=== PATIENT | female | born 1950 | race Caucasian/White ===

== ENCOUNTER 2019-05-12 00:25 | Day surgery (SDC) | payer MEDICARE, SELFPAY ==
[2019-05-08 09:41] VITALS: BMI 31.8
[2019-05-12 13:08] VITALS: BP 132/83; PULSE 82; RESP 20; TEMP 37.2; O2SAT 94; BMI 32.4
[2019-05-12] MEDS: LACTATED RINGERS 1,000 ML 150 ML IV CONT (13:33)
--- NOTE | 2019-05-12 13:33 | WPDANESEPPF ---
Anes - Initial Pre Proc Eval Procedure: Operation Date: 05/12/19 13:30 Proposed Procedures p Esophagogastroduodenoscopy & Screening Colonoscopy - Edouard Chávez MD Date/Time: 05/12/19 13:33 Surgeon: Edouard Chávez MD Pre Op Diagnosis: GERD, nausea, vomiting, Colon CA screenin Patient Data Age: 69 Gender: F Height: 5 ft 4 in Weight: 85.8 kg Last Vital Signs Temp 37.2 C 05/12/19 13:08 Pulse 82 05/12/19 13:08 Resp 20 05/12/19 13:08 BP 132/83 05/12/19 13:08 Pulse Ox 94 05/12/19 13:08 Allergies Allergy/AdvReac Type Severity Reaction Status Date / Time oxycodone Allergy Severe ITCH Verified 05/12/19 13:07 strawberry Allergy Severe THROAT Verified 05/12/19 13:07 SWELLING Home Medications Medication Instructions Recorded Confirmed Type escitalopram oxalate 10 mg tablet 10 mg PO DAILY #90 tablet 02/18/19 05/08/19 Rx acetaminophen 650 mg 650 mg PO PRN PRN 04/13/19 05/08/19 History tablet,extended release aspirin 81 mg tablet,delayed 81 mg PO DAILY 04/13/19 05/08/19 History release atorvastatin 80 mg tablet 80 mg PO DAILY 04/13/19 05/08/19 History docusate sodium 250 mg capsule 250 mg PO DAILY 04/13/19 05/08/19 History esomeprazole magnesium 40 mg 40 mg PO DAILY #30 cap 04/13/19 05/08/19 Rx capsule,delayed release losartan 100 mg tablet 100 mg PO DAILY 04/13/19 05/12/19 History peg 3350-electrolytes 236 240 ml PO Q10M #4000 ml 04/13/19 Rx gram-22.74 gram-6.74 gram-5.86 gram solution sucralfate 1 gram tablet 1 g PO PRN PRN 04/13/19 05/08/19 History tramadol 50 mg tablet 50 mg PO Q6H PRN 04/13/19 05/08/19 History Patient hx anesthesia problems: none Family hx anesthesia problems: none PMFSH Past Medical History Medical History Adenomatous colon polyp Colon, diverticulosis Nausea and vomiting in adult Surgical History Surgical History History of appendectomy Family History Family History Father Family history of malignant neoplasm Family history of diabetes mellitus in first degree relative Diabetes mellitus, Onset Age: 72 Family history of cardiovascular disease, Onset Age: 72 Family history of malignant neoplasm of esophagus, Onset Age: 72 Mother Cerebrovascular accident, Onset Age: 72 Depression, Onset Age: 72 Hypertension, Onset Age: 72 Grandparent Diabetes mellitus, Onset Age: 65 Cerebrovascular accident, Onset Age: 92 Family history unknown, Onset Age: 65 Sibling Family history of alcoholism, Onset Age: 35 Social History Social History Smoking status: Never smoker Second hand tobacco smoke exposure: No Alcohol intake: never Anes - Eval Final PreProcedure Day of Procedure 05/12/19 13:33 Patient weight: obese Heart: regular rate and rhythm Lungs: clear to auscultation Airway: Mallampati scale class II Neurological: alert and oriented Last oral intake: >/= 8 hours ASA classification: III Emergent: no Anesthetic plan: proceed Anesthesia type and monitoring: general GIVS and standard monitoring Informed Consent: The patient's anesthetic plan and its attendant risks and benefits were discussed with the patient/family/POA. Questions were solicited and answers provided to the satisfaction of the patient/family/POA.
--- NOTE | 2019-05-12 14:31 | WPDHPUPDATE1 ---
History and Physical Update Update Date/Time: 05/12/19 14:31 History and Physical has been reviewed, including an updated exam of the patient. There are NO changes in the patient's condition. Risks, benefits, and alternatives have been discussed and questions answered. Patient agrees to proceed with procedure.
[2019-05-12 15:03] VITALS: BP 75/53; PULSE 82; RESP 15; O2SAT 98
[2019-05-12 15:13] VITALS: BP 97/54; PULSE 73; RESP 23; O2SAT 97
[2019-05-12 15:23] VITALS: BP 128/67; PULSE 75; RESP 23; O2SAT 97
== END 2019-05-12 15:32 | disposition home or self-care (01) ==
PROVIDERS: PCP Family Medicine; Visit Provider Internal Medicine Gastroenterology
PROC: 0DJ08ZZ Inspection of Upper Intestinal Tract, Via Natural or Artificial Opening Endoscopic (ICD-10-PCS; CPT 43235; principal; 2019-05-12 13:30)
DX: Z12.11 Encounter for screening for malignant neoplasm of colon (principal); D12.2 Benign neoplasm of ascending colon; D12.5 Benign neoplasm of sigmoid colon; D12.8 Benign neoplasm of rectum; K63.5 Polyp of colon; K57.30 Diverticulosis of large intestine without perforation or abscess without bleeding; K21.9 Gastro-esophageal reflux disease without esophagitis; K31.7 Polyp of stomach and duodenum; K44.9 Diaphragmatic hernia without obstruction or gangrene; K29.50 Unspecified chronic gastritis without bleeding; E66.9 Obesity, unspecified; Z68.32 Body mass index [BMI] 32.0-32.9, adult
CPT/HCPCS: 45385; 45381; 43239; 88305; J2704; J7120

== ENCOUNTER 2019-12-09 10:41 | Outpatient (CLI) | payer MEDICARE, SELFPAY ==
--- NOTE | ~2019-12-09 | XR_ITS ---
EXAMINATION: XR shoulder RT min 2V DATE: 12/09/2019 11:12 INDICATION: Right shoulder pain. TECHNIQUE: 4 views of right shoulder were obtained. COMPARISON: None. FINDINGS: Bone alignment is normal. No fracture. There is mild osteoarthritis of glenohumeral joint a nd severe osteoarthritis of acromioclavicular joint. Right first rib is short. IMPRESSION: 1. Polyarticular osteoarthritis. Reviewed, dictated and finalized at location A.
== END 2019-12-09 10:42 | disposition home or self-care (01) ==
PROVIDERS: PCP Internal Medicine; Visit Provider Clinical Nurse Specialist
DX: M19.011 Primary osteoarthritis, right shoulder (principal)
CPT/HCPCS: 73030

== ENCOUNTER → 2020-01-18 17:59 | Outpatient (CLI) | payer MEDICARE, SELFPAY ==
--- NOTE | ~2020-01-18 | MM_ITS ---
EXAMINATION: MM screening reji BI w opal HISTORY: Screening TECHNIQUE: Craniocaudal and mediolateral oblique 3-D tomosynthesis images were obtained and synthetic 2-D images were generated. CAD analysis was submitted and interpreted. COMPARISON: Comparison to multiple prior studies sequentially, with oldest reviewed study dated 05/2017. BREAST PARENCHYMAL COMPOSITION: There are scattered areas of fibroglandular density. FINDINGS: There is no evidence of suspicious mass, calcification, or architectural distortion to sugg est malignancy in either breast. There has been no suspicious interval change. IMPRESSION: 1. No mammographic evidence of malignancy. 2. Recommend routine screening mammography in one year. BI-RADS Category 1: Negative Reviewed, dictated and finalized at location A. 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
== END ==
PROVIDERS: PCP Internal Medicine; Visit Provider Internal Medicine
DX: Z12.31 Encounter for screening mammogram for malignant neoplasm of breast (principal)
CPT/HCPCS: 77063; 77067

== ENCOUNTER 2020-07-20 13:52 | Outpatient (CLI) | payer MEDICARE, SELFPAY ==
--- NOTE | ~2020-07-20 | US_ITS ---
EXAMINATION: US arterial ankle brachial ind DATE: 07/20/2020 14:16 INDICATION: Peripheral vascular disease. TECHNIQUE: Segmental pressures and plethysmographic and Doppler waveforms of the brachial and lower e xtremity arteries were obtained. COMPARISON: None. FINDINGS: Right and left brachial artery pressures of 113 mm Hg and 126 mm Hg, respectively, are concordant (no rmal difference <= 30 mmHg). The right ankle-brachial index (TREVOR) is 1.25 (normal >= 0.9-1.0). The right great toe-brachial index (TBI) is 0.90 (normal >= 0.65). Arterial Doppler waveforms are biphasic with brisk systolic upstrokes at both the right posterior tibial and dorsalis pedis arteries. The left TREVOR is 1.18. The left TBI is 0.63. Arterial Doppler waveforms are biphasic at the left poste rior tibial artery and triphasic at the left dorsalis pedis artery, both with brisk systolic upstroke s. IMPRESSION: 1. Minimal arterial occlusive disease to the left lower limb with minimally decreased left TBI but no rmal TREVOR. 2. No significant arterial occlusive disease to the right lower limb with normal right TREVOR and TBI. Reviewed, dictated and finalized at location A. IMPRESSION: 1. Minimal arterial occlusive disease to the left lower limb with minimally dec reased left TBI but normal TREVOR. 2. No significant arterial occlusive disease to the right lower limb with bre l right TREVOR and TBI.
== END 2020-07-20 13:53 | disposition home or self-care (01) ==
PROVIDERS: PCP Internal Medicine; Visit Provider Clinical Nurse Specialist
DX: I73.9 Peripheral vascular disease, unspecified (principal)
CPT/HCPCS: 93922

== ENCOUNTER 2021-03-21 07:55 | Outpatient (CLI) | payer MEDICARE, SELFPAY ==
--- NOTE | ~2021-03-21 | DEXA_ITS ---
Bone Density Report Name: ANNAMARIA CH Age: 71 Sex: Female Ethnicity: White Date of : 1950 Indication: postmenopausal; hysterectomy; Referring Provider: Roxi Jeter Study: Bone densitometry was performed. Exam Date: March 21, 2021 Accession number: [id number] Bone Density: Region BMD T-score Z-score Classification AP Spine (L1, L3, L4) 1.158 1.0 3.1 Normal Femoral Neck (Left) 0.844 0.0 1.7 Normal Total Hip (Left) 1.037 0.8 2.3 Normal Total Hip Bilateral Avg 1.051 0.9 2.4 Normal Femoral Neck (Right) 0.838 -0.1 1.7 Normal Total Hip (Right) 1.064 1.0 2.5 Normal World Health Organization criteria for BMD impression classify patients as: Normal (T-score at or above -1.0), Osteopenia (T-score between -1.0 and -2.5), or Osteoporosis (T-score at or below -2.5). 10-year Fracture Risk: FRAX not reported because: All T-scores for Spine Total, Hip Total, Femoral Neck at or above -1.0 Previous Exams: Region Exam Age BMD T-score BMD Change BMD Change Date g/cm2 vs Baseline vs Previous AP Spine(L1, L3, L4) 03/21/2021 71 1.158 1.0 0.042(3.8%)* 0.042(3.8%)* 12/18/2018 68 1.116 0.6 Total Hip(Left) 03/21/2021 71 1.037 0.8 -0.066(-6.0%)* -0.066(-6.0%)* 12/18/2018 68 1.104 1.3 Total Hip(Right) 03/21/2021 71 1.064 1.0 -0.052(-4.7%)* -0.052(-4.7%)* 12/18/2018 68 1.116 1.4 *Denotes significance at 95% confidence level, LSC for AP Spine = 0.022 g/cm2, LSC for Total Hip = 0.027 g/cm2 Clinical Information Provided by Patient: Has used the following medications: Vitamin D Has the following medical conditions: Hysterectomy Patient maximum height was 64 Menopause Age: 37 No regular weight bearing exercise Does not regularly consume dairy products Drinks caffeinated beverages Onset of menses at age 14 Number of children 2 Impression: The patient has normal bone mass. The BMD for the Total Hip(Left) decreased, changing by -6.0% since the last DXA exam. The BMD for the Total Hip(Right) decreased, changing by -4.7% since the last DXA exam. Discussion: BONE DENSITY IS ABOVE THE MINIMUM DESIRABLE LEVEL AT ALL SKELETAL SITES TESTED. This patient?s bone mineral density is above the minimum desirable level (T-score -1.0 or better) at all sites measured. The patient should follow a healthful lifestyle (good nutrition with adequate calcium and vitamin D, and appropriate weight-bearing exercise). Follow-Up: Consider repeating this study
--- NOTE | ~2021-03-21 | MM_ITS ---
EXAMINATION: MM screening [facility] BI w opal HISTORY: Screening mammogram TECHNIQUE: Craniocaudal and mediolateral oblique 3-D tomosynthesis images were obtained and synthetic 2-D images were generated. CAD analysis was submitted and interpreted. COMPARISON: 01/18/2020, 12/18/2018, 09/17/2017 BREAST PARENCHYMAL COMPOSITION: The breasts are heterogeneously dense, which may obscure small masses . FINDINGS: There is no evidence of suspicious mass, calcification, or architectural distortion to sugg est malignancy in either breast. There has been no suspicious interval change. IMPRESSION: 1. No mammographic evidence of malignancy. 2. Recommend routine screening mammography in one year. BI-RADS Category 1: Negative Reviewed, dictated and finalized at location A. 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
== END 2021-03-21 07:56 | disposition home or self-care (01) ==
LOC: ANHIMG 08:00
PROVIDERS: PCP Internal Medicine; Visit Provider Clinical Nurse Specialist
DX: Z12.31 Encounter for screening mammogram for malignant neoplasm of breast (principal); Z13.820 Encounter for screening for osteoporosis; Z78.0 Asymptomatic menopausal state
CPT/HCPCS: 77063; 77067; 77080

== ENCOUNTER → 2021-06-15 14:25 | Outpatient (CLI) | payer MEDICARE, SELFPAY ==
--- NOTE | ~2021-06-15 | XR_ITS ---
EXAMINATION: XR hip RT min 2V DATE: 06/15/2021 14:48 INDICATION: Right hip pain. TECHNIQUE: 2 views of right hip were obtained. COMPARISON: None. FINDINGS: Bone alignment is normal. No fracture. There is mild right hip osteoarthritis. IMPRESSION: 1. Mild right hip osteoarthritis. Reviewed, dictated and finalized at location A.
--- NOTE | ~2021-06-15 | XR_ITS ---
XR lumbar spine 2-3V DATE: 06/15/2021 14:48 INDICATION: Back pain TECHNIQUE: AP, lateral, coned lateral lumbosacral views COMPARISON: None FINDINGS: There is diffuse osteopenia. Mild levoscoliosis of the lumbar spine. Prominent anterior bridging osteophyte at T10-11. There are 6 functional lumbar vertebrae, apparently due to lumbarized S1.. There is moderate to moderately severe degenerative disc disease throughout the lumbar and lumbosacra l spine. There is associated mild retrolisthesis at L3-4 and L4-5. There is degenerative change of the lower lumbar apophyseal joints with associated grade 1 anterolist hesis at L5 6 Sacroiliac joints appear normal. Surgical clips, right upper quadrant, likely due to cholecystectomy. IMPRESSION: Mild levoscoliosis Osteopenia Moderate to moderately severe degenerative disc disease, associated mild retrolisthesis at L3-4 and L 4-5 Degenerative changes apophyseal joints with associated grade 1 anterolisthesis at L5 L6 Reviewed, dictated and finalized at location A. IMPRESSION: Mild levoscoliosis Osteopenia Moderate to moderately severe degenerative disc disease, associated mild retrol isthesis at L3-4 and L4-5 Degenerative changes apophyseal joints with associated grade 1 anterolisthesis at L5 L6
== END ==
PROVIDERS: PCP Internal Medicine; Visit Provider Clinical Nurse Specialist
DX: M47.816 Spondylosis without myelopathy or radiculopathy, lumbar region (principal); M16.11 Unilateral primary osteoarthritis, right hip
CPT/HCPCS: 72100; 73502

== ENCOUNTER 2022-02-21 15:11 | Outpatient (CLI) | payer MEDICARE, SELFPAY ==
[2022-02-21 15:26] LABS: Basophils Absolute Auto 0.1 K/mm3 (0.0-0.1); Basophils Percent Auto 0.5 % (0.2-1.2); Eosinophils Absolute Auto 0.2 K/mm3 (0-0.3); Eosinophils Percent Auto 1.6 % (0-4.4); Hematocrit 39.8 % (37.0-47.0); Hemoglobin 13.3 g/dL (12.0-15.0); Immature Granulocyte Absolute 0.04 K/mm3 (0.00-0.031); Immature Granulocyte Percent A 0.4 % (0-0.5); Lymphocytes Percent Auto 20.3 % (18.3-44.2); Mean Corpuscular HGB Conc 33.4 g/dl (32-36); Mean Corpuscular Hemoglobin 29.9 pg (26-34); Mean Corpuscular Volume 89.4 fl (80-100); Mean Platelet Volume 9.4 fl (7.4-10.4); Monocytes Absolute Auto 0.5 K/mm3 (0.1-0.6); Monocytes Percent Auto 5.4 % (2.6-8.5); Neutrophils Absolute Auto 7.1 K/mm3 (1.3-6.7); Neutrophils Percent Auto 71.8 % (45.5-73.1); Platelet Count Result 226 k/mm3 (150-375); Red Blood Count 4.45 M/mm3 (4.2-5.4); Red Cell Distribution Width 14.1 % (11.5-14.5); White Blood Count 9.8 K/mm3 (4.5-10.0)
[2022-02-21 15:57] LABS: Iron 72 ug/dL (37-170)
[2022-02-21 15:59] LABS: Alanine Aminotransferase 48 U/L (6-35); Albumin Level 4.5 g/dL (3.5-5.1); Alkaline Phosphatase 90 U/L (38-126); Anion Gap 8 mmol/L (8-16); Aspartate Amino Transferase 65 U/L (14-36); Bilirubin,Total 0.8 mg/dL (0.2-1.3); Blood Urea Nitrogen 10 mg/dL (7-17); Calcium 9.1 mg/dL (8.4-10.2); Carbon Dioxide 30 mmol/L (22-30); Chloride 96 mmol/L (98-107); Estimated Glomerular Filt Rate > 60; Glucose 92 mg/dL (65-110); Sodium 134 mmol/L (137-145)
[2022-02-21 16:10] LABS: Percent Iron Saturation 18 % (20-50)
== END 2022-02-21 15:12 | disposition home or self-care (01) ==
LOC: ANHLAB 15:12
PROVIDERS: PCP Internal Medicine; Visit Provider Internal Medicine Hematology & Oncology
DX: D64.9 Anemia, unspecified (principal)
CPT/HCPCS: 36415; 80053; 82607; 82728; 83540; 83550; 85025

== ENCOUNTER 2022-05-10 01:12 | Day surgery (SDC) | payer MEDICARE, SELFPAY ==
[2022-04-26 13:23] VITALS: BMI 27.6
--- NOTE | 2022-05-09 14:11 | PM.HPGS ---
History of Present Illness History of Present Illness Consent: Risks, benefits, and alternatives have been discussed and questions answered. Patient agrees to proceed with procedure. Chief complaint: HX OF COLON POLYPS, DYSPHAGIA Narrative: Peng Le is a 72 year old female Who had been having increasing dysphagia.? A couple times a week she would need to stop eating because food, particularly chicken would seem to get caught just below her throat.? She would wait for a while for it to pass.? She was not able to regurgitate it back up.? She saw her primary care provider and was switched from Protonix to esomeprazole, which did seem to help. Her father had esophageal cancer. She has history of colon polyps Review of Systems Review of Systems: All systems reviewed & are unremarkable except as noted in HPI and below PMFSH Past Medical History Medical History Actinic keratosis Adenomatous colon polyp Anxiety Arthritis Cholecystectomy planned 2004 Colon, diverticulosis Cyst of finger 09/19/2016 Essential (primary) hypertension Gastroesophageal reflux disease Hyperlipidemia SEE (nonalcoholic steatohepatitis) 10 years ago, secondary to medications at the time, resolved Nausea and vomiting in adult Rib pain on right side Removed 1988 Skin cancer Surgical History Surgical History H/O foot surgery X 4 Right foot [id number] Left: 01/2014; bunionectomy/osteotomy 2nd toe Bunionectomy and Hardware removed: 05/23/2015 Left foot tumor removed/nerve relocation: 12/05/2018 H/O removal of cyst Right side 1981 H/O vaginal hysterectomy 1987 History of appendectomy 02/2003 History of cataract surgery Right: 02/01/2001 Laser Capsulotomy. Left: 01/13/2015 History of liver biopsy 07/14/2007 History of nasal surgery Biopsy right side of nose- Squamous cell carcinoma. Cyst right side of nose Family History Family History Father Family history of malignant neoplasm Family history of diabetes mellitus in first degree relative Diabetes mellitus, Onset Age: 72 Family history of cardiovascular disease, Onset Age: 72 Family history of malignant neoplasm of esophagus, Onset Age: 72 Pacemaker CHF (congestive heart failure) COPD (chronic obstructive pulmonary disease) Hyperlipidemia Hypertriglyceridemia Barretts esophagus Mother Cerebrovascular accident, Onset Age: 72 Depression, Onset Age: 72 Hypertension, Onset Age: 72 Pacemaker Cardiac valve prolapse Grandparent Diabetes mellitus, Onset Age: 65 Cerebrovascular accident, Onset Age: 92 Family history unknown, Onset Age: 65 Sibling Family history of alcoholism, Onset Age: 35 Motor vehicle accident Social History Social History Smoking status: Never smoker Second hand tobacco smoke exposure: No Alcohol intake: never Substance use: never Living arrangements: alone Meds Home Medications and Allergies Home Medications Medication Instructions Recorded Confirmed Type acetaminophen 650 mg 650 mg PO PRN PRN Pain 04/13/19 05/10/22 History tablet,extended release (Tylenol 8 Hour) aspirin 81 mg tablet,delayed 81 mg PO DAILY 04/13/19 05/10/22 History release (Adult Aspirin Regimen) docusate sodium 250 mg capsule 250 mg PO DAILY 04/13/19 05/10/22 History cholecalciferol (vitamin D3) 50 2,000 unit PO DAILY 10/05/20 05/10/22 History mcg (2,000 unit) capsule atorvastatin 80 mg tablet See Rx Instructions .Route 12/13/21 05/10/22 Rx .COMPLEX #90 tabs escitalopram oxalate 10 mg tablet See Rx Instructions .Route 12/13/21 05/10/22 Rx .COMPLEX #90 tabs esomeprazole magnesium 40 mg 40 mg PO DAILY #90 caps 12/13/21 05/10/22 Rx capsule,delayed release (Nexium)
[2022-05-10 08:22] VITALS: BP 115/74; PULSE 83; RESP 18; TEMP 36.4; O2SAT 100; BMI 27.3
--- NOTE | 2022-05-10 08:32 | WPDANESEPPF ---
Anes - Initial Pre Proc Eval Procedure: Operation Date: 05/10/22 09:45 Proposed Procedures p Esophagogastroduodenoscopy & Screening Colonoscopy - Jax Metz MD Date/Time: 05/10/22 08:32 Surgeon: Jax Metz MD Pre Op Diagnosis: HX OF COLON POLYPS, DYSPHAGIA Patient Data Age: 72 Gender: F Height: 1.63 m Weight: 72.4 kg Last Vital Signs Temp 36.4 C 05/10/22 08:22 Pulse 83 05/10/22 08:22 Resp 18 05/10/22 08:22 BP 115/74 05/10/22 08:22 Pulse Ox 100 05/10/22 08:22 O2 Del Method Room Air 05/10/22 08:22 Allergies Allergy/AdvReac Type Severity Reaction Status Date / Time oxycodone Allergy Severe ITCH Verified 05/10/22 08:20 strawberry Allergy Severe THROAT Verified 05/10/22 08:20 SWELLING acetaminophen [From Percocet] Allergy Itching Verified 05/10/22 08:20 Home Medications Medication Instructions Recorded Confirmed Type acetaminophen 650 mg 650 mg PO PRN PRN Pain 04/13/19 05/10/22 History tablet,extended release (Tylenol 8 Hour) aspirin 81 mg tablet,delayed 81 mg PO DAILY 04/13/19 05/10/22 History release (Adult Aspirin Regimen) docusate sodium 250 mg capsule 250 mg PO DAILY 04/13/19 05/10/22 History cholecalciferol (vitamin D3) 50 2,000 unit PO DAILY 10/05/20 05/10/22 History mcg (2,000 unit) capsule atorvastatin 80 mg tablet See Rx Instructions .Route 12/13/21 05/10/22 Rx .COMPLEX #90 tabs escitalopram oxalate 10 mg tablet See Rx Instructions .Route 12/13/21 05/10/22 Rx .COMPLEX #90 tabs esomeprazole magnesium 40 mg 40 mg PO DAILY #90 caps 12/13/21 05/10/22 Rx capsule,delayed release (Nexium) hydrocodone 7.5 mg-acetaminophen 1 tablet PO Q8H PRN pain #30 tabs 12/13/21 05/10/22 Rx 325 mg tablet losartan 50 mg tablet 50 mg PO DAILY #90 tabs 12/13/21 05/10/22 Rx sucralfate 1 gram tablet 1 g PO PRN PRN Acid Reflux #90 tabs 12/13/21 05/10/22 Rx Patient hx anesthesia problems: none Family hx anesthesia problems: none Results Review: All pre-operative results and documents have been reviewed as part of the pre-operative evaluation. [facility] Past Medical History Medical History (Updated 05/10/22 @ 08:36 by Sloan Corrales, ) Actinic keratosis Adenomatous colon polyp Anxiety Arthritis Cholecystectomy planned 2004 Colon, diverticulosis Cyst of finger 09/19/2016 Essential (primary) hypertension Gastroesophageal reflux disease Hyperlipidemia SEE (nonalcoholic steatohepatitis) 10 years ago, secondary to medications at the time, resolved Nausea and vomiting in adult Rib pain on right side Removed 1988 Skin cancer Surgical History Surgical History H/O foot surgery X 4 Right foot [id number] Left: 01/2014; bunionectomy/osteotomy 2nd toe Bunionectomy and Hardware removed: 05/23/2015 Left foot tumor removed/nerve relocation: 12/05/2018 H/O removal of cyst Right side 1981 H/O vaginal hysterectomy 1987 History of appendectomy 02/2003 History of cataract surgery Right: 02/01/2001 Laser Capsulotomy. Left: 01/13/2015 History of liver biopsy 07/14/2007 History of nasal surgery Biopsy right side of nose- Squamous cell carcinoma. Cyst right side of nose Family History Family History Father Family history of malignant neoplasm Family history of diabetes mellitus in first degree relative Diabetes mellitus, Onset Age: 72 Family history of cardiovascular disease, Onset Age: 72 Family history of malignant neoplasm of esophagus, Onset Age: 72 Pacemaker CHF (congestive heart failure) COPD (chronic obstructive pulmonary disease) Hyperlipidemia Hypertriglyceridemia Barretts esophagus Mother Cerebrovascular accident, Onset Age: 72 Depression, Onset Age: 72 Hypertension, Onset Age: 72 Pacemaker Cardiac valve prolapse Grandparent Diabetes mellitus, Onset Age
[2022-05-10] MEDS: LACTATED RINGERS 1,000 ML 150 ML IV CONT (08:33)
--- NOTE | 2022-05-10 09:26 | SUR.OPER ---
Addendum entered by Bibi Hernandez RN 05/10/22 09:33: Colon start 935 Original Note: EGD start 920 end 929, Colon start
[2022-05-10 09:49] VITALS: BP 74/45; PULSE 68; RESP 26; O2SAT 97
[2022-05-10 09:59] VITALS: BP 77/47; PULSE 73; RESP 21; O2SAT 96
[2022-05-10 10:09] VITALS: BP 92/61; PULSE 67; RESP 14; O2SAT 98
== END 2022-05-10 10:19 | disposition home or self-care (01) ==
PROVIDERS: PCP Internal Medicine; Visit Provider Internal Medicine Gastroenterology
PROC: 0DJ08ZZ Inspection of Upper Intestinal Tract, Via Natural or Artificial Opening Endoscopic (ICD-10-PCS; CPT 43235; principal; 2022-05-10 09:45)
DX: Z12.11 Encounter for screening for malignant neoplasm of colon (principal); K57.30 Diverticulosis of large intestine without perforation or abscess without bleeding; Z86.010 Personal history of colon polyps; K22.2 Esophageal obstruction; K44.9 Diaphragmatic hernia without obstruction or gangrene; K31.7 Polyp of stomach and duodenum; I10 Essential (primary) hypertension; E78.5 Hyperlipidemia, unspecified; F41.9 Anxiety disorder, unspecified; Z79.82 Long term (current) use of aspirin
CPT/HCPCS: 43249; G0105; C1726; J2704; J7120

== ENCOUNTER 2022-05-14 14:39 | Outpatient (CLI) | payer MEDICARE, SELFPAY ==
--- NOTE | ~2022-05-14 | MM_ITS ---
EXAMINATION: MM screening reji BI w opal HISTORY: Screening mammogram TECHNIQUE: Craniocaudal and mediolateral oblique 3-D tomosynthesis images were obtained and synthetic 2-D images were generated. CAD analysis was submitted and interpreted. COMPARISON: 03/2021, 01/18/2020, 01/04/2019 bilateral screening mammogram examinations BREAST PARENCHYMAL COMPOSITION: The breasts are heterogeneously dense, which may obscure small masses . FINDINGS: There is no evidence of suspicious mass, calcification, or architectural distortion to sugg est malignancy in either breast. There has been no suspicious interval change. IMPRESSION: 1. No mammographic evidence of malignancy. 2. Recommend routine screening mammography in one year. BI-RADS Category 1: Negative Reviewed, dictated and finalized at location A. 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
== END 2022-05-14 14:40 | disposition home or self-care (01) ==
LOC: ANHIMG 14:42
PROVIDERS: PCP Internal Medicine; Visit Provider Clinical Nurse Specialist
DX: Z12.31 Encounter for screening mammogram for malignant neoplasm of breast (principal)
CPT/HCPCS: 77063; 77067

== ENCOUNTER 2023-01-10 01:31 | Day surgery (SDC) | payer MEDICARE, SELFPAY ==
[2023-01-02 10:53] VITALS: BMI 27.8
[2023-01-10 12:03] VITALS: BP 140/80; PULSE 80; RESP 18; TEMP 36.5; O2SAT 97; BMI 28.1
[2023-01-10] MEDS: LACTATED RINGERS 1,000 ML 150 ML IV CONT (12:06)
--- NOTE | 2023-01-10 12:26 | PM.HPGS ---
History of Present Illness History of Present Illness Consent: Risks, benefits, and alternatives have been discussed and questions answered. Patient agrees to proceed with procedure. Chief complaint: dysphagia Narrative: Peng Le is a 72 year old female Who is here today because of difficulty with swallowing.? She has a history of having esophageal stricture.? She has had dysphagia for few years.? I had performed an EGD on her about 6 months ago and she did have a stricture which was dilated with a balloon up to 20 mm.? This seemed to help her for short time but now she is back to where she was where least once or twice a week she will have food get caught up in the upper esophagus when she is eating. [facility] Past Medical History Medical History Abnormal ankle brachial index (TREVOR) Actinic keratosis Adenomatous colon polyp Anxiety Arthritis Cholecystectomy planned 2004 Colon, diverticulosis Cyst of finger 09/19/2016 Essential (primary) hypertension Gastroesophageal reflux disease Hyperlipidemia SEE (nonalcoholic steatohepatitis) 10 years ago, secondary to medications at the time, resolved Nausea and vomiting in adult Rib pain on right side Removed 1988 Screening for breast cancer Screening for osteoporosis Skin cancer Surgical History Surgical History H/O foot surgery X 4 Right foot [id number] Left: 01/2014; bunionectomy/osteotomy 2nd toe Bunionectomy and Hardware removed: 05/23/2015 Left foot tumor removed/nerve relocation: 12/05/2018 H/O removal of cyst Right side 1981 H/O vaginal hysterectomy 1987 History of appendectomy 02/2003 History of cataract surgery Right: 02/01/2001 Laser Capsulotomy. Left: 01/13/2015 History of liver biopsy 07/14/2007 History of nasal surgery Biopsy right side of nose- Squamous cell carcinoma. Cyst right side of nose Family History Family History Father Family history of malignant neoplasm Family history of diabetes mellitus in first degree relative Diabetes mellitus, Onset Age: 72 Family history of cardiovascular disease, Onset Age: 72 Family history of malignant neoplasm of esophagus, Onset Age: 72 Pacemaker CHF (congestive heart failure) COPD (chronic obstructive pulmonary disease) Hyperlipidemia Hypertriglyceridemia Barretts esophagus Mother Cerebrovascular accident, Onset Age: 72 Depression, Onset Age: 72 Hypertension, Onset Age: 72 Pacemaker Cardiac valve prolapse Grandparent Diabetes mellitus, Onset Age: 65 Cerebrovascular accident, Onset Age: 92 Family history unknown, Onset Age: 65 Sibling Family history of alcoholism, Onset Age: 35 Motor vehicle accident Social History Social History Smoking status: Never smoker Second hand tobacco smoke exposure: No Alcohol intake: never Substance use: never Substance use type: does not use Lack of Transportation: No Lack of Food: Never True Current Housing: I Have Housing Concerned About Future Housing: No Difficulty Paying Gas/Electric Bills: No Difficulty Paying for Meds: No Currently Unemployed: No Education: High School Diploma/GED Difficulty w/ Childcare or Family Care: No Living arrangements: with family Spiritual care concerns: No Meds Home Medications and Allergies Home Medications Medication Instructions Recorded Confirmed Type acetaminophen 650 mg 650 mg PO PRN PRN Pain 04/13/19 01/10/23 History tablet,extended release (Tylenol 8 Hour) aspirin 81 mg tablet,delayed 81 mg PO DAILY 04/13/19 01/10/23 History release (Adult Aspirin Regimen) docusate sodium 250 mg capsule 250 mg PO DAILY 04/13/19 01/10/23 History cholecalciferol (vitamin D3) 50 2,000 unit PO DAILY
--- NOTE | 2023-01-10 12:52 | WPDANESEPPF ---
Anes - Initial Pre Proc Eval Procedure: Operation Date: 01/10/23 13:30 Proposed Procedures p Esophagogastroduodenoscopy - Jax Metz MD Date/Time: 01/10/23 12:52 Surgeon: Jax Metz MD Pre Op Diagnosis: dysphagia Patient Data Age: 72 Gender: F Height: 1.63 m Weight: 74.5 kg Last Vital Signs Temp 97.7 F 01/10/23 12:03 Pulse 80 01/10/23 12:03 Resp 18 01/10/23 12:03 BP 140/80 01/10/23 12:03 Pulse Ox 97 01/10/23 12:03 O2 Del Method Room Air 01/10/23 12:03 Allergies Allergy/AdvReac Type Severity Reaction Status Date / Time oxycodone Allergy Severe ITCH Verified 01/10/23 12:02 strawberry Allergy Severe THROAT Verified 01/10/23 12:02 SWELLING acetaminophen [From Percocet] Allergy Itching Verified 01/10/23 12:02 Home Medications Medication Instructions Recorded Confirmed Type acetaminophen 650 mg 650 mg PO PRN PRN Pain 04/13/19 01/10/23 History tablet,extended release (Tylenol 8 Hour) aspirin 81 mg tablet,delayed 81 mg PO DAILY 04/13/19 01/10/23 History release (Adult Aspirin Regimen) docusate sodium 250 mg capsule 250 mg PO DAILY 04/13/19 01/10/23 History cholecalciferol (vitamin D3) 50 2,000 unit PO DAILY 10/05/20 01/10/23 History mcg (2,000 unit) capsule atorvastatin 80 mg tablet See Rx Instructions .Route 12/18/22 01/10/23 Rx .COMPLEX #90 tabs escitalopram oxalate 10 mg tablet See Rx Instructions .Route 12/18/22 01/10/23 Rx .COMPLEX #90 tabs esomeprazole magnesium 40 mg 40 mg PO DAILY #90 caps 12/18/22 01/10/23 Rx capsule,delayed release (Nexium) hydrocodone 7.5 mg-acetaminophen 1 tablet PO Q8H PRN pain #30 tabs 12/18/22 01/10/23 Rx 325 mg tablet losartan 50 mg tablet 50 mg PO DAILY #90 tabs 12/18/22 01/10/23 Rx sucralfate 1 gram tablet 1 g PO BID Acid Reflux #180 tabs 12/25/22 01/10/23 Rx Patient hx anesthesia problems: none Family hx anesthesia problems: none Results Review: All pre-operative results and documents have been reviewed as part of the pre-operative evaluation. [facility] Past Medical History Medical History Abnormal ankle brachial index (TREVOR) Actinic keratosis Adenomatous colon polyp Anxiety Arthritis Cholecystectomy planned 2004 Colon, diverticulosis Cyst of finger 09/19/2016 Essential (primary) hypertension Gastroesophageal reflux disease Hyperlipidemia SEE (nonalcoholic steatohepatitis) 10 years ago, secondary to medications at the time, resolved Nausea and vomiting in adult Rib pain on right side Removed 1988 Screening for breast cancer Screening for osteoporosis Skin cancer Surgical History Surgical History H/O foot surgery X 4 Right foot [id number] Left: 01/2014; bunionectomy/osteotomy 2nd toe Bunionectomy and Hardware removed: 05/23/2015 Left foot tumor removed/nerve relocation: 12/05/2018 H/O removal of cyst Right side 1981 H/O vaginal hysterectomy 1987 History of appendectomy 02/2003 History of cataract surgery Right: 02/01/2001 Laser Capsulotomy. Left: 01/13/2015 History of liver biopsy 07/14/2007 History of nasal surgery Biopsy right side of nose- Squamous cell carcinoma. Cyst right side of nose Family History Family History Father Family history of malignant neoplasm Family history of diabetes mellitus in first degree relative Diabetes mellitus, Onset Age: 72 Family history of cardiovascular disease, Onset Age: 72 Family history of malignant neoplasm of esophagus, Onset Age: 72 Pacemaker CHF (congestive heart failure) COPD (chronic obstructive pulmonary disease) Hyperlipidemia Hypertriglyceridemia Barretts esophagus Mother Cerebrovascular accident, Onset Age: 72 Depression, Onset Age: 72 Hypertension, Onset Age: 72 Pacemaker Cardiac valve prolapse Grandparent Dec
[2023-01-10] MEDS: BENZOCAINE (*SP) 60 ML SPRAY CAN (HURRICAINE) 1 SPRAY MUCOUS MEM (12:59)
[2023-01-10 13:10] VITALS: BP 84/55; PULSE 77; RESP 28; O2SAT 90
[2023-01-10 13:20] VITALS: BP 101/68; PULSE 69; RESP 11; O2SAT 97
[2023-01-10 13:30] VITALS: BP 114/73; PULSE 67; RESP 16; O2SAT 91
== END 2023-01-10 13:35 | disposition home or self-care (01) ==
PROVIDERS: PCP Internal Medicine; Visit Provider Internal Medicine Gastroenterology
PROC: 0DJ08ZZ Inspection of Upper Intestinal Tract, Via Natural or Artificial Opening Endoscopic (ICD-10-PCS; CPT 43235; principal; 2023-01-10 13:30)
DX: K22.2 Esophageal obstruction (principal); K44.9 Diaphragmatic hernia without obstruction or gangrene; K21.00 Gastro-esophageal reflux disease with esophagitis, without bleeding; I10 Essential (primary) hypertension; F41.9 Anxiety disorder, unspecified; E78.5 Hyperlipidemia, unspecified; K75.81 Nonalcoholic steatohepatitis (NASH)
CPT/HCPCS: 43249; 88305; C1726; J2371; J7120

== ENCOUNTER 2023-02-21 08:36 | Outpatient (CLI) | payer MEDICARE, SELFPAY ==
--- NOTE | ~2023-02-21 | CT_ITS ---
Clinical Indication: Chronic cough CT Scan of the Chest with Contrast: Technique: Contiguous sections were acquired throughout the chest after intravenous administration of 75 cc of Omnipaque 350. Dose reduction technique was used on this scan by utilizing automated exposu re control and iterative reconstruction technique. The dose-length product (DLP) was 243.44 mGy-cm. Findings: There is no evidence of any significant mediastinal, hilar or axillary lymphadenopathy. There is no f illing defect in the pulmonary arterial tree to suggest pulmonary embolus. There is no evidence of ao rtic dissection or aneurysm. There is no evidence of pleural or pericardial effusion. The lungs are clear. No pulmonary nodules or infiltrates are noted. Images through the upper abdomen reveal moderate hiatal hernia. Impression: Moderate hiatal hernia. Clear lungs. Reviewed, dictated and finalized at [facility]. 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 Clear lungs.
[2023-02-21 09:10] LABS: Estimated Glomerular Filt Rate > 60
== END 2023-02-21 08:37 | disposition home or self-care (01) ==
PROVIDERS: PCP Internal Medicine; Visit Provider Clinical Nurse Specialist
DX: R05.3 Chronic cough (principal); K44.9 Diaphragmatic hernia without obstruction or gangrene
CPT/HCPCS: 71260; Q9967

== ENCOUNTER 2023-02-24 10:03 | Emergency (ER) | payer MEDICARE, SELFPAY ==
[2023-02-24 10:08] VITALS: BP 161/82; PULSE 70; RESP 16; TEMP 36.6; O2SAT 98
--- NOTE | 2023-02-24 10:26 | ED.FEMALEGU ---
HPI - Female Genitourinary General Chief complaint: Urogenital-Female Stated complaint: Uti symptoms Time Seen by Provider: 02/24/23 10:21 Source: patient and RN notes reviewed Mode of arrival: ambulatory Limitations: no limitations History of Present Illness HPI Narrative: Patient presents today complaining of 2 day history of malodorous urine, with dysuria that started yesterday and hematuria that started today. Denies abdominal pain, back pain, fever. She has tried no [id number] treatment prior to arrival. Related Data Home Medications Medication Instructions Recorded Confirmed acetaminophen 650 mg 650 mg PO PRN PRN Pain 04/13/19 01/10/23 tablet,extended release (Tylenol 8 Hour) aspirin 81 mg tablet,delayed 81 mg PO DAILY 04/13/19 01/10/23 release (Adult Aspirin Regimen) docusate sodium 250 mg capsule 250 mg PO DAILY 04/13/19 01/10/23 cholecalciferol (vitamin D3) 50 2,000 unit PO DAILY 10/05/20 01/10/23 mcg (2,000 unit) capsule Allergies Allergy/AdvReac Type Severity Reaction Status Date / Time oxycodone Allergy Severe ITCH Verified 01/10/23 12:02 strawberry Allergy Severe THROAT Verified 01/10/23 12:02 SWELLING acetaminophen [From Percocet] Allergy Itching Verified 01/10/23 12:02 Review of Systems Review of Systems: CONSTITUTIONAL: Denies body aches, fever, chills, or sweats. EYES: Denies visual changes, redness, or discharge. ENT: Denies rhinorrhea, congestion, sore throat, or otalgia. CARDIOVASCULAR: Denies chest pain, palpitations, or edema. RESPIRATORY: Denies cough or dyspnea. GASTROINTESTINAL: Denies abdominal pain, nausea, vomiting, or diarrhea. GENITOURINARY: + dysuria, hematuria, malodorous urine. SKIN: Denies rash, itching, or wounds. MUSCULOSKELETAL: Denies back pain, joint pain, or myalgia. NEUROLOGIC: Denies headache, numbness, tingling, or weakness. PSYCH: Denies depression or anxiety. [facility] Past Medical History Medical History Abnormal ankle brachial index (TREVOR) Actinic keratosis Adenomatous colon polyp Anxiety Arthritis Cholecystectomy planned 2004 Colon, diverticulosis Cyst of finger 09/19/2016 Essential (primary) hypertension Gastroesophageal reflux disease Hyperlipidemia SEE (nonalcoholic steatohepatitis) 10 years ago, secondary to medications at the time, resolved Nausea and vomiting in adult Rib pain on right side Removed 1988 Screening for breast cancer Screening for osteoporosis Skin cancer Surgical History Surgical History H/O foot surgery X 4 Right foot [phone] Left: 01/2014; bunionectomy/osteotomy 2nd toe Bunionectomy and Hardware removed: 05/23/2015 Left foot tumor removed/nerve relocation: 12/05/2018 H/O removal of cyst Right side 1981 H/O vaginal hysterectomy 1987 History of appendectomy 02/2003 History of cataract surgery Right: 02/01/2001 Laser Capsulotomy. Left: 01/13/2015 History of liver biopsy 07/14/2007 History of nasal surgery Biopsy right side of nose- Squamous cell carcinoma. Cyst right side of nose Family History Family History Father Family history of malignant neoplasm Family history of diabetes mellitus in first degree relative Diabetes mellitus, Onset Age: 72 Family history of cardiovascular disease, Onset Age: 72 Family history of malignant neoplasm of esophagus, Onset Age: 72 Pacemaker CHF (congestive heart failure) COPD (chronic obstructive pulmonary disease) Hyperlipidemia Hypertriglyceridemia Barretts esophagus Mother Cerebrovascular accident, Onset Age: 72 Depression, Onset Age: 72 Hypertension, Onset Age: 72 Pacemaker Cardiac valve prolapse Grandparent Diabetes mellitus, Onset Age: 65 Cerebrovascular accident, Onset Age: 92 Family history unknown, Ons
== END 2023-02-24 10:31 | disposition home or self-care (01) ==
PROVIDERS: Emergency Provider Nurse Practitioner; PCP Clinical Nurse Specialist
DX: N39.0 Urinary tract infection, site not specified (principal); B96.20 Unspecified Escherichia coli [E. coli] as the cause of diseases classified elsewhere; I10 Essential (primary) hypertension; K21.9 Gastro-esophageal reflux disease without esophagitis; E78.5 Hyperlipidemia, unspecified; M19.90 Unspecified osteoarthritis, unspecified site; Z85.828 Personal history of other malignant neoplasm of skin
CPT/HCPCS: 81003; 87077; 87086; 87186; 99213; G0463

== ENCOUNTER 2023-06-08 11:13 | Emergency (ER) | payer MEDICARE, SELFPAY ==
[2023-06-08 11:35] VITALS: BP 130/91; PULSE 74; RESP 16; TEMP 37.5; O2SAT 98
--- NOTE | 2023-06-08 11:44 | ED.WOUNDLAC ---
HPI - Wound/Laceration General Chief Complaint: Wound/Laceration Stated Complaint: FINGER LACERATION/NEEDS TETANUS SHOT Source: patient, RN notes reviewed and old records reviewed Mode of arrival: ambulatory Limitations: no limitations History of Present Illness HPI narrative: 73-year-old female presents to [facility] with complaints of lacerations to left 3rd and 4th finger that occurred approximately 6:00 p.m. last night. Patient states was sharpening a knife and cut herself. Patient states tetanus is not up-to-date. Patient states laceration on 3rd finger would not stop bleeding. Related Data Home Medications Medication Instructions Recorded Confirmed aspirin 81 mg tablet,delayed 81 mg PO DAILY 04/13/19 06/08/23 release (Adult Aspirin Regimen) cholecalciferol (vitamin D3) 50 2,000 unit PO DAILY 10/05/20 06/08/23 mcg (2,000 unit) capsule Allergies Allergy/AdvReac Type Severity Reaction Status Date / Time oxycodone Allergy Severe ITCH Verified 06/08/23 11:38 strawberry Allergy Severe THROAT Verified 06/08/23 11:38 SWELLING acetaminophen [From Percocet] Allergy Itching Verified 06/08/23 11:38 Review of Systems Constitutional: Constitutional: Reports no additional constitutional complaints, Denies body ache(s), Denies chills, Denies fatigue, Denies fever(s) and Denies headache(s) Eyes: Eyes: Reports no additional eye complaints and Denies blurry vision ENT: Reports system reviewed and no additional complaints, except as documented, Denies vertigo, Denies dizziness, Denies ear discharge, Denies otalgia, Denies facial pain, Denies headache(s), Denies nasal congestion, Denies nasal discharge, Denies sinus pain, Denies sinus pressure and Denies sore throat Cardiovascular: Cardiovascular: Reports no additional cardiovascular complaints, Denies chest pain, Denies chest pain at rest, Denies rapid heart rate and Denies dyspnea Respiratory: Respiratory: Reports no additional respiratory complaints, Denies chest congestion, Denies cough, Denies pain on inspiration, Denies pain with cough and Denies dyspnea Gastrointestinal: Gastrointestinal: Denies abdominal pain, Denies diarrhea, Denies nausea and Denies vomiting Integumentary/Breasts: Skin/Breast: Denies rash and Reports wounds Neurologic: Reports system reviewed and no additional complaints, except as documented, Denies vertigo, Denies dizziness and Denies headache(s) Endocrine: Endocrine: Denies fatigue PMFSH Past Medical History Medical History Abnormal ankle brachial index (TREVOR) Actinic keratosis Adenomatous colon polyp Anxiety Arthritis Cholecystectomy planned 2004 Colon, diverticulosis Cyst of finger 09/19/2016 Essential (primary) hypertension Gastroesophageal reflux disease Hyperlipidemia SEE (nonalcoholic steatohepatitis) 10 years ago, secondary to medications at the time, resolved Nausea and vomiting in adult Rib pain on right side Removed 1988 Screening for breast cancer Screening for osteoporosis Skin cancer Surgical History Surgical History H/O foot surgery X 4 Right foot [id number] Left: 01/2014; bunionectomy/osteotomy 2nd toe Bunionectomy and Hardware removed: 05/23/2015 Left foot tumor removed/nerve relocation: 12/05/2018 H/O removal of cyst Right side 1981 H/O vaginal hysterectomy 1987 History of appendectomy 02/2003 History of cataract surgery Right: 02/01/2001 Laser Capsulotomy. Left: 01/13/2015 History of liver biopsy 07/14/2007 History of nasal surgery Biopsy right side of nose- Squamous cell carcinoma. Cyst right side of nose Family History Family History Father Family history of malignant neoplasm Family history of diabetes mellitus in first degree relative Diabetes mellitus, Onset Age: 72 Family history of card
[2023-06-08] MEDS: TETANUS,DIPHTHERIA,AC PERTUSSIS ADULT (0.5 ML) BOOSTRIX IM (11:55)
== END 2023-06-08 11:58 | disposition home or self-care (01) ==
PROVIDERS: Emergency Provider Registered Nurse; PCP Clinical Nurse Specialist
DX: S61.213A Laceration without foreign body of left middle finger without damage to nail, initial encounter (principal); W26.0XXA Contact with knife, initial encounter; Z23 Encounter for immunization; M19.90 Unspecified osteoarthritis, unspecified site; I10 Essential (primary) hypertension; K21.9 Gastro-esophageal reflux disease without esophagitis; E78.5 Hyperlipidemia, unspecified; Z85.828 Personal history of other malignant neoplasm of skin
CPT/HCPCS: 90471; 90715; 99213; G0463

== ENCOUNTER 2023-06-19 11:34 | Outpatient (CLI) | payer MEDICARE, SELFPAY ==
[2023-06-19 12:13] LABS: Basophils Absolute Auto 0.1 K/mm3 (0.0-0.1); Basophils Percent Auto 0.9 % (0.2-1.2); Eosinophils Absolute Auto 0.2 K/mm3 (0-0.3); Eosinophils Percent Auto 2.9 % (0-4.4); Hematocrit 46.3 % (37.0-47.0); Hemoglobin 14.7 g/dL (12.0-15.0); Immature Granulocyte Absolute 0.02 K/mm3 (0.00-0.031); Immature Granulocyte Percent A 0.3 % (0-0.5); Lymphocytes Absolute Auto 1.81 K/mm3 (0.9-3.2); Lymphocytes Percent Auto 27.7 % (18.3-44.2); Mean Corpuscular HGB Conc 31.7 g/dl (32-36); Mean Corpuscular Hemoglobin 29.2 pg (26-34); Mean Platelet Volume 9.9 fl (7.4-10.4); Monocytes Absolute Auto 0.4 K/mm3 (0.1-0.6); Monocytes Percent Auto 6.4 % (2.6-8.5); Neutrophils Percent Auto 61.8 % (45.5-73.1); Platelet Count Result 303 k/mm3 (150-375); Red Blood Count 5.03 M/mm3 (4.2-5.4); Red Cell Distribution Width 12.5 % (11.5-14.5); White Blood Count 6.5 K/mm3 (4.5-10.0)
[2023-06-19 20:52] LABS: Alanine Aminotransferase 25 U/L (6-35); Albumin Level 4.8 g/dL (3.5-5.1); Alkaline Phosphatase 83 U/L (38-126); Anion Gap 11 mmol/L (4-12); Aspartate Amino Transferase 58 U/L (14-36); Bilirubin,Total 0.8 mg/dL (0.2-1.3); Blood Urea Nitrogen 13 mg/dL (7-17); Calcium 10.4 mg/dL (8.4-10.2); Carbon Dioxide 28 mmol/L (22-30); Chloride 101 mmol/L (98-107); Estimated Glomerular Filt Rate > 60; Glucose 104 mg/dL (65-110); Potassium 4.5 mmol/L (3.4-5.0); Sodium 140 mmol/L (137-145)
[2023-06-19 21:27] LABS: Cholesterol 203 mg/dL (0-200); HDL Direct 42 mg/dL; Triglycerides 159 mg/dL (<150)
[2023-06-19 21:38] LABS: LDL Cholesterol Direct 110 mg/dL
[2023-06-19 21:47] LABS: Iron 93 ug/dL (37-170)
[2023-06-19 21:58] LABS: Percent Iron Saturation 20 % (20-50)
[2023-06-19 22:05] LABS: Vitamin D 25 Hydroxy 84.8 ng/mL
[2023-06-20 01:07] LABS: Hemoglobin A1C 5.1 % (<5.7)
[2023-06-22 05:34] LABS: Thyroid Peroxidase Antibodies <1 IU/mL (<9)
== END 2023-06-19 11:35 | disposition home or self-care (01) ==
LOC: ANHGOSHLAB 11:36
PROVIDERS: PCP Clinical Nurse Specialist; Visit Provider Clinical Nurse Specialist
DX: D64.9 Anemia, unspecified (principal); R74.8 Abnormal levels of other serum enzymes; D50.9 Iron deficiency anemia, unspecified; I10 Essential (primary) hypertension; R73.9 Hyperglycemia, unspecified; E55.9 Vitamin D deficiency, unspecified; K75.81 Nonalcoholic steatohepatitis (NASH)
CPT/HCPCS: 36415; 80053; 80061; 82306; 82607; 82728; 83036; 83540; 83550; 84443; 85025; 86376

== ENCOUNTER 2023-07-02 10:14 | Outpatient (CLI) | payer MEDICARE, SELFPAY ==
--- NOTE | ~2023-07-02 | MM_ITS ---
EXAMINATION: MM screening reji BI w opal HISTORY: Screening TECHNIQUE: Craniocaudal and mediolateral oblique 3-D tomosynthesis images were obtained and synthetic 2-D images were generated. CAD analysis was submitted and interpreted. COMPARISON: Comparison to multiple prior studies sequentially, with oldest reviewed study dated 04/2019. BREAST PARENCHYMAL COMPOSITION: Not dense: There are scattered areas of fibroglandular density. FINDINGS: There is no evidence of suspicious mass, calcification, or architectural distortion to sugg est malignancy in either breast. There has been no suspicious interval change. IMPRESSION: 1. No mammographic evidence of malignancy. 2. Recommend routine screening mammography in one year. BI-RADS Category 1: Negative Reviewed, dictated and finalized at location [facility].
== END 2023-07-02 10:15 | disposition home or self-care (01) ==
PROVIDERS: PCP Clinical Nurse Specialist; Visit Provider Clinical Nurse Specialist
DX: Z12.31 Encounter for screening mammogram for malignant neoplasm of breast (principal)
CPT/HCPCS: 77063; 77067

== ENCOUNTER 2023-08-13 10:22 | Outpatient (CLI) | payer MEDICARE, SELFPAY ==
[2023-08-13 11:21] LABS: Anion Gap 5 mmol/L (4-12); Blood Urea Nitrogen 12 mg/dL (7-17); Calcium 9.7 mg/dL (8.4-10.2); Carbon Dioxide 31 mmol/L (22-30); Chloride 100 mmol/L (98-107); Estimated Glomerular Filt Rate > 60; Glucose 94 mg/dL (65-110); Potassium 5.1 mmol/L (3.4-5.0); Sodium 136 mmol/L (137-145)
[2023-08-13 12:18] LABS: Creatinine Urine 22.5 mg/dL; MALB Creatinine Ratio < 26.7 mg/g (0-30); Microalbumin Urine Random < 6.0 mg/L (0-16.7)
[2023-08-13 20:17] LABS: Iron 200 ug/dL (37-170)
[2023-08-13 20:27] LABS: Percent Iron Saturation 53 % (20-50)
[2023-08-13 21:03] LABS: Hepatitis C Virus Antibody Negative (Negative)
== END 2023-08-13 10:23 | disposition home or self-care (01) ==
LOC: ANHGOSHLAB 10:24
PROVIDERS: PCP Clinical Nurse Specialist; Visit Provider Clinical Nurse Specialist
DX: R74.8 Abnormal levels of other serum enzymes (principal); D50.9 Iron deficiency anemia, unspecified; Z11.59 Encounter for screening for other viral diseases
CPT/HCPCS: 36415; 80048; 82043; 82728; 83540; 83550; 86803

== ENCOUNTER 2023-08-19 10:25 | Outpatient (CLI) | payer MEDICARE, SELFPAY ==
[2023-08-19 13:27] LABS: Anion Gap 6 mmol/L (4-12); Blood Urea Nitrogen 13 mg/dL (7-17); Calcium 9.5 mg/dL (8.4-10.2); Carbon Dioxide 30 mmol/L (22-30); Chloride 104 mmol/L (98-107); Estimated Glomerular Filt Rate > 60; Glucose 80 mg/dL (65-110); Potassium 4.4 mmol/L (3.4-5.0); Sodium 140 mmol/L (137-145)
== END 2023-08-19 10:26 | disposition home or self-care (01) ==
LOC: ANHGOSHLAB 10:28
PROVIDERS: PCP Clinical Nurse Specialist; Visit Provider Clinical Nurse Specialist
DX: E87.5 Hyperkalemia (principal)
CPT/HCPCS: 36415; 80048

== ENCOUNTER 2023-11-12 09:26 | Outpatient (CLI) | payer MEDICARE, SELFPAY ==
[2023-11-12 13:06] LABS: Basophils Percent Auto 0.7 % (0.2-1.2); Eosinophils Absolute Auto 0.2 K/mm3 (0-0.3); Eosinophils Percent Auto 3.1 % (0-4.4); Hematocrit 40.5 % (37.0-47.0); Hemoglobin 13.5 g/dL (12.0-15.0); Immature Granulocyte Absolute 0.01 K/mm3 (0.00-0.031); Immature Granulocyte Percent A 0.2 % (0-0.5); Lymphocytes Absolute Auto 1.52 K/mm3 (0.9-3.2); Lymphocytes Percent Auto 27.9 % (18.3-44.2); Mean Corpuscular HGB Conc 33.3 g/dl (32-36); Mean Corpuscular Hemoglobin 31.5 pg (26-34); Mean Corpuscular Volume 94.4 fl (80-100); Mean Platelet Volume 10.1 fl (7.4-10.4); Monocytes Absolute Auto 0.3 K/mm3 (0.1-0.6); Monocytes Percent Auto 5.7 % (2.6-8.5); Neutrophils Absolute Auto 3.4 K/mm3 (1.3-6.7); Neutrophils Percent Auto 62.4 % (45.5-73.1); Platelet Count Result 281 k/mm3 (150-375); Red Blood Count 4.29 M/mm3 (4.2-5.4); White Blood Count 5.5 K/mm3 (4.5-10.0)
[2023-11-12 13:15] LABS: Anion Gap 9 mmol/L (4-12); Blood Urea Nitrogen 9 mg/dL (7-17); Calcium 9.4 mg/dL (8.4-10.2); Carbon Dioxide 27 mmol/L (22-30); Chloride 102 mmol/L (98-107); Estimated Glomerular Filt Rate > 60; Glucose 95 mg/dL (65-110); Potassium 4.3 mmol/L (3.4-5.0); Sodium 138 mmol/L (137-145)
[2023-11-12 14:23] LABS: Iron 97 ug/dL (37-170)
[2023-11-12 14:32] LABS: Percent Iron Saturation 24 % (20-50)
[2023-11-12 14:55] LABS: Creatinine Urine 114.8 mg/dL
[2023-11-12 15:01] LABS: MALB Creatinine Ratio 10.5 mg/g (0-30); Microalbumin Urine Random 12.1 mg/L (0-16.7)
== END 2023-11-12 09:27 | disposition home or self-care (01) ==
LOC: ANHGOSHLAB 09:29
PROVIDERS: PCP Clinical Nurse Specialist; Visit Provider Clinical Nurse Specialist
DX: D64.9 Anemia, unspecified (principal); I10 Essential (primary) hypertension; R74.8 Abnormal levels of other serum enzymes; E87.5 Hyperkalemia
CPT/HCPCS: 36415; 80048; 82043; 82728; 83540; 83550; 85025

== ENCOUNTER 2023-12-24 09:21 | Outpatient (CLI) | payer MEDICARE, SELFPAY ==
--- NOTE | ~2023-12-24 | XR_ITS ---
XR chest 2V 12/24/2023 09:28 Indication: Cough and wheezing Procedure: 2 view chest Comparison: No prior studies for comparison. Findings: Large hiatal hernia. Heart size normal. No focal air space disease, pulmonary edema, pleura l effusion or suspected pneumothorax. Moderate thoracic spondylosis. There are cholecystectomy clips. Impression: 1: Large hiatal hernia. Reviewed, dictated and finalized at location [facility]. Impression: 1: Large hiatal hernia.
== END 2023-12-24 09:22 | disposition home or self-care (01) ==
PROVIDERS: PCP Internal Medicine; Visit Provider Clinical Nurse Specialist
DX: R05.9 Cough, unspecified (principal); R06.2 Wheezing; K44.9 Diaphragmatic hernia without obstruction or gangrene
CPT/HCPCS: 71046

== ENCOUNTER 2024-05-26 20:09 | Emergency (ER) | payer MEDICARE, SELFPAY ==
--- NOTE | ~2024-05-26 | XR_ITS ---
EXAMINATION: XR chest 2V DATE: 05/26/2024 20:57 INDICATION: Chest pain. TECHNIQUE: Frontal and lateral views of the chest were obtained. COMPARISON: Chest 2 view 12/24/2023, chest CT 02/21/2023 FINDINGS: There is no pneumonia, pleural effusion, or pneumothorax. The heart size is normal. There i s a moderate-sized hiatal hernia. Surgical clips in the right upper quadrant are likely from cholecys tectomy. IMPRESSION: 1. Moderate-sized hiatal hernia. Reviewed, dictated and finalized at location A.
--- NOTE | 2024-05-26 20:11 | ECG_ITS ---
Test Date: 2024-05-26 20:21:24 Measurements Intervals [place] Rate: 66 P: 51 [place]: 167 QRS: 14 QRSD: 82 T: 50 QT: 407 QTc: 428 Interpretive Statements SINUS RHYTHM No previous ECG available for comparison Electronically Signed On 05-27-2024 13:26:04 CDT by Nelson Hendricks M.D.
--- OUTSIDE RECORDS SUMMARY | 2024-05-26 20:11 | XMS_ITS | Referral Summary ---
Author Organization [facility] Address [address] [place] [address] Care Team Providers Care Senior It Business Analyst Name Role Phone Lupis Swan MD Primary Care Provider [phone] Marlon Delcid MD Unavailable Unavailable Judah Suh MD Unavailable + Jax Metz MD Unavailable [phone] Jesi Narayanan Unavailable Jose Alfredo Vasquez DO Unavailable Duane Garcia MD Unavailable Abril Hicks MD Unavailable [phone] Source Comments [facility],non-owned Affiliates and Associated Physician Practices is amultiple site organization consisting of ambulatory clinics and hospital sitesin [place], [place], [place] and [place]. This disclosure is being madepursuant to the Care Everywhere program and may not contain all information available regarding this patient. Last updated 17.[facility] Allergies Active Allergy Reactions Criticality Noted Date Comments Ascorbate Anaphylaxis High 06/15/2015 Other High 01/23/2011 Strawberries throat swells Oxycodone-Acetaminophen 08/18/2015 Medications * Be aware that medications may not be up to date on this document. Alwaysverify current medications with the patient. Medication Sig Dispensed Refills Start Date End Date Status aspirin 81 MG chew tablet Take 81 mg by mouth daily. Active multivitamin daily (THERAGRAN) tablet Take 1 Tab by mouth daily with food. Active docusate sodium (STOOL SOFTENER) 100 MG capsule Take 100 mg by mouth daily. Active vitamin C (ASCORBIC ACID) 1000 MG tablet Take 1,000 mg by mouth 2 times daily Reported on 02/21/2016 Active Glucosamine HCl-Glucosamin SO4 200-300 MGIndications:Primary osteoarthritis involving multiple joints Active HYDROcodone-acetamino phen (NORCO) 5-325 MG tablet Take 1 Tab by mouth every 6 hours as needed for Pain 0 02/21/2016 Active omeprazole (PRILOSEC) 40 MG capsule Take 40 mg by mouth once daily 02/23/2015 Active Lactobacillus (ACIDOPHILUS PO) Active sucralfate (CARAFATE) 1 GM tablet Take 1 Tab by mouth 4 times daily as needed after meals/at bedtime 360 Tab 1 08/28/2016 Active Additional Information Patient not taking.Reported on 10/31/2016 azithromycin (ZITHROMAX) 250 mg tabletIndications:Cou gh 2 tablets day 1, then 1 tablet daily for 4 days 6 Tab 08/28/2016 Active Additional Information Patient not taking.Reported on 01/22/2017 guaiFENesin-codeine (ROBITUSSIN AC) 100-10 MG/5ML syrup Take 5 mL by mouth every 6 hours as needed for Cough 240 mL 09/19/2016 Active Additional Information Patient not taking.Reported on 01/22/2017 amLODIPine (NORVASC) 5 MG tablet Take 1 Tab by mouth once daily 30 Tab 5 09/27/2016 Active Additional Information Patient not taking.Reported on 01/22/2017 raNITIdine (ZANTAC) 150 MG tabletIndications:Gas tro-esophageal reflux disease without esophagitis Take 1 Tab by mouth 3 times daily as needed for Heartburn 60 Tab 2 10/16/2016 Active atorvastatin (LIPITOR) 80 MG tablet Take 1 tablet by mouth once daily 90 tablet 1 01/22/2017 Active escitalopram (LEXAPRO) 10 MG tabletIndications:Anx iety and depression Take 1 tablet by mouth once daily 90 tablet 1 01/22/2017 Active losartan (COZAAR) 100 MG tabletIndications:Hyp ertension Take 1 tablet by mouth once daily Reasons: High Blood Pressure Disorder 90 tablet 1 01/22/2017 Active pantoprazole EC (PROTONIX) 40 MG tabletIndications:Gas tro-esophageal reflux disease without esophagitis 1 tablet once daily 90 tablet 3 01/22/2017 Active polyethylene glycol 3350 (MIRALAX) powderIndications:Con stipation, unspecified constipation type Take 17 g by mouth once daily 238 g 6 01/22/2017 Active Active Problems Problem Noted Date Diagnosed Date Primary osteoarthritis involving multiple joints 09/24/2015 Post-operative state, left f oot hardware removal and revision bunionectomy dos 3--16 06/15/2015 HTN (hypertension) 04/21/2014 HLD (hyperlipidemia) 04/21/2014 SEE (nonalcoholic steatohepatitis) 04/21/2014 Anxiety and depression 04/21/2014 Gastro-esophageal reflux disease without esophag itis 06/22/2012 Overview (08/18/2015): Overview: 05/26/97 EGD ([facility]): gastric metaplasia on biopsy 06/01/99 EGD ([facility]): GERD, no Monte's seen 2010: No Monte's esophagus. Resolved Problems Problem Noted Date Diagnosed Date Resolved Date Rheumatoid arthritis 04/21/2014 016 Overview (08/18/2015): Humira 01/23, 02/22 (Swelling in leg) Orencia 03/26, D/Kodi 02/24 (Need for GERD surgery) Actemra began 12/27 Pre-diabetes 04/21/2014 03/24/2015 Immunizations Name Administration Dates Next Due FLU VACCINE QUAD IIV4 PF ID 01/06/2016 HEP A VACCINE, ADULT 01/30/2008,07/30/2007 INFLUENZA VACCINE 12/29/2012,12/26/2011 INFLUENZA VACCINE, HIGH-DOSE , QUADR. (FLUZONE HIGH-DOSE QUADRIVALENT; 65Y+), 0.7 ML (HD-IIV4) 12/01/2016 PNEUMOCOCCAL PPSV23 10/18/2010 Pneumococcal Pcv13 Conj 08/28/2016 TDAP (7yrs+) 11/02/2010 ZOSTER VACCINE, LIVE 05/22/2011 Social History Tobacco Use Types Packs/Day Years Used Date Smoking Tobacco: Never Smokeless Tobacco: Never Tobacco Cessation:Counseling Given: Yes Alcohol Use Standard Drinks/Week Comments No 0 (1 standard drink = 0.6 oz pure alcohol) very rare, drinks a 1-2 drinks a year Sex and Gender Information Value Date Recorded Sex Assigned at Not on file Gender Identity Not on file Sexual Orientation Not on file Last Filed Vital Signs Vital Sign Reading Time Taken Comments Blood Pressure 118/73 10/31/2016 3:00 PM CDT Pulse 79 10/31/2016 3:00 PM CDT Temperature 36.7 C (98 F) 10/31/2016 1:57 PM CDT Respiratory Rate 18 10/31/2016 3:00 PM CDT Oxygen Saturation 89% 10/31/2016 3:00 PM CDT Inhaled Oxygen Concentration - - Weight 89.5 kg (197 lb 6.4 oz) 01/22/2017 10:32 AM NEEDLE GRINDER Height 162.6 cm (5' 4 ) 01/22/2017 10:32 AM NEEDLE GRINDER Body Mass Index 33.88 01/22/2017 10:32 AM NEEDLE GRINDER Functional Status Functional Status Response Date of Assess ment Is person deaf or have serious hearing difficult y? No 06/02/2015 Is person blind or have serious difficulty seein g? No 06/02/2015 Does person have serious dif ficulty walking/climbing stairs? No 06/02/2015 Does person have difficulty dressing/bathing? No 06/02/2015 Does person have difficulty doing errands alone? No 06/02/2015 Cognitive Status Response Date of Assessm ent Does person have difficulty concentrating/remembering/making decisions? No 06/02/2015 Plan of Treatment Not on file Medical Devices Implanted Type Area Electronic Warfare Officer Device Identifier Shelf Expiration Date Model / Serial / Lot Memory Staple Implanted:Qty: 2 on 02/05/2014 [facility]: Foot MS [id number] / / Cannulaed Screw Implanted:Qty: 1 on 02/05/2014 by [facility]ingo [facility] Left: Foot [id number] / / Implt Lens Akreos 21.5 - [id number] Implanted:Qty: 1 on 01/13/2015 by [facility]id [facility] Left: Eye [employer] 11/15/2016 AO60G 21.5 / [id number] / Explanted Type Area Electronic Warfare Officer Device Identifier Shelf Expiration Date Model / Serial / Lot Memory Staple Explanted:Qty: 1 on 02/05/2014 by Mingo [facility]cher [facility] Left: Foot [id number] / / Procedures Procedure Name Priority Date/Time Associated Diagnosis Comments COMPREHENSIVE METABOLIC PANEL Routine 07/12/2016 9:11 AM CDT Hyperlipidemia, unspecified hyperlipidemia type MAMMO BILAT SCREENING Routine 06/12/2016 11:19 AM CDT Visit for screening mammogram ENDOSCOPY, COLON, SCREENING Routine 06/15/2013 7:43 AM CDT DEXA BONE DENSITY 2 SITES Routine 10/03/2012 10:13 AM CDT Special Screening For Osteoporosis from Last 3 Months or Most Recently Relevant to Health Maintenance Results * (ABNORMAL) COMPREHENSIVE METABOLIC PANEL (07/12/2016 9:11 AM CDT) Glucose 104(H) 65 - 99 mg/dL [facility] INSURANCE BILL BUN 10 8 - 27 mg/dL [facility] INSURANCE BILL Creatinine 0.77 0.57 - 1.00 mg/dL [facility] INSURANCE BILL eGFR by MDRD 81 >59 mL/min/1.7 3 [facility] INSURANCE BILL eGFR by MDRD 94 >59 mL/min/1.7 3 [facility] INSURANCE BILL BUN/Creatinine Ratio 13 12 - 28 [facility] INSURANCE BILL Sodium 144 134 - 144 mmol/L [facility] INSURANCE BILL Potassium 4.9 3.5 - 5.2 mmol/L [facility] INSURANCE BILL Chloride 101 96 - 106 mmol/L [facility] INSURANCE BILL CO2 22 18 - 29 mmol/L [facility] INSURANCE BILL Calcium 10.0 8.7 - 10.3 mg/dL [facility] INSURANCE BILL Protein Total 7.1 6.0 - 8.5 g/dL [facility] INSURANCE BILL Albumin 4.6 3.6 - 4.8 g/dL [facility] INSURANCE BILL Globulin Total 2.5 1.5 - 4.5 g/dL [facility] INSURANCE BILL Albumin/Globulin Ratio 1.8 1.2 - 2.2 [facility] INSURANCE BILL Bilirubin Total 0.7 0.0 - 1.2 mg/dL [facility] INSURANCE BILL Alkaline Phosphatase 94 39 - 117 IU/L [facility] INSURANCE BILL AST 36 0 - 40 IU/L [facility] INSURANCE BILL ALT 25 0 - 32 IU/L [facility] INSURANCE BILL Blood BLOOD SPECIMEN / Unknown 07/12/2016 9:11 AM CDT 07/12/2016 Narrative Resulting Agency Comment [facility] [address] [facility] [id number] Lupis Swan MD LAB - CHEMISTRY CHARISSE GUILLEN [facility] INSURANCE BILL [address] [place] [address] * ZACKERY SCREENING DIGITAL IMAGE BILATERAL [id number] (06/12/2016 11:19 AM CDT) Anatomical Region Laterality Modality Breast Bilateral Mammography 06/12/2016 1:15 PM CDT Impressions 06/12/2016 1:37 PM CDT No mammographic evidence of malignancy in either breast. ASSESSMENT: BIRADS Category 1: Negative mammogram. RECOMMENDATION: Bilateral screening mammogram in one year. Thank you for allowing us to participate in the care of your patient. [facility] utilizes [employer] as a reminder system to notify patients of their next recommended mammogram. Report dictated by Ashley Barnes M.D. (residential substance abuse counselor) I, Gabriela Layton, have personally reviewed the images and I agree with this report. Narrative 06/12/2016 1:37 PM CDT EXAMINATION: Digital screening mammogram on 06/12/2016. Low-dose full-field digital breast tomosynthesis examination was performed with synthetic 2D images and 3D acquisitions. Computer assisted detection was utilized. PRIOR: Multiple prior mammograms, most recently 06/10/2015 and 06/01/2014. BREAST PARENCHYMAL DENSITY: The breasts are heterogeneously dense, which may obscure small masses. RISK ASSESSMENT CALCULATION: Based on the information provided by your patient, her lifetime risk of breast cancer is average (<15%) (calculated at 7.2% by the BRCAPRO model, 2.5% by the Tyrer-Cuzick v6 model, and 4.5% by the Shira model). Please note this information is only as accurate as the data entered by the patient. FINDINGS: No suspicious masses, areas of architectural distortion or microcalcifications are evident on synthetic 2D mammogram or tomosynthesis images. There has been no significant interval change since the prior examination. Abril Hicks MD MAMMO KRISHNA RED * ENDOSCOPY, COLON, SCREENING (06/15/2013 7:43 AM CDT) Report Endoscopy POC _ Patient Name: Peng Le Procedure Date: 06/15/2013 7:43 AM Date of : 1950 Admit Type: Outpatient Age: 63 Gender: Female Attending MD: Jax Metz MD _ Procedure: Colonoscopy Indications: Rectal bleeding Providers: Jax Metz MD (Doctor), Dawna Ferris RN, Ema Ozuna, Adult Parole Officer Referring MD: Rudy Marroquin MD (Referring MD) Medicines: Monitored Anesthesia Care Complications: No immediate complications. _ Procedure: Pre-Anesthesia Assessment: - Prior to the procedure, a History and Physical was performed, and patient medications and allergies were reviewed. The patient is competent. The risks and benefits of the procedure and the sedation options and risks were discussed with the patient. All questions were answered and informed consent was obtained. Patient identification and proposed procedure were verified by the physician, the nurse, the director labor standards and the senior games technician in the pre-procedure area in the endoscopy suite. Mental Status Examination: sedated. Respiratory Examination: clear to auscultation. CV Examination: normal. Prophylactic Antibiotics: The patient does not require prophylactic antibiotics. Prior Anticoagulants: The patient has taken aspirin, last dose was 5 days prior to procedure. ASA Grade Assessment: II - A patient with mild systemic disease. After reviewing the risks and benefits, the patient was deemed in satisfactory condition to undergo the procedure. The anesthesia plan was to use general anesthesia. Immediately prior to administration of medications, the patient was re-assessed for adequacy to receive sedatives. The heart rate, respiratory rate, oxygen saturations, blood pressure, adequacy of pulmonary ventilation, and response to care were monitored throughout the procedure. The physical status of the patient was re-assessed after the procedure. After I obtained informed consent, the scope was passed under direct vision. Throughout the procedure, the patient's blood pressure, pulse, and oxygen saturations were monitored continuously. The Colonoscope was introduced through the anus and advanced to the terminal ileum, with identification of the appendiceal orifice and IC valve. The colonoscopy was performed without difficulty. The patient tolerated the procedure well. The quality of the bowel preparation was good. Impression: - Non-bleeding internal hemorrhoids. - Diverticulosis from sigmoid to transverse colon. - One 6 mm polyp in the proximal ascending colon. Resected and retrieved. - The examination was otherwise normal on direct and retroflexion views. Findings: The perianal and digital rectal examinations were normal. Non-bleeding internal hemorrhoids were found during retroflexion. Multiple small and large-mouthed diverticula were found from sigmoid to transverse colon. A sessile polyp was found in the proximal ascending colon. The polyp was 6 mm in size. The polyp was removed with a cold biopsy forceps. Resection and retrieval were complete. Estimated blood loss: none. The exam was otherwise without abnormality on direct and retroflexion views. _ Recommendation: - Continue present medications. - High fiber diet indefinitely. - Telephone GI office for pathology results in 2 days. - Repeat colonoscopy in 5 years for surveillance based on pathology results. Procedure Code(s): --- Professional --- 48433, Colonoscopy, flexible, proximal to splenic flexure; with biopsy, single or multiple --- Technical --- 61406, Colonoscopy, flexible, proximal to splenic flexure; with biopsy, single or multiple Diagnosis Code(s): --- Professional --- 211.3, Benign neoplasm of colon 455.0, Internal hemorrhoids without mention of complication 569.3, Hemorrhage of rectum and anus 562.10, Diverticulosis of colon (without mention of hemorrhage) --- Technical --- 211.3, Benign neoplasm of colon 455.0, Internal hemorrhoids without mention of complication 569.3, Hemorrhage of rectum and anus 562.10, Diverticulosis of colon (without mention of hemorrhage) CPT copyright 2013 [employer]. All rights reserved. The codes documented in this report are preliminary and upon electric lift truck driver review may be revised to meet current compliance requirements. _ Jax Metz MD 06/15/2013 8:06 AM This report has been signed electronically. Number of Addenda: 0 Note Initiated On: 06/15/2013 7:43 AM [facility] 06/15/2013 7:43 AM CDT Narrative [facility] - 06/15/2013 8:08 AM CDT Procedure Note Jax Metz MD - 06/15/2013 8:08 AM CDT Jax Metz MD GI PROCEDURE ORDERAB LES [facility] * DEXA BONE DENSITY 2 SITES (10/03/2012 10:13 AM CDT) Anatomical Region Laterality Modality Nuclear Medicine 10/03/2012 10:4 3 AM CDT Impressions 10/03/2012 10:44 AM CDT Normal. Narrative 10/03/2012 10:44 AM CDT Technique: Dual energy x-ray absorptiometry. Indication: Postmenopausal female. Comparison: 10/15/2003. Findings: The BMD in the AP spine (L1-L4) is 1.227 which corresponds to a T score of 0.4 which is normal. The BMD in the femoral necks (mean) is 1.050 which corresponds to a T score of 0.1 which is normal. Procedure Note Jakob Olmedo MD - 10/03/2012 Technique: Dual energy x-ray absorptiometry. Indication: Postmenopausal female. Comparison: 10/15/2003. Findings: The BMD in the AP spine (L1-L4) is 1.227 which corresponds to a T score of 0.4 which is normal. The BMD in the femoral necks (mean) is 1.050 which corresponds to a T score of 0.1 which is normal. IMPRESSION Normal. Arnoldo Rankin III, MD DEXA ORDERABLES from Last 3 Months or Most Recently Relevant to Health Maintenance Advance Directives Documents on File Type Date Recorded Patient Command And Control Officer Expl anation Adv Directive/Living Will/POA 09/02/2014 10:09 PM Care Teams Senior It Business Analyst Relationship Specialty Start Date End Date Lupis Swan MD PCP - General Internal Medicine 04/21/14 Marlon Delcid MD Ophthalmology 04/21/14 Judah Suh MD [address] [place] [address] Gastroenterology 04/21/14 Jax Metz MD [address] [place] [address] Gastroenterology 04/21/14 Jesi Narayanan PA [address] [place] [address] 04/21/14 Jose Alfredo Vasquez DO [address] [place] [address] Orthopedic Surgery 05/18/15 Duane Garcia MD [address] [facility] [address] [place] [address] Rheumatology 02/21/16 Abril Hicks MD [address] [facility] [address] [place] [address] Obstetrics and Gynecology 08/28/16
--- OUTSIDE RECORDS SUMMARY | 2024-05-26 20:11 | XMS_ITS | Patient Health Summary ---
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 Name Role Phone Lupis Swan MD Primary Care Provider [phone] Marlon Delcid MD Unavailable Unavailable Judah Suh MD Unavailable + Faviola Quintero MD Unavailable [phone] Jesi Narayanan Unavailable [phone] Jose Alfredo Vasquez DO Unavailable [phone] Duane Garcia MD Unavailable Abril Hicks MD Unavailable [phone] Note from [facility],non-owned Affiliates and Associated Physician Practices is amultiple site organization consisting of ambulatory clinics and hospital sitesin [place], [place], [place] and [place]. This disclosure is being madepursuant to the Care Everywhere program and may not contain all information available regarding this patient. Last updated 17.[facility] Allergies * Ascorbate(Anaphylaxis) -High Criticality * Other(Strawberries throat swells) -High Criticality * Oxycodone-Acetaminophen Medications * Be aware that medications may not be up to date on this document. Alwaysverify current medications with the patient. * aspirin 81 MG chew tablet Take 81 mg by mouth daily. * multivitamin daily (THERAGRAN) tablet Take 1 Tab by mouth daily with food. * docusate sodium (STOOL SOFTENER) 100 MG capsule Take 100 mg by mouth daily. * vitamin C (ASCORBIC ACID) 1000 MG tablet Take 1,000 mg by mouth 2 times daily Reported on 02/21/2016 * Glucosamine HCl-Glucosamin SO4 200-300 MG * HYDROcodone-acetaminophen (NORCO) 5-325 MG tablet(Started 02/21/2016) Take 1 Tab by mouth every 6 hours as needed for Pain * omeprazole (PRILOSEC) 40 MG capsule(Started 02/23/2015) Take 40 mg by mouth once daily * Lactobacillus (ACIDOPHILUS PO) * sucralfate (CARAFATE) 1 GM tablet(Started 08/28/2016) Take 1 Tab by mouth 4 times daily as needed after meals/at bedtime 1 refill remaining * azithromycin (ZITHROMAX) 250 mg tablet(Started 08/28/2016) 2 tablets day 1, then 1 tablet daily for 4 days * guaiFENesin-codeine (ROBITUSSIN AC) 100-10 MG/5ML syrup(Started 09/19/2016) Take 5 mL by mouth every 6 hours as needed for Cough * amLODIPine (NORVASC) 5 MG tablet(Started 09/27/2016) Take 1 Tab by mouth once daily 5 refills remaining * raNITIdine (ZANTAC) 150 MG tablet(Started 10/16/2016) Take 1 Tab by mouth 3 times daily as needed for Heartburn 2 refills remaining * atorvastatin (LIPITOR) 80 MG tablet(Started 01/22/2017) Take 1 tablet by mouth once daily 1 refill remaining * escitalopram (LEXAPRO) 10 MG tablet(Started 01/22/2017) Take 1 tablet by mouth once daily 1 refill remaining * losartan (COZAAR) 100 MG tablet(Started 01/22/2017) Take 1 tablet by mouth once daily Reasons: High Blood Pressure Disorder 1 refill remaining * pantoprazole EC (PROTONIX) 40 MG tablet(Started 01/22/2017) 1 tablet once daily 3 refills remaining * polyethylene glycol 3350 (MIRALAX) powder(Started 01/22/2017) Take 17 g by mouth once daily 6 refills remaining Active Problems Problem Noted Date Diagnosed Date Primary osteoarthritis involving multiple joints 09/24/2015 Post-operative state, left f oot hardware removal and revision bunionectomy dos 3-17-16 06/15/2015 HTN (hypertension) 04/21/2014 HLD (hyperlipidemia) 04/21/2014 SEE (nonalcoholic steatohepatitis) 04/21/2014 Anxiety and depression 04/21/2014 Gastro-esophageal reflux disease without esophag itis 06/22/2012 Resolved Problems Problem Noted Date Diagnosed Date Resolved Date Rheumatoid arthritis 04/21/2014 016 Pre-diabetes 04/21/2014 03/24/2015 Immunizations * FLU VACCINE QUAD IIV4 PF ID(Given 01/06/2016) * HEP A VACCINE, ADULT(Given 01/30/2008, 07/30/2007) * INFLUENZA VACCINE(Given 12/29/2012, 12/26/2011) * INFLUENZA VACCINE, HIGH-DOSE, QUADR. (FLUZONE HIGH-DOSE QUADRIVALENT; 65Y+), 0.7 ML (HD-IIV4)(Given 12/01/2016) * PNEUMOCOCCAL PPSV23(Given 10/18/2010) * Pneumococcal Pcv13 Conj(Given 08/28/2016) * TDAP (7yrs+)(Given 11/02/2010) * ZOSTER VACCINE, LIVE(Given 05/22/2011) Social History Tobacco Use Types Packs/Day Years [...] (197 lb 6.4 oz) 01/22/2017 10:32 AM [employer]SP[employer] WORK[employer] Height 162.6 cm (5' 4 ) 01/22/2017 10:32 AM [employer] Body Mass Index 33.88 01/22/2017 10:32 AM [employer] WORKER Medical Devices Implanted Type Area Chief Strategy Officer Device Identifier Shelf Expiration Date Model / Serial / Lot Memory Staple Implanted:Qty: 2 on 02/05/2014 by Mingo Butcher DPM at [facility] Left: Foot MS [id number] / / Cannulaed Screw Implanted:Qty: 1 on 02/05/2014 by Mingo Butcher DPM at [facility] Left: Foot [id number] / / Implt Lens Akreos 21.5 - [id number] Implanted:Qty: 1 on 01/13/2015 by Marlon Delcid MD at [facility] Left: Eye [employer] 11/15/2016 AO60G 21.5 / [id number] / Explanted Type Area Chief Strategy Officer Device Identifier Shelf Expiration Date Model / Serial / Lot Memory Staple Explanted:Qty: 1 on 02/05/2014 by Mingo Butcher DPM at [facility] Left: Foot [id number] / / Procedures * PATHOLOGY TISSUE EXAM (STL)(Performed 10/31/2016) Performed for Gastroesophageal reflux disease, esophagitis presence not specified * HELICOBACTER PYLORI UREASE (STL)(Performed 10/31/2016) Performed for Gastroesophageal reflux disease, esophagitis presence not specified * ESOPHAGOGASTRODUODENOSCOPY (EGD) WITH POLYPECTOMY(Performed 10/31/2016) Performed for Gastroesophageal reflux disease, esophagitis presence not specified * ESOPHAGOGASTRODUODENOSCOPY (EGD) BIOPSY(Performed 10/31/2016) Performed for Gastroesophageal reflux disease, esophagitis presence not specified * ESOPHAGOGASTRODUODENOSCOPY (EGD) DIAGNOSTIC(Performed 10/31/2016) Performed for Gastroesophageal reflux disease, esophagitis presence not specified * EGD(Performed 10/31/2016) * XR CHEST 2VW(Performed 09/20/2016) Performed for Cough * XR PELVIS W BILAT HIP 2VW(Performed 07/12/2016) Performed for Primary osteoarthritis involving multiple joints * COMPREHENSIVE METABOLIC PANEL(Performed 07/12/2016) Performed for Hyperlipidemia, unspecified hyperlipidemia type * LIPID PROFILE(Performed 07/12/2016) Performed for Hyperlipidemia, unspecified hyperlipidemia type * URIC ACID BLOOD(Performed 07/12/2016) Performed for Primary osteoarthritis involving multiple joints * ERYTHROCYTE SEDIMENTATION RATE(Performed 07/12/2016) Performed for Primary osteoarthritis involving multiple joints * C-REACTIVE PROTEIN(Performed 07/12/2016) Performed for Primary osteoarthritis involving multiple joints * CK BLOOD(Performed 07/12/2016) Performed for Primary osteoarthritis involving multiple joints * MAMMO BILAT SCREENING(Performed 06/12/2016) Performed for Visit for screening mammogram * AMB REFERRAL TO RHEUMATOLOGY(Performed 08/26/2015) Performed for Primary osteoarthritis involving multiple joints * XR HAND BILAT 3VW OR MORE(Performed 08/11/2015) Performed for Rheumatoid arthritis involving both hands, unspecified rheumatoid factor presence * XR FOOT LEFT 3VW OR MORE(Performed 07/27/2015) Performed for Postop check * LAB RESULTS ORDER(Performed 07/06/2015) * CREATININE BLOOD (EXTERNAL RESULT ENTRY)(Performed 07/05/2015) * TSH (EXTERNAL RESULT ENTRY)(Performed 07/05/2015) * HEMOGLOBIN A1C (EXTERNAL RESULT ENTRY)(Performed 07/05/2015) * LIPID PROFILE (EXTERAL RESULT ENTRY)(Performed 07/05/2015) * MAMMO BILAT SCREENING(Performed 06/10/2015) Performed for Visit for screening mammogram * XR FOOT LEFT 2VW(Performed 06/02/2015) Performed for Foot pain, unspecified laterality * EXCISION BONE/OSTEOPHYTE FOOT(Performed 06/02/2015) Performed for BUMP ON LEFT FOOT FROM BUNIONECTOMY M20.12 * REMOVAL HARDWARE FOOT(Performed 06/02/2015) Performed for BUMP ON LEFT FOOT FROM BUNIONECTOMY M20.12 * XR FOOT LEFT 3VW OR MORE(Performed 05/18/2015) Performed for Bunion, left * XR FOOT LEFT 3VW OR MORE(Performed 04/20/2015) Performed for Left foot pain * HEMOGLOBIN A1C - POINT OF CARE (AMB)(Performed 03/24/2015) Performed for Pre-diabetes * XR HAND LEFT 3VW OR MORE(Performed 03/08/2015) Performed for Fall, initial encounter, Pain of left hand * XR WRIST LEFT 3VW OR MORE(Performed 03/08/2015) Performed for Fall, initial encounter, Left wrist pain * LAB RESULTS ORDER(Performed 02/26/2015) * EXTRACTION CATARACT WITH INSERTION LENS (COMPLEX)(Performed 01/13/2015) Performed for Combined senile cataract, left * LIPID PROFILE(Performed 09/22/2014) Performed for HLD (hyperlipidemia) * COMPREHENSIVE METABOLIC PANEL(Performed 09/22/2014) Performed for Essential hypertension, HLD (hyperlipidemia) * HEMOGLOBIN A1C - POINT OF CARE (AMB)(Performed 09/22/2014) Performed for Pre-diabetes * CARDIAC RHYTHM STRIP ORDER(Performed 09/02/2014) * XR FOOT LEFT 3VW OR MORE(Performed 09/01/2014) Performed for Post-operative state * PATHOLOGY TISSUE EXAM (STL)(Performed 09/01/2014) Performed for Pain in limb [729.5] * ARTHROPLASTY TOE(Performed 09/01/2014) Performed for Pain in limb * XR FOOT LEFT 3VW OR MORE(Performed 08/06/2014) Performed for Toe pain, left * LIPID PROFILE (EXTERAL RESULT ENTRY)(Performed 07/04/2014) * TSH (EXTERNAL RESULT ENTRY)(Performed 07/04/2014) * MAMMO BILAT SCREENING(Performed 06/01/2014) Performed for Other screening mammogram * HEMOGLOBIN A1C - POINT OF CARE (AMB)(Performed 04/21/2014) Performed for Pre-diabetes * XR FOOT LEFT 3VW OR MORE(Performed 03/01/2014) Performed for Status post foot surgery * CARDIAC RHYTHM STRIP ORDER(Performed 02/10/2014) * XR FOOT LEFT 3VW OR MORE(Performed 02/05/2014) Performed for Hallux valgus, left * PATHOLOGY TISSUE EXAM (STL)(Performed 02/05/2014) * ARTHROPLASTY TOE(Performed 02/05/2014) Performed for Hallux valgus (acquired) * BUNIONECTOMY CHER NICOLA(Performed 02/05/2014) Performed for Hallux valgus (acquired) * XR FOOT LEFT 3VW OR MORE(Performed 01/08/2014) Performed for Hallux valgus, left, Hammertoe, left * LDL CHOLESTEROL (EXTERNAL RESULT ENTRY)(Performed 11/20/2013) * LDL CHOLESTEROL (EXTERNAL RESULT ENTRY)(Performed 11/20/2013) * HEMOGLOBIN A1C (EXTERNAL RESULT ENTRY)(Performed 11/20/2013) * LAB RESULTS ORDER(Performed 11/20/2013) * COLONOSCOPY BIOPSY (ANY METHOD)(Performed 06/15/2013) Performed for Esophageal reflux, Blood In Stool * ESOPHAGOGASTRODUODENOSCOPY (EGD) BIOPSY(Performed 06/15/2013) Performed for Esophageal reflux, Blood In Stool * COLONOSCOPY SCREEN(Performed 06/15/2013) Performed for Esophageal reflux, Blood In Stool * ESOPHAGOGASTRODUODENOSCOPY (EGD) DIAGNOSTIC(Performed 06/15/2013) Performed for Esophageal reflux, Blood In Stool * ENDOSCOPY, COLON, SCREENING(Performed 06/15/2013) * EGD(Performed 06/15/2013) * PATHOLOGY TISSUE EXAM (STL)(Performed 06/15/2013) Performed for GERD (gastroesophageal reflux disease) * MAMMO BILAT SCREENING(Performed 05/28/2013) Performed for Other screening mammogram * DERMATOPATHOLOGY(Performed 05/27/2013) * DERMATOPATHOLOGY(Performed 05/05/2013) * PATHOLOGY/GENETICS HISTORICAL-ONBASE(Performed 04/23/2013) * MRI PELVIS WO CONTRAST(Performed 10/17/2012) Performed for Pain in joint, pelvic region and thigh * DEXA BONE DENSITY 2 SITES(Performed 10/03/2012) Performed for Special Screening For Osteoporosis * XR PELVIS 1 OR 2VW(Performed 09/29/2012) Performed for Unspecified Symptom Associated With Female Genital Organs * HEPATIC FUNCTION PANEL(Performed 06/24/2012) * CBC W AUTO DIFFERENTIAL(Performed 06/24/2012) * PT-INR SLH(Performed 06/24/2012) * MAMMO BILAT SCREENING(Performed 05/13/2012) Performed for Other screening mammogram * C-REACTIVE PROTEIN(Performed 12/26/2011) * ERYTHROCYTE SEDIMENTATION RATE(Performed 12/26/2011) * COMPREHENSIVE METABOLIC PANEL(Performed 12/26/2011) * CBC W AUTO DIFFERENTIAL(Performed 12/26/2011) * LIPID PROFILE(Performed 12/26/2011) * XR THORACIC SPINE 2VW(Performed 12/26/2011) Performed for Rheumatoid arthritis (HCC) * NM MYOCARD PERF REST STRESS(Performed 11/27/2011) Performed for Family history of ischemic heart disease * MAMMO BILAT SCREENING(Performed 05/11/2011) Performed for Other screening mammogram * COMPREHENSIVE METABOLIC PANEL(Performed 04/26/2011) * CBC W AUTO DIFFERENTIAL(Performed 04/26/2011) * LIPID PROFILE(Performed 04/26/2011) * HEMOGLOBIN A1C(Performed 04/26/2011) * PAP IG RFLX HPV ASCU(Performed 04/26/2011) * HEPATIC FUNCTION PANEL(Performed 05/17/2010) * LIPID PROFILE(Performed 05/17/2010) * C-REACTIVE PROTEIN SENSITIVE(Performed 04/27/2010) * ERYTHROCYTE SEDIMENTATION RATE(Performed 04/27/2010) * CBC W AUTO DIFFERENTIAL(Performed 04/27/2010) * LIPID PROFILE(Performed 04/27/2010) * COMPREHENSIVE METABOLIC PANEL(Performed 04/27/2010) * HELICOBACTER PYLORI UREASE(Performed 04/13/2010) * GROSS + MICRO EXAM(Performed 04/13/2010) * GROSS + MICRO EXAM(Performed 04/13/2010) * ENDOSCOPY ORDER(Performed 04/13/2010) * MAMMO BILAT SCREENING(Performed 04/05/2010) Performed for Other screening mammogram * CBC W AUTO DIFFERENTIAL(Performed 03/20/2010) * COMPREHENSIVE METABOLIC PANEL(Performed 03/20/2010) * CT ABDOMEN WWO CONTRAST(Performed 02/15/2010) Performed for Abdominal pain, unspecified site, Pain in thoracic spine * COMPREHENSIVE METABOLIC PANEL(Performed 02/07/2010) * C-REACTIVE PROTEIN SENSITIVE(Performed 02/07/2010) * ERYTHROCYTE SEDIMENTATION RATE(Performed 02/07/2010) * VITAMIN D 25-HYDROXY(Performed 02/07/2010) * CBC W AUTO DIFFERENTIAL(Performed 02/07/2010) * LIPID PROFILE(Performed 02/07/2010) * URINALYSIS REFLEX TO MICROSCOPIC NO CULTURE(Performed 02/07/2010) * ERYTHROCYTE SEDIMENTATION RATE(Performed 01/12/2010) * CBC W/O DIFFERENTIAL(Performed 01/12/2010) * PTH INTACT(Performed 01/12/2010) * COMPREHENSIVE METABOLIC PANEL(Performed 01/12/2010) * ERYTHROCYTE SEDIMENTATION RATE(Performed 12/15/2009) * CBC W AUTO DIFFERENTIAL(Performed 12/15/2009) * COMPREHENSIVE METABOLIC PANEL(Performed 12/15/2009) * POTASSIUM BLOOD(Performed 11/16/2009) * MRI THORACIC SPINE WO CONTRAST(Performed 11/09/2009) Performed for Rheumatoid Arthritis (HCC) * C-REACTIVE PROTEIN SENSITIVE(Performed 11/07/2009) * ERYTHROCYTE SEDIMENTATION RATE(Performed 11/07/2009) * CBC W AUTO DIFFERENTIAL(Performed 11/07/2009) * COMPREHENSIVE METABOLIC PANEL(Performed 11/07/2009) * XR PELVIS 1 OR 2VW(Performed 11/07/2009) Performed for Pain in Joint, Pelvic Region and Thigh * HEPATIC FUNCTION PANEL(Performed 10/19/2009) Performed for Hyperlipidemia Nec/Nos * COMPREHENSIVE METABOLIC PANEL(Performed 10/19/2009) Performed for Hyperlipidemia Nec/Nos * ERYTHROCYTE SEDIMENTATION RATE(Performed 10/19/2009) Performed for Hyperlipidemia Nec/Nos * CBC W AUTO DIFFERENTIAL(Performed 10/19/2009) Performed for Hyperlipidemia Nec/Nos * LIPID PROFILE(Performed 10/19/2009) Performed for Hyperlipidemia Nec/Nos * ERYTHROCYTE SEDIMENTATION RATE(Performed 09/20/2009) Performed for Rheumatoid Arthritis (HCC) * CBC W AUTO DIFFERENTIAL(Performed 09/20/2009) Performed for Rheumatoid Arthritis (HCC) * COMPREHENSIVE METABOLIC PANEL(Performed 09/20/2009) Performed for Rheumatoid Arthritis (HCC) * US RETROPERITONEAL LIMITED(Performed 08/11/2009) Performed for Unspecified Backache * C-REACTIVE PROTEIN SENSITIVE(Performed 08/08/2009) Performed for Rheumatoid Arthritis (HCC) * VITAMIN D 25-HYDROXY(Performed 08/08/2009) Performed for Rheumatoid Arthritis (HCC) * ERYTHROCYTE SEDIMENTATION RATE(Performed 08/08/2009) Performed for Rheumatoid Arthritis (HCC) * COMPREHENSIVE METABOLIC PANEL(Performed 08/08/2009) Performed for Rheumatoid Arthritis (HCC) * CBC W AUTO DIFFERENTIAL(Performed 08/08/2009) Performed for Rheumatoid Arthritis (HCC) * LIPID PROFILE(Performed 08/08/2009) Performed for Rheumatoid Arthritis (HCC) * URINALYSIS REFLEX TO MICROSCOPIC NO CULTURE(Performed 08/08/2009) Performed for Rheumatoid Arthritis ([facility]) * COMPREHENSIVE METABOLIC PANEL(Performed 07/26/2009) Performed for Rheumatoid Arthritis (HCC) * ERYTHROCYTE SEDIMENTATION RATE(Performed 07/26/2009) Performed for Rheumatoid Arthritis (HCC) * CBC W AUTO DIFFERENTIAL(Performed 07/26/2009) Performed for Rheumatoid Arthritis (HCC) * ERYTHROCYTE SEDIMENTATION RATE(Performed 06/28/2009) Performed for Unspecified Chest Pain * CBC W AUTO DIFFERENTIAL(Performed 06/28/2009) Performed for Unspecified Chest Pain * COMPREHENSIVE METABOLIC PANEL(Performed 06/28/2009) Performed for Unspecified Chest Pain * XR CHEST 2VW(Performed 06/28/2009) Performed for Unspecified Chest Pain * XR THORACIC SPINE 2VW(Performed 06/14/2009) Performed for Pain in Thoracic Spine * ERYTHROCYTE SEDIMENTATION RATE(Performed 05/31/2009) Performed for Rheumatoid Arthritis (HCC) * CBC W AUTO DIFFERENTIAL(Performed 05/31/2009) Performed for Rheumatoid Arthritis (HCC) * COMPREHENSIVE METABOLIC PANEL(Performed 05/31/2009) Performed for Rheumatoid Arthritis (HCC) * CBC W AUTO DIFFERENTIAL(Performed 05/03/2009) Performed for Rheumatoid Arthritis (HCC) * ERYTHROCYTE SEDIMENTATION RATE(Performed 05/03/2009) Performed for Rheumatoid Arthritis (HCC) * COMPREHENSIVE METABOLIC PANEL(Performed 05/03/2009) Performed for Rheumatoid Arthritis (HCC) * C-REACTIVE PROTEIN SENSITIVE(Performed 04/01/2009) Performed for Hyperlipidemia Nec/Nos * ERYTHROCYTE SEDIMENTATION RATE(Performed 04/01/2009) Performed for Hyperlipidemia Nec/Nos * CBC W AUTO DIFFERENTIAL(Performed 04/01/2009) Performed for Hyperlipidemia Nec/Nos * COMPREHENSIVE METABOLIC PANEL(Performed 04/01/2009) Performed for Hyperlipidemia Nec/Nos * LIPID PROFILE(Performed 04/01/2009) Performed for Hyperlipidemia Nec/Nos * MAMMO BILAT SCREENING(Performed 03/09/2009) Performed for Other Screening Mammogram * ERYTHROCYTE SEDIMENTATION RATE(Performed 03/04/2009) Performed for Rheumatoid Arthritis ([facility]) * CBC W AUTO DIFFERENTIAL(Performed 03/04/2009) Performed for Rheumatoid Arthritis (HCC) * COMPREHENSIVE METABOLIC PANEL(Performed 03/04/2009) Performed for Rheumatoid Arthritis ([facility]) * PAP THINPREP(Performed 03/03/2009) * ERYTHROCYTE SEDIMENTATION RATE(Performed 02/03/2009) Performed for Rheumatoid Arthritis ([facility]) * CBC W AUTO DIFFERENTIAL(Performed 02/03/2009) Performed for Rheumatoid Arthritis ([facility]) * COMPREHENSIVE METABOLIC PANEL(Performed 02/03/2009) Performed for Rheumatoid Arthritis ([facility]) * ERYTHROCYTE SEDIMENTATION RATE(Performed 12/30/2008) Performed for Pure Hypercholesterolem * C-REACTIVE PROTEIN SENSITIVE(Performed 12/30/2008) Performed for Pure Hypercholesterolem * COMPREHENSIVE METABOLIC PANEL(Performed 12/30/2008) Performed for Pure Hypercholesterolem * CBC W AUTO DIFFERENTIAL(Performed 12/30/2008) Performed for Pure Hypercholesterolem * LIPID PROFILE(Performed 12/30/2008) Performed for Pure Hypercholesterolem * COMPREHENSIVE METABOLIC PANEL(Performed 12/07/2008) Performed for Rheumatoid Arthritis ([facility]) * URINALYSIS DIPSTICK(Performed 12/07/2008) Performed for Rheumatoid Arthritis ([facility]) * ERYTHROCYTE SEDIMENTATION RATE(Performed 12/07/2008) Performed for Rheumatoid Arthritis ([facility]) * URINALYSIS NO MICROSCOPIC NO CULTURE(Performed 12/07/2008) Performed for Rheumatoid Arthritis ([facility]) * CBC W AUTO DIFFERENTIAL(Performed 12/07/2008) Performed for Rheumatoid Arthritis ([facility]) * URINALYSIS DIPSTICK(Performed 11/18/2008) Performed for Dysuria * HEMOGLOBIN A1C(Performed 11/08/2008) Performed for Benign Hypertension * LIPID PROFILE(Performed 11/08/2008) Performed for Benign Hypertension * ERYTHROCYTE SEDIMENTATION RATE(Performed 11/08/2008) Performed for Benign Hypertension * COMPREHENSIVE METABOLIC PANEL(Performed 11/08/2008) Performed for Benign Hypertension * CBC W AUTO DIFFERENTIAL(Performed 11/08/2008) Performed for Benign Hypertension * URINALYSIS NO MICROSCOPIC NO CULTURE(Performed 11/08/2008) Performed for Benign Hypertension * ERYTHROCYTE SEDIMENTATION RATE(Performed 10/11/2008) Performed for Rheumatoid Arthritis (HCC) * COMPREHENSIVE METABOLIC PANEL(Performed 10/11/2008) Performed for Rheumatoid Arthritis (HCC) * CBC W AUTO DIFFERENTIAL(Performed 10/11/2008) Performed for Rheumatoid Arthritis (HCC) * COMPREHENSIVE METABOLIC PANEL(Performed 09/13/2008) Performed for Rheumatoid Arthritis (HCC) * CBC W AUTO DIFFERENTIAL(Performed 09/13/2008) Performed for Rheumatoid Arthritis (HCC) * GROSS + MICRO EXAM(Performed 01/10/2005) * GROSS + MICRO EXAM(Performed 10/16/2004) * GROSS + MICRO EXAM(Performed 07/05/2004) * GROSS + MICRO EXAM(Performed 05/07/2003) * GROSS + MICRO EXAM(Performed 02/25/2003) * C-REACTIVE PROTEIN SENSITIVE CSF(Performed 03/18/1998) * CBC W/O DIFFERENTIAL(Performed 03/18/1998) * ERYTHROCYTE SEDIMENTATION RATE(Performed 03/18/1998) * COMPREHENSIVE METABOLIC PANEL(Performed 03/18/1998) Results * GROSS + MICRO EXAM (STL) (10/31/2016 2:32 PM CDT) Only the most recent of4 resultswithin the time period is included. Case Report Surgical Pathology Report Case: [id number] Authorizing Provider: Louis Hernandez MD Collected: 10/31/2016 02:32 PM Ordering Location: [facility] Received: 10/31/2016 04:04 PM Pathologist: Rajani Hood MD Specimens: A) - Polyp Gastric B) - Esophageal Biopsy, mid-esophagus biopsy 11/01/2016 2:15 PM CDT [facility] Final Diagnosis 1. Gastric polyp, biopsy: -- Benign fundic polyp 2. Esophagus, mid, biopsy: -- No pathologic changes /[facility] 11/01/2016 2:15 PM CDT [facility] Gross Description The specimens are received fixed in formalin in two containers for gross and microscopic examination, both labeled with the patient's name Peng Ch. Specimen A, gastric polyp, consists of three soft, pink-downey tissue fragments measuring 0.1, 0.4 and 0.5 cm in greatest dimension. The largest fragment is inked at the surgical margin and bisected. The specimen is submitted entirely as A1. Specimen B, mid esophagus biopsy, consists of one soft, pink-downey to translucent tissue fragment measuring 0.2 cm in greatest dimension. The specimen is submitted in toto as B1. IA/scs 11/01/2016 2:15 PM T [facility] Microscopic Description Section shows a benign fundic polyp with markedly cystically dilated fundic crypts lined by chief and parietal cells. A columnar mucinous-type epithelium is also lining some of the cysts. There is no evidence of dysplasia or malignancy. Section B reveals a strip of squamous mucosa with normal maturation and no evidence of inflammation including eosinophils. The PAS Alcian blue stain was performed to help exclude fungal elements or goblet cell metaplasia and is negative. GM/kay 11/01/2016 2:15 PM T [facility] Disclaimer All histochemical and/or immunohistochemical results are interpreted with controls that demonstrate appropriate staining reactions before reporting results. Note on use of immunocytochemistry reagents: This test was developed and its performance characteristic determined by [facility], Department of Laboratory Medicine. It has not been cleared or approved by the U.S. Food and Drug Administration (FDA). The FDA has determined that such clearance or approval is not necessary. The test is used for clinical purpose. It should not be regarded as investigational or for research. This laboratory is certified to perform high complexity testing. 11/01/2016 2:15 PM CDT [facility] Embedded Images 11/01/2016 2:15 PM T [facility] Pathology/Cytology GASTRIC POLYP / Unknown 10/31/2016 2:32 PM CDT 10/31/2016 4:04 PM CDT Miscellaneous samples (specimen) ESOPHAGEAL BIOPSY SPECIMEN / Unknown 10/31/2016 2:32 PM CDT 10/31/2016 4:04 PM CDT Louis Hernandez MD LAB - PATHOLOGY/CYTO LOGY ORDERABLES Performing Organization Address [facility] de Phone Number [facility] [address] [place] [address] * HELICOBACTER PYLORI UREASE (STL) (10/31/2016 2:30 PM CDT) Helicobacter pylori Urease Initial Negative Negative 11/01/2016 4:15 PM CDT [facility] Helicobacter pylori Urease Final Negative Negative 11/01/2016 4:15 PM CDT [facility] Microbiology GASTRIC ANTRAL BIOPSY SPECIMEN / Unknown Collection / Unknown 10/31/2016 2:30 PM CDT 10/31/2016 3:46 PM CDT Louis Hernandez MD LAB - MICROBIOLOGY O RDERABLES Performing Organization Address [facility] de Phone Number [facility] [address] [place] [address] * EGD (10/31/2016 2:09 PM CDT) Report Endoscopy POC _ Patient Name: Peng Hosto Procedure Date: 10/31/2016 2:09 PM Date of : 1950 Admit Type: Outpatient Age: 66 Gender: Female Attending MD: Louis Hernandez , _ Procedure: Upper GI endoscopy Indications: Heartburn Providers: Louis Hernandez (Doctor), Shannan Pickering Patient Profile: 66F pmh HTN, HLD, OA, anxiety, depression here to evaluate heartburn, cough. improved with BID PPI Referring MD: Lupis Swan (Referring MD) Medicines: Monitored Anesthesia Care Complications: No immediate complications. _ Procedure: After obtaining informed consent, the endoscope was passed under direct vision. Throughout the procedure, the patient's blood pressure, pulse, and oxygen saturations were monitored continuously. The Endoscope was introduced through the mouth, and advanced to the second part of duodenum. The upper GI endoscopy was accomplished without difficulty. The patient tolerated the procedure well. Impression: - 5 cm hiatus hernia. - Normal mucosa was found in the entire esophagus. Biopsied. - Gastritis. Biopsied. - Multiple gastric polyps. Resected and retrieved. - Normal examined duodenum. Findings: A 5 cm hiatus hernia was present. Normal mucosa was found in the entire esophagus. Biopsies were taken with a cold forceps for histology. Localized moderate inflammation characterized by congestion (edema) and erythema was found in the gastric antrum. Biopsies were taken with a cold forceps for Helicobacter pylori testing using CLOtest. Multiple 5 to 10 mm sessile polyps were found on the greater curvature of the stomach. The polyp was removed with a hot snare. Resection and retrieval were complete. The examined duodenum was normal. _ Recommendation: - Await pathology results. - cont PPI BID - helpful - followup with me in the office as scheduled Procedure Code(s): --- Professional --- 01928, Esophagogastroduo denoscopy, flexible, transoral; with removal of tumor(s), polyp(s), or other lesion(s) by snare technique [id number], 59, Esophagogastroduo denoscopy, flexible, transoral; with biopsy, single or multiple --- Technical --- 43652, Esophagogastroduo denoscopy, flexible, transoral; with removal of tumor(s), polyp(s), or other lesion(s) by snare technique [id number], 59, Esophagogastroduo denoscopy, flexible, transoral; with biopsy, single or multiple Diagnosis Code(s): --- Professional --- K44.9, Diaphragmatic hernia without obstruction or gangrene K31.7, Polyp of stomach and duodenum R12, Heartburn --- Technical --- K44.9, Diaphragmatic hernia without obstruction or gangrene K31.7, Polyp of stomach and duodenum R12, Heartburn CPT copyright 2015 [employer]. All rights reserved. The codes documented in this report are preliminary and upon distribution associate review may be revised to meet current compliance requirements. Louis Hernandez, 10/31/2016 2:38:24 PM This report has been signed electronically. Number of Addenda: 0 Note Initiated On: 10/31/2016 2:09 PM [facility] 10/31/2016 2:09 PM CDT Louis Hernandez MD GI PROCEDURE ORDERAB LES [facility] * XR CHEST PA AND LATERAL (09/20/2016 10:34 AM CDT) Only the most recent of2 resultswithin the time period is included. Anatomical Region Laterality Modality Chest Radiographic Claudia ging 09/20/2016 10:4 1 AM CDT Impressions 09/20/2016 10:59 AM CDT Clear lungs. Dictated by Oscar Mckee MD (resident inspector). Dictated by Miguel Ángel Mckee on 09/20/2016 10:43 AM I, Corky Eid, have personally reviewed the images and I agree with this report. Narrative 09/20/2016 10:59 AM CDT EXAMINATION: Chest, 2 views, PA and lateral HISTORY: Cough COMPARISON: Comparison is made with a study from 06/28/2009 FINDINGS: The lungs are clear. There is no evidence of pleural effusion or pneumothorax. The mediastinal and cardiac silhouettes are normal. The right first rib is partially absent. Procedure Note Corky Eid MD - 09/20/2016 EXAMINATION: Chest, 2 views, PA and lateral HISTORY: Cough COMPARISON: Comparison is made with a study from 06/28/2009 FINDINGS: The lungs are clear. There is no evidence of pleural effusion or pneumothorax. The mediastinal and cardiac silhouettes are normal. The right first rib is partially absent. IMPRESSION Clear lungs. Dictated by Oscar Mckee MD (resident inspector). Dictated by Miguel Ángel Mckee on 09/20/2016 10:43 AM I, Corky Eid, have personally reviewed the images and I agree with this report. Lupis Swan MD DIAGNOSTIC IMAGING O RDERABLES * XR PELVIS W BILAT HIP 2VW (07/12/2016 1:18 PM CDT) Anatomical Region Laterality Modality Pelvis, Lower Extremity [facility] 07/12/2016 1:29 PM CDT Impressions 07/12/2016 1:30 PM CDT Unchanged mild bilateral hip joint osteoarthritis. Narrative 07/12/2016 1:30 PM CDT Examination: Pelvis and both hips 4-5 views History: Bilateral hip osteoarthritis Findings: One view of the pelvis and 2 views of each hip are submitted with comparison to 09/29/2012. The alignment is normal. There is no fracture. There is unchanged mild bilateral hip joint osteoarthritis. There is also unchanged osteoarthritis involving the pubic symphysis. Procedure Note Antony Castañeda MD - 07/12/2016 Examination: Pelvis and both hips 4-5 views History: Bilateral hip osteoarthritis Findings: One view of the pelvis and 2 views of each hip are submitted with comparison to 09/29/2012. The alignment is normal. There is no fracture. There is unchanged mild bilateral hip joint osteoarthritis. There is also unchanged osteoarthritis involving the pubic symphysis. IMPRESSION Unchanged mild bilateral hip joint osteoarthritis. Duane Garcia MD DIAGNOSTIC IMAGING O RDERABLES * (ABNORMAL) COMPREHENSIVE METABOLIC PANEL (07/12/2016 9:11 AM CDT) Only the most recent of26 resultswithin the time period is included. Glucose 104(H) 65 - 99 mg/dL [facility] [...] CDT 07/12/2016 Narrative Resulting Agency Comment [facility] [address] [facility] [phone] Lupis Swan MD LAB - CHEMISTRY CHARISSE GUILLEN [facility] Organization Address City/State/ZIP Co de Phone Number [facility] INSURANCE BILL [address] [place] [address] * (ABNORMAL) LIPID PROFILE (07/12/2016 9:11 AM CDT) Only the most recent of12 resultswithin the time period is included. Cholesterol 174 100 - 199 mg/dL [facility] INSURANCE BILL Triglycerides 252(H) 0 - 149 mg/dL [facility] INSURANCE BILL HDL Cholesterol 34(L) >39 mg/dL [facility] INSURANCE BILL VLDL Calculated 50(H) 5 - 40 mg/dL [facility] INSURANCE BILL LDL Calculated 90 0 - 99 mg/dL [facility] INSURANCE BILL Comment NOT NEEDED [facility] INSURANCE BILL Comment:Ancillary determined the test is not needed Blood BLOOD SPECIMEN / Unknown 07/12/2016 9:11 AM CDT 07/12/2016 Narrative Resulting Agency [facility] [address] [facility] [phone] Lupis Swan MD LAB - CHEMISTRY CHARISSE GUILLEN [facility] INSURANCE BILL [address] [place] [address] * URIC ACID BLOOD (07/12/2016 9:05 AM CDT) Uric Acid 5.7 2.5 - 7.1 mg/dL [facility] INSURANCE BILL Comment:Therapeutic target f or gout patients: <6.0 Blood BLOOD SPECIMEN / Unknown 07/12/2016 9:05 AM CDT 07/12/2016 Narrative Resulting Agency [facility] [address] [facility] [phone] Duane Garcia MD LAB - CHEMISTRY CHARISSE GUILLEN [facility] INSURANCE BILL [address] [place] [address] * C-REACTIVE PROTEIN (07/12/2016 9:05 AM CDT) Only the most recent of2 resultswithin the time period is included. C-Reactive Protein 2.0 0.0 - 4.9 mg/L [facility] INSURANCE BILL Blood BLOOD SPECIMEN / Unknown 07/12/2016 9:05 AM CDT 07/12/2016 Narrative Resulting Agency Comment [facility] [address] [facility] [phone] Duane Garcia MD LAB - CHEMISTRY ORDE RABPADMINI Performing Organization Address City/[facility]/ZIP Co de Phone Number [facility] INSURANCE BILL [address] [place] [address] * SED RATE WESTERGREN (07/12/2016 9:05 AM CDT) Only the most recent of22 resultswithin the time period is included. Erythrocyte Sedimentation Rate Westergren 19 0 - 40 mm/hr [facility] INSURANCE BILL Blood BLOOD SPECIMEN / Unknown 07/12/2016 9:05 AM CDT 07/12/2016 Narrative Resulting Agency Comment [facility] [address] [facility] [phone] Duane Garcia MD LAB - HEMATOLOGY ORD ERABLES Performing Organization Address [facility] Co de Phone Number [facility] INSURANCE BILL [address] [place] [address] * CK BLOOD (07/12/2016 9:05 AM CDT) CK 140 24 - 173 U/L [facility] INSURANCE BILL Blood BLOOD SPECIMEN / Unknown 07/12/2016 9:05 AM CDT 07/12/2016 Narrative Resulting Agency Comment [facility] [address] [facility] [phone] Duane Garcia MD LAB - CHEMISTRY ORDKatelyn GUILLEN Performing Organization Address [facility] Co de Phone Number [facility] INSURANCE BILL [address] [place] [address] * ZACKERY SCREENING DIGITAL IMAGE BILATERAL G0202 (06/12/2016 11:19 AM CDT) Only the most recent of8 resultswithin the time period is included. Anatomical Region Laterality Modality Breast Bilateral Mammography 06/12/2016 1:15 PM CDT Impressions 06/12/2016 1:37 PM CDT No mammographic evidence of malignancy in either breast. ASSESSMENT: BIRADS Category 1: Negative mammogram. RECOMMENDATION: Bilateral screening mammogram in one year. Thank you for allowing us to participate in the care of your patient. [facility] utilizes [employer] as a reminder system to notify patients of their next recommended mammogram. Report dictated by Ashley Barnes M.D. (vice president residential solar sales) I, Gabriela Garzayvan, have personally reviewed the images and I [...] the prior examination. Abril Hicks MD MAMMO ORDERA BLES * AMB REFERRAL TO RHEUMATOLOGY (08/26/2015 1:10 PM CDT) Lupis Swan MD OUTPATIENT REFERRALS * XR HANDS BILAT MIN 3 VW (08/11/2015 10:05 AM CDT) Anatomical Region Laterality Modality Upper Extremity, Wrist / Hand Ra diographic Imaging 08/11/2015 10:3 0 AM CDT Impressions 08/11/2015 10:31 AM CDT Osteoarthritic changes Narrative 08/11/2015 10:31 AM CDT Bilateral hands 2 views each Clinical: Pain Findings: Scattered osteoarthritic changes are present greatest at the base of both thumbs. There is no erosive change or periostitis. No fracture is seen. Procedure Note Abril Garvin MD - 08/11/2015 Bilateral hands 2 views each Clinical: Pain Findings: Scattered osteoarthritic changes are present greatest at the base of both thumbs. There is no erosive change or periostitis. No fracture is seen. IMPRESSION Osteoarthritic changes Rajat Weir DO DIAGNOSTIC IMAGING ORDERABLES * XR FOOT 3+ VW LEFT (07/27/2015 10:11 AM CDT) Only the most recent of8 resultswithin the time period is included. Anatomical Region Laterality Modality Ankle / Foot Radiographic Claudia ging Narrative 07/27/2015 11:46 AM CDT Jillian Duque, RT(R) 07/27/2015 11:46 AM See office note for x-ray result. Mikey Gamez PA-C DIAGNOSTIC IMAGING O RDERABLES * LAB RESULTS ORDER (07/06/2015) Only the most recent of3 resultswithin the time period is included. Provider Unknown LAB - THERAPEUTIC DR FLORES MONITORING ORDERABLES * (ABNORMAL) LIPID PROFILE (EXTERAL RESULT ENTRY) (07/05/2015) Only the most recent of2 resultswithin the time period is included. Cholesterol (EXTERNAL RESULT) 189 mg/dL Triglycerides (EXTERNAL RESULT) 184 mg/dL HDL (EXTERNAL RESULT) 46 mg/dL LDL (EXTERNAL RESULT) 106 mg/dL VLDL (EXTERNAL RESULT) 37 mg/dL Chol HDL Ratio (External Result) Blood specimen (specimen) BLOOD SPECIMEN / Unknown 07/05/2015 Historical Provider LAB - CHEMISTRY O RDERABLES * TSH (EXTERNAL RESULT ENTRY) (07/05/2015) Only the most recent of2 resultswithin the time period is included. TSH (EXTERNAL RESULT) 1.550 uIU/mL Blood specimen (specimen) BLOOD SPECIMEN / Unknown 07/05/2015 Historical Provider LAB - CHEMISTRY O RDERABLES * CREATININE BLOOD (EXTERNAL RESULT ENTRY) (07/05/2015) Creatinine (EXTERNAL RESULT) 0.83 mg/dl Blood specimen (specimen) BLOOD SPECIMEN / Unknown 07/05/2015 Historical Provider LAB - CHEMISTRY O RDERABLES * HEMOGLOBIN A1C (EXTERNAL RESULT ENTRY) (07/05/2015) Only the most recent of2 resultswithin the time period is included. Hemoglobin A1c (EXTERNAL RESULT) 5.5 % Blood specimen (specimen) BLOOD SPECIMEN / Unknown 07/05/2015 Historical Provider LAB - CHEMISTRY O RDERABLES * XR FOOT 2 VW LEFT (06/02/2015 8:01 AM CDT) Anatomical Region Laterality Modality Ankle / Foot Radiographic Claudia ging 06/02/2015 10:1 5 AM CDT Narrative 06/02/2015 10:16 AM CDT Left foot 2 views History: Hardware removal Findings: The fluoroscopy time is 2 seconds. 2 metallic juanjose have been moved from the distal aspect of the first metatarsal. Please see the operative report for more details. Procedure Note Gurmeet Casper MD - 06/02/2015 Left foot 2 views History: Hardware removal Findings: The fluoroscopy time is 2 seconds. 2 metallic juanjose have been moved from the distal aspect of the first metatarsal. Please see the operative report for more details. Jose Alfredo Vasquez DO DIAGNOSTIC IMAGING O RDERABLES * HEMOGLOBIN A1C - POINT OF CARE (HgbA1C) (03/24/2015) Only the most recent of3 resultswithin the time period is included. Hemoglobin A1c POCT 5.2 % QC Verified Yes Blood specimen (specimen) BLOOD SPECIMEN / Unknown 03/24/2015 Lupis Swan MD LAB - POINT OF CARE ORDERABLES * XR HAND 3+ VW LEFT (03/08/2015 10:52 AM RIVER TRANSPORTATION WORKER) Anatomical Region Laterality Modality Wrist / Hand Radiographic Claudia ging 03/08/2015 10:5 9 AM RIVER TRANSPORTATION WORKER Impressions 03/08/2015 11:00 AM RIVER TRANSPORTATION WORKER Degenerative changes. Narrative 03/08/2015 11:00 AM RIVER TRANSPORTATION WORKER Left hand 3 views. History: Fall, pain. 3 views of the hand demonstrate degenerative changes at the base of the thumb. There is no fracture lytic or blastic lesion. Procedure Note Seth Jackson MD - 03/08/2015 Left hand 3 views. History: Fall, pain. 3 views of the hand demonstrate degenerative changes at the base of the thumb. There is no fracture lytic or blastic lesion. IMPRESSION Degenerative changes. Lupis Swan MD DIAGNOSTIC IMAGING O RDERABLES * XR WRIST 3+ VW LEFT (03/08/2015 10:52 AM RIVER TRANSPORTATION WORKER) Anatomical Region Laterality Modality Wrist / Hand Radiographic Claudia ging 03/08/2015 10:5 8 AM RIVER TRANSPORTATION WORKER Impressions 03/08/2015 10:59 AM RIVER TRANSPORTATION WORKER Degenerative changes. Narrative 03/08/2015 10:59 AM RIVER TRANSPORTATION WORKER Left wrist 3 views. History: Fall, pain. Views the wrist demonstrate degenerative changes at the base of the thumb. There is no acute fracture or dislocation seen. Procedure Note Seth Jackson MD - 03/08/2015 Left wrist 3 views. History: Fall, pain. Views the wrist demonstrate degenerative changes at the base of the thumb. There is no acute fracture or dislocation seen. IMPRESSION Degenerative changes. Lupis Swan MD DIAGNOSTIC IMAGING O RDERABLES * CARDIAC RHYTHM STRIP ORDER (09/02/2014 10:09 PM CDT) Only the most recent of2 resultswithin the time period is included. Narrative 09/02/2014 10:09 PM CDT Ordered by an unspecified provider. Scanned Document CARDIAC SERVICES ORD ERABLES * (ABNORMAL) LDL CHOLESTEROL (EXTERNAL RESULT ENTRY) (11/20/2013 8:19 AM CDT) Only the most recent of2 resultswithin the time period is included. LDL Calculated (EXTERNAL RESULT) 100 mg/dl OUTSIDE REFERENCE LAB Blood specimen (specimen) BLOOD SPECIMEN / Unknown 11/20/2013 8:19 AM CDT Narrative OUTSIDE REFERENCE LAB - 11/20/2013 8:19 AM CDT The accuracy and reliability of the test results are authenticated by the outside CLIA certified lab, and not by the [facility] Laboratory Preparer. The full result should be confirmed by review of the scanned report from the outside CLIA certified lab that performed the test before clinical decisions are rendered based on these results. Exercise caution when tracking results measured by different laboratories that have not been subject to cross validation studies. Historical Provider LAB - CHEMISTRY O RDERABLES OUTSIDE REFERENCE LAB * ENDOSCOPY, COLON, SCREENING (06/15/2013 7:43 AM CDT) Report Endoscopy POC _ Patient Name: Peng Ch Procedure Date: 06/15/2013 7:43 AM Date of : 1950 Admit Type: Outpatient Age: 63 Gender: Female Attending MD: Faviola Quintero MD _ Procedure: Colonoscopy Indications: Rectal bleeding Providers: Faviola Quintero MD (Doctor), Dawna Ferris RN, Ema Ozuna, Cardiovascular Sonographer Referring MD: Rudy Marroquin MD (Referring MD) [...] verified by the physician, the nurse, the petrologist and the injection molding technician in the pre-procedure area in the [...] pathology results. Procedure Code(s): --- Professional --- 89873, Colonoscopy, flexible, proximal to splenic flexure; with biopsy, single or multiple --- Technical --- 90188, Colonoscopy, flexible, proximal to splenic flexure; with [...] (without mention of hemorrhage) CPT copyright 2013 [employer]. All rights reserved. The codes documented in this report are preliminary and upon distribution associate review may be revised to meet current compliance requirements. _ Faviola Quintero MD 06/15/2013 8:06 AM This report has been signed electronically. Number of Addenda: 0 Note Initiated On: 06/15/2013 7:43 AM [facility] 06/15/2013 7:43 AM CDT Narrative [facility] - 06/15/2013 8:08 AM CDT Procedure Note Faviola Quintero MD - 06/15/2013 8:08 AM CDT Faviola Quintero MD GI PROCEDURE ORDERAB LES [facility] * EGD (06/15/2013 7:26 AM CDT) Report Endoscopy POC _ Patient Name: Peng Ch Procedure Date: 06/15/2013 7:26 AM Date of : 1950 Admit Type: Outpatient Age: 63 Gender: Female Attending MD: Faviola Quintero MD _ Procedure: Upper GI endoscopy Indications: Iron deficiency anemia Providers: Faviola Quintero MD (Doctor), Dawna Ferris RN, Ema Ozuna, Cardiovascular Sonographer Referring MD: Rudy Marroquin MD (Referring MD) [...] verified by the physician, the nurse, the petrologist and the injection molding technician in the pre-procedure area in the endoscopy suite. Mental Status Examination: alert and oriented. Airway Examination: normal oropharyngeal airway and neck mobility. Respiratory Examination: clear to auscultation. CV Examination: [...] patient was re-assessed after the procedure. After obtaining informed consent, the endoscope was passed under direct vision. Throughout the procedure, the patient's blood pressure, pulse, and oxygen saturations were monitored continuously. The Endoscope was introduced through the mouth, and advanced to the third part of duodenum. The upper GI endoscopy was accomplished without difficulty. The patient tolerated the procedure well. Impression: - Esophageal mucosal changes suggestive of short-segment Monte's esophagus. Biopsied. - Multiple gastric polyps. Biopsied. - No gross lesions in duodenum. Biopsied. - The examination was otherwise normal. Findings: There were esophageal mucosal changes suggestive of short-segment Monte's esophagus present at the lower esophageal sphincter. The maximum longitudinal extent of these mucosal changes was 0.5 cm in length. Biopsies were taken with a cold forceps for histology. Estimated blood loss was minimal. Multiple 4 to 8 mm pedunculated and sessile polyps with no stigmata of recent bleeding were found in the entire examined stomach. Biopsies were taken with a cold forceps for histology from prepyloric polypoid nodules. Estimated blood loss: none. No gross lesions were noted in the entire examined duodenum. Biopsies were taken with a cold forceps for evaluation of celiac disease. Estimated blood loss: none. The exam was otherwise without abnormality. _ Recommendation: - Telephone GI office for pathology results in 2 days. - Continue present medications. Procedure Code(s): --- Professional --- 00130, Esophagogastroduod enoscopy, flexible, transoral; with biopsy, single or multiple --- Technical --- 23015, Esophagogastroduod enoscopy, flexible, transoral; with biopsy, single or multiple Diagnosis Code(s): --- Professional --- 530.9, Unspecified disorder of esophagus 211.1, Benign neoplasm of stomach 280.9, Iron deficiency anemia, unspecified --- Technical --- 530.9, Unspecified disorder of esophagus 211.1, Benign neoplasm of stomach 280.9, Iron deficiency anemia, unspecified CPT copyright 2013 [employer]. All rights reserved. The codes documented in this report are preliminary and upon distribution associate review may be revised to meet current compliance requirements. _ Faviola Quintero MD 06/15/2013 7:46 AM This report has been signed electronically. Number of Addenda: 0 Note Initiated On: 06/15/2013 7:26 AM [facility] 06/15/2013 7:26 AM CDT Narrative [facility] - 06/15/2013 7:48 AM CDT Procedure Note Faviola Quintero MD - 06/15/2013 7:48 AM CDT Faviola Quintero MD GI PROCEDURE ORDERAB LES [facility] * PATHOLOGY TISSUE FOR DERMATOLOGY (05/27/2013 3:54 PM CDT) Only the most recent of2 resultswithin the time period is included. 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 GROSS DESCRIPTION: Received is one formalin filled container labeled with the patient's name and designated right ear trough. The specimen consists of a shave biopsy measuring 3x2x1 mm. Jar 0. MICROSCOPIC DESCRIPTION: There is a space that contains loosely aggregated cornified cells surrounded by epithelium that resembles normal epidermis and a perifollicular lymphohistiocytic infiltrate. Melanin is present within melanophages around the superficial vascular plexus. Additional deeper sections were obtained and reviewed. Electronically signed out by Ashley Ya M.D. 05/29/2013 3:19:06PM [facility] Comment: Performed at: Dermatopathology Laboratory [facility] Department of Dermatology [address] [place] [address] [place] [address] Phone number: [phone] FAX: [phone] Skin (tissue) specimen (specimen) 05/27/2013 3:54 PM CDT 05/28/2013 Narrative [facility] - 05/29/2013 3:20 PM CDT Specimen A: Type->Shave Site->R tear trough History->history of scaly lesion x years treated with LN2 x 2 in past, recurrent. Previous biopsy with fragments of epidermis. Impression->SCC vs BCC vs AK vs VV Check Margins:->N/A Prior Biopsy->N/A Historical Provider LAB - PATHOLOGY/C YTOLOGY ORDERABLES Performing Organization Address [facility] Co de Phone Number [facility] [address] [facility]. [address] [place] [address] [phone] * PATHOLOGY/GENETICS HISTORICAL-ONBASE (04/23/2013) 04/23/2013 [facility] - 04/30/2013 9:26 AM RIVER TRANSPORTATION WORKER Historical Provider LAB - CHEMISTRY O RDERABLES Performing Organization Address [facility] Co de Phone Number [facility] [address] * MRI PELVIS NON CONTRAST (10/17/2012 11:29 AM CDT) Anatomical Region Laterality Modality Pelvis Magnetic Resonan ce Angiography 10/17/2012 11:3 5 AM CDT Narrative 10/17/2012 12:14 PM CDT MRI PELVIS HISTORY: Hip pain TECHNIQUE: Routine MR pelvis was obtained on a high-field open magnet. COMPARISON: Comparison is made to pelvic x-rays dated 09/29/2012. FINDINGS: There are degenerative changes of the right hip joint with mild mediastinal joint space narrowing. Left hip joint is grossly normal. There is no significant T2 signal abnormality. There is no fracture or bone destruction. There is no joint effusion. The visualized sacroiliac joints are normal. Soft tissues are normal. DIAGNOSIS: Mild degenerative change, right hip joint, otherwise, negative. Edited by Frieda Guerin on 10/17/2012 11:53 AM Procedure Note Onesimo Akins MD - 10/17/2012 MRI PELVIS HISTORY: Hip pain TECHNIQUE: Routine MR pelvis was obtained on a high-field open magnet. COMPARISON: Comparison is made to pelvic x-rays dated 09/29/2012. FINDINGS: There are degenerative changes of the right hip joint with mild mediastinal joint space narrowing. Left hip joint is grossly normal. There is no significant T2 signal abnormality. There is no fracture or bone destruction. There is no joint effusion. The visualized sacroiliac joints are normal. Soft tissues are normal. DIAGNOSIS: Mild degenerative change, right hip joint, otherwise, negative. Edited by Frieda Guerin on 10/17/2012 11:53 AM Arnoldo Rankin III, MD MR ORDERABLES * DEXA BONE DENSITY 2 SITES (10/03/2012 [...] Normal. Arnoldo Rankin III, MD DEXA ORDERABLES * XR PELVIS 1 OR 2 VIEW ROUTINE (09/29/2012 9:55 AM CDT) Only the most recent of2 resultswithin the time period is included. Anatomical Region Laterality Modality Pelvis Radiographic Claudia ging 09/29/2012 12:1 3 PM CDT Impressions 09/29/2012 12:13 PM CDT Single view of the pelvis compared to November 07, 2009 for an indication of pain demonstrates no acute fractures or dislocations. Narrative 09/29/2012 12:13 PM CDT Procedure Note Jakob Olmedo MD - 09/29/2012 IMPRESSION Single view of the pelvis compared to November 07, 2009 for an indication of pain demonstrates no acute fractures or dislocations. Arnoldo Rankin III, MD DIAGNOSTIC IMAGING O RDERABLES * PT-INR [facility] (06/24/2012 9:48 AM CDT) INR 1.0 [facility] ([facility]) Comment: Reference Range 0.9-1.1 Moderate-intensity Warfarin Therapy 2.0-3.0 Higher-intensity Warfarin Therapy 3.0-4.0 PT 10.5 9.0 - 11.5 sec [facility] ([facility]) Comment: REPORT COMMENT: IS PATIENT ON HEPARIN?->N Test Performed at: [facility] [address] [address] RHONDA FLORES DO [facility] Plasma specimen (specimen) 06/24/2012 9:48 AM CDT 06/24/2012 9:48 AM CDT Narrative [facility] ([facility]) - 06/24/2012 3:00 PM CDT Is patient on Heparin, Argatroban or Dabigatran?->N Judah Suh MD LAB - COAG ULATION ORDERABLES [facility] ([facility]) * (ABNORMAL) CBC W AUTO DIFFERENTIAL (06/24/2012 9:48 AM CDT) Only the most recent of23 resultswithin the time period is included. WBC 6.7 3.8 - 10.8 Thousand/u L [facility] ([facility]) RBC 4.48 3.80 - 5.10 Million/uL [facility] ([facility]) Hemoglobin 12.4 11.7 - 15.5 g/dL [facility] ([facility]) Hematocrit 38.1 35.0 - 45.0 % [facility] ([facility]) MCV 85.0 80.0 - 100.0 fL [facility] ([facility]) MCH 27.7 27.0 - 33.0 pg [facility] ([facility]) MCHC 32.6 32.0 - 36.0 g/dL [facility] ([facility]) RDW 15.1(H) 11.0 - 15.0 % [facility] ([facility]) Platelet 265 140 - 400 Thousand/u L [facility] ([facility]) Neutrophils Absolute 4228 1500 - 7800 cells/uL [facility] ([facility]) Lymphocyte Absolute 1876 850 - 3900 cells/uL [facility] Monocytes Absolute 382 200 - 950 cells/uL [facility]) Eosinophils Absolute 181 15 - 500 cells/uL [facility]) Basophils Absolute 34 0 - 200 cells/uL [facility]) Neutrophils % 63.1 % [facility] Lymphocytes % 28.0 % [facility] Monocytes % 5.7 % [facility] Eosinophils % 2.7 % [facility] Basophils % 0.5 % [facility] ([facility]) Comment: REPORT COMMENT: IS PATIENT ON HEPARIN?->N Test Performed at: [facility] [address] [place] [address] RHONDA FLORES DO,MPH Venous blood specimen (specimen) 06/24/2012 9:48 AM CDT 06/24/2012 9:48 AM CDT Judah Suh MD LAB - BON TOLOGY ORDERABLES Performing Organization Address [facility] de Phone Number [facility] ([facility]) * HEPATIC FUNCTION PANEL (06/24/2012 9:48 AM CDT) Only the most recent of3 resultswithin the time period is included. Protein Total 7.0 6.4 - 8.4 g/dL [facility] ([facility]) Albumin 4.4 3.6 - 5.1 g/dL [facility] ([facility]) Globulin 2.6 2.2 - 4.0 g/dL (calc) [facility] ([facility]) Albumin/Globulin Ratio 1.7 0.9 - 2.3 (calc) [facility] ([facility]) Bilirubin Total 0.4 0.2 - 1.2 mg/dL [facility] ([facility]) Bilirubin Direct 0.1 < OR = 0.2 mg/dL [facility] ([facility]) Bilirubin Indirect 0.3 0.2 - 1.2 mg/dL (calc) [facility] ([facility]) Alkaline Phosphatase 73 33 - 130 U/L [facility] ([facility]) AST 35 10 - 35 U/L [facility] ([facility]) ALT 29 6 - 40 U/L [facility] ([facility]) Comment: REPORT COMMENT: IS PATIENT ON HEPARIN?->N Test Performed at: [facility] [address] [address] [place] [address] RHONDA FLORES DO,MPH Venous blood specimen (specimen) 06/24/2012 9:48 AM CDT 06/24/2012 9:48 AM CDT Judah Suh MD LAB - CHEM ISTRY ORDERABLES Performing Organization Address [facility] de Phone Number [facility] ([facility]) * XR THORACIC SPINE 2 VW (12/26/2011 11:50 AM CDT) Only the most recent of2 resultswithin the time period is included. Anatomical Region Laterality Modality Spine Radiographic Claudia ging 12/26/2011 11:5 9 AM CDT Impressions 12/26/2011 11:59 AM CDT 1. No fracture or ankylosis 2. Chronic osteophytes Thank you for this consult Narrative 12/26/2011 11:59 AM CDT Thoracic spine, three views DATE: 12/26/2011. INDICATION: Rheumatoid arthritis, 714.0. FINDINGS: Since 06/14/2009 there has been no change. Anterior spurs in the lower thoracic spine are chronic. There are no visible posterior spurs and no fracture, subluxation or ankylosis. Lateral claw osteophytes in the mid to lower spine are also chronic. Incidentally noted are cholecystectomy clips. Procedure Note Magda Elise MD - 12/26/2011 Thoracic spine, three views DATE: 12/26/2011. INDICATION: Rheumatoid arthritis, 714.0. FINDINGS: Since 06/14/2009 there has been no change. Anterior spurs in the lower thoracic spine are chronic. There are no visible posterior spurs and no fracture, subluxation or ankylosis. Lateral claw osteophytes in the mid to lower spine are also chronic. Incidentally noted are cholecystectomy clips. IMPRESSION 1. No fracture or ankylosis 2. Chronic osteophytes Thank you for this consult Arnoldo Rankin III, MD DIAGNOSTIC IMAGING O RDERABLES * NUC MYOCARD SPECT MULTI (11/27/2011 9:31 AM CDT) Anatomical Region Laterality Modality Chest Nuclear Medicine 11/27/2011 11:0 9 AM CDT Impressions 11/27/2011 11:09 AM CDT No evidence of pharmacologically induced reversible defect to suggest ischemia. Normal ejection fraction (45%). Narrative 11/27/2011 11:09 AM CDT Myocardial SPECT with perfusion. DATE: 11/27/2011 INDICATION: Evaluation with current medical management. Cardiac risk factors include family history of ischemic heart disease, hyperlipidemia, and hypertension. TECHNIQUE: 10.4 mCi of Tc 99m Myoview (tetrofosmin) was injected intravenously followed by rest SPECT imaging. After 0.4 mg of intravenous Lexisan (regadenoson) induced pharmacologic stress, 30.2 mCi of Tc 99m Myoview (tetrofosmin) was injected intravenously at peak stress followed by gated myocardial SPECT imaging. STRESS/ECG FINDINGS: As reported by cardiology, negative Lexiscan stress test FINDINGS: Gated Lexiscan myocardial perfusion study on cineangiographic display shows a normal size left ventricle compared with the right ventricle. Ejection fraction is 45%. Wall motion and contractility are normal. Stress images displayed in short axis, vertical axis and horizontal long axis show no perfusion defects. No change of perfusion pattern is seen on rest images. There is no evidence of stress-induced ischemia. Procedure Note Reinier Hassan MD - 11/27/2011 Myocardial SPECT with perfusion. DATE: 11/27/2011 INDICATION: Evaluation with current medical management. Cardiac risk factors include family history of ischemic heart disease, hyperlipidemia, and hypertension. TECHNIQUE: 10.4 mCi of Tc 99m Myoview (tetrofosmin) was injected intravenously followed by rest SPECT imaging. After 0.4 mg of intravenous Lexisan (regadenoson) induced pharmacologic stress, 30.2 mCi of Tc 99m Myoview (tetrofosmin) was injected intravenously at peak stress followed by gated myocardial SPECT imaging. STRESS/ECG FINDINGS: As reported by cardiology, negative Lexiscan stress test FINDINGS: Gated Lexiscan myocardial perfusion study on cineangiographic display shows a normal size left ventricle compared with the right ventricle. Ejection fraction is 45%. Wall motion and contractility are normal. Stress images displayed in short axis, vertical axis and horizontal long axis show no perfusion defects. No change of perfusion pattern is seen on rest images. There is no evidence of stress-induced ischemia. IMPRESSION No evidence of pharmacologically induced reversible defect to suggest ischemia. Normal ejection fraction (45%). Rudy Marroquin MD NM ORDERABLES * HEMOGLOBIN A1C (04/26/2011 10:20 AM [employer]) Only the most recent of2 resultswithin the time period is included. Hemoglobin A1c 5.3 3.9 - 6.1 % [facility] Estimated Average Glucose 105.4 mg/dl [facility] BLOOD SPECIMEN WITH EDTA / Unknown 04/26/2011 10:20 AM [employer] WORK[employer] 04/26/2011 11:14 AM [employer] WORK[employer] Heriberto Bartholomew MD LAB - CHEMISTRY CHARISSE GUILLEN [facility] [address] [place] [phone] * PAP IG RFLX HPV ASCU (04/26/2011) 04/26/2011 Abril Hicks MD LAB - PATHOL OGY/CYTOLOGY ORDERABLES Performing Organization Address City/[facility]/ZIP Co de Phone Number [facility] * (ABNORMAL) C-REACTIVE PROTEIN SENSITIVE (04/27/2010 11:32 AM [employer] WORK[employer]) Only the most recent of6 resultswithin the time period is included. C-Reactive Protein High Sensitivity 0.696(H) SEE BELOW mg/dl [facility] Comment: <=0.3 Healthy CARDIO DISEASE PREDICTION <0.1 Low Risk >0.1 and <0.3 Average Risk >0.3 High Risk BLOOD SPECIMEN / Unknown 04/27/2010 11:32 AM [employer] WORK[employer] 04/27/2010 11:52 AM [employer] WORKER Arnoldo Rankin III, MD LAB - CHEMISTRY CHARISSE GUILLEN Performing Organization Address City/[facility]/ZIP Co de Phone Number [facility] [address] [place] [phone] * HELICOBACTER PYLORI UREASE (04/13/2010 7:30 AM RIVER [employer]SP[employer]ATION WORKER) Pathologist [facility] Helicobacter pylori Urease Initial Negative [facility] Helicobacter pylori Urease Final negative [facility] GASTRIC ANTRAL BIOPSY SPECIMEN / Unknown 04/13/2010 7:30 AM R[employer] WORKER 04/13/2010 1:28 PM [employer] WORKER Faviola Quintero MD LAB - MICROBIOLOGY O RDERABLES Performing Organization Address City/[facility]/ZIP Co de Phone Number [facility] [address] [place] [phone] * ENDOSCOPY ORDER (04/13/2010) 04/13/2010 Narrative Procedure Note Faviola Quintero MD - 04/13/2010 6:50 AM RIVER TRANSPORTATION WORKER [facility] - [address] [address] Endoscopy Note PATIENT NAME: PENG CH#: [id number] AGE: 60ACCT#: [id number] DATE OF PROCEDURE: 04/13/2010ROOM#: PREOPERATIVE DIAGNOSIS: Chronic and refractory gastroesophageal reflux disease, rule outBarrett's esophagus. POSTOPERATIVE DIAGNOSES: 1. Incompetent lower esophageal sphincter. 2. Prepyloric gastric nodules biopsy. HISTORY: The patient is a 60-year-old female who has had acid reflux for years.She also has persistent symptoms with regurgitation, particularly atnight. She raised her head over bed, but despite this has regurgitationthat causes choking. She has been chronically on Nexium 40 mg daily. The procedure was discussed with the patient including the possible riskssuch as possibilities of bleeding or perforation, the possible need forsurgery to correct any complications, the possibility of cardiopulmonarycomplications and the fact that a lesion could be missed. PREMEDICATION: Fentanyl mcg and Versed 7 mg were given intravenously in increments priorto and during the procedure. PROCEDURE: The patient was placed in the left lateral decubitus position. Heroropharynx was topically anesthetized with Xylocaine spray. An Olympusgastroscope was inserted with ease into the esophagus. The esophagus hadnormal mucosa. The gastroesophageal junction was at 39 cm. There were noBarrett's changes or erosions, but the lower esophageal sphincter waswidely incompetent. The stomach was entered with ease and distended well.The gastric mucosa was normal throughout except in the prepyloric areawhere there were 4 or 5 nodules each about 6 mm to 7 mm in diameter; twoof these were biopsied, actually partly removed with biopsy forceps. Thepyloric channel, duodenal bulb, second, and third portions of the duodenumwere normal. The scope was then withdrawn. She tolerated the procedurewell. PLAN: The patient will call me to discuss results in 1 or 2 days. cc:Heriberto Bartholomew M.D. NAME: PENG CH DICTATOR:FAVIOLA QUINTERO M.D. DICTATED FOR: [id number] JOB ID: [id number] Endoscopy Note Faviola Quintero MD GI PROCEDURE ORDERAB LES * GROSS + MICRO EXAM (04/13/2010 12:00 AM R[employer] WORKER) Only the most recent of7 resultswithin the time period is included. Result CASE NUMBER [id number] Comment: ORDERING PHYSICIAN FAVIOLA QUINTERO SPECIMEN TYPE Gastric-gastric/atrum nodule Date 04/13/2010 Physician Jc Quintero Gross Description The specimen is received in Formalin labeled with the patient's name, Peng Ch, and gastric antrum nodule. It consists of two 3 mm soft yellow downey tissue fragments, submitted in toto in a single cassette. [facility] Microscopic Exam Sections show fragments of gastric mucosa consistent with mild acute and chronic inflammation with hyperplastic change. Immunostain with H. pylori is negative. MC/vl Diagnosis I. Gastric antrum nodule, biopsy -- Mild chronic active gastritis with hyperplastic change. /vl Tent Worker Pathologist Scott Verduzco MD [facility]. 04/14/2010 1030 <2> CPT code 09594,28131 MISCELLANEOUS SAMPLE S / Unknown 04/13/2010 04/13/2010 1:27 PM [employer] WORKER Historical Provider LAB - PATHOLOGY/C YTOLOGY ORDERABLES * CT ABDOMEN WITH AND WITHOUT IV CONTRAST (02/15/2010 8:01 AM RIVER [employer]SP[employer]ATION WORKER) Anatomical Region Laterality Modality Abdomen Computed Tomogra phy 02/15/2010 8:45 AM RIVER [employer]ATION WORKER Narrative 02/15/2010 12:12 PM [address] [employer] [address] ABDOMEN CLINICAL INFORMATION: Abdominal pain TECHNIQUE: Precontrast images of the abdomen were followed by multiple contiguous axial images of the abdomen with oral and intravenous contrast. Comparison is made to 02/18/2007. Mild fatty enlargement of the liver is present. There is no focal hepatic lesion. The gallbladder is surgically absent. There is no bile duct dilatation. The visualized spleen, pancreas, adrenal glands and left kidney are normal. There is no change in the appearance of a right renal cyst. The visualized ureters are normal. The visualized large and small bowel appear normal. There is no free intraperitoneal air or fluid. The vascular structures enhance normally. No adenopathy is seen. Lung bases appear clear. DIAGNOSIS: No significant interval change noted in the abdomen as described. Procedure Note Onesimo Akins MD - 12/01/2010 CT ABDOMEN CLINICAL INFORMATION: Abdominal pain TECHNIQUE: Precontrast images of the abdomen were followed by multiple contiguous axial images of the abdomen with oral and intravenous contrast. Comparison is made to 02/18/2007. Mild fatty enlargement of the liver is present. There is no focal hepatic lesion. The gallbladder is surgically absent. There is no bile duct dilatation. The visualized spleen, pancreas, adrenal glands and left kidney are normal. There is no change in the appearance of a right renal cyst. The visualized ureters are normal. The visualized large and small bowel appear normal. There is no free intraperitoneal air or fluid. The vascular structures enhance normally. No adenopathy is seen. Lung bases appear clear. DIAGNOSIS: No significant interval change noted in the abdomen as described. Arnoldo Rankin III, MD CT ORDERABLES * URINALYSIS ROUTINE AUTO (02/07/2010 10:04 AM [employer] WORKER) Only the most recent of2 resultswithin the time period is included. Pathologist [facility] Source Random [facility] Color UA Yellow [facility] Character UA Clear [facility] Glucose UA NEGATIVE NEGATIVE mg/dl [facility] Bilirubin UA NEGATIVE NEGATIVE [facility] Ketone UA NEGATIVE NEGATIVE mg/dl [facility] Specific [place] UA 1.010 1.003 - 1.030 [facility] Blood UA NEGATIVE NEGATIVE [facility] pH UA 6.0 5.0 - 9.0 [facility] Protein UA NEGATIVE NEGATIVE-TRA CE mg/dl [facility] Urobilinogen UA 0.2 0.2 - 1.0 Brian Units/dl [facility] Nitrite UA NEGATIVE NEGATIVE [facility] Leukocyte UA NEGATIVE NEGATIVE [facility] URINE SPECIMEN OBTAINED BY CLEAN CATCH PROCEDURE / Unknown 02/07/2010 10:04 AM [employer] WORKER 02/07/2010 11:20 AM R[employer]ATION WORKER Arnoldo Rankin III, MD LAB - URINALYSIS ORD ERABLES [facility] [address] [place] [address] * (ABNORMAL) VITAMIN D 25-HYDROXY (02/07/2010 10:04 AM R[employer] WORKER) Only the most recent of2 resultswithin the time period is included. Vitamin D, 25 Hydroxy 17.69(L) 30 - 100 ng/ml [facility] BLOOD SPECIMEN / Unknown 02/07/2010 10:04 AM [employer] WORKER 02/07/2010 10:57 AM [employer] WORKER Arnoldo Rankin III, MD LAB - CHEMISTRY CHARISSE GUILLEN Performing Organization Address [facility] de Phone Number [facility] [address] [place] [address] * (ABNORMAL) PTH INTACT (01/12/2010 10:15 AM CDT) Pathologist [facility] PTH Intact 12.8(L) 14 - 72 pg/ml [facility] BLOOD SPECIMEN / Unknown 01/12/2010 10:15 AM CDT 01/12/2010 2:10 PM CDT Heriberto Bartholomew MD LAB - CHEMISTRY CHARISSE GUILLEN Performing Organization Address [facility] de Phone Number [facility] [address] [place] [address] * CBC W/O DIFFERENTIAL (01/12/2010 10:15 AM CDT) Only the most recent of2 resultswithin the time period is included. Pathologist [facility] WBC 6.7 4.0 - 10.0 K/CUMM [facility] RBC 4.83 3.80 - 5.80 M/CUMM [facility] Hemoglobin 14.2 12.0 - 16.0 gm/dl [facility] Hematocrit 43.7 37.0 - 47.0 % [facility] MCV 90.5 80.0 - 100.0 fl [facility] MCH 29.4 26.0 - 34.0 pg [facility] MCHC 32.5 31.0 - 37.0 gm/dl [facility] RDW 12.7 11.5 - 14.5 % [facility] Platelet Count 325 150 - 400 K/CUMM [facility] BLOOD SPECIMEN / Unknown 01/12/2010 10:15 AM CDT 01/12/2010 2:10 PM CDT Heriberto Bartholomew MD LAB - HEMATOLOGY ORD ADRIENNE Performing Organization Address [facility]/ZIP Co de Phone Number [facility] [address] [place] [address] * POTASSIUM BLOOD (11/16/2009 11:50 AM CDT) Potassium 4.7 3.6 - 5.0 mmol/L [facility] BLOOD SPECIMEN / Unknown 11/16/2009 11:50 AM CDT 11/16/2009 1:19 PM CDT Arnoldo Rankin III, MD LAB - CHEMISTRY CHARISSE GUILLEN [facility] [address] [place] [address] * MRI SPINE THORACIC NON CONTRAST (11/09/2009 10:15 AM CDT) Anatomical Region Laterality Modality Chest Magnetic Resonan ce 11/09/2009 11:5 3 AM CDT Impressions 11/09/2009 2:02 PM CDT T11-T12 focal left-sided disc bulge touching the cord but without stenosis. Narrative 11/09/2009 2:02 PM CDT MRI thoracic spine, noncontrast. DATE: 11/09/2009. INDICATION: Midthoracic back pain, no reported trauma, 724.1. Also rheumatoid arthritis. TECHNIQUE: Multiplanar, multisequence nonenhanced thoracic spine MRI. FINDINGS: The thoracic cord has normal size and signal intensity. There is no epidural fluid collection, hemorrhage or stenosis. At T11-T12, there is a left paracentral focal disc bulge touching the cord but without producing stenosis. Neural foramina are patent. There is an incidental hemangioma in the T10 vertebral body. Marrow signal is otherwise normal. Procedure Note Magda Elise MD - 11/09/2009 MRI thoracic spine, noncontrast. DATE: 11/09/2009. INDICATION: Midthoracic back pain, no reported trauma, 724.1. Also rheumatoid arthritis. TECHNIQUE: Multiplanar, multisequence nonenhanced thoracic spine MRI. FINDINGS: The thoracic cord has normal size and signal intensity. There is no epidural fluid collection, hemorrhage or stenosis. At T11-T12, there is a left paracentral focal disc bulge touching the cord but without producing stenosis. Neural foramina are patent. There is an incidental hemangioma in the T10 vertebral body. Marrow signal is otherwise normal. IMPRESSION T11-T12 focal left-sided disc bulge touching the cord but without stenosis. Arnoldo Rankin III, MD MR ORDERABLES * US RETROPERITONEAL LTD (KIDNEY) (08/11/2009 9:21 AM CDT) Anatomical Region Laterality Modality Abdomen Ultrasound 08/11/2009 9:23 AM CDT Narrative 08/11/2009 9:59 AM CDT Renal ultrasound Clinical Information: Right renal colic. The right kidney is normal in size and echotexture measuring approximately 11.2 cm. There is no evidence of obstructive uropathy. A likely cyst is present within the interpolar region of the right kidney measuring 0.9 x 1.5 cm. The left kidney is normal in size and echotexture. No obstructive changes are present. No renal cortical abnormality is present. The bladder is normal. There may be mild enlargement of the liver. DIAGNOSIS: Likely right renal cyst. The kidneys are otherwise normal without obstructive change or renal calculi. There may be mild fatty enlargement of the liver. Procedure Note Onesimo Akins MD - 08/11/2009 Renal ultrasound Clinical Information: Right renal colic. The right kidney is normal in size and echotexture measuring approximately 11.2 cm. There is no evidence of obstructive uropathy. A likely cyst is present within the interpolar region of the right kidney measuring 0.9 x 1.5 cm. The left kidney is normal in size and echotexture. No obstructive changes are present. No renal cortical abnormality is present. The bladder is normal. There may be mild enlargement of the liver. DIAGNOSIS: Likely right renal cyst. The kidneys are otherwise normal without obstructive change or renal calculi. There may be mild fatty enlargement of the liver. Arnoldo Rankin III, MD ORDERABLES * PAP THINPREP (03/03/2009) Cervical swab (specimen) PART OF UTERINE CERVIX / Unknown 03/03/2009 [facility] - 03/10/2009 10:19 AM R[employer]SP[employer] WORKER Preferred Lab:->OTHER EXTERNAL LAB Love Wu MD LAB - PATH OLOGY/CYTOLOGY ORDERABLES [facility] * URINALYSIS DIPSTICK AUTO (12/07/2008 9:05 AM CDT) Only the most recent of2 resultswithin the time period is included. Color UA Pale Yellow [facility] Character UA Clear [facility] Glucose UA NEGATIVE NEGATIVE mg/dl [facility] Bilirubin UA NEGATIVE NEGATIVE [facility] Ketone UA NEGATIVE NEGATIVE mg/dl [facility] Specific [place] UA 1.010 1.003 - 1.030 [facility] Blood UA NEGATIVE NEGATIVE [facility] pH UA 6.0 5.0 - 9.0 [facility] Protein UA NEGATIVE NEGATIVE-TR [place] mg/dl [facility] Urobilinogen UA 0.2 0.2 - 1.0 Brian Units/dl [facility] Nitrite UA NEGATIVE NEGATIVE [facility] Leukocyte UA SMALL NEGATIVE [facility] URINE SPECIMEN OBTAINED BY CLEAN CATCH PROCEDURE / Unknown 12/07/2008 9:05 AM CDT Arnoldo Rankin III, MD LAB - URINALYSIS ORD ERABLES Performing Organization Address City/[facility]/ZIP Co de Phone Number [facility] [address] [place] [address] * URINALYSIS DIPSTICK (12/07/2008 9:05 AM CDT) Only the most recent of2 resultswithin the time period is included. Color UA Pale Yellow [facility] Character UA Clear [facility] Glucose UA NEGATIVE NEGATIVE mg/dl [facility] Bilirubin UA NEGATIVE NEGATIVE [facility] Ketone UA NEGATIVE NEGATIVE mg/dl [facility] Specific [place] UA 1.010 1.003 - 1.030 [facility] Blood UA NEGATIVE NEGATIVE [facility] pH UA 6.0 5.0 - 9.0 [facility] Protein UA NEGATIVE NEGATIVE-TR [place] mg/dl [facility] Urobilinogen UA 0.2 0.2 - 1.0 Brian Units/dl [facility] Nitrite UA NEGATIVE NEGATIVE [facility] Leukocyte UA SMALL NEGATIVE [facility] Microscopy Examination Urine See Results Below [facility] WBC UA 0-3 0 - 1 HPF [facility] Epithelial Cell UA 4-5 NEGATIVE HPF [facility] URINE SPECIMEN OBTAINED BY CLEAN CATCH PROCEDURE / Unknown 12/07/2008 9:05 AM CDT Arnoldo Rankin III, MD LAB - URINALYSIS ORD ERABLES [facility] [address] [place] [address] * C-REACTIVE PROTEIN SENSITIVE CSF (03/18/1998 12:00 AM RIVER TRANSPORTATION WORKER) C-Reactive Protein High Sensitivity CSF 0.19 [facility] 03/18/1998 Narrative [facility] - 03/18/1998 12:00 AM RIVER TRANSPORTATION WORKER This order was created through External Result Entry Arnoldo Rankin III, MD LAB - BODY FLUID ORD ERABLES Performing Organization Address City/[facility]/ZIP Co de Phone Number [facility] Care Teams Metal Temperer Relationship Specialty Start Date End Date Lupis Swan MD PCP - General Internal Medicine 04/21/14 Marlon Delcid MD Ophthalmology 04/21/14 Judah Suh MD [address] [place] [address] Gastroenterology 04/21/14 Faviola Quintero MD [address] [place] [address] Gastroenterology 04/21/14 Jesi Narayanan PA [address] [place] [phone] 04/21/14 Jose Alfredo Vasquez DO [address] [place] [address] Orthopedic Surgery 05/18/15 Duane Garcia MD [address] [facility] [address] [place] [phone] Rheumatology 02/21/16 Abril Hicks MD [address] [facility] [address] [place] [address] Obstetrics and Gynecology 08/28/16
--- OUTSIDE RECORDS SUMMARY | 2024-05-26 20:11 | XMS_ITS | Clinical Summary ---
Author Organization [facility] Address [address] [place] [address] Care Team Providers Care Management Liaison Name Role Phone Rajat Weir DO Primary Care Provider [phone] Allergies Active Allergy Reactions Criticality Noted Date Comments Abatacept Ascorbic Acid Anaphylaxis High 06/15/2015 Etanercept Infliximab Maltose Unknown 08/04/2018 Other Hives High 01/23/2011 Strawberries throat swells Oxycodone-Acetaminophen Unknown 08/18/2015 Rituximab Unknown 08/04/2018 Tocilizumab Unknown 08/04/2018 Medications aspirin 81 mg tablet take 1 daily 30 each 0 08/08/2009 Active docusate sodium (STOOL SOFTENER) 100 mg capsule take 1 daily as needed (PRN) 30 each 0 07/19/2009 Active escitalopram (LEXAPRO) 10 mg tablet take 1 tablet (10MG) by oral route every evening 90 each 1 02/06/2011 Active atorvastatin (LIPITOR) 80 mg tablet 07/28/2018 Active losartan (COZAAR) 100 mg tablet 07/28/[address] (PROTONIX) 40 mg EC tablet 07/28/2018 Active HYDROcodone-kimnai taminophen (NORCO) 5-325 mg per tablet Take 1 tablet by mouth every 6 hours 02/21/2016 Active Active Problems Problem Noted Date Diagnosed Date Primary osteoarthritis involving multiple joints 09/24/2015 Post-operative state 06/15/2015 Anxiety and depression 04/21/2014 HLD (hyperlipidemia) 04/21/2014 HTN (hypertension) 04/21/2014 Rheumatoid arthritis 09/29/2012 Overview (06/20/2016): RHEUMATOID ARTHRITIS SEE (nonalcoholic steatohepatitis) 09/29/2012 Overview (08/04/2018): SEE (nonalcoholic steatohepatitis) Gastro-esophageal reflux disease without esophag itis 06/22/2012 Overview (08/04/2018): 05/26/97 EGD (Shawn): gastric metaplasia on biopsy 06/01/99 EGD (Shawn): GERD, no Monte's seen 2010: No Monte's esophagus. Immunizations Immunization Administration Dates Next Due H1N1 All Forms 12/26/2011 Hep A, Adult 01/30/2008,07/30/2007 Influenza, Quadrivalent, Spl it, Preservative Free, Intradermal 01/06/2016 Influenza, Split 12/29/2012 Influenza, Trivalent, High D ose, Split, Preservative Free, Intramuscular 12/07/2017,12/01/2016 Influenza, Unspecified 12/29/2012,12/26/2011 Pneumococcal Conjugate PCV 13 03/04/2018, 017 Pneumococcal Polysaccharide PPV23 10/18/2010 Tdap 11/02/2010 Tetanus toxoid, adsorbed 01/21/2006 ZOSTER LIVE 05/22/2011 ZOSTER Recombinant 06/07/2018,03/22/2018 Surgical History Surgery Date Site/Laterality Comments OTHER SURGICAL HISTORY 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 OTHER SURGICAL HISTORY lt foot surgery Social History Tobacco Use Types Packs/Day Years Used Date Smoking Tobacco: Never Smokeless Tobacco: Never Alcohol Use Standard Drinks/Week Comments No 0 (1 standard drink = 0.6 oz pur e alcohol) Comments Unknown Sex and Gender Information Value Date Recorded Sex Assigned at Not on file Legal Sex Female 1:59 AM TRANSLATOR Gender Identity Not on file Sexual Orientation Not on file Obstetrics History Last Filed Vital Signs Vital Sign Reading Time Taken Comments Blood Pressure 132/82 06/02/2014 10:40 AM CDT Pulse 76 06/02/2014 10:40 AM CDT Temperature - - Respiratory Rate - - Oxygen Saturation - - Inhaled Oxygen Concentration - - Weight 91.6 kg (202 lb) 06/02/2014 10:40 AM CDT Height 161.3 cm (5' 3.5 ) 06/02/2014 10:40 AM CD T Body Mass Index 35.22 06/02/2014 10:40 AM CDT Plan of Treatment Not on file Insurance [employer] CLAIMS OFFICE Care Teams Management Liaison Relationship Specialty Start Date End Date Rajat Weir DO PCP - General Internal Medicine 11/03/19
--- OUTSIDE RECORDS SUMMARY | 2024-05-26 20:11 | XMS_ITS | Encounter Summary ---
Author Organization [facility] Address [address] [facility] [place] [address] Care Team Providers Care Brim Blocker Name Role Phone Lupis Swan MD Primary Care Provider [phone] Chucho PARDO MD, John J Unavailable [facility] Blood Typer Unavailable [phone] Marlon Delcid MD Unavailable Unavailable Judah Suh MD Unavailable + Jax Metz MD Unavailable [phone] Jesi Narayanan Unavailable Jose Alfredo Vasquez DO Unavailable [phone] Duane Garcia MD Unavailable Abril Hicks MD Unavailable [phone] Lupis Swan MD Unavailable Encounter Details Date Type Department Care Team (Late st Contact Info) Description 05/18/2015 [facility] Outpatient Visit [facility] Orthopedics - Radiology [address] [place] [address] Jose Alfredo Vasquez DO [facility] [address] [address] Social History Tobacco Use Types Packs/Day Years Used Date Smoking Tobacco: Never Smokeless Tobacco: Never Alcohol Use Standard Drinks/Week Comments Yes 0 (1 standard drink = 0.6 oz pur e alcohol) very rare Sex and Gender Information Value Date Recorded Sex Assigned at Not on file Gender Identity Not on file Sexual Orientation Not on file documented as of this encounter Functional Status Functional Status Response Date of Assess ment Is person deaf or have serious hearing difficult y? No 01/13/2015 Is person blind or have serious difficulty seein g? No 01/13/2015 Does person have serious dif ficulty walking/climbing stairs? No 01/13/2015 Does person have difficulty dressing/bathing? No 01/13/2015 Does person have difficulty doing errands alone? No 01/13/2015 Cognitive Status Response Date of Assessm ent Does person have difficulty concentrating/remembering/making decisions? No 01/13/2015 documented as of this encounter Plan of Treatment Not on file documented as of this encounter Visit Diagnoses Not on filedocumented in this encounter Care Teams Brim Blocker Relationship Specialty Start Date End Date Lupis Swan MD PCP - General Internal Medicine 04/21/14 Lupis Swan MD [address] [facility] [address] [place] [address] PCP - Attributed-Exclusive Choice 08/31/16 04/18/17 Arnoldo Rankin III, MD Rheumatology 04/21/14 02/20/16 [facility] Blood Typer [address] [place] [address] 04/21/14 08/27/16 Marlon Delcid MD [address] [place] [address] Ophthalmology 04/21/14 Judah Suh MD [address] [place] [address] Gastroenterology 04/21/14 Jax Metz MD [facility] [place] [address] Gastroenterology 04/21/14 Jesi Narayanan PA [address] [place] [address] 04/21/14 Jose Alfredo Vasquez DO [address] [place] [address] Orthopedic Surgery 05/18/15 Duane Garcia MD [address] [facility] [address] [place] [address] Rheumatology 02/21/16 Abril Hicks MD [address] [facility] [address] [place] [address] Obstetrics and Gynecology 08/28/16 documented as of this encounter
--- OUTSIDE RECORDS SUMMARY | 2024-05-26 20:11 | XMS_ITS | Referral Summary ---
Author Organization [facility] Address [address] [place] [address] Care Team Providers Care Audiology Doctor Name Role Phone Rajat Weir DO Primary Care Provider [phone] Allergies Active Allergy Reactions Criticality Noted Date [...] (PROTONIX) 40 mg EC tablet 07/28/2018 Active HYDROcodone-kimani taminophen (NORCO) 5-325 mg per tablet Take [...] 01/21/2006 ZOSTER LIVE 05/22/2011 ZOSTER Recombinant 06/07/2018,03/22/2018 Social History Tobacco Use Types Packs/Day Years Used Date Smoking Tobacco: Never Smokeless Tobacco: Never Alcohol Use Standard Drinks/Week Comments No 0 (1 standard drink = 0.6 oz pur e alcohol) Comments Unknown Sex and Gender Information Value Date Recorded Sex Assigned at Not on file Legal Sex Female 1:59 AM SACK REPAIRER Gender Identity Not on file Sexual Orientation [...] file Insurance [employer] CLAIMS OFFICE Care Teams Audiology Doctor Relationship Specialty Start Date End Date Rajat Weir DO PCP - General Internal Medicine 11/03/19
--- OUTSIDE RECORDS SUMMARY | 2024-05-26 20:11 | XMS_ITS | Clinical Summary ---
Author Organization [facility] Address [address] [place] [address] Care Team Providers Care Ballet Soloist Name Role Phone Rajat Weir DO Primary Care Provider Allergies Active Allergy Reactions Criticality Noted Date Comments Oxycodone Rash Low 01/25/2021 Medications atorvastatin (LIPITOR) 80 mg tablet Take 80 mg by mouth daily. Active escitalopram oxalate (LEXAPRO) 10 mg tablet Take 10 mg by mouth daily. Active pantoprazole (PROTONIX) 40 mg Tablet, Delayed Release (E.C.) Take 40 mg by mouth daily. Active sucralfate (CARAFATE) 1 gram tablet Take 1 Gram by mouth 4 times daily before meals and at bedtime. Active CALCIUM CARBONATE-VITAM IN D3 ORAL Take by mouth. Active acetaminophen (TYLENOL) 325 mg tablet Take 650 mg by mouth every 4 hours as needed. Active HYDROcodone-kimani taminophen (NORCO) 7.5-325 mg Tablet Take 1 Tablet by mouth every 4 hours as needed for Pain, Moderate. Active ferrous sulfate 325 mg (65 mg iron) tablet FeroSul 325 mg (65 mg iron) tablet Active losartan (COZAAR) 50 mg tablet 12/21/2021 Active esomeprazole (NexIUM) 40 mg Capsule, Delayed Release(E.C.) 01/30/2022 Activ e Active Problems Problem Noted Date Diagnosed Date Iron deficiency anemia 01/25/2021 Family History Medical History Relation Name Comments Cancer Father Diabetes Father Heart Disease Father Heart Disease Mother Relation Name Status Comments Brother Father Mother Social History Tobacco Use Types Packs/Day Years Used Date Smoking Tobacco: Never Smokeless Tobacco: Never Tobacco Cessation:Counseling Given: Not Answered Alcohol Use Standard Drinks/Week Comments Never 0 (1 standard drink = 0.6 oz pur e alcohol) Comments Unknown Sex and Gender Information Value Date Recorded Sex Assigned at Not on file Legal Sex Female 11:06 AM CDT Gender Identity Not on file Sexual Orientation Not on file Last Filed Vital Signs Vital Sign Reading Time Taken Comments Blood Pressure 179/84 02/21/2022 2:41 PM PHOTO MACHINE OPERATOR Pulse 69 02/21/2022 2:41 PM PHOTO MACHINE OPERATOR Temperature 36.8 C (98.3 F) 02/21/2022 2:41 PM PHOTO MACHINE OPERATOR Respiratory Rate 16 02/21/2022 2:41 PM PHOTO MACHINE OPERATOR Oxygen Saturation 97% 02/21/2022 2:41 PM PHOTO MACHINE OPERATOR Inhaled Oxygen Concentration - - Weight 75.2 kg (165 lb 11.2 oz) 02/21/2022 2:41 PM PHOTO MACHINE OPERATOR Height 162.6 cm (5' 4 ) 01/25/2021 12:5 7 PM PHOTO MACHINE OPERATOR Body Mass Index 28.44 01/25/2021 12:57 PM PHOTO MACHINE OPERATOR Plan of Treatment Health Maintenance Due Date Last Done Comments COLORECTAL SCREENING 1996 Colorectal Cancer Screening 1996 FIT-DNA Q 3 years 1996 FIT/FOBT Q 1 year 1996 Flex Sig/CT Colonography Q 5 years 1996 BREAST CANCER SCREENING 06/12/2017 06/13/19 17, 06/10/2015, 06/01/2014, Additional history exists DTAP/TDAP/TD VACCINES (2 - T d or Tdap) 11/02/2020 11/02/2010 PNEUMOCOCCAL VACCINE 50+ YEA RS (3 of 3 - PCV20 or PCV21) 03/04/2023 03/04/2018, 08/28/2016, 10/18/2010 INFLUENZA VACCINE (#1) 2023 8, 12/01/2016, 12/01/2016, Additional history exists RSV VACCINE (60+ or ) (1 - 1-dose 75+ series) 2026 OSTEOPOROSIS SCREENING Completed 10/03/2012 ZOSTER VACCINE Completed 06/07/2018, 07/2018, 05/22/2011 Insurance [employer] GOLD PLUS O MCR Care Teams Ballet Soloist Relationship Specialty Start Date End Date Rajat Weir DO [address] [facility] [address] [place] [address] PCP - General Internal Medicine 01/25/21
--- OUTSIDE RECORDS SUMMARY | 2024-05-26 20:11 | XMS_ITS | Clinical Summary ---
Author Organization [facility] Address [address] [facility] [place] [address] Care Team Providers Care Registered Clinical Dietitian Name Role Phone Lupis Swan MD Primary Care Provider [phone] Marlon Delcid MD Unavailable Unavailable Judah Suh MD Unavailable + Jax Metz MD Unavailable [phone] Jesi Narayanan Unavailable Jose Alfredo Vasquez DO Unavailable [phone] Duane Garcia MD Unavailable Abril Hicks MD Unavailable [phone] Source Comments [facility],non-owned Affiliates and Associated Physician Practices is amultiple site organization consisting of ambulatory clinics and hospital sitesin [place], [place], [place] and [place]. This disclosure is being madepursuant to the Care Everywhere program and may not contain all information available regarding this patient. Last updated 17.[facility] Allergies Active Allergy Reactions Criticality Noted [...] TDAP (7yrs+) 11/02/2010 ZOSTER VACCINE, LIVE 05/22/2011 Family History Medical History Relation Name Comments Alcohol abuse Brother CAD (Coronary Artery Disease) Father COPD - Chronic Obstructive Pulmonary Disease Father Cancer Father Esophogus Heart Failure Father Stroke Mother Relation Name Status Comments Brother Father (Age 73) Mother (Age 73) Social History Tobacco Use Types Packs/Day Years [...] (197 lb 6.4 oz) 01/22/2017 10:32 AM YARN CARRIER Height 162.6 cm (5' 4 ) 01/22/2017 10:32 AM YARN CARRIER Body Mass Index 33.88 01/22/2017 10:32 AM YARN CARRIER Plan of Treatment Health Maintenance Due Date Last Done Comments COLOGUARD (AGES 45-75) - COLON CA SCREENING 1950 CT COLONOGRAPHY - COLON CA SCREENING 1950 FIT - COLON CA SCREENING 1950 FLEX SIG - COLON CA SCREENING 1950 ZOSTER VACCINE (2 of 3) 07/17/2011 05/22/2011 MAMMOGRAM 06/12/2018 06/12/2016, 05/17, 06/01/2014, Additional history exists SCREENING FOR DIABETES 07/13/2019 7, 07/05/2015, 03/24/2015, Additional history exists DTAP/TDAP/TD VACCINES (2 - Td or Tdap) 11/02/2020 11/02/2010 PNEUMOCOCCAL VACCINE 50+ (3 of 3 - PCV20 or PCV21) 08/28/2021 08/28/2016, 10/18/2010 COLON MONITORING 06/16/2023 06/15/2013, , 06/15/2013 COLONOSCOPY - COLON CA SCREENING 06/16/2023 06/15/2013, 06/15/2013, 06/15/2013 Colorectal Cancer Screening 06/16/2023 COVID-19 VACCINE ( season) 2023 INFLUENZA VACCINE (#1) 2023 7, 01/06/2016, 12/29/2012, Additional history exists DEPRESSION SCREENING 03/18/2024 MEDICARE AWV CALENDAR YEAR 2024 Respiratory Syncytial Virus (RSV) Vaccine Pt: or over 60 yrs (1 - 1-dose 75+ series) 2026 HEPATITIS C SCREENING Addressed 01/17/2008 (Previously completed) Overridden with the intention of not completing the topic BONE DENSITY TESTING Completed 10/03/2012 HEPATITIS B VACCINE Aged Out No longe r eligible based on patient's age to complete this topic HIB VACCINE Aged Out No longer eligi ble based on patient's age to complete this topic HPV VACCINE Aged Out No longer eligi ble based on patient's age to complete this topic MENINGOCOCCAL (Group B) VACCINE Aged Out No longer eligible based on patient's age to complete this topic MENINGOCOCCAL VACCINE Aged Out No teddy kaylan eligible based on patient's age to complete this topic Medical Devices Implanted Type [place] Device Identifier Shelf Expiration Date Model / Serial / Lot Memory Staple Implanted:Qty: 2 on 02/05/2014 by Mingo Butcher DPM at [facility] Left: Foot [id number] / / Cannulaed Screw Implanted:Qty: 1 on 02/05/2014 by Mingo Butcher DPM at [facility] Left: Foot [id number] / / Implt Lens Akreos 21.5 - [id number] Implanted:Qty: 1 on 01/13/2015 by Marlon Delcid MD at [facility] Left: Eye [employer] 11/15/2016 [id number] 21.5 / [id number] / Explanted Type [place] Device Identifier Shelf Expiration Date Model / Serial / Lot Memory Staple Explanted:Qty: 1 on 02/05/2014 by Mingo Butcher DPM at [facility] Left: Foot [id number] / / Procedures Procedure Name Priority Date/Time [...] CDT 07/12/2016 Narrative Resulting Agency Comment [facility] [address] [facility] [phone] Lupis Swan MD LAB - CHEMISTRY CHARISSE GUILLEN [facility] INSURANCE BILL [address] [place] [address] * ZACKERY SCREENING DIGITAL IMAGE BILATERAL [id number] (06/12/2016 11:19 AM CDT) Anatomical Region Laterality Modality Breast Bilateral Mammography 06/12/2016 1:15 PM CDT Impressions 06/12/2016 1:37 PM CDT No mammographic evidence of malignancy in either breast. ASSESSMENT: BIRADS Category 1: Negative mammogram. RECOMMENDATION: Bilateral screening mammogram in one year. Thank you for allowing us to participate in the care of your patient. [facility] Breast [facility] utilizes Meta as a reminder system to notify patients of their next recommended mammogram. Report dictated by Ashley Barnes M.D. (chaplain resident) I, Gabriela Layton, have personally reviewed the [...] the prior examination. Abril Hicks MD MAMMO JOSEA BLES * ENDOSCOPY, COLON, SCREENING (06/15/2013 7:43 AM CDT) Report Endoscopy POC _ Patient Name: Peng Le Procedure Date: 06/15/2013 7:43 AM Date of : 1950 Admit Type: Outpatient Age: 63 Gender: Female Attending MD: Jax Metz MD _ Procedure: Colonoscopy Indications: Rectal bleeding Providers: Jax Metz MD (Doctor), Dawna Ferris RN, Ema Oznua, Fisher Oyster Referring MD: Rudy Marroquin MD (Referring MD) [...] verified by the physician, the nurse, the mechanic field service and the audiology technician in the pre-procedure area in the [...] pathology results. Procedure Code(s): --- Professional --- 12666, Colonoscopy, flexible, proximal to splenic flexure; with biopsy, single or multiple --- Technical --- 54276, Colonoscopy, flexible, proximal to splenic flexure; with [...] (without mention of hemorrhage) CPT copyright 2013 [employer]. All rights reserved. The codes documented in this report are preliminary and upon police investigator review may be revised to meet current compliance requirements. _ Jax Metz MD 06/15/2013 8:06 AM This report has been signed electronically. Number of Addenda: 0 Note Initiated On: 06/15/2013 7:43 AM [facility] ENDOSCOPY 06/15/2013 7:43 AM CDT Narrative [facility] ENDOSCOPY - 06/15/2013 8:08 AM CDT Procedure Note Jax Metz MD - 06/15/2013 8:08 AM CDT Jax Metz MD GI PROCEDURE ORDERAB LES [facility] ENDOSCOPY * DEXA BONE DENSITY 2 SITES [...] Documents on File Type Date Recorded Patient Clinical Lab Specialist Expl anation Adv Directive/Living Will/POA 09/02/2014 10:09 PM Care Teams Registered Clinical Dietitian Relationship Specialty Start Date End Date Lupis Swan MD PCP - General Internal Medicine 04/21/14 Marlon Delcid MD Ophthalmology 04/21/14 Judah Suh MD [address] [place] [address] Gastroenterology 04/21/14 Jax Metz MD [address] [place] [address] Gastroenterology 04/21/14 Jesi Narayanan PA [address] [place] [address] 04/21/14 Jose Alfredo Vasquez DO [address] [place] [address] Orthopedic Surgery 05/18/15 Duane Garcia MD [address] [facility] [address] [place] [address] Rheumatology 02/21/16 Abril Hicks MD [address] [facility] [address] [place] [address] Obstetrics and Gynecology 08/28/16
[2024-05-26 20:12] VITALS: BP 188/93; PULSE 68; RESP 20; TEMP 36.7; O2SAT 100
[2024-05-26 20:50] LABS: Basophils Absolute Auto 0.1 K/mm3 (0.0-0.1); Basophils Percent Auto 0.4 % (0.2-1.2); Eosinophils Absolute Auto 0.1 K/mm3 (0-0.3); Eosinophils Percent Auto 0.7 % (0-4.4); Hematocrit 36.9 % (37.0-47.0); Hemoglobin 12.1 g/dL (12.0-15.0); Immature Granulocyte Absolute 0.05 K/mm3 (0.00-0.031); Immature Granulocyte Percent A 0.4 % (0-0.5); Lymphocytes Absolute Auto 1.93 K/mm3 (0.9-3.2); Lymphocytes Percent Auto 14.6 % (18.3-44.2); Mean Corpuscular HGB Conc 32.8 g/dl (32-36); Mean Corpuscular Hemoglobin 27.7 pg (26-34); Mean Corpuscular Volume 84.4 fl (80-100); Mean Platelet Volume 9.5 fl (7.4-10.4); Monocytes Absolute Auto 0.6 K/mm3 (0.1-0.6); Monocytes Percent Auto 4.7 % (2.6-8.5); Neutrophils Absolute Auto 10.4 K/mm3 (1.3-6.7); Neutrophils Percent Auto 79.2 % (45.5-73.1); Platelet Count Result 408 k/mm3 (150-375); Red Blood Count 4.37 M/mm3 (4.2-5.4); Red Cell Distribution Width 13.4 % (11.5-14.5); White Blood Count 13.2 K/mm3 (4.5-10.0)
[2024-05-26 21:02] LABS: Partial Thromboplastin Time 22.7 Seconds (22.3-36.8); Prothrombin Time 13.5 Seconds (11.1-14.7)
[2024-05-26 21:04] LABS: Alanine Aminotransferase 25 U/L (6-35); Albumin Level 4.7 g/dL (3.5-5.1); Alkaline Phosphatase 108 U/L (38-126); Anion Gap 14 mmol/L (4-12); Aspartate Amino Transferase 37 U/L (14-36); Bilirubin,Total 0.9 mg/dL (0.2-1.3); Blood Urea Nitrogen 12 mg/dL (7-17); Calcium 9.5 mg/dL (8.4-10.2); Carbon Dioxide 25 mmol/L (22-30); Chloride 97 mmol/L (98-107); Estimated CRCL calculation 59 ml/min; Estimated Glomerular Filt Rate > 60; Glucose 120 mg/dL (65-110); Lipase 143 U/L (23-300); Potassium 4.2 mmol/L (3.4-5.0); Sodium 136 mmol/L (137-145)
[2024-05-26 21:16] LABS: Troponin I < 0.012 ng/mL (0.000-0.034)
--- NOTE | 2024-05-26 22:57 | ECG_ITS ---
Test Date: 2024-05-26 23:08:12 Measurements Intervals [place] Rate: 75 P: 30 ND: 158 QRS: -8 QRSD: 82 T: 43 QT: 396 QTc: 444 Interpretive Statements SINUS RHYTHM Compared to ECG 05/26/2024 20:21:24 NO SIGNIFICANT CHANGES Electronically Signed On 05-27-2024 13:31:38 CDT by Nelson Hendricks M.D.
[2024-05-26 23:29] LABS: Troponin I < 0.012 ng/mL (0.000-0.034)
[2024-05-27] VITALS: BP 148/94; PULSE 98; RESP 14; O2SAT 100
--- OUTSIDE RECORDS SUMMARY | 2024-05-27 00:07 | XMS_ITS | Referral Summary ---
Author Organization [facility] Address [address] [place] [address] Care Team Providers Care Slicer Machine Operator Name Role Phone Rajat Weir DO Primary Care Provider [phone] Allergies Active Allergy Reactions Criticality Noted Date [...] on file Legal Sex Female 1:59 AM PEDIATRIC RN Gender Identity Not on file Sexual Orientation [...] file Insurance [employer] CLAIMS OFFICE Care Teams Slicer Machine Operator Relationship Specialty Start Date End Date Rajat Weir DO PCP - General Internal Medicine 11/03/19
--- OUTSIDE RECORDS SUMMARY | 2024-05-27 00:07 | XMS_ITS | Clinical Summary ---
Author Organization [facility] Address [address] [place] [address] Care Team Providers Care Director Software Development Name Role Phone Rajat Weir DO Primary Care Provider [phone] Allergies Active Allergy Reactions Criticality Noted Date [...] on file Legal Sex Female 1:59 AM TEMPERER Gender Identity Not on file Sexual Orientation [...] file Insurance [employer] CLAIMS OFFICE Care Teams Director Software Development Relationship Specialty Start Date End Date Rajat Weir DO PCP - General Internal Medicine 11/03/19
--- OUTSIDE RECORDS SUMMARY | 2024-05-27 00:07 | XMS_ITS | Clinical Summary ---
Author Organization [facility] Address [address] [facility] [place] [address] Care Team Providers Care Research Scientist Name Role Phone Lupis Swan MD Primary Care Provider [phone] Marlon Delcid MD Unavailable Unavailable Judah Suh MD Unavailable + Jax Metz MD Unavailable [phone] Jesi Narayanan Unavailable Jose Alfredo Vasquez DO Unavailable [phone] Duane Garcia MD Unavailable Abril Hicks MD Unavailable [phone] Source Comments [facility],non-owned Affiliates and Associated Physician Practices is amultiple site organization consisting of ambulatory clinics and hospital sitesin [place], [place], [place] and [place]. This disclosure is being madepursuant to the Care Everywhere program and may not contain all information available regarding this patient. 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 Left: Foot MS [id number] / / Cannulaed Screw Implanted:Qty: 1 on 02/05/2014 by Mingo Butcher DPM at [facility] Left: Foot [id number] / / Implt Lens Akreos 21.5 - [id number] Implanted:Qty: 1 on 01/13/2015 by Marlon Delcid MD at [facility] Left: Eye [employer] 11/15/2016 AO60G 21.5 / [id number] / Explanted Type Area Glass Ribbon Machine Operator Assistant Device Identifier Shelf Expiration Date Model / Serial / Lot Memory Staple Explanted:Qty: 1 on 02/05/2014 by Mingo Butcher DPM at [facility] Left: Foot [id number] / / Procedures Procedure Name Priority Date/Time [...] Narrative Resulting Agency Comment [facility] [address] [facility] [id number] Lupis Swan MD LAB - CHEMISTRY CHARISSE GUILL[facility] INSURANCE BILL [address] [place] [address] * ZACKERY SCREENING DIGITAL IMAGE BILATERAL [id number] (06/12/2016 11:19 AM CDT) Anatomical Region Laterality Modality Breast Bilateral Mammography 06/12/2016 1:15 PM CDT Impressions 06/12/2016 1:37 PM CDT No mammographic evidence of malignancy in either breast. ASSESSMENT: BIRADS Category 1: Negative mammogram. RECOMMENDATION: Bilateral screening mammogram in one year. Thank you for allowing us to participate in the care of your patient. [facility] utilizes [employer] as a reminder system to notify patients of their next recommended mammogram. Report dictated by Ashley Barnes M.D. (outside residential sales professional) I, Gabriela Layton, have personally reviewed the [...] MD (Doctor), Dawna Ferris RN, Ema Ozuna, Dog Obedience Instructor Referring MD: Rudy Marroquin MD (Referring MD) [...] verified by the physician, the nurse, the exhibit carpenter and the tap and die maker technician in the pre-procedure area in the [...] pathology results. Procedure Code(s): --- Professional --- 87928, Colonoscopy, flexible, proximal to splenic flexure; with biopsy, single or multiple --- Technical --- 19400, Colonoscopy, flexible, proximal to splenic flexure; with [...] (without mention of hemorrhage) CPT copyright 2013 [employer]. All rights reserved. The codes documented in this report are preliminary and upon funeral home location manager review may be revised to meet current compliance requirements. _ Jax Metz MD 06/15/2013 8:06 AM This report has been signed electronically. Number of Addenda: 0 Note Initiated On: 06/15/2013 7:43 AM [facility] 06/15/2013 7:43 AM CDT Narrative [facility] - 06/15/2013 8:08 AM CDT Procedure Note Jax Metz MD - 06/15/2013 8:08 AM CDT Jax Metz MD GI PROCEDURE ORDERAB LES [facility] * DEXA BONE DENSITY 2 SITES [...] Documents on File Type Date Recorded Patient Group Supervisor Yard Expl anation Adv Directive/Living Will/POA 09/02/2014 10:09 PM Care Teams Research Scientist Relationship Specialty Start Date End Date Lupis Swan MD PCP - General Internal Medicine 04/21/14 Marlon Delcid MD Ophthalmology 04/21/14 Judah Suh MD [address] [place] [address] Gastroenterology 04/21/14 Jax Metz MD [address] [place] [address] Gastroenterology 04/21/14 Jesi Narayanan PA [address] [place] [address] 04/21/14 Jose Alfredo Vasquez DO [address] [place] [address] Orthopedic Surgery 05/18/15 Duane Garcia MD [address] [facility] [address] [place] [address] Rheumatology 02/21/16 Abril Hicks MD [address] [facility] [address] [place] [address] Obstetrics and Gynecology 08/28/16
--- OUTSIDE RECORDS SUMMARY | 2024-05-27 00:07 | XMS_ITS | Encounter Summary ---
Author Organization [facility] Address [address] [place] [address] Care Team Providers Care Telemedicine Physician Name Role Phone Lupis Swan MD Primary Care Provider [phone] Chucho PARDO MD, John J Unavailable [facility] Dump Worker Unavailable [phone] Marlon Delcid MD Unavailable Unavailable Judah Suh MD Unavailable + Jax Metz MD Unavailable [phone] Jesi Narayanan Unavailable Jose Alfredo Vasquez DO Unavailable [phone] Duane Garcia MD Unavailable Abril Hicks MD Unavailable [phone] Lupis Swan MD Unavailable Encounter Details Date Type Department Care Team (Late st Contact Info) Description 05/18/2015 [facility] Outpatient Visit [facility] Orthopedics - Radiology [address] [place] [address] Jose Alfredo Vasquez DO [facility] [address] [address] Social History Tobacco Use Types [...] on filedocumented in this encounter Care Teams Telemedicine Physician Relationship Specialty Start Date End Date Lupis Swan MD PCP - General Internal Medicine 04/21/14 Lupis Swan MD [address] [facility] [address] [place] [address] PCP - Attributed-Exclusive Choice 08/31/16 04/18/17 Arnoldo Rankin III, MD Rheumatology 04/21/14 02/20/16 [facility] Dump Worker [address] [place] [address] 04/21/14 08/27/16 Marlon Delcid MD [address] [place] [address] Ophthalmology 04/21/14 Judah Suh MD [address] [place] [address] Gastroenterology 04/21/14 Jax Metz MD [facility] [place] [address] Gastroenterology 04/21/14 Jesi Narayanan PA [address] [place] [address] 04/21/14 Jose Alfredo Vasquez DO [address] [place] [address] Orthopedic Surgery 05/18/15 Duane Garcia MD [address] [facility] [address] [place] [address] Rheumatology 02/21/16 Abril Hicks MD [address] [facility] [address] [place] [address] Obstetrics and Gynecology 08/28/16 documented as of this encounter
--- OUTSIDE RECORDS SUMMARY | 2024-05-27 00:08 | XMS_ITS | Patient Health Summary ---
Author Organization [facility] Address [address] [facility] [place] [address] Care Team Providers Care Program Technician Name Role Phone Lupis Swan MD Primary Care Provider [phone] Marlon Delcid MD Unavailable Unavailable Judah Suh MD Unavailable + Faviola Quintero MD Unavailable [phone] Jesi Narayanan Unavailable Jose Alfredo Vasquez DO Unavailable [phone] Duane Garcia MD Unavailable Abril Hicks MD Unavailable [phone] Note from [facility],non-owned Affiliates and Associated Physician Practices is amultiple site organization consisting of ambulatory clinics and hospital sitesin [place], [place], [place] and [place]. This disclosure is being madepursuant to the Care Everywhere program and may not contain all information available regarding this patient. Last updated 17.[facility] Allergies * Ascorbate(Anaphylaxis) -High Criticality * Other(Strawberries [...] (197 lb 6.4 oz) 01/22/2017 10:32 AM SOCIAL SCIENCE MANAGER Height 162.6 cm (5' 4 ) 01/22/2017 10:32 AM SOCIAL SCIENCE MANAGER Body Mass Index 33.88 01/22/2017 10:32 AM SOCIAL SCIENCE MANAGER Medical Devices Implanted Type Area Lead Instructor/Flight Attendant Device Identifier Shelf Expiration Date Model / Serial / Lot Memory Staple Implanted:Qty: 2 on 02/05/2014 by Mingo Butcher DPM at [facility] Left: Foot MS [id number] / / Cannulaed Screw Implanted:Qty: 1 on 02/05/2014 by Mingo Butcher DPM at [facility] Left: Foot [id number] / / Implt Lens Akreos 21.5 - [id number] Implanted:Qty: 1 on 01/13/2015 by Marlon Delcid MD at [facility] Left: Eye [employer] 11/15/2016 [id number] 21.5 / [id number] / Explanted Type Area Lead Instructor/Flight Attendant Device Identifier Shelf Expiration Date Model / Serial / Lot Memory Staple Explanted:Qty: 1 on 02/05/2014 by Mingo Butcher DPM at [facility] Left: Foot MS [id number] / / Procedures * PATHOLOGY TISSUE EXAM [...] NO CULTURE(Performed 08/08/2009) Performed for Rheumatoid Arthritis ([facility]LY [facility]) * COMPREHENSIVE METABOLIC PANEL(Performed 07/26/2009) [...] SEDIMENTATION RATE(Performed 03/04/2009) Performed for Rheumatoid Arthritis ([facility]) * CBC W AUTO DIFFERENTIAL(Performed 03/04/2009) Performed for Rheumatoid Arthritis (HCC) * COMPREHENSIVE METABOLIC PANEL(Performed 03/04/2009) Performed for Rheumatoid Arthritis ([facility]) * PAP THINPREP(Performed 03/03/2009) * ERYTHROCYTE SEDIMENTATION RATE(Performed 02/03/2009) Performed for Rheumatoid Arthritis ([facility]) * CBC W AUTO DIFFERENTIAL(Performed 02/03/2009) Performed for Rheumatoid Arthritis ([facility]) * COMPREHENSIVE METABOLIC PANEL(Performed 02/03/2009) Performed for Rheumatoid Arthritis ([facility]) * ERYTHROCYTE SEDIMENTATION RATE(Performed 12/30/2008) Performed for Pure Hypercholesterolem * C-REACTIVE PROTEIN SENSITIVE(Performed 12/30/2008) Performed for Pure Hypercholesterolem * COMPREHENSIVE METABOLIC PANEL(Performed 12/30/2008) Performed for Pure Hypercholesterolem * CBC W AUTO DIFFERENTIAL(Performed 12/30/2008) Performed for Pure Hypercholesterolem * LIPID PROFILE(Performed 12/30/2008) Performed for Pure Hypercholesterolem * COMPREHENSIVE METABOLIC PANEL(Performed 12/07/2008) Performed for Rheumatoid Arthritis ([facility]) * URINALYSIS DIPSTICK(Performed 12/07/2008) Performed for Rheumatoid Arthritis ([facility]) * ERYTHROCYTE SEDIMENTATION RATE(Performed 12/07/2008) Performed for Rheumatoid Arthritis ([facility]) * URINALYSIS NO MICROSCOPIC NO CULTURE(Performed 12/07/2008) Performed for Rheumatoid Arthritis ([facility]) * CBC W AUTO DIFFERENTIAL(Performed 12/07/2008) Performed for Rheumatoid Arthritis ([facility]) * URINALYSIS DIPSTICK(Performed 11/18/2008) Performed [...] included. Case Report Surgical Pathology Report Case: [id number] Authorizing Provider: Louis Hernandez MD Collected: 10/31/2016 02:32 PM Ordering Location: [facility] Received: 10/31/2016 04:04 PM Pathologist: Rajani Hood MD Specimens: A) - Polyp Gastric B) - Esophageal Biopsy, mid-esophagus biopsy 11/01/2016 2:15 PM CDT [facility] Final Diagnosis 1. Gastric polyp, biopsy: -- Benign fundic polyp 2. Esophagus, mid, biopsy: -- No pathologic changes /[facility] 11/01/2016 2:15 PM CDT [facility] Gross Description The specimens are received [...] as B1. IA/scs 11/01/2016 2:15 PM T [facility] Microscopic Description Section shows a benign [...] is negative. GM/kay 11/01/2016 2:15 PM T [facility] Disclaimer All histochemical and/or immunohistochemical results are interpreted with controls that demonstrate appropriate staining reactions before reporting results. Note on use of immunocytochemistry reagents: This test was developed and its performance characteristic determined by [facility], Department of Laboratory Medicine. It has not been cleared or approved by the U.S. Food and Drug Administration (FDA). The FDA has determined that such clearance or approval is not necessary. The test is used for clinical purpose. It should not be regarded as investigational or for research. This laboratory is certified to perform high complexity testing. 11/01/2016 2:15 PM CDT [facility] Embedded Images 11/01/2016 2:15 PM T [facility] Pathology/Cytology GASTRIC POLYP / Unknown 10/31/2016 2:32 PM CDT 10/31/2016 4:04 PM CDT Miscellaneous samples (specimen) ESOPHAGEAL BIOPSY SPECIMEN / Unknown 10/31/2016 2:32 PM CDT 10/31/2016 4:04 PM CDT Louis Hernandez MD LAB - PATHOLOGY/CYTO LOGY ORDERABLES Performing Organization Address [facility] de Phone Number [facility] [address] [place] [address] * HELICOBACTER PYLORI UREASE (STL) (10/31/2016 2:30 PM CDT) Helicobacter pylori Urease Initial Negative Negative 11/01/2016 4:15 PM CDT [facility] Helicobacter pylori Urease Final Negative Negative 11/01/2016 4:15 PM CDT [facility] Microbiology GASTRIC ANTRAL BIOPSY SPECIMEN / Unknown Collection / Unknown 10/31/2016 2:30 PM CDT 10/31/2016 3:46 PM CDT Louis Hernandez MD LAB - MICROBIOLOGY O RDERABLES Performing Organization Address [facility] de Phone Number [facility] [address] [place] [address] * EGD (10/31/2016 2:09 PM CDT) Report [...] as scheduled Procedure Code(s): --- Professional --- 16641, Esophagogastroduo denoscopy, flexible, transoral; with removal of tumor(s), polyp(s), or other lesion(s) by snare technique 14490, 59, Esophagogastroduo denoscopy, flexible, transoral; with biopsy, single or multiple --- Technical --- 58592, Esophagogastroduo denoscopy, flexible, transoral; with removal of tumor(s), polyp(s), or other lesion(s) by snare technique 12088, 59, Esophagogastroduo denoscopy, flexible, transoral; with biopsy, single or multiple Diagnosis Code(s): --- Professional --- K44.9, Diaphragmatic hernia without obstruction or gangrene K31.7, Polyp of stomach and duodenum R12, Heartburn --- Technical --- K44.9, Diaphragmatic hernia without obstruction or gangrene K31.7, Polyp of stomach and duodenum R12, Heartburn CPT copyright 2015 [employer]. All rights reserved. The codes documented in this report are preliminary and upon receiving tank operator review may be revised to meet current compliance requirements. Louis Hernandez, 10/31/2016 2:38:24 PM This report has been signed electronically. Number of Addenda: 0 Note Initiated On: 10/31/2016 2:09 PM [facility] 10/31/2016 2:09 PM CDT Louis Hernandez MD GI PROCEDURE ORDERAB LES [facility] * XR CHEST PA AND LATERAL (09/20/2016 10:34 AM CDT) Only the most recent of2 resultswithin the time period is included. Anatomical Region Laterality Modality Chest Radiographic Claudia ging 09/20/2016 10:4 1 AM CDT Impressions 09/20/2016 10:59 AM CDT Clear lungs. Dictated by Oscar Mckee MD (development vice president). Dictated by Miguel Ángel Mckee on 09/20/2016 [...] Clear lungs. Dictated by Oscar Mckee MD (development vice president). Dictated by Miguel Ángel Mckee on 09/20/2016 10:43 AM I, Corky Eid, have personally reviewed the images and I agree with this report. Lupis Swan MD DIAGNOSTIC IMAGING O RDERABLES * XR PELVIS W BILAT HIP 2VW (07/12/2016 1:18 PM CDT) Anatomical Region Laterality Modality Pelvis, Lower Extremity [facility] 07/12/2016 1:29 PM CDT Impressions 07/12/2016 [...] CDT 07/12/2016 Narrative Resulting Agency Comment [facility] [address] [facility] [phone] Lupis Swan MD LAB - CHEMISTRY CHARISSE GUILLEN [facility] Organization Address City/State/ZIP Co de Phone Number [facility] INSURANCE BILL [address] [place] [address] * (ABNORMAL) LIPID PROFILE (07/12/2016 9:11 AM [...] AM CDT 07/12/2016 Narrative Resulting Agency Comment [facility] [address] [facility] [phone] Lupis Swan MD LAB - CHEMISTRY CHARISSE GUILLEN [facility] INSURANCE BILL [address] [place] [address] * URIC ACID BLOOD (07/12/2016 9:05 AM CDT) Uric Acid 5.7 2.5 - 7.1 mg/dL [facility] INSURANCE BILL Comment:Therapeutic target f or gout patients: <6.0 Blood BLOOD SPECIMEN / Unknown 07/12/2016 9:05 AM CDT 07/12/2016 Narrative Resulting Agency [facility] [address] [facility] [phone] Duane Garcia MD LAB - CHEMISTRY CHARISSE GUILLEN [facility] INSURANCE BILL [address] [place] [address] * C-REACTIVE PROTEIN (07/12/2016 9:05 AM CDT) Only the most recent of2 resultswithin the time period is included. C-Reactive Protein 2.0 0.0 - 4.9 mg/L [facility] INSURANCE BILL Blood BLOOD SPECIMEN / Unknown 07/12/2016 9:05 AM CDT 07/12/2016 Narrative Resulting Agency [facility] [address] [facility] [phone] Duane Garcia MD LAB - CHEMISTRY ORDE RABPADMINI Performing Organization Address City/[facility]/ZIP Co de Phone Number [facility] INSURANCE BILL [address] [place] [address] * SED RATE WESTERGREN (07/12/2016 9:05 AM CDT) Only the most recent of22 resultswithin the time period is included. Erythrocyte Sedimentation Rate Westergren 19 0 - 40 mm/hr [facility] INSURANCE BILL Blood BLOOD SPECIMEN / Unknown 07/12/2016 9:05 AM CDT 07/12/2016 Narrative Resulting Agency Comment [facility] [address] [facility] [phone] Duane Garcia MD LAB - HEMATOLOGY ORD ERABLES Performing Organization Address [facility] Co de Phone Number [facility] INSURANCE BILL [address] [place] [address] * CK BLOOD (07/12/2016 9:05 AM CDT) CK 140 24 - 173 U/L [facility] INSURANCE BILL Blood BLOOD SPECIMEN / Unknown 07/12/2016 9:05 AM CDT 07/12/2016 Narrative Resulting Agency Comment [facility] [address] [facility] [phone] Duane Garcia MD LAB - CHEMISTRY ORDKatelyn GUILLEN Performing Organization Address [facility] Co de Phone Number [facility] INSURANCE BILL [address] [place] [address] * ZACKERY SCREENING DIGITAL IMAGE BILATERAL [id number] [...] participate in the care of your patient. [facility] utilizes [employer] as a reminder system to notify patients of their next recommended mammogram. Report dictated by Ashley Barnes M.D. (development vice president) I, Gabriela Garzayvan, have personally reviewed the [...] HAND 3+ VW LEFT (03/08/2015 10:52 AM SOCIAL SCIENCE MANAGER) Anatomical Region Laterality Modality Wrist / Hand Radiographic Claudia ging 03/08/2015 10:5 9 AM SOCIAL SCIENCE MANAGER Impressions 03/08/2015 11:00 AM SOCIAL SCIENCE MANAGER Degenerative changes. Narrative 03/08/2015 11:00 AM SOCIAL SCIENCE MANAGER Left hand 3 views. History: Fall, pain. [...] WRIST 3+ VW LEFT (03/08/2015 10:52 AM SOCIAL SCIENCE MANAGER) Anatomical Region Laterality Modality Wrist / Hand Radiographic Claudia ging 03/08/2015 10:5 8 AM SOCIAL SCIENCE MANAGER Impressions 03/08/2015 10:59 AM SOCIAL SCIENCE MANAGER Degenerative changes. Narrative 03/08/2015 10:59 AM SOCIAL SCIENCE MANAGER Left wrist 3 views. History: Fall, pain. [...] CLIA certified lab, and not by the [facility] Laboratory Standards Analyst. The full result should be confirmed by [...] MD (Doctor), Dawna Ferris RN, Ema Ozuna, Awning Spreader Referring MD: Rudy Marroquin MD (Referring MD) [...] verified by the physician, the nurse, the model and mold maker and the cable installation technician in the pre-procedure area in the [...] pathology results. Procedure Code(s): --- Professional --- 33628, Colonoscopy, flexible, proximal to splenic flexure; with biopsy, single or multiple --- Technical --- 77659, Colonoscopy, flexible, proximal to splenic flexure; with [...] (without mention of hemorrhage) CPT copyright 2013 [employer] Medical [employer]. All rights reserved. The codes documented in this report are preliminary and upon receiving tank operator review may be revised to meet current compliance requirements. _ Faviola Quintero MD 06/15/2013 8:06 AM This report has been signed electronically. Number of Addenda: 0 Note Initiated On: 06/15/2013 7:43 AM [facility] 06/15/2013 7:43 AM CDT Narrative [facility] - 06/15/2013 8:08 AM CDT [...] MD (Doctor), Dawna Ferris RN, Ema Ozuna, Awning Spreader Referring MD: Rudy Marroquin MD (Referring MD) [...] verified by the physician, the nurse, the model and mold maker and the cable installation technician in the pre-procedure area in the [...] present medications. Procedure Code(s): --- Professional --- 26621, Esophagogastroduod enoscopy, flexible, transoral; with biopsy, single or multiple --- Technical --- 05718, Esophagogastroduod enoscopy, flexible, transoral; with biopsy, single or multiple Diagnosis Code(s): --- Professional --- 530.9, Unspecified disorder of esophagus 211.1, Benign neoplasm of stomach 280.9, Iron deficiency anemia, unspecified --- Technical --- 530.9, Unspecified disorder of esophagus 211.1, Benign neoplasm of stomach 280.9, Iron deficiency anemia, unspecified CPT copyright 2013 [employer]. All rights reserved. The codes documented in this report are preliminary and upon receiving tank operator review may be revised to meet current compliance requirements. _ Faviola Quintero MD 06/15/2013 7:46 AM This report has been signed electronically. Number of Addenda: 0 Note Initiated On: 06/15/2013 7:26 AM [facility] 06/15/2013 7:26 AM CDT Narrative [facility] - 06/15/2013 7:48 AM CDT Procedure Note Faviola Quintero MD - 06/15/2013 7:48 AM CDT Faviola Quintero MD GI PROCEDURE ORDERAB LES [facility] * PATHOLOGY TISSUE FOR DERMATOLOGY (05/27/2013 3:54 PM CDT) Only the most recent of2 resultswithin the time period is included. Result CASE: [id number] PATIENT: PENG CH PATHOLOGIC DIAGNOSIS: R tear [...] out by Ashley Ya M.D. 05/29/2013 3:19:06PM [facility] Comment: Performed at: Dermatopathology Laboratory [facility] Department of Dermatology [address] [place] [address] [place] [address] Phone number: [phone] FAX: [phone] Skin (tissue) specimen (specimen) 05/27/2013 3:54 PM CDT 05/28/2013 Narrative [facility] - 05/29/2013 3:20 PM CDT Specimen A: Type->Shave Site->R tear trough History->history of scaly lesion x years treated with LN2 x 2 in past, recurrent. Previous biopsy with fragments of epidermis. Impression->SCC vs BCC vs AK vs VV Check Margins:->N/A Prior Biopsy->N/A Historical Provider LAB - PATHOLOGY/C YTOLOGY ORDERABLES Performing Organization Address [facility] Co de Phone Number [facility] [address] [facility]. [address] [place] [address] [phone] * PATHOLOGY/GENETICS HISTORICAL-ONBASE (04/23/2013) 04/23/2013 [facility] - 04/30/2013 9:26 AM SOCIAL SCIENCE MANAGER Historical Provider LAB - CHEMISTRY O RDERABLES Performing Organization Address [facility] Co de Phone Number [facility] [address] * MRI PELVIS NON CONTRAST (10/17/2012 [...] of 0.1 which is normal. Procedure Note Jakbo Olmedo MD - 10/03/2012 Technique: Dual energy [...] [facility] (06/24/2012 9:48 AM CDT) INR 1.0 [facility] ([facility]) Comment: Reference Range 0.9-1.1 Moderate-intensity Warfarin Therapy 2.0-3.0 Higher-intensity Warfarin Therapy 3.0-4.0 PT 10.5 9.0 - 11.5 sec [facility] ([facility]) Comment: REPORT COMMENT: IS PATIENT ON HEPARIN?->N Test Performed at: [facility] [address] [address] RHONDA FLORES DO [facility] Plasma specimen (specimen) 06/24/2012 9:48 AM CDT 06/24/2012 9:48 AM CDT Narrative [facility] ([facility]) - 06/24/2012 3:00 PM CDT Is patient on Heparin, Argatroban or Dabigatran?->N Judah Suh MD LAB - COAG ULATION ORDERABLES [facility] ([facility]) * (ABNORMAL) CBC W AUTO DIFFERENTIAL (06/24/2012 9:48 AM CDT) Only the most recent of23 resultswithin the time period is included. WBC 6.7 3.8 - 10.8 Thousand/u L [facility] ([facility]) RBC 4.48 3.80 - 5.10 Million/uL [facility] ([facility]) Hemoglobin 12.4 11.7 - 15.5 g/dL [facility] ([facility]) Hematocrit 38.1 35.0 - 45.0 % [facility] ([facility]) MCV 85.0 80.0 - 100.0 fL [facility] ([facility]) MCH 27.7 27.0 - 33.0 pg [facility] ([facility]) MCHC 32.6 32.0 - 36.0 g/dL [facility] ([facility]) RDW 15.1(H) 11.0 - 15.0 % [facility] ([facility]) Platelet 265 140 - 400 Thousand/u L [facility] ([facility]) Neutrophils Absolute 4228 1500 - 7800 cells/uL [...] IS PATIENT ON HEPARIN?->N Test Performed at: [facility] [address] [place] [address] RHONDA FLORES DO,MPH Venous blood specimen (specimen) 06/24/2012 9:48 AM CDT 06/24/2012 9:48 AM CDT Judah Suh MD LAB - BON TOLOGY ORDERABLES Performing Organization Address [facility] de Phone Number [facility] ([facility]) * HEPATIC FUNCTION PANEL (06/24/2012 9:48 AM CDT) Only the most recent of3 resultswithin the time period is included. Protein Total 7.0 6.4 - 8.4 g/dL [facility] ([facility]) Albumin 4.4 3.6 - 5.1 g/dL [facility] ([facility]) Globulin 2.6 2.2 - 4.0 g/dL (calc) [facility] ([facility]) Albumin/Globulin Ratio 1.7 0.9 - 2.3 (calc) [facility] ([facility]) Bilirubin Total 0.4 0.2 - 1.2 mg/dL [facility] ([facility]) Bilirubin Direct 0.1 < OR = 0.2 mg/dL [facility] ([facility]) Bilirubin Indirect 0.3 0.2 - 1.2 mg/dL (calc) [facility] ([facility]) Alkaline Phosphatase 73 33 - 130 U/L [facility] ([facility]) AST 35 10 - 35 U/L [facility] ([facility]) ALT 29 6 - 40 U/L [facility] ([facility]) Comment: REPORT COMMENT: IS PATIENT ON HEPARIN?->N Test Performed at: [facility] [place] [address] [place] [address] RHONDA FLORES DO,MPH Venous blood specimen (specimen) 06/24/2012 9:48 AM CDT 06/24/2012 9:48 AM CDT Judah Suh MD LAB - CHEM ISTRY ORDERABLES Performing Organization Address [facility] de Phone Number [facility] ([facility]) * XR THORACIC SPINE 2 VW (12/26/2011 [...] ORDERABLES * HEMOGLOBIN A1C (04/26/2011 10:20 AM SOCIAL SCIENCE MANAGER) Only the most recent of2 resultswithin the time period is included. Hemoglobin A1c 5.3 3.9 - 6.1 % [facility] Estimated Average Glucose 105.4 mg/dl [facility] BLOOD SPECIMEN WITH EDTA / Unknown 04/26/2011 10:20 AM SOCIAL SCIENCE MANAGER 04/26/2011 11:14 AM SOCIAL SCIENCE MANAGER Heriberto Bartholomew MD LAB - CHEMISTRY CHARISSE GUILLEN [facility] [address] [place] [address] * PAP IG RFLX HPV ASCU (04/26/2011) 04/26/2011 Abril Hicks MD LAB - PATHOL OGY/CYTOLOGY ORDERABLES Performing Organization Address City/[facility]/ZIP Co de Phone Number [facility] * (ABNORMAL) C-REACTIVE PROTEIN SENSITIVE (04/27/2010 11:32 AM SOCIAL SCIENCE MANAGER) Only the most recent of6 resultswithin the time period is included. C-Reactive Protein High Sensitivity 0.696(H) SEE BELOW mg/dl [facility] Comment: <=0.3 Healthy CARDIO DISEASE PREDICTION <0.1 Low Risk >0.1 and <0.3 Average Risk >0.3 High Risk BLOOD SPECIMEN / Unknown 04/27/2010 11:32 AM SOCIAL SCIENCE MANAGER 04/27/2010 11:52 AM SOCIAL SCIENCE MANAGER Arnoldo Rankin III, MD LAB - CHEMISTRY CHARISSE GUILLEN Performing Organization Address City/[facility]/ZIP Co de Phone Number [facility] [address] [place] [address] * HELICOBACTER PYLORI UREASE (04/13/2010 7:30 AM SOCIAL SCIENCE MANAGER) Pathologist [facility] Helicobacter pylori Urease Initial Negative [facility] Helicobacter pylori Urease Final negative [facility] GASTRIC ANTRAL BIOPSY SPECIMEN / Unknown 04/13/2010 7:30 AM SOCIAL SCIENCE MANAGER 04/13/2010 1:28 PM SOCIAL SCIENCE MANAGER Faviola Quintero MD LAB - MICROBIOLOGY O RDERABLES Performing Organization Address City/[facility]/ZIP Co de Phone Number [facility] [address] [place] [address] * ENDOSCOPY ORDER (04/13/2010) 04/13/2010 Narrative Procedure Note Faviola Quintero MD - 04/13/2010 6:50 AM SOCIAL SCIENCE MANAGER [facility] - [address] [address] Endoscopy Note PATIENT NAME: PENG CH#: [id number] AGE: 60ACCT#: [id number] DATE OF PROCEDURE: 04/13/2010ROOM#: PREOPERATIVE DIAGNOSIS: Chronic [...] PENG CH DICTATOR:FAVIOLA QUINTERO M.D. DICTATED FOR: [id number] JOB ID: [id number] Endoscopy Note Faviola Quintero MD GI PROCEDURE ORDERAB LES * GROSS + MICRO EXAM (04/13/2010 12:00 AM SOCIAL SCIENCE MANAGER) Only the most recent of7 resultswithin the [...] submitted in toto in a single cassette. [facility] Microscopic Exam Sections show fragments of gastric mucosa consistent with mild acute and chronic inflammation with hyperplastic change. Immunostain with H. pylori is negative. MC/vl Diagnosis I. Gastric antrum nodule, biopsy -- Mild chronic active gastritis with hyperplastic change. /vl Retail Representative Pathologist Scott Verduzco MD [facility]. 04/14/2010 1030 <2> CPT code 89120,01992 MISCELLANEOUS SAMPLE S / Unknown 04/13/2010 04/13/2010 1:27 PM SOCIAL SCIENCE MANAGER Historical Provider LAB - PATHOLOGY/C YTOLOGY ORDERABLES * CT ABDOMEN WITH AND WITHOUT IV CONTRAST (02/15/2010 8:01 AM SOCIAL SCIENCE MANAGER) Anatomical Region Laterality Modality Abdomen Computed Tomogra phy 02/15/2010 8:45 AM SOCIAL SCIENCE MANAGER Narrative 02/15/2010 12:[address] ABDOMEN CLINICAL INFORMATION: Abdominal pain TECHNIQUE: [...] * URINALYSIS ROUTINE AUTO (02/07/2010 10:04 AM SOCIAL SCIENCE MANAGER) Only the most recent of2 resultswithin the time period is included. Pathologist [facility] Source Random [facility] Color UA Yellow [facility] Character UA Clear [facility] Glucose UA NEGATIVE NEGATIVE mg/dl [facility] Bilirubin UA NEGATIVE NEGATIVE [facility] Ketone UA NEGATIVE NEGATIVE mg/dl [facility] Specific Luxora UA 1.010 1.003 - 1.030 [facility] Blood UA NEGATIVE NEGATIVE [facility] pH UA 6.0 5.0 - 9.0 [facility] Protein UA NEGATIVE NEGATIVE-TRA CE mg/dl [facility] Urobilinogen UA 0.2 0.2 - 1.0 Brian Units/dl [facility] Nitrite UA NEGATIVE NEGATIVE [facility] Leukocyte UA NEGATIVE NEGATIVE [facility] URINE SPECIMEN OBTAINED BY CLEAN CATCH PROCEDURE / Unknown 02/07/2010 10:04 AM SOCIAL SCIENCE MANAGER 02/07/2010 11:20 AM SOCIAL SCIENCE MANAGER Arnoldo Rankin III, MD LAB - URINALYSIS ORD ERABLES [facility] [address] [place] [address] * (ABNORMAL) VITAMIN D 25-HYDROXY (02/07/2010 10:04 AM SOCIAL SCIENCE MANAGER) Only the most recent of2 resultswithin the time period is included. Vitamin D, 25 Hydroxy 17.69(L) 30 - 100 ng/ml [facility] BLOOD SPECIMEN / Unknown 02/07/2010 10:04 AM SOCIAL SCIENCE MANAGER 02/07/2010 10:57 AM SOCIAL SCIENCE MANAGER Arnoldo Rankin III, MD LAB - CHEMISTRY CHARISSE GUILLEN Performing Organization Address [facility] de Phone Number [facility] [address] [place] [address] * (ABNORMAL) PTH INTACT (01/12/2010 10:15 AM CDT) Pathologist [facility] [place] PTH Intact 12.8(L) 14 - 72 pg/ml [facility] BLOOD SPECIMEN / Unknown 01/12/2010 10:15 AM CDT 01/12/2010 2:10 PM CDT Heriberto Bartholomew MD LAB - CHEMISTRY CHARISSE GUILLEN Performing Organization Address [facility] de Phone Number [facility] [address] [place] [phone] * CBC W/O DIFFERENTIAL (01/12/2010 10:15 AM CDT) Only the most recent of2 resultswithin the time period is included. Pathologist [facility] WBC 6.7 4.0 - 10.0 K/CUMM [facility] RBC 4.83 3.80 - 5.80 M/CUMM [facility] Hemoglobin 14.2 12.0 - 16.0 gm/dl [facility] Hematocrit 43.7 37.0 - 47.0 % [facility] MCV 90.5 80.0 - 100.0 fl [facility] MCH 29.4 26.0 - 34.0 pg [facility] MCHC 32.5 31.0 - 37.0 gm/dl [facility] RDW 12.7 11.5 - 14.5 % [facility] Platelet Count 325 150 - 400 K/CUMM [facility] BLOOD SPECIMEN / Unknown 01/12/2010 10:15 AM CDT 01/12/2010 2:10 PM CDT Heriberto Bartholomew MD LAB - HEMATOLOGY ORD ADRIENNE Performing Organization Address [facility]/ZIP Co de Phone Number [facility] [address] [place] [address] * POTASSIUM BLOOD (11/16/2009 11:50 AM CDT) Potassium 4.7 3.6 - 5.0 mmol/L [facility] BLOOD SPECIMEN / Unknown 11/16/2009 11:50 AM CDT 11/16/2009 1:19 PM CDT Arnoldo Rankin III, MD LAB - CHEMISTRY CHARISSE GUILLEN [facility] [address] [place] [address] * MRI SPINE THORACIC NON CONTRAST (11/09/2009 [...] PART OF UTERINE CERVIX / Unknown 03/03/2009 [facility] - 03/10/2009 10:19 AM SOCIAL SCIENCE MANAGER Preferred Lab:->OTHER EXTERNAL LAB Love Wu MD LAB - PATH OLOGY/CYTOLOGY ORDERABLES [facility] * URINALYSIS DIPSTICK AUTO (12/07/2008 9:05 AM CDT) Only the most recent of2 resultswithin the time period is included. Color UA Pale Yellow [facility] Character UA Clear [facility] Glucose UA NEGATIVE NEGATIVE mg/dl [facility] Bilirubin UA NEGATIVE NEGATIVE [facility] Ketone UA NEGATIVE NEGATIVE mg/dl [facility] Specific Luxora UA 1.010 1.003 - 1.030 [facility] Blood UA NEGATIVE NEGATIVE [facility] pH UA 6.0 5.0 - 9.0 [facility] Protein UA NEGATIVE NEGATIVE-TR [place] mg/dl [facility] Urobilinogen UA 0.2 0.2 - 1.0 Brian Units/dl [facility] Nitrite UA NEGATIVE NEGATIVE [facility] Leukocyte UA SMALL NEGATIVE [facility] URINE SPECIMEN OBTAINED BY CLEAN CATCH PROCEDURE / Unknown 12/07/2008 9:05 AM CDT Arnoldo Rankin III, MD LAB - URINALYSIS ORD ERABLES Performing Organization Address City/[facility]/ZIP Co de Phone Number [facility] [address] [place] [address] * URINALYSIS DIPSTICK (12/07/2008 9:05 AM CDT) Only the most recent of2 resultswithin the time period is included. Color UA Pale Yellow [facility] Character UA Clear [facility] Glucose UA NEGATIVE NEGATIVE mg/dl [facility] Bilirubin UA NEGATIVE NEGATIVE [facility] Ketone UA NEGATIVE NEGATIVE mg/dl [facility] Specific Luxora UA 1.010 1.003 - 1.030 [facility] Blood UA NEGATIVE NEGATIVE [facility] pH UA 6.0 5.0 - 9.0 [facility] Protein UA NEGATIVE NEGATIVE-TR [place] mg/dl [facility] Urobilinogen UA 0.2 0.2 - 1.0 Brian Units/dl [facility] Nitrite UA NEGATIVE NEGATIVE [facility] Leukocyte UA SMALL NEGATIVE [facility] Microscopy Examination Urine See Results Below [facility] WBC UA 0-3 0 - 1 HPF [facility] Epithelial Cell UA 4-5 NEGATIVE HPF [facility] URINE SPECIMEN OBTAINED BY CLEAN CATCH PROCEDURE / Unknown 12/07/2008 9:05 AM CDT Arnoldo Rankin III, MD LAB - URINALYSIS ORD ERABLES [facility] [address] [place] [address] * C-REACTIVE PROTEIN SENSITIVE CSF (03/18/1998 12:00 AM SOCIAL SCIENCE MANAGER) C-Reactive Protein High Sensitivity CSF 0.19 [facility] 03/18/1998 Narrative [facility] - 03/18/1998 12:00 AM SOCIAL SCIENCE MANAGER This order was created through External Result Entry Arnoldo Rankin III, MD LAB - BODY FLUID ORD ERABLES Performing Organization Address City/[facility]/ZIP Co de Phone Number [facility] Care Teams Program Technician Relationship Specialty Start Date End Date Lupis Swan MD PCP - General Internal Medicine 04/21/14 Marlon Delcid MD Ophthalmology 04/21/14 Judah Suh MD [address] [place] [address] Gastroenterology 04/21/14 Faviola Quintero MD [address] [place] [address] Gastroenterology 04/21/14 Jesi Narayanan PA [address] [place] [phone] 04/21/14 Jose Alfredo Vasquez DO [address] [place] [address] Orthopedic Surgery 05/18/15 Duane Garcia MD [address] [facility] [address] [place] [phone] Rheumatology 02/21/16 Abril Hicks MD [address] [facility] [address] [place] [address] Obstetrics and Gynecology 08/28/16
--- OUTSIDE RECORDS SUMMARY | 2024-05-27 00:08 | XMS_ITS | Clinical Summary ---
Author Organization [facility] Address [address] [place] [address] Care Team Providers Care Nutrition Aides Teacher Name Role Phone Rajat Weir DO Primary [...] Comments Blood Pressure 179/84 02/21/2022 2:41 PM PRACTICE NURSE Pulse 69 02/21/2022 2:41 PM PRACTICE NURSE Temperature 36.8 C (98.3 F) 02/21/2022 2:41 PM PRACTICE NURSE Respiratory Rate 16 02/21/2022 2:41 PM PRACTICE NURSE Oxygen Saturation 97% 02/21/2022 2:41 PM PRACTICE NURSE Inhaled Oxygen Concentration - - Weight 75.2 kg (165 lb 11.2 oz) 02/21/2022 2:41 PM PRACTICE NURSE Height 162.6 cm (5' 4 ) 01/25/2021 12:5 7 PM PRACTICE NURSE Body Mass Index 28.44 01/25/2021 12:57 PM PRACTICE NURSE Plan of Treatment Health Maintenance Due Date [...] HUMANA GOLD PLUS O MCR Care Teams Nutrition Aides Teacher Relationship Specialty Start Date End Date Rajat Weir DO [address] [facility] [address] [place] [phone] PCP - General Internal Medicine 01/25/21
--- OUTSIDE RECORDS SUMMARY | 2024-05-27 00:08 | XMS_ITS | Referral Summary ---
Author Organization [facility] Address [address] [facility] [place] [address] Care Team Providers Care District Sales Representative Name Role Phone Lupis Swan MD Primary Care Provider [phone] Marlon Delcid MD Unavailable Unavailable Judah Suh MD Unavailable + Jax Metz MD Unavailable [phone] Jesi Narayanan Unavailable Jose Alfredo Vasquez DO Unavailable [phone] Duane Garcia MD Unavailable Abril Hicks MD Unavailable [phone] Source Comments [facility],non-owned Affiliates and Associated Physician Practices is amultiple site organization consisting of ambulatory clinics and hospital sitesin [place], [place], [place] and [place]. This disclosure is being madepursuant to the Care Everywhere program and may not contain all information available regarding this patient. Last updated 17.[facility] Allergies Active Allergy Reactions Criticality Noted [...] (197 lb 6.4 oz) 01/22/2017 10:32 AM WEB SUPPORT ENGINEER Height 162.6 cm (5' 4 ) 01/22/2017 10:32 AM WEB SUPPORT ENGINEER Body Mass Index 33.88 01/22/2017 10:32 AM WEB SUPPORT ENGINEER Functional Status Functional Status Response Date of [...] on file Medical Devices Implanted Type Area Tire Fabric Inspector Device Identifier Shelf Expiration Date Model / Serial / Lot Memory Staple Implanted:Qty: 2 on 02/05/2014 by Mingo Butcher DPM at [facility] Left: Foot MS [id number] / / Cannulaed Screw Implanted:Qty: 1 on 02/05/2014 by Mingo Butcher DPM at [facility] Left: Foot [id number] / / Implt Lens Akreos 21.5 - [id number] Implanted:Qty: 1 on 01/13/2015 by Marlon Delcid MD at [facility] Left: Eye [employer] 11/15/2016 [id number] 21.5 / [id number] / Explanted Type Area Tire Fabric Inspector Device Identifier Shelf Expiration Date Model / Serial / Lot Memory Staple Explanted:Qty: 1 on 02/05/2014 by Mingo Butcher DPM at [facility] Left: Foot [id number] / / Procedures Procedure Name Priority Date/Time [...] CDT 07/12/2016 Narrative Resulting Agency Comment [facility] [address] [facility] [phone] Lupis Swan MD LAB - CHEMISTRY CHARISSE GUILLEN [facility] INSURANCE BILL [address] [place] [address] * ZACKERY SCREENING DIGITAL IMAGE BILATERAL [id number] (06/12/2016 11:19 AM CDT) Anatomical Region Laterality Modality Breast Bilateral Mammography 06/12/2016 1:15 PM CDT Impressions 06/12/2016 1:37 PM CDT No mammographic evidence of malignancy in either breast. ASSESSMENT: BIRADS Category 1: Negative mammogram. RECOMMENDATION: Bilateral screening mammogram in one year. Thank you for allowing us to participate in the care of your patient. [facility] utilizes [employer] as a reminder system to notify patients of their next recommended mammogram. Report dictated by Ashley Barnes M.D. (residential specialist) I, Gabriela Layton, have personally reviewed the [...] Outpatient Age: 63 Gender: Female Attending MD: Jxa Metz MD _ Procedure: Colonoscopy Indications: Rectal bleeding Providers: Jax Metz MD (Doctor), Dawna Ferris RN, Ema Ozuna, Validation Engineer Referring MD: Rudy Marroquin MD (Referring MD) [...] verified by the physician, the nurse, the welding machine operator arc and the repair technician in the pre-procedure area in the [...] pathology results. Procedure Code(s): --- Professional --- 31942, Colonoscopy, flexible, proximal to splenic flexure; with biopsy, single or multiple --- Technical --- 75177, Colonoscopy, flexible, proximal to splenic flexure; with [...] (without mention of hemorrhage) CPT copyright 2013 [employer]. All rights reserved. The codes documented in this report are preliminary and upon flower machine operator review may be revised to meet current compliance requirements. _ Jax Metz MD 06/15/2013 8:06 AM This report has been signed electronically. Number of Addenda: 0 Note Initiated On: 06/15/2013 7:43 AM [facility] 06/15/2013 7:43 AM CDT Narrative [facility] - 06/15/2013 8:08 AM CDT Procedure Note Jax Metz MD - 06/15/2013 8:08 AM CDT Jax Metz MD GI PROCEDURE ORDERAB LES [facility] * DEXA BONE DENSITY 2 SITES [...] Documents on File Type Date Recorded Patient Race Relations Professor Expl anation Adv Directive/Living Will/POA 09/02/2014 10:09 PM Care Teams District Sales Representative Relationship Specialty Start Date End Date Lupis Swan MD PCP - General Internal Medicine 04/21/14 Marlon Delcid MD Ophthalmology 04/21/14 Judah Suh MD [address] [place] [address] Gastroenterology 04/21/14 Jax Metz MD [address] [place] [address] Gastroenterology 04/21/14 Jesi Narayanan PA [address] [place] [address] 04/21/14 Jose Alfredo Vasquez DO [address] [place] [address] Orthopedic Surgery 05/18/15 Duane Garcia MD [address] [facility] [address] [place] [address] Rheumatology 02/21/16 Abril Hicks MD [address] [facility] [address] [place] [address] Obstetrics and Gynecology 08/28/16
[2024-05-27] MEDS: FAMOTIDINE 20 MG/2 ML VIAL IV PUSH (00:44)
[2024-05-27] MEDS: ONDANSETRON INJ 4 MG/2 ML VIAL IV PUSH (00:44)
[2024-05-27] MEDS: MORPHINE SULFATE (*CRX) 2 MG/ML INJ IV PUSH (00:45)
--- NOTE | 2024-05-27 00:49 | ED.CHESTPAIN ---
HPI - Chest Pain General Chief Complaint: Chest Pain Stated Complaint: chest pain Time Seen by Provider: 05/26/24 23:18 History of Present Illness HPI narrative: Patient is a 74-year-old female who presents emergency department this evening complaining of mid epigastric abdominal pain, chest pain and nausea which started around 5:00 p.m. earlier this evening. Patient describes the pain as sharp. Admits that she does have a history of had all hernia and acid reflux which her doctor has been watching and monitoring closely. Otherwise denies any additional symptoms or concerns. Related Data Home Medications ?Medication ?Instructions ?Recorded ?Confirmed ?Last Taken ?Type aspirin 81 mg tablet,delayed 81 mg PO DAILY 04/13/19 05/19/24 01/09/23 History release (Adult Aspirin Regimen) cholecalciferol (vitamin D3) 50 2,000 unit PO DAILY 10/05/20 05/19/24 01/09/23 History mcg (2,000 unit) capsule ferrous sulfate 325 mg (65 mg 325 mg PO DAILY 08/15/23 05/19/24 Unknown History iron) tablet Allergies Allergy/AdvReac Type Severity Reaction Status Date / Time oxycodone Allergy Severe ITCH Verified 05/26/24 20:12 strawberry Allergy Severe THROAT Verified 05/26/24 20:12 SWELLING acetaminophen (From Percocet) Allergy Itching Verified 05/26/24 20:12 Review of Systems Review of Systems: All systems are reviewed and are negative unless stated otherwise in the HPI. [facility] Past Medical History Medical History Hyperlipidemia Screening for breast cancer Screening for osteoporosis Abnormal ankle brachial index (TREVOR) Essential (primary) hypertension Cyst of finger 09/19/2016 Actinic keratosis SEE (nonalcoholic steatohepatitis) 10 years ago, secondary to medications at the time, resolved Rib pain on right side Removed 1988 Gastroesophageal reflux disease Arthritis Cholecystectomy planned 2004 Skin cancer Anxiety Colon, diverticulosis Adenomatous colon polyp Nausea and vomiting in adult Surgical History Surgical History History of nasal surgery Biopsy right side of nose- Squamous cell carcinoma. Cyst right side of nose History of liver biopsy 07/14/2007 History of cataract surgery Right: 02/01/2001 Laser Capsulotomy. Left: 01/13/2015 H/O foot surgery X 4 Right foot [id number] Left: 01/2014; bunionectomy/osteotomy 2nd toe Bunionectomy and Hardware removed: 05/23/2015 Left foot tumor removed/nerve relocation: 12/05/2018 H/O vaginal hysterectomy 1987 H/O removal of cyst Right side 1982 History of appendectomy 02/2003 Family History Family History Father Family history of malignant neoplasm Family history of diabetes mellitus in first degree relative Diabetes mellitus, Onset Age: 72 Family history of cardiovascular disease, Onset Age: 72 Family history of malignant neoplasm of esophagus, Onset Age: 72 Pacemaker CHF (congestive heart failure) COPD (chronic obstructive pulmonary disease) Hyperlipidemia Hypertriglyceridemia Barretts esophagus Mother Cerebrovascular accident, Onset Age: 72 Depression, Onset Age: 72 Hypertension, Onset Age: 72 Pacemaker Cardiac valve prolapse Grandparent Diabetes mellitus, Onset Age: 65 Cerebrovascular accident, Onset Age: 92 Family history unknown, Onset Age: 65 Sibling Family history of alcoholism, Onset Age: 35 Motor vehicle accident Social History Social History Smoking status: Never smoker Second hand tobacco smoke exposure: No Alcohol intake: never Substance use: never Substance use type: does not use Lack of Transportation: No Lack of Food: Never True Current Housing: I Have Housing Concerned About Future Housing: No Difficulty Paying Gas/Electric Bills: No Difficulty Paying for Meds: No Currently Unemployed: No Education: High School Diploma/GED Difficulty w/ Childcare or Family Care: No Living arrangements: with family Spiritual care concerns: No Exam Narrative: General: Alert, awake, afebrile, resting comfortably. HEENT: PERRL, no rhinorrhea, no post nasal drip, oropharynx clear. Neck: Trachea midline, no JVD, no lymphadenopathy. Cardiovascular: Regular rate and rhythm, no murmurs, rubs or gallops, no peripheral edema. Respiratory: Clear to auscultation bilaterally, no tachypnea, no wheezing, no rhonchi, no rubs, no respiratory distress. Abdomen: Soft, nontender, nondistended, no rebound, no guarding, no peritoneal signs. Musculoskeletal: No joint swelling or deformity, normal muscle tone. Skin: No rashes or petechia, no signs of infection. Psychiatric: Alert and oriented, normal behavior and judgment for situation. Neurological: Alert and oriented to person, place, and time. Follows all commands. No focal deficits, speech is clear and fluent. Course Vital Signs Vital signs: Vital Signs Temperature 98.1 F 05/26/24 20:12 Pulse Rate 68 05/26/24 20:12 Respiratory Rate 20 05/26/24 20:12 Blood Pressure 188/93 H 05/26/24 20:12 Pulse Oximetry 100 05/26/24 20:12 Oxygen Delivery Room Air 05/26/24 20:12 Temperature 98.1 F 05/26/24 20:12 Pulse Rate 68 05/26/24 20:12 Respiratory Rate 20 05/26/24 20:12 Blood Pressure 188/93 H 05/26/24 20:12 Pulse Oximetry 100 05/26/24 20:12 Oxygen Delivery Room Air 05/26/24 20:12 MDM - Chest Pain MDM Narrative Medical decision making narrative: The patient was evaluated by myself in the emergency department. History is obtained from patient who is an independent historian and physical exam was performed. External medical records were reviewed at this time. IV was established and pertinent tests were ordered. Patient was administered 20 mg of IV Pepcid, 4 mg of IV Zofran and 2 mg of IV morphine. EKG was obtained which revealed sinus rhythm rate of 75 beats per minute. No ST changes, T wave inversions or evidence of acute ischemia. EKG was independently interpreted by me and is currently pending official cardiology read. Laboratory results obtained revealing no acute process. Two sets of troponins were obtained and both noted to be negative. Imaging studies obtained included CXR which was independently interpreted by me revealing no acute cardiopulmonary process, which is pending final radiology interpretation. Differential diagnosis considerations include acute coronary syndrome, infectious process such as pneumonia, GERD, peptic ulcer disease, gastritis. Comorbidities impacting this visit include history of hilatal hernia, GERD. I have evaluated and discussed social determinants of health with the patient that could potentially impact subsequent diagnosis and treatment plans. On repeat assessment of the patient, reevaluation revealed that the patient is doing well and is in no acute distress. Patient symptoms have improved since she arrived to our emergency department. Repeat vital signs were all reviewed and noted to be stable. Differential diagnosis and treatment plan were discussed with the patient at bedside. Patient agrees with discussion and after shared medical decision making agrees with discharge. All questions were answered to the patient's satisfaction. Patient will follow up with her PCP/GI physician in 3-5 days. Patient was provided with strict return precautions and instructed to return to the emergency department if any new or worsening symptoms develop. The patient was discharged in stable condition. Lab Data 05/26/24 20:43 05/26/24 20:43 Labs: Lab Results 05/26/24 05/26/24 Range/Units 20:43 23:03 WBC 13.2 H (4.5-10.0) K/mm3 RBC 4.37 (4.2-5.4) M/mm3 Hgb 12.1 (12.0-15.0) g/dL Hct 36.9 L (37.0-47.0) % MCV 84.4 (80-100) fl MCH 27.7 (26-34) pg MCHC 32.8 (32-36) g/dl RDW 13.4 (11.5-14.5) % Plt Count 408 H (150-375) k/mm3 MPV 9.5 (7.4-10.4) fl Immature Gran % (Auto) 0.4 (0-0.5) % Neut % (Auto) 79.2 H (45.5-73.1) % Lymph % (Auto) 14.6 L (18.3-44.2) % [place]illingham % (Auto) 4.7 (2.6-8.5) % Eos % (Auto) 0.7 (0-4.4) % Baso % (Auto) 0.4 (0.2-1.2) % Lymph # (Auto) 1.93 (0.9-3.2) K/mm3 [place]illingham # (Auto) 0.6 (0.1-0.6) K/mm3 Eos # (Auto) 0.1 (0-0.3) K/mm3 Baso # (Auto) 0.1 (0.0-0.1) K/mm3 Abs Immat Gran (auto) 0.05 H (0.00-0.031) K/mm3 Absolute Neuts (auto) 10.4 H (1.3-6.7) K/mm3 Absolute Nucleated RBC 0.000 (0.0-0.012) K/mm3 Nucleated RBC % 0.0 (0.0-0.2) % PT 13.5 (11.1-14.7) Seconds INR 1.0 APTT 22.7 (22.3-36.8) Seconds Sodium 136 L (137-145) mmol/L Potassium 4.2 (3.4-5.0) mmol/L Chloride 97 L (98-107) mmol/L Carbon Dioxide 25 (22-30) mmol/L Anion Gap 14 H (4-12) mmol/L BUN 12 (7-17) mg/dL Creatinine 0.73 (0.7-1.0) mg/dL Estim Creat Clear Calc 59 ml/min Estimated GFR > 60 (59 - ) Glucose 120 H (65-110) mg/dL Calcium 9.5 (8.4-10.2) mg/dL Total Bilirubin 0.9 (0.2-1.3) mg/dL AST 37 H (14-36) U/L ALT 25 (6-35) U/L Alkaline Phosphatase 108 (38-126) U/L Troponin I < 0.012 < 0.012 (0.000-0.034) ng/mL Total Protein 8.0 (6.3-8.2) g/dL Albumin 4.7 (3.5-5.1) g/dL Lipase 143 (23-300) U/L Discharge Plan Discharge Clinical Impression: Abdominal pain, epigastric, Chest pain, Hernia, hiatal Patient Disposition: Home, Self-Care Condition: Improved Instructions: Antibiotic Form, Chest Pain (ED), Hiatal Hernia (DC) Additional Instructions: Please follow-up with your family doctor within the next 3-5 days. Return to the ED if any new or worsening symptoms develop. Patient Language: Telugu Prescriptions: No Action aspirin [Adult Aspirin Regimen] 81 mg tablet,delayed release (DR/EC) 81 mg PO DAILY cholecalciferol (vitamin D3) 50 mcg (2,000 unit) capsule 2,000 unit PO DAILY sucralfate 1 gram tablet 1 g PO BID Qty: 180 1RF albuterol sulfate 90 mcg/actuation HFA aerosol inhaler 1 puff inhalation Q4H PRN (Reason: shortness of breath or wheezing) Qty: 8.5 0RF prednisone 50 mg tablet 50 mg PO DAILY Qty: 5 0RF benzonatate 200 mg capsule 200 mg PO TID Qty: 30 0RF ferrous sulfate 325 mg (65 mg iron) tablet 325 mg PO DAILY hydrocodone-acetaminophen 7.5-325 mg tablet 1 tablet PO Q8H PRN (Reason: pain) Qty: 30 0RF atorvastatin 80 mg tablet 80 mg PO DAILY Qty: 90 1RF escitalopram oxalate 10 mg tablet 10 mg PO DAILY Qty: 90 1RF esomeprazole magnesium [Nexium] 40 mg capsule,delayed release(DR/EC) 40 mg PO DAILY Qty: 90 1RF losartan 50 mg tablet 50 mg PO DAILY Qty: 100 1RF Follow-up/Referrals: Rajat Weir DO [Primary Care Provider] - 3 Days Time of Disposition: 00:50
[2024-05-27 00:54] VITALS: BP 162/93; PULSE 83; RESP 14; O2SAT 100
[2024-05-27 00:55] VITALS: O2SAT 98
== END 2024-05-27 01:13 | disposition home or self-care (01) ==
PROVIDERS: Student in an Organized Health Care Education/Training Program; Emergency Provider Emergency Medicine; PCP Internal Medicine
DX: R07.89 Other chest pain (principal); R10.13 Epigastric pain; K44.9 Diaphragmatic hernia without obstruction or gangrene; E78.5 Hyperlipidemia, unspecified; I10 Essential (primary) hypertension; K21.9 Gastro-esophageal reflux disease without esophagitis; M19.90 Unspecified osteoarthritis, unspecified site; F41.9 Anxiety disorder, unspecified; Z85.828 Personal history of other malignant neoplasm of skin
CPT/HCPCS: 36415; 71046; 80053; 83690; 84484; 85025; 85610; 85730; 93005; 96374; 96375; 99284; J2270; J2405

== ENCOUNTER 2024-06-25 08:52 | Outpatient (CLI) | payer MEDICARE, SELFPAY ==
--- OUTSIDE RECORDS SUMMARY | 2024-06-25 09:03 | XMS_ITS | Encounter Summary ---
Author Organization [facility] Address [address] [place] [address] Care Team Providers Care Primer Waterproofing Machine Operator Name Role Phone Lupis Swan MD Primary Care Provider [phone] Chucho PARDO MD, John J Unavailable [facility] Fuel Cell Systems Engineer Unavailable [phone] Marlon Delcid MD Unavailable Unavailable Judah Suh MD Unavailable + Jax Metz MD Unavailable [phone] Jesi Narayanan Unavailable Jose Alfredo Vasquez DO Unavailable [phone] Duane Garcia MD Unavailable Abril Hicks MD Unavailable [phone] Lupis Swan MD Unavailable [phone] Encounter Details Date Type Department Care Team (Late st Contact Info) Description 05/18/2015 [facility] Outpatient Visit [facility] Orthopedics - Radiology [address] [place] [address] Jose Alfredo Vasquez DO [facility] [address] [address] Social History Tobacco Use Types [...] on filedocumented in this encounter Care Teams Primer Waterproofing Machine Operator Relationship Specialty Start Date End Date Lupis Swan MD PCP - General Internal Medicine 04/21/14 Lupis Swan MD [address] [facility] [address] [place] [address] PCP - Attributed-Exclusive Choice 08/31/16 04/18/17 Arnoldo Rankin III, MD Rheumatology 04/21/14 02/20/16 [facility] Fuel Cell Systems Engineer [address] [place] [address] 04/21/14 08/27/16 Marlon Delcid MD [address] [place] [address] Ophthalmology 04/21/14 Judah Suh MD [address] [place] [address] Gastroenterology 04/21/14 Jax Metz MD [facility] [place] [address] Gastroenterology 04/21/14 Jesi Narayanan PA [address] [place] [address] 04/21/14 Jose Alfredo Vasquez DO [address] [place] [address] Orthopedic Surgery 05/18/15 Duane Garcia MD [address] [facility] [address] [place] [address] Rheumatology 02/21/16 Abril Hicks MD [address] [facility] [address] [place] [address] Obstetrics and Gynecology 08/28/16 documented as of this encounter
--- OUTSIDE RECORDS SUMMARY | 2024-06-25 09:03 | XMS_ITS | Clinical Summary ---
Author Organization [facility] Address [address] [facility] [place] [address] Care Team Providers Care Operations Management Professionals Name Role Phone Lupis Swan MD Primary Care Provider [phone] Marlon Delcid MD Unavailable Unavailable Judah Suh MD Unavailable + Jax Metz MD Unavailable [phone] Jesi Narayanan Unavailable [phone] Jose Alfredo Vasquez DO Unavailable [phone] Duane Garcia MD Unavailable Abril Hicks MD Unavailable [phone] Source Comments [facility],non-owned Affiliates and Associated Physician Practices is amultiple site organization consisting of ambulatory clinics and hospital sitesin [place], [place], [place] and [place]. This disclosure is being madepursuant to the Care Everywhere program and may not contain all information available regarding this patient. Last updated 17.[facility] Allergies Active Allergy Reactions Criticality Noted Date [...] (197 lb 6.4 oz) 01/22/2017 10:32 AM TERMINOLOGIST Height 162.6 cm (5' 4 ) 01/22/2017 10:32 AM TERMINOLOGIST Body Mass Index 33.88 01/22/2017 10:32 AM TERMINOLOGIST Plan of Treatment Health Maintenance Due Date [...] Screening 06/16/2023 COVID-19 VACCINE ( season) 2023 DEPRESSION SCREENING 03/18/2024 MEDICARE AWV CALENDAR YEAR 2024 INFLUENZA VACCINE (Season Ended) 2024 12/01/2016, 01/06/2016, 12/29/2012, Additional history exists Respiratory Syncytial Virus (RSV) Vaccine Pt: or [...] complete this topic MENINGOCOCCAL (Group B) VACCINE SHARED DECISION-MAKING Aged Out No longer eligible based on patient's age to complete this topic MENINGOCOCCAL GROUPS A/C/Y/W VACCINE Aged Out No longer eligible based on patient's age to complete this topic Medical Devices Implanted Type Area Precision Printing Worker Device Identifier Shelf Expiration Date Model / Serial / Lot Memory Staple Implanted:Qty: 2 on 02/05/2014 by Mingo Butcher DPM at [facility] Left: Foot MS [id number] / / Cannulaed Screw Implanted:Qty: 1 on 02/05/2014 by Mingo Butcher DPM at [facility] Left: Foot [id number] / / Implt Lens Akreos 21.5 - [id number] Implanted:Qty: 1 on 01/13/2015 by Marlon Delcid MD at [facility] Left: Eye [employer] 11/15/2016 AO60G 21.5 / [id number] / Explanted Type Area Precision Printing Worker Device Identifier Shelf Expiration Date Model / Serial / Lot Memory Staple Explanted:Qty: 1 on 02/05/2014 by Mingo Butcher DPM at [facility] Left: Foot [id number] / / Procedures Procedure Name Priority Date/Time [...] 07/12/2016 Narrative Resulting Agency Comment [facility] [address] [facility] [id number] Lupis Swan MD LAB - CHEMISTRY CHARISSE [facility] INSURANCE BILL [address] [place] [address] * ZACKERY SCREENING DIGITAL IMAGE BILATERAL [id number] (06/12/2016 11:19 AM CDT) Anatomical Region Laterality Modality Breast Bilateral Mammography 06/12/2016 1:15 PM CDT Impressions 06/12/2016 1:37 PM CDT No mammographic evidence of malignancy in either breast. ASSESSMENT: BIRADS Category 1: Negative mammogram. RECOMMENDATION: Bilateral screening mammogram in one year. Thank you for allowing us to participate in the care of your patient. [facility] Breast [facility] utilizes [employer]italDoc as a reminder system to notify patients of their next recommended mammogram. Report dictated by Ashley Barnes M.D. (resident intern) I, Gabriela Layton, have personally reviewed the [...] MD (Doctor), Dawna Ferris RN, Ema Ozuna, Casino Floor Runner Referring MD: Rudy Marroquin MD (Referring MD) [...] verified by the physician, the nurse, the pug mill operator and the case technician in the pre-procedure area in the [...] pathology results. Procedure Code(s): --- Professional --- 67840, Colonoscopy, flexible, proximal to splenic flexure; with biopsy, single or multiple --- Technical --- 59857, Colonoscopy, flexible, proximal to splenic flexure; with [...] (without mention of hemorrhage) CPT copyright 2013 [employer]. All rights reserved. The codes documented in this report are preliminary and upon airline stewardess review may be revised to meet current compliance requirements. _ Jax Metz MD 06/15/2013 8:06 AM This report has been signed electronically. Number of Addenda: 0 Note Initiated On: 06/15/2013 7:43 AM [facility] 06/15/2013 7:43 AM CDT Narrative [facility] - 06/15/2013 8:08 AM CDT Procedure Note Jax Metz MD - 06/15/2013 8:08 AM CDT Jax Metz MD GI PROCEDURE ORDERAB LES [facility] * DEXA BONE DENSITY 2 [...] Documents on File Type Date Recorded Patient Zinc Miner Expl anation Adv Directive/Living Will/POA 09/02/2014 10:09 PM Care Teams Operations Management Professionals Relationship Specialty Start Date End Date Lupis Swan MD PCP - General Internal Medicine 04/21/14 Marlon Delcid MD Ophthalmology 04/21/14 Judah Suh MD [address] [place] [address] Gastroenterology 04/21/14 Jax Metz MD [address] [place] [address] Gastroenterology 04/21/14 Jesi Narayanan PA [address] [place] [address] 04/21/14 Jose Alfredo Vasquez DO [address] [place] [address] Orthopedic Surgery 05/18/15 Duane Garcia MD [address] [facility] [address] [place] [address] Rheumatology 02/21/16 Abril Hicks MD [address] [facility] [address] [place] [address] Obstetrics and Gynecology 08/28/16
--- OUTSIDE RECORDS SUMMARY | 2024-06-25 09:03 | XMS_ITS | Referral Summary ---
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
--- OUTSIDE RECORDS SUMMARY | 2024-06-25 09:03 | XMS_ITS | Continuity of Care Document ---
Author Organization [facility] Address [address] [facility] [address] [place] [address] Phone Care Team Providers Care Hat Conditioner Name Role Phone Alonso Patton MD Unavailable [...] Diagnoses Date Provider Providers Copied on Encounter [facility]opa[facility] Surgery, [address], [address], [place] [phone] [facility] No Information 7 Pooja Gupta. [address], [place], [place], [id number] . tel: [phone] OFFICE/OUTPA TIENT VISIT EST [facility] Orthopaedic Surgery, [address] [facility] [address], [place], [address], [phone] [facility] Body mass index (BMI) 34.0-34.9, adultGanglion cyst of finger of left hand 7 Cory Martins. [address], [place], [place], [id number] , [place]. tel: [phone] OFFICE/OUTPA TIENT VISIT [facility] Orthopaedic Surgery, [address] [place] [address] [address], [place], [address], tel:[phone] [facility] Contusion of knee, left 4 Julio C Aguila. [address], [place], [place], [id number] . tel: [phone] Referring Provider: [address], [place], [address] . tel:[phone] OFFICE/OUTPA TIENT VISIT [facility] Orthopaedic Surgery, [address] [facility] [address], [place], [address], [place] tel:[phone] [facility] Hypertension, UnspecifiedIsch ial pain 3 Julio C Aguila. [address], [place], [place], [address] . tel: [phone] Referring Provider: [address], [place], [address] . tel:[phone] Family History Family Member Type Diagnosis Age At Onset Daughter Problem (finding) Alive and well Immunizations Vaccine Date Status Comments Pneumo (2 yrs or older)(PPV) administered Source: Other Provider Payers Payer name Insurance type Covered green party ID Authoriza tion(s) No Information Social History [...]
--- OUTSIDE RECORDS SUMMARY | 2024-06-25 09:03 | XMS_ITS | Clinical Summary ---
Author Organization [facility] Address [address] [place] [address] Care Team Providers Care Pig Machine Operator Name Role Phone Rajat Weir [...] Comments Blood Pressure 179/84 02/21/2022 2:41 PM TECHNICAL AIDE Pulse 69 02/21/2022 2:41 PM TECHNICAL AIDE Temperature 36.8 C (98.3 F) 02/21/2022 2:41 PM TECHNICAL AIDE Respiratory Rate 16 02/21/2022 2:41 PM TECHNICAL AIDE Oxygen Saturation 97% 02/21/2022 2:41 PM TECHNICAL AIDE Inhaled Oxygen Concentration - - Weight 75.2 kg (165 lb 11.2 oz) 02/21/2022 2:41 PM TECHNICAL AIDE Height 162.6 cm (5' 4 ) 01/25/2021 12:5 7 PM TECHNICAL AIDE Body Mass Index 28.44 01/25/2021 12:57 PM TECHNICAL AIDE Plan of Treatment Health Maintenance Due Date [...] HUMANA GOLD PLUS O MCR Care Teams Pig Machine Operator Relationship Specialty Start Date End Date Rajat Weir DO [address] [facility] [address] [place] [address] PCP - General Internal Medicine 01/25/21
--- OUTSIDE RECORDS SUMMARY | 2024-06-25 09:03 | XMS_ITS | Clinical Summary ---
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
[2024-06-25 19:30] LABS: Cholesterol 163 mg/dL (0-200); HDL Direct 41 mg/dL; Triglycerides 130 mg/dL (<150)
[2024-06-25 19:44] LABS: LDL Cholesterol Direct 84 mg/dL
[2024-06-25 20:07] LABS: Vitamin D 25 Hydroxy 54.5 ng/mL
[2024-06-25 21:10] LABS: Hemoglobin A1C 5.6 % (<5.7)
== END 2024-06-25 08:53 | disposition home or self-care (01) ==
LOC: ANHGOSHLAB 08:54
PROVIDERS: PCP Internal Medicine; Visit Provider Clinical Nurse Specialist
DX: D50.9 Iron deficiency anemia, unspecified (principal); E55.9 Vitamin D deficiency, unspecified; K75.81 Nonalcoholic steatohepatitis (NASH); Z13.228 Encounter for screening for other metabolic disorders; I10 Essential (primary) hypertension; R73.01 Impaired fasting glucose
CPT/HCPCS: 36415; 80061; 82306; 82728; 83036

== ENCOUNTER 2024-07-30 07:23 | Outpatient (CLI) | payer MEDICARE, SELFPAY ==
--- NOTE | ~2024-07-30 | NM_ITS ---
EXAMINATION: NM matthew stress w perfusion DATE: 07/30/2024 11:10 INDICATION: Chest pain. Shortness of breath. TECHNIQUE: Rest images were obtained following intravenous administration of 10.6 mCi Tc99m tetrofosm in (Myoview). The patient was infused intravenously with Lexiscan (Regadenoson). Then, 31.8 mCi Tc99m tetrofosmin (Myoview) was administered intravenously, and stress images were obtained. Data was jaja nstructed into short axis and horizontal and vertical long axis SPECT images. Gated SPECT images were also obtained. COMPARISON: None. FINDINGS: There is no definite reversible or fixed perfusion abnormality to suggest ischemia or infar ction. There is normal left ventricular chamber size, wall motion and ejection fraction. Left ventr icular ejection fraction measures 64%. IMPRESSION: 1. Normal myocardial perfusion at rest and during stress. 2. Left ventricular ejection fraction measuring 64%. Reviewed, dictated and finalized at location A.
--- OUTSIDE RECORDS SUMMARY | 2024-07-30 07:29 | XMS_ITS | Clinical Summary ---
Author Organization [facility] Address [address] [place] [address] Care Team Providers Care Delimber Operator Name Role Phone Rajat Weir DO Primary Care Provider [phone] Allergies Active Allergy Reactions Criticality Noted Date [...] on file Legal Sex Female 1:59 AM TRANSITION MGR Gender Identity Not on file Sexual Orientation [...] file Insurance [employer]NA CLAIMS OFFICE Care Teams Delimber Operator Relationship Specialty Start Date End Date Rajat Weir DO PCP - General Internal Medicine 11/03/19
--- OUTSIDE RECORDS SUMMARY | 2024-07-30 07:29 | XMS_ITS | Continuity of Care Document ---
Author Organization [facility] Address [address] [facility] [address] [place] [address] Phone Care Team Providers Care Flat Sorter Processor Name Role Phone Alonso Patton MD Unavailable [...] Diagnoses Date Provider Providers Copied on Encounter [facility] Orthopaedic Surgery, [address], [address], [place] [phone] Signature [facility] No Information 7 Pooja Gupta. [address], [place], [place], [id number] . tel: [phone] OFFICE/OUTPA TIENT VISIT EST [facility] Orthopaedic Surgery, [address] [facility] [address], [place], [address], [phone] [facility] Body mass index (BMI) 34.0-34.9, adultGanglion cyst of finger of left hand 7 Cory Martins. [address], [place], [place], [id number] , [place]. tel: [phone] OFFICE/OUTPA TIENT VISIT [facility] Orthopaedic Surgery, [address] [place] [address] [address], [place], [address], tel:[phone] [facility] Contusion of knee, left 4 Julio C Aguila. [address], [place], [place], [id number] . tel: [phone] Referring Provider: [address], [place], [address] . tel:[phone] OFFICE/OUTPA TIENT VISIT [facility] Orthopaedic Surgery, [address] [facility] [address], [place], [address], [place] tel:[phone] [facility] [place] Hypertension, UnspecifiedIsch ial pain 3 Julio C Aguila. [address], [place], [place], [address] . tel: [phone] Referring Provider: [address], [place], [address] . tel:[phone] Family History Family Member Type Diagnosis Age At Onset Daughter Problem (finding) Alive and well Immunizations Vaccine Date Status Comments Pneumo (2 yrs or older)(PPV) administered Source: Other Provider Payers Payer name Insurance type Covered alliance party ID Authoriza tion(s) No Information Social [...]
--- OUTSIDE RECORDS SUMMARY | 2024-07-30 07:29 | XMS_ITS | Referral Summary ---
Author Organization [facility] Address [address] [place] [address] Care Team Providers Care Ammonium Sulfate Operator Name Role Phone Rajat Weir DO Primary Care Provider [phone] Allergies Active Allergy Reactions Criticality Noted Date [...] on file Legal Sex Female 1:59 AM STUDY ABROAD ADVISOR Gender Identity Not on file Sexual Orientation [...] file Insurance HUMANA CLAIMS OFFICE Care Teams Ammonium Sulfate Operator Relationship Specialty Start Date End Date Rajat Weir DO PCP - General Internal Medicine 11/03/19
--- OUTSIDE RECORDS SUMMARY | 2024-07-30 07:29 | XMS_ITS | Encounter Summary ---
Author Organization [facility] Address [address] [facility] [place] [address] Care Team Providers Care It Help Desk Analyst Name Role Phone Lupis Swan MD Primary Care Provider [phone] Chucho PARDO MD, John J Unavailable [facility] Rhinologist Unavailable [phone] Marlon Delcid MD Unavailable Unavailable Judah Suh MD Unavailable + Jax Metz MD Unavailable [phone] Jesi Narayanan Unavailable [phone] Jose Alfredo Vasquez DO Unavailable [phone] Duane Garcia MD Unavailable Abril Hicks MD Unavailable [phone] Lupis Swan MD Unavailable [phone] Encounter Details Date Type Department Care Team (Late st Contact Info) Description 05/18/2015 [facility] Outpatient Visit [facility] Orthopedics - Radiology [address] [place] [address] Jose Alfredo Vasquez DO [facility] [address] [address] Social History Tobacco Use Types Packs/Day Years Used Date Smoking Tobacco: Never Smokeless Tobacco: Never Alcohol Use Standard Drinks/Week Comments Yes 0 (1 standard drink = 0.6 oz pur e alcohol) very rare Comments No Sex and Gender Information Value Date Recorded Sex Assigned at Not on file Legal Sex Female 6:23 AM BILINGUAL STUDENT TUTOR Gender Identity Not on file Sexual Orientation Not on file Occupation Industry Job Start Date Job End Date retired Not on file Not on file Not on file documented as of this encounter Functional Status * Is person deaf or have serious hearing difficulty? Answer Date of Assessment Author No 01/13/2015 6:16 AM Jose Brady RN * Is person blind or have serious difficulty seeing? Answer Date of Assessment Author No 01/13/2015 6:16 AM YOLANDAT Jose Thurston RN * Does person have serious difficulty walking/climbing stairs? Answer Date of Assessment Author No 01/13/2015 6:16 AM Jose Brady RN * Does person have difficulty dressing/bathing? Answer Date of Assessment Author No 01/13/2015 6:16 AM Jose Brady RN * Does person have difficulty doing errands alone? Answer Date of Assessment Author No 01/13/2015 6:16 AM Jose Brady RN documented as of this encounter Mental Status * Does person have difficulty concentrating/remembering/making decisions? Answer Entry Date Author No 01/13/2015 6:16 AM Jose Brady RN documented in this encounter Plan of Treatment Not on file documented as of this encounter Visit Diagnoses Not on filedocumented in this encounter Care Teams It Help Desk Analyst Relationship Specialty Start Date End Date Lupis Swan MD PCP - General Internal Medicine 04/21/14 Lupis Swan MD [address] [address] PCP - Attributed-Exclusive Choice 08/31/16 04/18/17 Arnoldo Rankin III, MD Rheumatology 04/21/14 02/20/16 Group, u Rhinologist [address] [address] 04/21/14 08/27/16 Marlon Delcid MD [address] [facility] [address] [place] [address] Ophthalmology 04/21/14 Judah Suh MD [address] [place] [address] Gastroenterology 04/21/14 Jax Metz MD [address] [place] [address] Gastroenterology 04/21/14 Jesi Narayanan PA [address] [place] [address] 04/21/14 Jose Alfredo Vasquez DO [address] [place] [address] Orthopedic Surgery 05/18/15 Duane Garcia MD [address] [facility] [address] [place] [address] Rheumatology 02/21/16 Abril Hicks MD [address] [facility] [address] [place] [address] Obstetrics and Gynecology 08/28/16 documented as of this encounter
--- OUTSIDE RECORDS SUMMARY | 2024-07-30 07:29 | XMS_ITS | Clinical Summary ---
Author Organization [facility] Address [address] [place] [address] Care Team Providers Care Co Director Name Role Phone Lupis Swan MD Primary Care Provider [phone] Marlon Delcid MD Unavailable Unavailable Judah Suh MD Unavailable + Jax Metz MD Unavailable [phone] Jesi Narayanan Unavailable Jose Alfredo Vasquez DO Unavailable [phone] Duane Garcia MD Unavailable Abril Hicks MD Unavailable [phone] Source Comments [facility],non-owned Affiliates and Associated Physician Practices is amultiple site organization consisting of ambulatory clinics and hospital sitesin [place], [place], [place] and [place]. This disclosure is being madepursuant to the Care Everywhere program and may not contain all information available regarding this patient. Last updated 17.[facility] Allergies Active Allergy Reactions Criticality Noted Date Comments Ascorbate Anaphylaxis High 06/15/2015 Other High 01/23/2011 Strawberries throat swells Oxycodone-Acetaminophen 08/18/2015 Medications * Be aware that medications may not be up to date on this document. Alwaysverify current medications with the patient. aspirin 81 MG chew tablet Take 81 mg by mouth daily. Active multivitamin daily (THERAGRAN) tablet Take 1 Tab by mouth daily with food. Active docusate sodium (STOOL SOFTENER) 100 MG capsule Take 100 mg by mouth daily. Active vitamin C (ASCORBIC ACID) 1000 MG tablet Take 1,000 mg by mouth 2 times daily Reported on 02/21/2016 Active Glucosamine HCl-Glucosamin SO4 200-300 MGIndications:Prim karina osteoarthritis involving multiple joints Active HYDROcodone-acetam inophen (NORCO) 5-325 MG tablet Take 1 Tab by mouth every 6 hours as needed for Pain 0 02/21/20 16 Active omeprazole (PRILOSEC) 40 MG capsule Take 40 mg by mouth once daily 02/24/20 15 Active Lactobacillus (ACIDOPHILUS PO) Act jeri sucralfate (CARAFATE) 1 GM tablet Take 1 Tab by mouth 4 times daily as needed after meals/at bedtime 360 Tab 1 08/29/19 17 Active Additional Information Patient not taking.Reported on 10/31/2016 azithromycin (ZITHROMAX) 250 mg tabletIndications: Cough 2 tablets day 1, then 1 tablet daily for 4 days 6 Tab 08/29/19 17 Active Additional Information Patient not taking.Reported on 01/22/2017 guaiFENesin-codein e (ROBITUSSIN AC) 100-10 MG/5ML syrup Take 5 mL by mouth every 6 hours as needed for Cough 240 mL 09/20/19 17 Active Additional Information Patient not taking.Reported on 01/22/2017 amLODIPine (NORVASC) 5 MG tablet Take 1 Tab by mouth once daily 30 Tab 5 09/28/19 17 Active Additional Information Patient not taking.Reported on 01/22/2017 raNITIdine (ZANTAC) 150 MG tabletIndications: Gastro-esophageal reflux disease without esophagitis Take 1 Tab by mouth 3 times daily as needed for Heartburn 60 Tab 2 10/17/19 17 Active atorvastatin (LIPITOR) 80 MG tablet Take 1 tablet by mouth once daily 90 tablet 1 01/23/20 17 Active escitalopram (LEXAPRO) 10 MG tabletIndications: Anxiety and depression Take 1 tablet by mouth once daily 90 tablet 1 01/23/20 17 Active losartan (COZAAR) 100 MG tabletIndications: Hypertension Take 1 tablet by mouth once daily Reasons: High Blood Pressure Disorder 90 tablet 1 01/23/20 17 Active pantoprazole EC (PROTONIX) 40 MG tabletIndications: Gastro-esophageal reflux disease without esophagitis 1 tablet once daily 90 tablet 3 01/23/20 17 Active polyethylene glycol 3350 (MIRALAX) powderIndications: Constipation, unspecified constipation type Take 17 g by mouth once daily 238 g 6 01/23/20 17 Active Active Problems Problem Noted Date Diagnosed [...] Actemra began 12/27 Pre-diabetes 04/21/2014 03/24/2015 Immunizations Immunization Administration Dates Next Due FLU VACCINE QUAD [...] rare, drinks a 1-2 drinks a year Comments No Sex and Gender Information Value Date Recorded Sex Assigned at Not on file Legal Sex Female 6:23 AM TOOLMAKER Gender Identity Not on file Sexual Orientation Not on file Occupation Industry Job Start Date Job End Date 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 Not on file Not on file 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 Not on file Not on file Last Filed Vital Signs [...] (197 lb 6.4 oz) 01/22/2017 10:32 AM TOOLMAKER Height 162.6 cm (5' 4 ) 01/22/2017 10:32 AM TOOLMAKER Body Mass Index 33.88 01/22/2017 10:32 AM TOOLMAKER Plan of Treatment Health Maintenance Due Date [...] this topic Medical Devices Implanted Type Area Monument Installer Device Identifier Shelf Expiration Date Model / Serial / Lot Memory Staple Implanted:Qty: 2 on 02/05/2014 by Mingo Butcher DPM at [facility] Left: Foot MS [id number] / / Cannulaed Screw Implanted:Qty: 1 on 02/05/2014 by Mingo Butcher DPM at [facility] Left: Foot [id number] / / Implt Lens Akreos 21.5 - [id number] Implanted:Qty: 1 on 01/13/2015 by Marlon Delcid MD at [facility] Left: Eye [employer] 11/15/2016 AO60G 21.5 / [id number] / Explanted Type Area Monument Installer Device Identifier Shelf Expiration Date Model / Serial / Lot Memory Staple Explanted:Qty: 1 on 02/05/2014 by Mingo Butcher DPM at [facility] Left: Foot MS [id number] / / Procedures Procedure Name Priority Date/Time [...] CDT 07/12/2016 Narrative Resulting Agency Comment [facility] [address] [facility] [phone] us Lupis Swan MD LAB - CHEMISTRY ORDERABLES F inal Result [facility] INSURANCE BILL [address] [place] [address] * ZACKERY SCREENING DIGITAL IMAGE BILATERAL [id number] (06/12/2016 11:19 AM CDT) Anatomical Region Laterality Modality Breast Bilateral Mammography 06/12/2016 1:15 PM CDT Impressions 06/12/2016 1:37 PM CDT No mammographic evidence of malignancy in either breast. ASSESSMENT: BIRADS Category 1: Negative mammogram. RECOMMENDATION: Bilateral screening mammogram in one year. Thank you for allowing us to participate in the care of your patient. [facility] utilizes [employer] as a reminder system to notify patients of their next recommended mammogram. Report dictated by Ashley Barnes M.D. (vice president business & corporate development) I, Gabriela Layton, have personally reviewed the [...] significant interval change since the prior examination. us Abril Hicks MD MAMMO ORDERABLES Fin al Result * ENDOSCOPY, COLON, SCREENING (06/15/2013 7:43 AM CDT) Report Endoscopy POC _ Patient Name: Peng Ch Procedure Date: 06/15/2013 7:43 AM Date of : 1950 Admit Type: Outpatient Age: 63 Gender: Female Attending MD: Jax Metz MD _ Procedure: Colonoscopy Indications: Rectal bleeding Providers: Jax Metz MD (Doctor), Dawna Ferris RN, Ema Ozuna, Rock Wool Applicator Referring MD: Rudy Marroquin MD (Referring MD) [...] verified by the physician, the nurse, the bus dispatcher interstate and the optical technician in the pre-procedure area in the [...] pathology results. Procedure Code(s): --- Professional --- 38360, Colonoscopy, flexible, proximal to splenic flexure; with biopsy, single or multiple --- Technical --- 09644, Colonoscopy, flexible, proximal to splenic flexure; with [...] (without mention of hemorrhage) CPT copyright 2013 [employer]. All rights reserved. The codes documented in this report are preliminary and upon shade bander review may be revised to meet current compliance requirements. _ Jax Metz MD 06/15/2013 8:06 AM This report has been signed electronically. Number of Addenda: 0 Note Initiated On: 06/15/2013 7:43 AM [facility] ENDOSCOPY 06/15/2013 7:43 AM CDT Narrative [facility] ENDOSCOPY - 06/15/2013 8:08 AM CDT Procedure Note Jax Metz MD - 06/15/2013 8:08 AM CDT us Jax Metz MD GI PROCEDURE ORDERABLES Edited [facility] ENDOSCOPY * DEXA BONE DENSITY 2 [...] Normal. Arnoldo Rankin III, MD DEXA ORDERABLES Final Result from Last 3 Months or Most Recently Relevant to Health Maintenance Insurance HUMANA MEDICARE ADV HMO & PPO Advance Directives Documents on File Type Date Recorded Patient Portfolio Management Marketing Expl anation Adv Directive/Living Will/POA 09/02/2014 10:09 PM Care Teams Co Director Relationship Specialty Start Date End Date Lupis Swan MD PCP - General Internal Medicine 04/21/14 Marlon Delcid MD Ophthalmology 04/21/14 Judah Suh MD [address] [place] [address] Gastroenterology 04/21/14 Jax Metz MD [address] [place] [address] Gastroenterology 04/21/14 Jesi Narayanan PA [address] [place] [address] 04/21/14 Jose Alfredo Vasquez DO [address] [place] [address] Orthopedic Surgery 05/18/15 Duane Garcia MD [address] [id number] Rheumatology 02/21/16 Abril Hicks MD [address] [address] Obstetrics and Gynecology 08/28/16
--- OUTSIDE RECORDS SUMMARY | 2024-07-30 07:29 | XMS_ITS | Clinical Summary ---
Author Organization [facility] Address [address] [address] Care Team Providers Care Leasing Machine Tender Name Role Phone Rajat Weir DO Primary [...] Comments Blood Pressure 179/84 02/21/2022 2:41 PM BARREL ASSEMBLER Pulse 69 02/21/2022 2:41 PM BARREL ASSEMBLER Temperature 36.8 C (98.3 F) 02/21/2022 2:41 PM BARREL ASSEMBLER Respiratory Rate 16 02/21/2022 2:41 PM BARREL ASSEMBLER Oxygen Saturation 97% 02/21/2022 2:41 PM BARREL ASSEMBLER Inhaled Oxygen Concentration - - Weight 75.2 kg (165 lb 11.2 oz) 02/21/2022 2:41 PM BARREL ASSEMBLER Height 162.6 cm (5' 4 ) 01/25/2021 12:5 7 PM BARREL ASSEMBLER Body Mass Index 28.44 01/25/2021 12:57 PM BARREL ASSEMBLER Plan of Treatment Health Maintenance Due Date Last Done Comments COLORECTAL SCREENING 1996 Colorectal Cancer Screening 1996 FIT-DNA Q 3 years 1996 FIT/FOBT Q 1 year 1996 Flex Sig/CT Colonography Q 5 years 1996 BREAST CANCER SCREENING 06/12/2017 06/13/19 17, 06/10/2015, 06/01/2014, Additional history exists OSTEOPOROSIS SCREENING 10/03/2017 10/03/2012 DTAP/TDAP/TD VACCINES (2 - T d or Tdap) 11/02/2020 11/02/2010 PNEUMOCOCCAL VACCINE 50+ YEA RS (3 of 3 - PCV20 or PCV21) 03/04/2023 03/04/2018, 08/28/2016, 10/18/2010 INFLUENZA VACCINE (#1) 2023 8, 12/01/2016, 12/01/2016, Additional history exists RSV VACCINE (60+ or ) (1 - 1-dose 75+ series) 2026 ZOSTER VACCINE Completed 06/07/2018, 07/2018, 05/22/2011 Insurance [employer] PLUS O MCR Care Teams Leasing Machine Tender Relationship Specialty Start Date End Date Rajat Weir DO [address] [facility] [address] [place] [id number] PCP - General Internal Medicine 01/25/21
--- NOTE | 2024-07-30 08:00 | ECHO_ITS ---
"Patient Info Name: Peng Le Age: 74 years : 1950 Gender: Female Ht: 64 in Wt: 162 lbs BSA: 1.84 m2 HR: 73 bpm BP: 114 / 79 mmHg Technical Quality: Good Exam Date: 07/30/2024 8:06 AM Patient Status: O Admit Date: 07/30/2024 Exam Type: CA echo doppler color flow Complete two-dimensional, color flow and Doppler transthoracic echocardiogram is performed. Staff Referring Physician: Roxi BONILLA French Lecturer: Sosa Cueto Attending Provider: Roxi BONILLA Summary 1. Complete two-dimensional, color flow and Doppler transthoracic echocardiogram is performed. 2. Left ventricular chamber dimension is normal. 3. Left ventricular systolic function is normal, estimated at 60-65. 4. The left ventricular diastolic function is grade I diastolic dysfunction. 5. E/e' 13 is mildly elevated. 6. There is trace tricuspid valve regurgitation. 7. No pulmonary hypertension, estimated pulmonary arterial systolic pressure is 36 mmHg. Left Ventricle Left ventricular chamber dimension is normal. Left ventricular systolic function is normal, estimated at 60-65. The left ventricular diastolic function is grade I diastolic dysfunction. E/e' 13 is mildly elevated. Right Ventricle Right ventricular chamber dimension is normal. Right ventricular systolic function is normal. Left Atria Left atrial chamber dimension is normal. Right Atria Right atrial chamber dimension is normal. Aortic Valve The aortic valve is trileaflet. There is no aortic valve stenosis. There is no aortic valve regurgitation. Pulmonic Valve There is no pulmonic regurgitation. Mitral Valve There is no mitral valve stenosis. There is no mitral valve regurgitation. Tricuspid Valve There is trace tricuspid valve regurgitation. No pulmonary hypertension, estimated pulmonary arterial systolic pressure is 36 mmHg. Pericardium/Pleural There is no pericardial effusion. Inferior Vena Cava Normal inferior vena cava with >50% collapse upon inspiration consistent with normal right atrial pressure, 5 mmHg. Aorta The aortic root size at the sinus of Valsalva is normal. Left Ventricular Outflow Tract Name Value Normal LVOT 2D LVOT Diameter 1.9 cm LVOT Doppler LVOT Peak Velocity 99 cm/s LVOT Peak Gradient 4 mmHg LVOT Mean Gradient 2 mmHg LVOT VTI 20 cm LVOT VTI/AV VTI Ratio 0.8 LVOT Stroke Volume 56 ml LVOT CO 4.0 l/min LVOT CI 2.2 l/min/m2 Pulmonic Valve Name Value Normal RVOT Doppler RVOT Peak Velocity 74 cm/s RVOT Peak Gradient 2 mmHg PV Doppler PV Peak Velocity 98 cm/s PV Peak Gradient 4 mmHg Mitral Valve Name Value Normal MV Diastolic Function MV E Peak Velocity 68 cm/s MV A Peak Velocity 106 cm/s MV E/A 0.6 MV Decel Time (PW) 200 ms Tricuspid Valve Name Value Normal TV Regurgitation Doppler TR Peak Velocity 278 cm/s TR Peak Gradient 31 mmHg Estimated PAP/RSVP RA Pressure 5 mmHg <=5 PA Systolic Pressure 36 mmHg <36 RV Systolic Pressure 36 mmHg <36 TV Annular TDI TV Lateral Cathie s' Velocity 10.5 cm/s >=9.5 Aorta Name Value Normal Ascending Aorta Ao Root Diameter (MM) 3.2 cm Ao Root Diam Index (MM) 1.7 cm/m2 Aortic Valve Name Value Normal AV Doppler AV Peak Velocity 137 cm/s AV Peak Gradient 8 mmHg AV Mean Gradient 4 mmHg AV VTI 24 cm AV Area (Cont Eq VTI) 2.4 cm2 >=3.0 AV Area (Cont Eq Ravi) 2.0 cm2 AV DI (Ravi) 0.72 AV Regurgitation 2D LVOT Area 2.8 cm2 Ventricles Name Value Normal LV Dimensions 2D/MM IVS Diastolic Thickness (2D) 1.0 cm 0.6-1.0 IVS Diastole Thickness (MM) 0.8 cm 0.6-0.9 LVID Diastole (2D) 4.4 cm 3.8-5.2 LVID Diastole (MM) 5.2 cm 3.8-5.2 LVIW Diastolic Thickness (2D) 1.0 cm 0.6-0.9 LVIW Diastolic Thickness (MM) 1.1 cm 0.6-0.9 LVID Systole (2D) 2.9 cm 2.2-3.5 LVID Systole (MM) 3.1 cm 2.2-3.5 LVOT Diameter 1.9 cm LV Mass (2D Cubed) 146.02 g 67.00-162.00 LV Mass Index (2D Cubed) 79 g/m2 43-95 Relative Wall Thickness (2D) 0.47 <=0.42 LV Mass (MM Cubed) 174.84 g 67.00-162.00 LV Mass Index (MM Cubed) 95 g/m2 43-95 Relative Wall Thickness (MM) 0.41 LV Fractional Shortening/Ejection Fraction 2D/MM LV Fractional Shortening (2D) 34 % 27-45 LV Fractional Shortening (MM) 40 % 27-45 LV EF (MM Teichholz) 70 % LV EF (2D Teichholz) 63 % LV Diastolic Volume (4C MOD) 46 ml LV EF (4C MOD) 59 % LV Diastolic Volume (2C MOD) 35 ml LV EF (2C MOD) 69 % LV Diastolic Volume (BP MOD) 40 ml 46-106 LV Diastolic Volume Index (BP MOD) 22 ml/m2 29-61 LV Systolic Volume (BP MOD) 14 ml 14-42 LV Systolic Volume Index (BP MOD) 8 ml/m2 8-24 LV EF (BP MOD) 64 % 54-74 LV Diastolic Length (4C) 6.9 cm LV Systolic Length (4C) 5.8 cm LV Stroke Volume (4C MOD) 27 ml Atria Name Value Normal LA Dimensions LA Dimension (MM) 3.0 cm 2.7-3.8 LA Volume (4C A-L) 17 ml LA Volume (BP A-L) 25 ml RA Dimensions RA Systolic Major [place] Length (4C) 5.1 cm 2.2-2.8 RA Area (4C) 11.0 cm2 <=18.0 Report Signatures [file] /[id number]|2024-07-30 08:00:00|2024-07-30 08:00:00|EST_ITS|JUD|Cardiology|[id number]|"Patient Info Name: Peng Le Age: 74 years : 1950 Gender: Female Ht: 64 in Wt: 162 lbs BSA: 1.84 m2 Exam Date: 07/30/2024 8:00 AM Patient Status: O Admit Date: 07/30/2024 Exam Type: CA stress matthew w NM A regadenoson stress test was performed. Staff Referring Physician: Roxi BONILLA Attending Provider: Roxi BONILLA Exercise Technologist: Sosa Cueto Exercise Physician: Crispin Sue DO Summary 1. 1. Negative lexiscan stress test for ischemic ST changes by ECG criteria. 2. 2. Stable hemodynamics throughout the test. 3. 3. Nuclear scan to follow and will be reported separately. Please correlate with it. 4. 4. Patient informed of the above results. Protocol: Lexiscan Stress ECG Details Stage: REST Duration (min): 2 min : 41 sec HR (bpm): 72 SBP (mmHg): 125 DBP (mmHg): 81 Stage: REST Duration (min): 11 min : 38 sec HR (bpm): 75 SBP (mmHg): 125 DBP (mmHg): 81 Stage: STAGE 1 Duration (min): 0 min : 59 sec HR (bpm): 90 SBP (mmHg): 139 DBP (mmHg): 93 Stage: RECOVERY Duration (min): 1 min : 0 sec HR (bpm): 97 SBP (mmHg): 131 DBP (mmHg): 87 Stage: RECOVERY Duration (min): 2 min : 0 sec HR (bpm): 93 SBP (mmHg): 131 DBP (mmHg): 87 Stage: RECOVERY Duration (min): 3 min : 0 sec HR (bpm): 91 SBP (mmHg): 120 DBP (mmHg): 81 Stage: RECOVERY Duration (min): 3 min : 4 sec HR (bpm): 90 SBP (mmHg): 120 DBP (mmHg): 81 Rest HR: 75 bpm Peak HR: 99 bpm Rest Sys BP: 125 mmHg Peak Sys BP: 139 mmHg Max Pred HR: 147 bpm % Max Pred HR: 67 % Target HR: 125 bpm Max RPP: 13,761 bpm*mmHg Termination Reason: Completed protocol Cardiac Symptoms: Shortness of breath Total Time: 1 min : 0 sec Rest Zendejas BP: 81 mmHg Peak Zendejas BP: 93 mmHg Total Dose: 0.4 mg Resting ECG Sinus rhythm. Stress ECG No ST changes. Arrhythmias None. Report Signatures [file] [id number]
== END 2024-07-30 07:24 | disposition home or self-care (01) ==
PROVIDERS: PCP Clinical Nurse Specialist; Visit Provider Clinical Nurse Specialist
DX: R07.9 Chest pain, unspecified (principal); R06.02 Shortness of breath
CPT/HCPCS: 78452; 93017; 93306; A9502; J2785

== ENCOUNTER 2024-08-04 13:36 | Outpatient (CLI) | payer MEDICARE, SELFPAY ==
--- NOTE | ~2024-08-04 | MM_ITS ---
EXAMINATION: MM screening reji BI w opal HISTORY: Screening TECHNIQUE: Craniocaudal and mediolateral oblique 3-D tomosynthesis images were obtained and synthetic 2-D images were generated. CAD analysis was submitted and interpreted. COMPARISON: Comparison to multiple prior studies sequentially, with oldest reviewed study dated 05/2017. BREAST PARENCHYMAL COMPOSITION: Not dense: There are scattered areas of fibroglandular density. FINDINGS: There is no evidence of suspicious mass, calcification, or architectural distortion to sugg est malignancy in either breast. There has been no suspicious interval change. IMPRESSION: 1. No mammographic evidence of malignancy. 2. Recommend routine screening mammography in one year. BI-RADS Category 1: Negative Reviewed, dictated and finalized at location B.
--- NOTE | ~2024-08-04 | DEXA_ITS ---
Bone Density Report Name: ANNAMARIA CH Age: 74 Sex: Female Ethnicity: White Date of : 1950 Indication: postmenopausal; screening for osteoporosis; hysterectomy; Referring Provider: TRISTAN CONRAD Study: Bone densitometry was performed. Exam Date: August 04, 2024 Accession number: [id number] Bone Density: Region BMD T-score Z-score Classification AP Spine(L1-L4) 1.207 1.5 3.8 Normal Femoral Neck (Left) 0.759 -0.8 1.2 Normal Total Hip (Left) 0.971 0.2 1.9 Normal Femoral Neck (Right) 0.721 -1.1 0.8 Osteopenia Total Hip (Right) 1.002 0.5 2.2 Normal Total Hip Mean 0.986 0.4 2.1 Normal World Health Organization criteria for BMD impression classify patients as: Normal (T-score at or above -1.0), Osteopenia (T-score between -1.0 and -2.5), or Osteoporosis (T-score at or below -2.5). 10-year Fracture Risk(1): Major Osteoporotic Fracture 9.5% Hip Fracture 1.3% Reported Risk Factors: [place] (), Neck BMD=0.721, BMI=29.3 (1) FRAX(R) Version 3.08. Fracture probability calculated for an untreated patient. Fracture probability may be lower if the patient has received treatment. Clinical Information Provided by Patient: Has used the following medications: Vitamin D Has the following medical conditions: Hysterectomy Patient maximum height was 64 Menopause Age: 41 No regular weight bearing exercise Does not regularly consume dairy products Drinks caffeinated beverages Onset of menses at age 14 Number of children 2 Impression: The patient has low bone mass, based on the Right Femoral Neck T-score. The patient has an estimated ten-year risk of hip fracture of 1.3% and an estimated ten-year risk of major fracture of 9.5%, based on the WHO FRAX algorithm. Discussion: BONE DENSITY IS LOW AT ONE OR MORE SKELETAL SITES. This patient's lowest T-score is low at one or more skeletal sites. It meets the World Health Organization's (WHO) criteria for ?low bone mass? (T-score between -1.0 and -2.5). The patient's 10-year risk of fracture as calculated by FRAX is less than the threshold where pharmacological therapy is recommended by the National Osteoporosis Foundation (NOF). However, all treatment decisions require clinical judgment and consideration of individual patient factors, including patient preferences, comorbidities, previous drug use, risk factors not captured in the FRAX model (e.g., frailty, falls, vitamin D deficiency, increased bone turnover, interval significant decline in bone density) and possible under or overestimation of fracture risk by FRAX. The patient should follow a healthful lifestyle (good nutrition with adequate calcium and vitamin D, and appropriate weight-bearing exercise). Follow-Up: Consider repeating this study in 2 to 3 years to reassess this patient's status, or sooner if there is some new clinical indication. Reported by: SALLIE on 08/04/2024 2:21:00 PM. Reviewed, dictated and finalized at location A.
--- OUTSIDE RECORDS SUMMARY | 2024-08-04 13:40 | XMS_ITS | Encounter Summary ---
Author Organization [facility] Address [address] [facility] [place] [address] Care Team Providers Care Fur Dresser Name Role Phone Lupis Swan MD Primary Care Provider [phone] Chucho PARDO MD, John J Unavailable [phone] [facility] Unavailable [phone] Marlon Delcid MD Unavailable Unavailable Judah Suh MD Unavailable + Jax Metz MD Unavailable [phone] Jesi Narayanan Unavailable [phone] Jose Alfredo Vasquez DO Unavailable [phone] Duane Garcia MD Unavailable Abril Hicks MD Unavailable [phone] Lupis Swan MD Unavailable Encounter Details Date Type Department Care Team (Late st Contact Info) Description 05/18/2015 [facility] Outpatient Visit [facility] Orthopedics - Radiology [address] [place] [address] Jose Alfredo Vasquez DO [facility] [address] [address] Social History Tobacco Use Types Packs/Day Years Used Date Smoking Tobacco: Never Smokeless Tobacco: Never Alcohol Use Standard Drinks/Week Comments Yes 0 (1 standard drink = 0.6 oz pur e alcohol) very rare Comments No Sex and Gender Information Value Date Recorded Sex Assigned at Not on file Legal Sex Female 6:23 AM TREE DOCTOR Gender Identity Not on file Sexual Orientation [...] on filedocumented in this encounter Care Teams Fur Dresser Relationship Specialty Start Date End Date Lupis Swan MD PCP - General Internal Medicine 04/21/14 Lupis Swan MD [address] [address] PCP - Attributed-Exclusive Choice 08/31/16 04/18/17 Arnoldo Rankin III, MD Rheumatology 04/21/14 02/20/16 [facility] [address] [address] 04/21/14 08/27/16 Marlon Delcid MD [address] [facility] [address] [place] [address] Ophthalmology 04/21/14 Judah Suh MD [address] [place] [address] Gastroenterology 04/21/14 Jax Metz MD [address] [place] [address] Gastroenterology 04/21/14 Jesi Narayanan PA [address] [place] [address] 04/21/14 Jose Alfredo Vasquez DO [address] [place] [address] Orthopedic Surgery 05/18/15 Duane Garcia MD [address] [facility] [address] [place] [address] Rheumatology 02/21/16 Abril Hicks MD [address] [facility] [address] [place] [address] Obstetrics and Gynecology 08/28/16 documented as of this encounter
--- OUTSIDE RECORDS SUMMARY | 2024-08-04 13:40 | XMS_ITS | Continuity of Care Document ---
Author Organization [facility] Address [address] [facility] [address] [place] [address] Phone Care Team Providers Care Founder Chairman And Chief Creative Officer Name Role Phone Alonso Patton MD Unavailable [...] Diagnoses Date Provider Providers Copied on Encounter [facility], [address], [address], [place] [phone] [facility] No Information 7 Pooja Gupta. [address], [place], [place], [id number] . tel: [phone] OFFICE/OUTPA TIENT VISIT EST [facility], [address] [facility] [address], [place], [address], [phone] [facility] Body mass index (BMI) 34.0-34.9, adultGanglion cyst of finger of left hand 7 Cory Martins. [address], [place], [place], [id number] , [place]. tel: [phone] OFFICE/OUTPA TIENT VISIT [facility], [address] [place] [address] [address], [place], [address], tel:[phone] [facility] Maybee Contusion of knee, left 4 Julio C Aguila. [address], [place], [place], [id number] . tel: [phone] Referring Provider: [address], [place], [address] . tel:[phone] OFFICE/OUTPA TIENT VISIT [facility], [address] [facility] [address], [place], [address], [place] tel:[phone] [facility] [address] Hypertension, UnspecifiedIsch ial pain 3 Julio C Aguila. [address], [place], [place], [id number] . tel: [phone] Referring Provider: [address], [place], [address] . tel:[phone] Family History Family Member Type Diagnosis Age At Onset Daughter Problem (finding) Alive and well Immunizations Vaccine Date Status Comments Pneumo (2 yrs or older)(PPV) administered Source: Other Provider Payers Payer name Insurance type Covered republican ID Authoriza tion(s) No Information Social History [...]
--- OUTSIDE RECORDS SUMMARY | 2024-08-04 13:40 | XMS_ITS | Clinical Summary ---
Author Organization [facility] Address [address] [place] [address] Care Team Providers Care Ambulette Driver Name Role Phone Rajat Weir DO Primary Care Provider [phone] Allergies Active Allergy Reactions Criticality Noted Date [...] on file Legal Sex Female 1:59 AM RAC SPECIALIST Gender Identity Not on file Sexual Orientation [...] file Insurance [employer] CLAIMS OFFICE Care Teams Ambulette Driver Relationship Specialty Start Date End Date Rajat Weir DO PCP - General Internal Medicine 11/03/19
--- OUTSIDE RECORDS SUMMARY | 2024-08-04 13:41 | XMS_ITS | Clinical Summary ---
Author Organization [facility] Sandy iMtchell Address [address] [place] [address] Care Team Providers Care Brake Press Operator Name Role Phone Rajat Weir DO [...] Comments Blood Pressure 179/84 02/21/2022 2:41 PM TURBINE OPERATOR Pulse 69 02/21/2022 2:41 PM TURBINE OPERATOR Temperature 36.8 C (98.3 F) 02/21/2022 2:41 PM TURBINE OPERATOR Respiratory Rate 16 02/21/2022 2:41 PM TURBINE OPERATOR Oxygen Saturation 97% 02/21/2022 2:41 PM TURBINE OPERATOR Inhaled Oxygen Concentration - - Weight 75.2 kg (165 lb 11.2 oz) 02/21/2022 2:41 PM TURBINE OPERATOR Height 162.6 cm (5' 4 ) 01/25/2021 12:5 7 PM TURBINE OPERATOR Body Mass Index 28.44 01/25/2021 12:57 PM TURBINE OPERATOR Plan of Treatment Health Maintenance Due [...] ZOSTER VACCINE Completed 06/07/2018, 07/2018, 05/22/2011 Insurance [employer] PLUS O MCR Care Teams Brake Press Operator Relationship Specialty Start Date End Date Rajat Weir DO [address] [facility] [address] [place] [address] PCP - General Internal Medicine 01/25/21
--- OUTSIDE RECORDS SUMMARY | 2024-08-04 13:41 | XMS_ITS | Referral Summary ---
Author Organization [facility] Address [address] [place] [address] Care Team Providers Care Blood Bank Worker Name Role Phone Rajat Weir DO Primary Care Provider [phone] Allergies Active Allergy Reactions Criticality Noted Date [...] on file Legal Sex Female 1:59 AM MANAGED CARE PROVIDER Gender Identity Not on file Sexual Orientation [...] file Insurance [employer] CLAIMS OFFICE Care Teams Blood Bank Worker Relationship Specialty Start Date End Date Rajat Weir DO PCP - General Internal Medicine 11/03/19
--- OUTSIDE RECORDS SUMMARY | 2024-08-04 13:41 | XMS_ITS | Clinical Summary ---
Author Organization [facility] Address [address] [facility] [place] [address] Care Team Providers Care Registration Specialist Name Role Phone Lupis Swan MD Primary Care Provider [phone] Marlon Delcid MD Unavailable Unavailable Judah Suh MD Unavailable + Jax Metz MD Unavailable [phone] Jesi Narayanan Unavailable Jose Alfredo Vasquez DO Unavailable [phone] Duane Garcia MD Unavailable Abril Hicks MD Unavailable [phone] Source Comments [facility],non-owned Affiliates and Associated Physician Practices is amultiple site organization consisting of ambulatory clinics and hospital sitesin [place] and [place]. This disclosure is being madepursuant to the Care Everywhere program and may not contain all information available regarding this patient. Last updated 17.[facility] Allergies Active Allergy Reactions Criticality [...] on file Legal Sex Female 6:23 AM CONTENT SPECIALIST Gender Identity Not on file Sexual [...] (197 lb 6.4 oz) 01/22/2017 10:32 AM CONTENT SPECIALIST Height 162.6 cm (5' 4 ) 01/22/2017 10:32 AM CONTENT SPECIALIST Body Mass Index 33.88 01/22/2017 10:32 AM CONTENT SPECIALIST Plan of Treatment Health Maintenance Due Date [...] this topic Medical Devices Implanted Type Area Supply Technician Device Identifier Shelf Expiration Date Model / Serial / Lot Memory Staple Implanted:Qty: 2 on 02/05/2014 by Mingo Butcher DPM at [facility] Left: Foot MS [id number] / / Cannulaed Screw Implanted:Qty: 1 on 02/05/2014 by Mingo Butcher DPM at [facility] Left: Foot [id number] / / Implt Lens Akreos 21.5 - [id number] Implanted:Qty: 1 on 01/13/2015 by Marlon Delcid MD at [facility] Left: Eye [employer] 11/15/2016 [id number] 21.5 / [id number] / Explanted Type Area Supply Technician Device Identifier Shelf Expiration Date Model / Serial / Lot Memory Staple Explanted:Qty: 1 on 02/05/2014 by Mingo Butcher DPM at [facility] Left: Foot [id number] / / Procedures Procedure Name Priority Date/Time [...] CDT 07/12/2016 Narrative Resulting Agency Comment [facility] [address] [facility] [phone] us Lupis Swan MD LAB - CHEMISTRY ORDERABLES F inal Result [facility] INSURANCE BILL [address] [place] [address] * ZACKERY SCREENING DIGITAL IMAGE BILATERAL [id number] (06/12/2016 11:19 AM CDT) Anatomical Region Laterality Modality Breast Bilateral Mammography 06/12/2016 1:15 PM CDT Impressions 06/12/2016 1:37 PM CDT No mammographic evidence of malignancy in either breast. ASSESSMENT: BIRADS Category 1: Negative mammogram. RECOMMENDATION: Bilateral screening mammogram in one year. Thank you for allowing us to participate in the care of your patient. [facility] utilizes [employer] as a reminder system to notify patients of their next recommended mammogram. Report dictated by Ashley Barnes M.D. (vice president of news) I, Gabriela Layton, have personally reviewed the [...] MD (Doctor), Dawna Ferris RN, Ema Ozuna, Sole Skiver Referring MD: Rudy Marroquin MD (Referring MD) [...] verified by the physician, the nurse, the nuclear chemistry technician and the time study technician in the pre-procedure area in the [...] pathology results. Procedure Code(s): --- Professional --- 85739, Colonoscopy, flexible, proximal to splenic flexure; with biopsy, single or multiple --- Technical --- 11688, Colonoscopy, flexible, proximal to splenic flexure; with [...] (without mention of hemorrhage) CPT copyright 2013 [employer]. All rights reserved. The codes documented in this report are preliminary and upon diesel engineer review may be revised to meet current compliance requirements. _ Jax Metz MD 06/15/2013 8:06 AM This report has been signed electronically. Number of Addenda: 0 Note Initiated On: 06/15/2013 7:43 AM [facility] 06/15/2013 7:43 AM CDT Narrative [facility] - 06/15/2013 8:08 AM CDT Procedure Note Jax Metz MD - 06/15/2013 8:08 AM CDT us Jax Metz MD GI PROCEDURE ORDERABLES Edited [facility] * DEXA BONE DENSITY 2 [...] Documents on File Type Date Recorded Patient Inspector Brake Lining Expl anation Adv Directive/Living Will/POA 09/02/2014 10:09 PM Care Teams Registration Specialist Relationship Specialty Start Date End Date Lupis Swan MD PCP - General Internal Medicine 04/21/14 Marlon Delcid MD Ophthalmology 04/21/14 Judah Suh MD [address] [place] [address] Gastroenterology 04/21/14 Jax Metz MD [address] [place] [address] Gastroenterology 04/21/14 Jesi Narayanan PA [address] [place] [address] 04/21/14 Jose Alfredo Vasquez DO [address] [place] [address] Orthopedic Surgery 05/18/15 Duane Garcia MD [address] [id number] Rheumatology 02/21/16 Abril Hicks MD [address] [address] Obstetrics and Gynecology 08/28/16
== END 2024-08-04 13:37 | disposition home or self-care (01) ==
LOC: ANHIMG 13:37
PROVIDERS: PCP Clinical Nurse Specialist; Visit Provider Clinical Nurse Specialist
DX: Z12.31 Encounter for screening mammogram for malignant neoplasm of breast (principal); M85.851 Other specified disorders of bone density and structure, right thigh; Z78.0 Asymptomatic menopausal state
CPT/HCPCS: 77063; 77067; 77080

== ENCOUNTER 2024-09-24 00:57 | Day surgery (SDC) | payer MEDICARE, SELFPAY ==
[2024-09-04 10:27] VITALS: BMI 28.3
--- OUTSIDE RECORDS SUMMARY | 2024-09-24 00:59 | XMS_ITS | Referral Summary ---
Author Organization [facility] Address [address] [place] [address] Care Team Providers Care Dental Resident Name Role Phone Rajat Weir DO Primary Care Provider [phone] Allergies Active Allergy Reactions Criticality Noted Date [...] on file Legal Sex Female 1:59 AM WHITE KID BUFFER Gender Identity Not on file Sexual Orientation Not on file Last Filed Vital Signs Vital Sign Reading Time Taken Comments Blood Pressure 132/82 06/02/2014 10:40 AM CDT Pulse 76 06/02/2014 10:40 AM CDT Temperature - - Respiratory Rate - - Oxygen Saturation - - Inhaled Oxygen Concentration - - Weight 91.6 kg (202 lb) 06/02/2014 10:40 AM CDT Height 161.3 cm (5' 3.5) 06/02/2014 10:40 AM CD T Body Mass Index 35.22 06/02/2014 10:40 AM CDT Plan of Treatment Not on file Insurance [employer] CLAIMS OFFICE Care Teams Dental Resident Relationship Specialty Start Date End Date Rajat Weir DO PCP - General Internal Medicine 11/03/19
--- OUTSIDE RECORDS SUMMARY | 2024-09-24 00:59 | XMS_ITS | Encounter Summary ---
Author Organization [facility] Address [address] [facility] [place] [address] Care Team Providers Care Sugar Cane Planting Equipment Operator Name Role Phone Lupis Swan MD Primary Care Provider [phone] Marlon Delcid MD Unavailable Unavailable Judah Suh MD Unavailable + Jax Metz MD Unavailable [phone] Jesi Narayanan Unavailable Jose Alfredo Vasquez DO Unavailable [phone] Duane Garcia MD Unavailable Abril Hicks MD Unavailable [phone] Encounter Details Date Type Department Care Team (Late st Contact Info) Description 09/21/2024 Lab Requisition [facility] - DermPath Lab [address] [facility] [place] [address] Kortney Hammond MD [address] [facility] [address] [place] [address] Social History Tobacco Use Types Packs/Day Years Used Date Smoking Tobacco: Never Smokeless Tobacco: Never Alcohol Use Standard Drinks/Week Comments No 0 (1 standard drink = 0.6 oz pure alcohol) very rare, drinks a 1-2 drinks a year Comments No Sex and Gender Information Value Date Recorded Sex Assigned at Not on file Legal Sex Female 6:23 AM NURSING EXECUTIVE Gender Identity Not on file Sexual Orientation Not on file Occupation Industry Job Start Date Job End Date Retired Not on file Not on file 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 Answer Date of Assessment Author No 06/02/2015 6:19 AM CDT Jc Molina RN * Is person blind or have serious difficulty seeing? Answer Date of Assessment Author No 06/02/2015 6:19 AM YOLANDAT Jc Molina RN * Does person have serious difficulty walking/climbing stairs? Answer Date of Assessment Author No 06/02/2015 6:19 AM CDT Jc Molina RN * Does person have difficulty dressing/bathing? Answer Date of Assessment Author No 06/02/2015 6:19 AM YOLANDAT Jc Molina RN * Does person have difficulty doing errands alone? Answer Date of Assessment Author No 06/02/2015 6:19 AM YOLANDAT Jc Molina RN documented as of this encounter Mental Status * Does person have difficulty concentrating/remembering/making decisions? Answer Entry Date Author No 06/02/2015 6:19 AM Jc Gleason RN documented in this encounter Plan of Treatment Not on file documented as of this encounter Procedures Procedure Name Priority Date/Time Associated Diagnosis Comments DERMATOPATHOLOGY Routine 09/21/2024 10:4 9 AM CDT documented in this encounter Results * DERMATOPATHOLOGY (09/21/2024 10:49 AM CDT) Case Report Dermatopathology Report Case: [id number] Authorizing Provider: Kortney Hammond MD Collected: 09/21/2024 10:49 AM Ordering Location: [facility] - Received: 09/22/2024 06:47 AM DermPath Lab Pathologist: Paulina Avendano MD Specimens: A) - Skin, right lat nose B) - Skin, right nose 5:57 PM CDT DERMATOPATHOLOGY LABORATORY Final Diagnosis Specimen A. SKIN, right lat nose: SQUAMOUS CELL CARCINOMA, WELL DIFFERENTIATED (C44.321) Specimen B. SKIN, right nose: BASAL CELL CARCINOMA, MICRONODULAR TYPE (C44.311) 5:57 PM CDT DERMATOPATHOLOGY LABORATORY at 1757 CDT Clinical History A: AK/SCC B: BCC/Nevus 5:57 PM CDT DERMATOPATHOLOGY LABORATORY Gross Description Specimen A: Received is one formalin filled container labeled with the patient's name and designated right lat nose. The specimen consists of a shave biopsy measuring 6x4x2 mm. Jar 0. Specimen B: Received is one formalin filled container labeled with the patient's name and designated right nose. The specimen consists of a shave biopsy measuring 5x5x2 mm. Jar 0. 5:57 PM CDT DERMATOPATHOLOGY LABORATORY Microscopic Description Specimen A. SKIN, right lat nose: Arising in the epidermis and extending into the dermis there are irregularly shaped aggregates of keratinocytes showing evidence of premature cornification. Specimen B. SKIN, right nose: Within the dermis there are small aggregates of basaloid cells with a high nuclear to cytoplasmic ratio and peripheral palisading of their nuclei. 5:57 PM CDT DERMATOPATHOLOGY LABORATORY Disclaimer An external and internal positive and negative controls are appropriate for the histochemical, immunohistochemical and immunofluorescence stain(s) in this case (if any), except where stated explicitly. The performance characteristics of the stain(s) cited in this report were developed and its performance characteristic determined by the Dermatopathology Laboratory at [facility], directed by Dr. Yanique Ya. These tests need not be, and therefore are not, approved by the [place] Food and Drug Administration. The tests are used for clinical purposes. Billing Codes Specimen Charges Stain Charges 49233 37254 1 1 5:57 PM CDT DERMATOPATHOLOGY LABORATORY Embedded Images 5:57 PM CDT DERMATOPATHOLOGY LABORATORY Pathology/Cytology TISSUE SPECIMEN FROM SKIN / Unknown 09/21/2024 10:49 AM CDT 09/22/2024 6:47 AM CDT Miscellaneous samples (specimen) TISSUE SPECIMEN FROM SKIN / Unknown 09/21/2024 10:49 AM CDT 09/22/2024 6:47 AM CDT us Kortney Hammond MD LAB - PATHOLOGY/CYTOLOGY ORD ERABLES Final Result DERMATOPATHOLOGY LABORATORY [facility] - Department of Dermatology [facility] Medicine [address] [facility] 3rd [place] [address], [facility] [phone] documented in this encounter Visit Diagnoses Not on filedocumented in this encounter Care Teams Sugar Cane Planting Equipment Operator Relationship Specialty Start Date End Date Lupis Swan MD PCP - General Internal Medicine 04/21/14 Marlon Delcid MD Ophthalmology 04/21/14 Judah Suh MD [address] [place] [address] Gastroenterology 04/21/14 Jax Metz MD [address] [id number] Gastroenterology 04/21/14 Jesi Narayanan PA [address] [place] [address] 04/21/14 Jose Alfredo Vasquez DO [address] [place] [address] Orthopedic Surgery 05/18/15 Duane Garcia MD [address] [facility] [address] [place] [address] Rheumatology 02/21/16 Abril Hicks MD [address] [facility] [address] [place] [address] Obstetrics and Gynecology 08/28/16 documented as of this encounter
--- OUTSIDE RECORDS SUMMARY | 2024-09-24 00:59 | XMS_ITS | Continuity of Care Document ---
Author Organization [facility] Address [address] [facility] [address] [place] [address] Phone Care Team Providers Care Storage Consultant Name Role Phone Alonso Patton MD Unavailable Unavailable Allergies, Adverse Reactions, Alerts Substance Reaction Status Criticality acetaminophen Active No Information OXYCODONE HCL Active No Information Medications Medication Instructions Dosage Effective Dates (start - stop) Status Comments Mobic 15 mg tablet Take 1 tablet by mouth daily with food - Active ACTEMRA (unknown strength) Not Available - Active AMLODIPINE BESILATE (unknown strength) Not Available - Active Aspirin Low Dose 81 mg tablet,delayed release - Active HYDROCODONE-ACETAMIN OPHEN (unknown strength) Not Available - Active ESCITALOPRAM OXALATE (unknown strength) Not Available - Active ATORVASTATIN CALCIUM (unknown strength) Not Available - Active OMEPRAZOLE (unknown strength) Not Available - Active Procedures Procedure Date OFFICE/OUTPATIENT VISIT EST OFFICE/OUTPATIENT VISIT EST OFFICE/OUTPATIENT VISIT NEW Advance Directives Directive Yes / No Effective Date File Name No Information Encounters Encounter Description Practice Location Reason(s) For Visit Diagnoses Date Provider Providers Copied on Encounter [facility], [address], [address], [place] [phone] [facility] No Information 7 Pooja Gupta. [address], [place], [place], [id number] . tel: [phone] OFFICE/OUTPA TIENT VISIT EST [facility], [address] [facility] [address], [place], [address], [phone] [facility] Body mass index (BMI) 34.0-34.9, adultGanglion cyst of finger of left hand 7 Cory Martins. [address], [place], [place], [id number] , [place]. tel: [phone] OFFICE/OUTPA TIENT VISIT [facility], [address] [place] [address] [address], [place], [address], tel:[phone] [facility] [address] Contusion of knee, left 4 Julio C Aguila. [address], [place], [place], [id number] . tel: [phone] Referring Provider: [address], [place], [address] . tel:[phone] OFFICE/OUTPA TIENT VISIT [facility], [address] [facility] [address], [place], [address], [place] tel:[phone] [facility] [place] Hypertension, UnspecifiedIsch ial pain 3 Julio C Aguila. [address], [place], [place], [id number] . tel: [phone] Referring Provider: [address], [place], [address] . tel:[phone] Family History Family Member Type Diagnosis Age At Onset Daughter Problem (finding) Alive and well Immunizations Vaccine Date Status Comments Pneumo (2 yrs or older)(PPV) administered Source: Other Provider Payers Payer name Insurance type Covered constitution party ID Authoriza tion(s) No Information Social [...]
--- OUTSIDE RECORDS SUMMARY | 2024-09-24 00:59 | XMS_ITS | Encounter Summary ---
Author Organization [facility] Address [address] [facility] [place] [address] Care Team Providers Care Weigher And Charger Name Role Phone Lupis Swan MD Primary Care Provider [phone] Chucho PARDO MD, John J Unavailable [facility] Medical Apparatus Model Maker Unavailable [phone] Marlon Delcid MD Unavailable Unavailable Judah Suh MD Unavailable + Jax Metz MD Unavailable [phone] Jesi Narayanan Unavailable Jose Alfredo Vasquez DO Unavailable [phone] Duane Garcia MD Unavailable Abril Hicks MD Unavailable [phone] Lupis Swan MD Unavailable Encounter Details Date Type Department Care Team (Late st Contact Info) Description 05/18/2015 [facility] Outpatient Visit [facility] Orthopedics - Radiology [address] [place] [address] Jose Alfredo Vasquez DO [facility] [address] [address] Social History Tobacco Use Types Packs/Day Years Used Date Smoking Tobacco: Never Smokeless Tobacco: Never Alcohol Use Standard Drinks/Week Comments Yes 0 (1 standard drink = 0.6 oz pur e alcohol) very rare Comments No Sex and Gender Information Value Date Recorded Sex Assigned at Not on file 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 Gender Identity Not on file Sexual Orientation [...] on filedocumented in this encounter Care Teams Weigher And Charger Relationship Specialty Start Date End Date Lupis Swan MD PCP - General Internal Medicine 04/21/14 Lupis Swan MD [address] [address] PCP - Attributed-Exclusive Choice 08/31/16 04/18/17 Arnoldo Rankin III, MD Rheumatology 04/21/14 02/20/16 Group, u Medical Apparatus Model Maker [address] [address] 04/21/14 08/27/16 Marlon Delcid MD [address] [facility] [address] [place] [address] Ophthalmology 04/21/14 Judah Suh MD [address] [place] [address] Gastroenterology 04/21/14 aJx Metz MD [address] [place] [address] Gastroenterology 04/21/14 Jesi Narayanan PA [address] [place] [address] 04/21/14 Jose Alfredo Vasquez DO [address] [place] [address] Orthopedic Surgery 05/18/15 Duane Garcia MD [address] [facility] [address] [place] [address] Rheumatology 02/21/16 Abril Hicks MD [address] [facility] [address] [place] [address] Obstetrics and Gynecology 08/28/16 documented as of this encounter
--- OUTSIDE RECORDS SUMMARY | 2024-09-24 00:59 | XMS_ITS | Clinical Summary ---
Author Organization [facility] Address [address] [facility] [place] [address] Care Team Providers Care Crm System Administrator Name Role Phone Lupis Swan MD Primary Care Provider [phone] Marlon Delcid MD Unavailable Unavailable Judah Suh MD Unavailable + Jax Metz MD Unavailable [phone] Jesi Narayanan Unavailable [phone] Jose Alfredo Vasquez DO Unavailable [phone] Duane Garcia MD Unavailable Abril Hicks MD Unavailable [phone] Source Comments [facility],non-owned Affiliates and Associated Physician Practices is amultiple site organization consisting of ambulatory clinics and hospital sitesin [place], [place], [place] and [place]. This disclosure is being madepursuant to the Care Everywhere program and may not contain all information available regarding this patient. Last updated 17.[facility] Allergies Active Allergy Reactions Criticality Noted [...] surgery) Actemra began 12/27 Pre-diabetes 04/21/2014 03/24/2015 Encounters Date Type Department Care Team Description 09/21/2024 Lab Requisition [facility] - DermPath Lab [address] [facility] [facility] [place] [id number] Kortney Hammond MD from Last 3 Months Immunizations Immunization Administration Dates Next Due FLU [...] on file Legal Sex Female 6:23 AM PULP COOKER Gender Identity Not on file Sexual Orientation [...] (197 lb 6.4 oz) 01/22/2017 10:32 AM PULP COOKER Height 162.6 cm (5' 4) 01/22/2017 10:32 AM PULP COOKER Body Mass Index 33.88 01/22/2017 10:32 AM PULP COOKER Plan of Treatment Health Maintenance Due Date [...] MEDICARE AWV CALENDAR YEAR 2024 INFLUENZA VACCINE (#1) 2024 7, 01/06/2016, 12/29/2012, Additional history exists Respiratory Syncytial [...] this topic Medical Devices Implanted Type Area Emr Analyst Device Identifier Shelf Expiration Date Model / Serial / Lot Memory Staple Implanted:Qty: 2 on 02/05/2014 by Mingo Butcher DPM at [facility] Left: Foot MS [id number] / / Cannulaed Screw Implanted:Qty: 1 on 02/05/2014 by Mingo Butcher DPM at [facility] Left: Foot [id number] / / Implt Lens Akreos 21.5 - [id number] Implanted:Qty: 1 on 01/13/2015 by Marlon Delcid MD at [facility] Left: Eye [employer] 11/15/2016 AO60G 21.5 / [id number] / Explanted Type Area Emr Analyst Device Identifier Shelf Expiration Date Model / Serial / Lot Memory Staple Explanted:Qty: 1 on 02/05/2014 by Mingo Butcher DPM at [facility] Left: Foot [id number] / / Procedures Procedure Name Priority Date/Time Associated Diagnosis Comments DERMATOPATHOLOGY Routine 09/21/2024 10:4 9 AM CDT COMPREHENSIVE METABOLIC PANEL Routine 07/12/2016 9:11 AM CDT Hyperlipidemia, unspecified hyperlipidemia type MAMMO BILAT SCREENING Routine 06/12/2016 11:19 AM CDT Visit for screening mammogram ENDOSCOPY, COLON, SCREENING Routine 06/15/2013 7:43 AM CDT DEXA BONE DENSITY 2 SITES Routine 10/03/2012 10:13 AM CDT Special Screening For Osteoporosis from Last 3 Months or Most Recently Relevant to Health Maintenance Results * DERMATOPATHOLOGY (09/21/2024 10:49 AM CDT) Case Report Dermatopathology Report Case: [id number] Authorizing Provider: Kortney Hammond MD Collected: 09/21/2024 10:49 AM Ordering Location: [facility] - Received: 09/22/2024 06:47 AM DermPath [...] characteristic determined by the Dermatopathology Laboratory at [facility], directed by Dr. Yanique Ya. These tests need not be, and therefore are not, approved by the [place] Food and Drug Administration. The tests are used for clinical purposes. Billing Codes Specimen Charges Stain Charges 54820 82208 1 1 5:57 PM CDT DERMATOPATHOLOGY LABORATORY Embedded Images 5:57 PM CDT DERMATOPATHOLOGY LABORATORY Pathology/Cytology TISSUE SPECIMEN FROM SKIN / Unknown 09/21/2024 10:49 AM CDT 09/22/2024 6:47 AM CDT Miscellaneous samples (specimen) TISSUE SPECIMEN FROM SKIN / Unknown 09/21/2024 10:49 AM CDT 09/22/2024 6:47 AM CDT us Kortney Hammond MD LAB - PATHOLOGY/CYTOLOGY ORD ERABLES Final Result DERMATOPATHOLOGY LABORATORY [facility] - Department of Dermatology [address], [address] [phone] * (ABNORMAL) COMPREHENSIVE METABOLIC PANEL (07/12/2016 9:11 [...] CDT 07/12/2016 Narrative Resulting Agency Comment [facility] [address] [facility] [phone] us Lupis Swan MD LAB - CHEMISTRY ORDERABLES F inal Result [facility] INSURANCE BILL [address] [place] [address] * ZACKERY SCREENING DIGITAL IMAGE BILATERAL [id number] (06/12/2016 11:19 AM CDT) Anatomical Region Laterality Modality Breast Bilateral Mammography 06/12/2016 1:15 PM CDT Impressions 06/12/2016 1:37 PM CDT No mammographic evidence of malignancy in either breast. ASSESSMENT: BIRADS Category 1: Negative mammogram. RECOMMENDATION: Bilateral screening mammogram in one year. Thank you for allowing us to participate in the care of your patient. [facility] Breast [facility] utilizes Cl[employer] as a reminder system to notify patients of their next recommended mammogram. Report dictated by Ashley Barnes M.D. (certified residential medication aide) I, Gabriela Garzayvan, have personally reviewed the [...] the prior examination. Abril Hicks MD MAMMO ORDERABLES Fin al Result * ENDOSCOPY, COLON, SCREENING (06/15/2013 7:43 AM CDT) Report Endoscopy POC _ Patient Name: Peng Ch Procedure Date: 06/15/2013 7:43 AM Date of : 1950 Admit Type: Outpatient Age: 63 Gender: Female Attending MD: Jax Metz MD _ Procedure: Colonoscopy Indications: Rectal bleeding Providers: Jax Metz MD (Doctor), Dawna Ferris RN, Ema Ozuna, Slackline Operator Referring MD: Rudy Marroquin MD (Referring MD) [...] verified by the physician, the nurse, the farm assistant and the highway engineering technician in the pre-procedure area in the [...] pathology results. Procedure Code(s): --- Professional --- 97083, Colonoscopy, flexible, proximal to splenic flexure; with biopsy, single or multiple --- Technical --- 01222, Colonoscopy, flexible, proximal to splenic flexure; with [...] (without mention of hemorrhage) CPT copyright 2013 [employer]. All rights reserved. The codes documented in this report are preliminary and upon veterinary toxicologist review may be revised to meet current compliance requirements. _ Jax Metz MD 06/15/2013 8:06 AM This report has been signed electronically. Number of Addenda: 0 Note Initiated On: 06/15/2013 7:43 AM [facility] ENDOSCOPY 06/15/2013 7:43 AM CDT Narrative [facility] ENDOSCOPY - 06/15/2013 8:08 AM CDT Procedure Note Jax Metz MD - 06/15/2013 8:08 AM CDT us Jax Metz MD GI PROCEDURE ORDERABLES Edited [facility] ENDOSCOPY * DEXA BONE DENSITY 2 SITES [...] Insurance [employer] MEDICARE [place] [address] AETNA MEDICARE ADV Advance Directives Documents on File Type Date Recorded Patient Retail Marketing Manager Expl anation Adv Directive/Living Will/POA 09/02/2014 10:09 PM Care Teams Crm System Administrator Relationship Specialty Start Date End Date Lupis Swan MD PCP - General Internal Medicine 04/21/14 Marlon Delcid MD Ophthalmology 04/21/14 Judah Suh MD [address] [place] [address] Gastroenterology 04/21/14 Jax Metz MD [address] [place] [address] Gastroenterology 04/21/14 Jesi Narayanan PA [address] [place] [address] 04/21/14 Jose Alfredo Vasquez DO [address] [place] [address] Orthopedic Surgery 05/18/15 Duane Garcia MD [address] [facility] [address] [place] [address] Rheumatology 02/21/16 Abril Hicks MD [address] [facility] [address] [place] [address] Obstetrics and Gynecology 08/28/16
--- OUTSIDE RECORDS SUMMARY | 2024-09-24 00:59 | XMS_ITS | Clinical Summary ---
Author Organization [facility] Address [address] [place] [address] Care Team Providers Care Production Director Name Role Phone Rajat Weir DO Primary Care Provider [phone] Allergies Active Allergy Reactions Criticality Noted Date [...] on file Legal Sex Female 1:59 AM TONGER Gender Identity Not on file Sexual Orientation [...] file Insurance [employer] CLAIMS OFFICE Care Teams Production Director Relationship Specialty Start Date End Date Rajat Weir DO PCP - General Internal Medicine 11/03/19
--- OUTSIDE RECORDS SUMMARY | 2024-09-24 00:59 | XMS_ITS | Clinical Summary ---
Author Organization [facility] Address [address] [place] [address] Care Team Providers Care Panel Instrument Repairer Name Role Phone Rajat Weir DO Primary [...] Comments Blood Pressure 179/84 02/21/2022 2:41 PM GEOLOGICAL ENGINEERING TEACHER Pulse 69 02/21/2022 2:41 PM GEOLOGICAL ENGINEERING TEACHER Temperature 36.8 C (98.3 F) 02/21/2022 2:41 PM GEOLOGICAL ENGINEERING TEACHER Respiratory Rate 16 02/21/2022 2:41 PM GEOLOGICAL ENGINEERING TEACHER Oxygen Saturation 97% 02/21/2022 2:41 PM GEOLOGICAL ENGINEERING TEACHER Inhaled Oxygen Concentration - - Weight 75.2 kg (165 lb 11.2 oz) 02/21/2022 2:41 PM GEOLOGICAL ENGINEERING TEACHER Height 162.6 cm (5' 4) 01/25/2021 12:5 7 PM GEOLOGICAL ENGINEERING TEACHER Body Mass Index 28.44 01/25/2021 12:57 PM GEOLOGICAL ENGINEERING TEACHER Plan of Treatment Health Maintenance Due Date [...] 03/04/2023 03/04/2018, 08/28/2016, 10/18/2010 INFLUENZA VACCINE (#1) 2024 8, 12/01/2016, 12/01/2016, Additional history exists RSV VACCINE (60+ or ) (1 - 1-dose 75+ series) 2026 ZOSTER VACCINE Completed 06/07/2018, 07/2018, 05/22/2011 Insurance [employer] PLUS O MCR Care Teams Panel Instrument Repairer Relationship Specialty Start Date End Date Rajat Weir DO [address] [facility] [address] [place] [address] PCP - General Internal Medicine 01/25/21
[2024-09-24 09:39] VITALS: BP 137/76; PULSE 73; RESP 18; TEMP 36.3; O2SAT 94; BMI 28.3
[2024-09-24] MEDS: LACTATED RINGERS 1,000 ML 150 ML IV CONT (10:08)
[2024-09-24] MEDS: SIMETHICONE ORAL SUSPENSION 20 MG/0.3 ML 30 ML BOTTLE 1.8 ML PO (10:10)
--- NOTE | 2024-09-24 10:56 | P.PNAN_ITS ---
Anes - Initial Pre Proc Eval Procedure: Operation Date: 09/24/24 11:00 Proposed Procedures p Esophagogastroduodenoscopy - Rashawn Ansari MD Date/Time: 09/24/24 10:56 Surgeon: Rashawn Ansari MD Pre Op Diagnosis: Dysphagia, unspecified Patient Data Age: 74 Gender: F Height: 1.63 m Weight: 74.8 kg Last Vital Signs Temp 97.4 F L 09/24/24 09:39 Pulse 73 09/24/24 09:39 Resp 18 09/24/24 09:39 BP 137/76 09/24/24 09:39 Pulse Ox 94 09/24/24 09:39 O2 Del Method Room Air 09/24/24 09:39 Allergies Allergy/AdvReac Type Severity Reaction Status Date / Time strawberry Allergy Severe THROAT Verified 09/24/24 09:38 SWELLING Home Medications ?Medication ?Instructions ?Recorded ?Confirmed ?Type aspirin 81 mg tablet,delayed 81 mg PO DAILY 04/13/19 09/24/24 History release (Adult Aspirin Regimen) cholecalciferol (vitamin D3) 50 2,000 unit PO DAILY 10/05/20 09/24/24 History mcg (2,000 unit) capsule albuterol sulfate 90 mcg/actuation 1 puff inhalation Q4H PRN 12/24/23 09/04/24 Rx aerosol inhaler shortness of breath or wheezing #8.5 grams esomeprazole magnesium 40 mg 40 mg PO DAILY #90 caps 06/04/24 09/24/24 Rx capsule,delayed release hydrocodone 7.5 mg-acetaminophen 1 tablet PO Q8H PRN pain #30 tabs 07/01/24 09/04/24 Rx 325 mg tablet atorvastatin 80 mg tablet 80 mg PO DAILY #90 tabs 08/11/24 09/24/24 Rx escitalopram oxalate 10 mg tablet 10 mg PO DAILY #90 tabs 08/11/24 09/24/24 Rx losartan 50 mg tablet 50 mg PO DAILY #100 tabs 08/11/24 09/24/24 Rx Patient hx anesthesia problems: none Family hx anesthesia problems: none Results Review: All pre-operative results and documents have been reviewed as part of the pre- operative evaluation. [facility] Past Medical History Medical History Hyperlipidemia Screening for breast cancer Screening for osteoporosis Abnormal ankle brachial index (TREVOR) Essential (primary) hypertension Cyst of finger 09/19/2016 Actinic keratosis SEE (nonalcoholic steatohepatitis) 10 years ago, secondary to medications at the time, resolved Rib pain on right side Removed 1988 Gastroesophageal reflux disease Arthritis Cholecystectomy planned 2004 Skin cancer Anxiety Colon, diverticulosis Adenomatous colon polyp Nausea and vomiting in adult Surgical History Surgical History History of nasal surgery Biopsy right side of nose- Squamous cell carcinoma. Cyst right side of nose History of liver biopsy 07/14/2007 History of cataract surgery Right: 02/01/2001 Laser Capsulotomy. Left: 01/13/2015 H/O foot surgery X 4 Right foot [id number] Left: 01/2014; bunionectomy/osteotomy 2nd toe Bunionectomy and Hardware removed: 05/23/2015 Left foot tumor removed/nerve relocation: 12/05/2018 H/O vaginal hysterectomy 1987 H/O removal of cyst Right side 1982 History of appendectomy 02/2003 Family History Family History Father Family history of malignant neoplasm Family history of diabetes mellitus in first degree relative Diabetes mellitus, Onset Age: 72 Family history of cardiovascular disease, Onset Age: 72 Family history of malignant neoplasm of esophagus, Onset Age: 72 Pacemaker CHF (congestive heart failure) COPD (chronic obstructive pulmonary disease) Hyperlipidemia Hypertriglyceridemia Barretts esophagus Mother Cerebrovascular accident, Onset Age: 72 Depression, Onset Age: 72 Hypertension, Onset Age: 72 Pacemaker Cardiac valve prolapse Grandparent Diabetes mellitus, Onset Age: 65 Cerebrovascular accident, Onset Age: 92 Family history unknown, Onset Age: 65 Sibling Family history of alcoholism, Onset Age: 35 Motor vehicle accident Social History Social History Smoking status: Never smoker Second hand tobacco smoke exposure: No Alcohol intake: never Substance use: never Substance use type: does not use Lack of Transportation: No Lack of Food: Never True Current Housing: I Have Housing Concerned About Future Housing: No Difficulty Paying Gas/Electric Bills: No Difficulty Paying for Meds: No Currently Unemployed: No Education: High School Diploma/GED Difficulty w/ Childcare or Family Care: No Living arrangements: with family Spiritual care concerns: No Anes - Eval Final PreProcedure Day of Procedure 09/24/24 10:56 Patient weight: overweight Lungs: normal air movement Airway: Mallampati scale class II Neurological: alert and oriented Last oral intake: >/= 8 hours ASA classification: II Emergent: no Anesthetic plan: proceed Anesthesia type and monitoring: general GIVS and standard monitoring Results Review: All pre-operative results and documents have been reviewed as part of the pre- operative evaluation. HTN, hyperlipidemia. Informed Consent: The patient's anesthetic plan and its attendant risks and benefits were discussed with the patient/family/POA. Questions were solicited and answers provided to the satisfaction of the patient/family/POA.
--- NOTE | 2024-09-24 11:18 | PM.IMHP ---
H&P: HPI History of Present Illness Date/Time: 09/24/24 11:18 Chief Complaint: dysphagia Narrative: the patient has had intermittent episodes of dysphagia since the past 4 years. She had balloon dilatation sessions x2, the last one was 3 years ago with an 18-20 mm balloon . She did well until a few months ago when she started to have intermittent episodes of dysphagia again especially with solid food. Review of Systems Review of Systems: All systems reviewed & are unremarkable except as noted in HPI and below PMFSH Past Medical History Medical History Hyperlipidemia Screening for breast cancer Screening for osteoporosis Abnormal ankle brachial index (TREVOR) Essential (primary) hypertension Cyst of finger 09/19/2016 Actinic keratosis SEE (nonalcoholic steatohepatitis) 10 years ago, secondary to medications at the time, resolved Rib pain on right side Removed 1988 Gastroesophageal reflux disease Arthritis Cholecystectomy planned 2004 Skin cancer Anxiety Colon, diverticulosis Adenomatous colon polyp Nausea and vomiting in adult Surgical History Surgical History History of nasal surgery Biopsy right side of nose- Squamous cell carcinoma. Cyst right side of nose History of liver biopsy 07/14/2007 History of cataract surgery Right: 02/01/2001 Laser Capsulotomy. Left: 01/13/2015 H/O foot surgery X 4 Right foot [id number] Left: 01/2014; bunionectomy/osteotomy 2nd toe Bunionectomy and Hardware removed: 05/23/2015 Left foot tumor removed/nerve relocation: 12/05/2018 H/O vaginal hysterectomy 1987 H/O removal of cyst Right side 1982 History of appendectomy 02/2003 Family History Family History Father Family history of malignant neoplasm Family history of diabetes mellitus in first degree relative Diabetes mellitus, Onset Age: 72 Family history of cardiovascular disease, Onset Age: 72 Family history of malignant neoplasm of esophagus, Onset Age: 72 Pacemaker CHF (congestive heart failure) COPD (chronic obstructive pulmonary disease) Hyperlipidemia Hypertriglyceridemia Barretts esophagus Mother Cerebrovascular accident, Onset Age: 72 Depression, Onset Age: 72 Hypertension, Onset Age: 72 Pacemaker Cardiac valve prolapse Grandparent Diabetes mellitus, Onset Age: 65 Cerebrovascular accident, Onset Age: 92 Family history unknown, Onset Age: 65 Sibling Family history of alcoholism, Onset Age: 35 Motor vehicle accident Social History Social History Smoking status: Never smoker Second hand tobacco smoke exposure: No Alcohol intake: never Substance use: never Substance use type: does not use Lack of Transportation: No Lack of Food: Never True Current Housing: I Have Housing Concerned About Future Housing: No Difficulty Paying Gas/Electric Bills: No Difficulty Paying for Meds: No Currently Unemployed: No Education: High School Diploma/GED Difficulty w/ Childcare or Family Care: No Living arrangements: with family Spiritual care concerns: No Meds Home Medications and Allergies Home Medications ?Medication ?Instructions ?Recorded ?Confirmed ?Type aspirin 81 mg tablet,delayed 81 mg PO DAILY 04/13/19 09/24/24 History release (Adult Aspirin Regimen) cholecalciferol (vitamin D3) 50 2,000 unit PO DAILY 10/05/20 09/24/24 History mcg (2,000 unit) capsule albuterol sulfate 90 mcg/actuation 1 puff inhalation Q4H PRN 12/24/23 09/04/24 Rx aerosol inhaler shortness of breath or wheezing #8.5 grams esomeprazole magnesium 40 mg 40 mg PO DAILY #90 caps 06/04/24 09/24/24 Rx capsule,delayed release hydrocodone 7.5 mg-acetaminophen 1 tablet PO Q8H PRN pain #30 tabs 07/01/24 09/04/24 Rx 325 mg tablet atorvastatin 80 mg tablet 80 mg PO DAILY #90 tabs 08/11/24 09/24/24 Rx escitalopram oxalate 10 mg tablet 10 mg PO DAILY #90 tabs 08/11/24 09/24/24 Rx losartan 50 mg tablet 50 mg PO DAILY #100 tabs 08/11/24 09/24/24 Rx Allergies Allergy/AdvReac Type Severity Reaction Status Date / Time strawberry Allergy Severe THROAT Verified 09/24/24 09:38 SWELLING Vital Signs Vital Signs - 24 hr 09/24/24 09:39 Temperature 97.4 F L Pulse Rate 73 Respiratory Rate 18 Blood Pressure 137/76 Pulse Oximetry 94 Oxygen Delivery Room Air Exam Const: General: cooperative and healthy appearing Resp: Effort & Inspection: normal respiratory effort and able to speak in complete sentences Auscultation: clear to auscultation bilaterally Cardio: Rate: regular rate Rhythm: regular rhythm GI: Inspection: normal to inspection GI Palp: No No hepatosplenomegaly present Auscultation: normal bowel sounds Rectal Exam: deferred Skin: General skin exam: normal color Psych: Appearance: grossly normal Mental Status: mental status grossly normal Assessment and Plan Assessment and plan (1) Dysphagia: Code(s): R13.10 - Dysphagia, unspecified Status: Acute Assessment and Plan: The patient is deemed a good candidate for the procedure. Consent signed. Will proceed.
[2024-09-24] MEDS: BENZOCAINE (*SP) 60 ML SPRAY CAN (HURRICAINE) 1 SPRAY MUCOUS MEM (11:26)
--- NOTE | 2024-09-24 11:36 | S_PTH ---
PATIENT: Peng Le LOC: [facility] U#:[id number] AGE/SX: 74/F ROOM: RE09/24/[address]: Rashawn Ansari MD : 1950 BED: DIS: 09/24/2024 SPEC #: [id number] RECD: 09/24/24 13:01 STATUS: TENZIN REQ #: [id number] JUMA: 09/24/24 11:[address]: Rashawn Ansari DEPT: [facility] Surgical RECD BY: Poppy Nick ENTERED: 09/24/24 13:02 SP TYPE: Surgical OTHR DR: Rajat Weir DO Tissues: A - Gastric Biopsy B - Gastric Biopsy Procedures: Hematoxylin and Eosin Stain Gross and Microscopic Level 4
[2024-09-24 11:41] VITALS: BP 119/72; PULSE 69; RESP 19; O2SAT 95
[2024-09-24 11:51] VITALS: BP 127/87; PULSE 61; RESP 18; O2SAT 100
[2024-09-24 12:01] VITALS: BP 152/92; PULSE 63; RESP 19; O2SAT 96
== END 2024-09-24 12:10 | disposition home or self-care (01) ==
PROVIDERS: PCP Internal Medicine; Referring Provider Nurse Practitioner Family; Visit Provider Internal Medicine Gastroenterology
PROC: 0DJ08ZZ Inspection of Upper Intestinal Tract, Via Natural or Artificial Opening Endoscopic (ICD-10-PCS; CPT 43239; principal; 2024-09-24 11:00)
DX: K21.9 Gastro-esophageal reflux disease without esophagitis (principal); K29.30 Chronic superficial gastritis without bleeding; K44.9 Diaphragmatic hernia without obstruction or gangrene; K31.7 Polyp of stomach and duodenum; E78.5 Hyperlipidemia, unspecified; I10 Essential (primary) hypertension; F41.9 Anxiety disorder, unspecified; L57.0 Actinic keratosis; K75.81 Nonalcoholic steatohepatitis (NASH); M19.90 Unspecified osteoarthritis, unspecified site; Z79.82 Long term (current) use of aspirin; Z79.51 Long term (current) use of inhaled steroids; Z79.891 Long term (current) use of opiate analgesic; Z98.890 Other specified postprocedural states; Z86.0100 Personal history of colon polyps, unspecified; Z85.828 Personal history of other malignant neoplasm of skin; Z87.19 Personal history of other diseases of the digestive system; Z80.0 Family history of malignant neoplasm of digestive organs; Z82.49 Family history of ischemic heart disease and other diseases of the circulatory system
CPT/HCPCS: 43239; 88305; J2003; J2704; J7120

== ENCOUNTER 2024-11-02 09:43 | Outpatient (CLI) | payer MEDICARE, SELFPAY ==
--- NOTE | ~2024-11-02 | XR_ITS ---
EXAMINATION: XR UGI w barium swallow DATE: 11/02/2024 10:42 INDICATION: Dysphagia TECHNIQUE: The patient drank thick barium, gas-producing crystals, and thin barium. Fluoroscopic spot radiographs of the hypopharynx, esophagus, stomach and proximal small bowel were obtained. Fluorosco py exposure time was 2.3 minutes. COMPARISON: None. FINDINGS: The pharynx is symmetric and without evidence of mass lesion or mucosal irregularity. There was recur rent laryngeal penetration without aspiration. The esophagus is normal without mass or stricture. Eso phageal motility is normal. There is a large hiatal hernia with gastroesophageal junction possibly 4 cm above the level of the diaphragm at the thoracic hiatus. There is organoaxial volvulus with the ce phalad margin of the herniated portion the stomach containing approximately 11 cm above level of the diaphragm at the thoracic hiatus. There was no gastroesophageal reflux with provocative maneuvers alt rama assessment is limited by relatively rapid emptying of contrast from the stomach into the proxim al duodenum. The stomach and proximal small bowel are otherwise normal. IMPRESSION: 1. Large sliding-type hiatal hernia. 2. Recurrent flash laryngeal penetration without observed aspiration. Reviewed, dictated and finalized at location A.
--- OUTSIDE RECORDS SUMMARY | 2024-11-02 10:35 | XMS_ITS | Clinical Summary ---
Author Organization [facility] Address [address] [place] [address] Care Team Providers Care Furnace Mechanic Name Role Phone Rajat Weir DO Primary [...] Comments Blood Pressure 179/84 02/21/2022 2:41 PM SANDER AND BUFFER Pulse 69 02/21/2022 2:41 PM SANDER AND BUFFER Temperature 36.8 C (98.3 F) 02/21/2022 2:41 PM SANDER AND BUFFER Respiratory Rate 16 02/21/2022 2:41 PM SANDER AND BUFFER Oxygen Saturation 97% 02/21/2022 2:41 PM SANDER AND BUFFER Inhaled Oxygen Concentration - - Weight 75.2 kg (165 lb 11.2 oz) 02/21/2022 2:41 PM SANDER AND BUFFER Height 162.6 cm (5' 4) 01/25/2021 12:5 7 PM SANDER AND BUFFER Body Mass Index 28.44 01/25/2021 12:57 PM SANDER AND BUFFER Plan of Treatment Health Maintenance Due Date [...] ZOSTER VACCINE Completed 06/07/2018, 07/2018, 05/22/2011 Insurance [employer] PLUS O MCR Care Teams Furnace Mechanic Relationship Specialty Start Date End Date Rajat Weir DO [address] [facility] [address] [place] [address] PCP - General Internal Medicine 01/25/21
--- OUTSIDE RECORDS SUMMARY | 2024-11-02 10:35 | XMS_ITS | Encounter Summary ---
Author Organization [facility] Address [address] [facility] [place] [address] Care Team Providers Care Pharmacy Technician Program Director Name Role Phone Lupis Swan MD Primary Care Provider [phone] Chucho PARDO MD, John J Unavailable [facility] Pot Tender Unavailable [phone] Marlon Delcid MD Unavailable Unavailable Judah Suh MD Unavailable + Jax Metz MD Unavailable [phone] Jesi Narayanan Unavailable Jose Alfredo Vasquez DO Unavailable [phone] Duane Garcia MD Unavailable Abril Hicks MD Unavailable [phone] Lupis Swan MD Unavailable Encounter Details Date Type Department Care Team (Late st Contact Info) Description 05/18/2015 [facility] Outpatient Visit [facility] Orthopedics - Radiology [address] [place] [address] Jose Alfredo Vasquez DO [facility] [address] [address] Social History Tobacco Use Types Packs/Day Years Used Date Smoking Tobacco: Never Smokeless Tobacco: Never Alcohol Use Standard Drinks/Week Comments Yes 0 (1 standard drink = 0.6 oz pur e alcohol) very rare Comments No Sex and Gender Information Value Date Recorded Sex Assigned at Not on file Legal Sex Female 6:23 AM 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 PREPARATION 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 Gender Identity Not on file Sexual Orientation [...] on filedocumented in this encounter Care Teams Pharmacy Technician Program Director Relationship Specialty Start Date End Date Lupis Swan MD PCP - General Internal Medicine 04/21/14 Lupis Swan MD [address] [address] PCP - Attributed-Exclusive Choice 08/31/16 04/18/17 Arnoldo Rankin III, MD Rheumatology 04/21/14 02/20/16 Group, u Pot Tender [address] [address] 04/21/14 08/27/16 Marlon Delcid MD [address] [facility] [address] [place] [address] Ophthalmology 04/21/14 Judah Suh MD [address] [place] [address] Gastroenterology 04/21/14 Jax Metz MD [address] [place] [address] Gastroenterology 04/21/14 Jesi Narayanan PA [address] [place] [address] 04/21/14 Jose Alfredo Vasquez DO [address] [place] [address] Orthopedic Surgery 05/18/15 Duane Garcia MD [address] [facility] [address] [place] [phone] Rheumatology 02/21/16 Abril Hicks MD [address] [facility] [address] [place] [address] Obstetrics and Gynecology 08/28/16 documented as of this encounter
--- OUTSIDE RECORDS SUMMARY | 2024-11-02 10:35 | XMS_ITS | Encounter Summary ---
Author Organization [facility] Address [address] [facility] [place] [address] Care Team Providers Care Fruit Canner Name Role Phone Lupis Swan MD Primary Care Provider [phone] Marlon Delcid MD Unavailable Unavailable Judah Suh MD Unavailable + Jax Metz MD Unavailable [phone] Jesi Narayanan Unavailable Jose Alfredo Vasquez DO Unavailable Duane Garcia MD Unavailable Abril Hicks MD Unavailable [phone] Encounter Details Date Type Department Care Team (Late st Contact Info) Description 09/21/2024 Lab Requisition [facility] - DermPath Lab [address] [facility] [address] [place] [address] Kortney Hammond MD [address] [facility] [address] [place] [address] Social History Tobacco Use Types Packs/Day Years Used Date Smoking Tobacco: Never Smokeless Tobacco: Never Alcohol Use Standard Drinks/Week Comments No 0 (1 standard drink = 0.6 oz pure alcohol) very rare, drinks a 1-2 drinks a year Comments No Sex and Gender Information Value Date Recorded Sex Assigned at Not on file Legal Sex Female 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 Yanique Ya. These tests need not be, and therefore are not, approved by the [place] Food and Drug Administration. The tests are used for clinical purposes. Billing Codes Specimen Charges Stain Charges 89097 50040 1 1 5:57 PM CDT DERMATOPATHOLOGY LABORATORY Embedded Images 5:57 PM CDT DERMATOPATHOLOGY LABORATORY Pathology/Cytology TISSUE SPECIMEN FROM SKIN / Unknown 09/21/2024 10:49 AM CDT 09/22/2024 6:47 AM CDT Miscellaneous samples (specimen) TISSUE SPECIMEN FROM SKIN / Unknown 09/21/2024 10:49 AM CDT 09/22/2024 6:47 AM CDT us Kortney Hammond MD LAB - PATHOLOGY/CYTOLOGY ORD ERABLES Final Result DERMATOPATHOLOGY LABORATORY [facility] - Department of Dermatology [facility] Medicine [address] [facility]rd [place] [address], [facility] [phone] documented in this encounter Visit Diagnoses Not on filedocumented in this encounter Care Teams Fruit Canner Relationship Specialty Start Date End Date Lupis Swan MD PCP - General Internal Medicine 04/21/14 Marlon Delcid MD Ophthalmology 04/21/14 Judah Suh MD [address] [place] [address] Gastroenterology 04/21/14 Jax Metz MD [address] [id number] Gastroenterology 04/21/14 Jesi Narayanan PA [address] [place] [address] 04/21/14 Jose Alfredo Vasquez DO [address] [place] [address] Orthopedic Surgery 05/18/15 Duane Garcia MD [address] [facility] [address] [place] [address] Rheumatology 02/21/16 Abril Hicks MD [address] [facility] [address] [place] [address] Obstetrics and Gynecology 08/28/16 documented as of this encounter
--- OUTSIDE RECORDS SUMMARY | 2024-11-02 10:35 | XMS_ITS | Continuity of Care Document ---
Author Organization [facility] Address [address] [facility] [place] [address] Phone Care Team Providers Care Mixer Diamond Powder Name Role Phone Alonso Patton MD Unavailable [...] Diagnoses Date Provider Providers Copied on Encounter [facility], [address], [address], [place] [phone] [facility] No Information 7 Pooja Gupta. [address], [place], [place], [id number] . tel: [phone] OFFICE/OUTPA TIENT VISIT EST [facility], [address] [facility] [address], [place], [address], [phone] [facility] Body mass index (BMI) 34.0-34.9, adultGanglion cyst of finger of left hand 7 Cory Martins. [address], [place], [place], [id number] , [place]. tel: [phone] OFFICE/OUTPA TIENT VISIT [facility] Orthopaedic Surgery, [address] [place] [address] [address], [place], [address], tel:[phone] [facility] [place] Contusion of knee, left 4 Julio C Aguila. [address], [place], [place], [id number] . tel: [phone] Referring Provider: [address], [place], [address] . tel:[phone] OFFICE/OUTPA TIENT VISIT [facility] Orthopaedic Surgery, [address] [facility] [address], [place], [address], [place] tel:[phone] [facility] [place] Hypertension, UnspecifiedIsch ial pain 3 Julio C Aguila. [address], [place], [place], [id number] . tel: [phone] Referring Provider: [address], [place], [address] . tel:[phone] Family History Family Member Type Diagnosis Age [...]
--- OUTSIDE RECORDS SUMMARY | 2024-11-02 10:35 | XMS_ITS | Clinical Summary ---
Author Organization [facility] Address [address] [facility] [place] [address] Care Team Providers Care Welding Machine Operator Arc Name Role Phone Lupis Swan MD Primary Care Provider [phone] Marlon Delcid MD Unavailable Unavailable Judah Suh MD Unavailable + Jax Metz MD Unavailable [phone] Jesi Narayanan Unavailable Jose Alfredo Vasquez DO Unavailable [phone] Duane Garcia MD Unavailable Abril Hicks MD Unavailable [phone] Source Comments [facility],non-owned Affiliates and Associated Physician Practices is amultiple site organization consisting of ambulatory clinics and hospital sitesin [place], [place], [place] and [place]. This disclosure is being madepursuant to the Care Everywhere program and may not contain all information available regarding this patient. Last updated 17.[facility] Allergies Active Allergy Reactions Criticality [...] Department Care Team Description 09/21/2024 Lab Requisition 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 Gender Identity Not on file Sexual Orientation [...] (197 lb 6.4 oz) 01/22/2017 10:32 AM PRESSURE TESTER OPERATOR Height 162.6 cm (5' 4) 01/22/2017 10:32 AM PRESSURE TESTER OPERATOR Body Mass Index 33.88 01/22/2017 10:32 AM PRESSURE TESTER OPERATOR Plan of Treatment Health Maintenance Due [...] this topic Medical Devices Implanted Type Area Material Expeditor Device Identifier Shelf Expiration Date Model / Serial / Lot Memory Staple Implanted:Qty: 2 on 02/05/2014 by Mingo Butcher DPM at [facility] Left: Foot MS [id number] / / Cannulaed Screw Implanted:Qty: 1 on 02/05/2014 by Mingo Butcher DPM at [facility] Left: Foot [id number] / / Implt Lens Akreos 21.5 - [id number] Implanted:Qty: 1 on 01/13/2015 by Marlon Delcid MD at [facility] Left: Eye [employer] 11/15/2016 AO60G 21.5 / [id number] / Explanted Type Area Material Expeditor Device Identifier Shelf Expiration Date Model / Serial / Lot Memory Staple Explanted:Qty: 1 on 02/05/2014 by Mingo Butcher DPM at [facility] Left: Foot [id number] / / Procedures Procedure Name Priority Date/Time [...] AM CDT) Case Report Dermatopathology Report Case: [id number] Authorizing Provider: Kortney Hammond MD Collected: 09/21/2024 10:49 AM Ordering Location: [facility] - Received: 09/22/2024 06:47 AM [...] characteristic determined by the Dermatopathology Laboratory at [facility], directed by Dr. Yanique Ya. These tests need not be, and therefore are not, approved by the [place] Food and Drug Administration. The tests are used for clinical purposes. Billing Codes Specimen Charges Stain Charges 76696 01071 1 1 5:57 PM CDT DERMATOPATHOLOGY LABORATORY Embedded Images 5:57 PM CDT DERMATOPATHOLOGY LABORATORY Pathology/Cytology TISSUE SPECIMEN FROM SKIN / Unknown 09/21/2024 10:49 AM CDT 09/22/2024 6:47 AM CDT Miscellaneous samples (specimen) TISSUE SPECIMEN FROM SKIN / Unknown 09/21/2024 10:49 AM CDT 09/22/2024 6:47 AM CDT us Kortney Hammond MD LAB - PATHOLOGY/CYTOLOGY ORD ERABLES Final Result DERMATOPATHOLOGY LABORATORY [facility] - Department of Dermatology [address], [address] [phone] * (ABNORMAL) COMPREHENSIVE METABOLIC PANEL (07/12/2016 9:11 [...] CDT 07/12/2016 Narrative Resulting Agency Comment [facility] [address] [facility] [id number] us Lupis Swan MD LAB - CHEMISTRY ORDERABLES F inal Result [facility] INSURANCE BILL [address] [place] [address] * ZACKERY SCREENING DIGITAL IMAGE BILATERAL [id number] (06/12/2016 11:19 AM CDT) Anatomical Region Laterality Modality Breast Bilateral Mammography 06/12/2016 1:15 PM CDT Impressions 06/12/2016 1:37 PM CDT No mammographic evidence of malignancy in either breast. ASSESSMENT: BIRADS Category 1: Negative mammogram. RECOMMENDATION: Bilateral screening mammogram in one year. Thank you for allowing us to participate in the care of your patient. [facility] Breast [facility] utilizes [employer] as a reminder system to notify patients of their next recommended mammogram. Report dictated by Ashley Barnes M.D. (vice president of communications) I, Gabriela Garzayvan, have personally reviewed the [...] MD (Doctor), Dawna Ferris RN, Ema Ozuna, Oral And Maxillofacial Surgery Resident Referring MD: Rudy Marroquin MD (Referring MD) [...] verified by the physician, the nurse, the assistant track coach and the watch technician in the pre-procedure area in the [...] pathology results. Procedure Code(s): --- Professional --- 16464, Colonoscopy, flexible, proximal to splenic flexure; with biopsy, single or multiple --- Technical --- 09808, Colonoscopy, flexible, proximal to splenic flexure; with [...] in this report are preliminary and upon ink technician review may be revised to meet current compliance requirements. _ Jax Metz MD 06/15/2013 8:06 AM This report has been signed electronically. Number of Addenda: 0 Note Initiated On: 06/15/2013 7:43 AM [facility] ENDOSCOPY 06/15/2013 7:43 AM CDT Narrative [facility] ENDOSCOPY - 06/15/2013 8:08 AM CDT Procedure Note Jax Metz MD - 06/15/2013 8:08 AM CDT us aJx Metz MD GI PROCEDURE ORDERABLES Edited [facility] ENDOSCOPY * DEXA BONE DENSITY [...] Most Recently Relevant to Health Maintenance Insurance [employer] MEDICARE ADV SELF PAY NO INSURANCE Member Subscriber Plan / Payer (Ef fective for All Dates) Name:Peng Ch Member ID:Not on file Relation to Subscriber:Not on file Name:PENG CH Subscriber ID:Not on file (Home) Address: [address] [place] [id number] Payer ID:Not on file Group ID:Not on file Type:Self Pay Address: [place], [place] Advance Directives Documents on File Type Date Recorded Patient Research Programmer Expl anation Adv Directive/Living Will/POA 09/02/2014 10:09 PM Care Teams Welding Machine Operator Arc Relationship Specialty Start Date End Date Lupis Swan MD PCP - General Internal Medicine 04/21/14 Marlon Delcid MD Ophthalmology 04/21/14 Judah Suh MD [address] [place] [address] Gastroenterology 04/21/14 Jax Metz MD [address] [place] [address] Gastroenterology 04/21/14 Jesi Narayanan PA [address] [place] [address] 04/21/14 Jose Alfredo Vasquez DO [address] [place] [address] Orthopedic Surgery 05/18/15 Duane Garcia MD [address] [facility] [address] [place] [address] Rheumatology 02/21/16 Abril Hicks MD [address] [facility] [address] [place] [address] Obstetrics and Gynecology 08/28/16
--- OUTSIDE RECORDS SUMMARY | 2024-11-02 10:35 | XMS_ITS | Clinical Summary ---
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
== END 2024-11-02 09:44 | disposition home or self-care (01) ==
PROVIDERS: PCP Internal Medicine; Visit Provider Internal Medicine Gastroenterology
DX: K44.9 Diaphragmatic hernia without obstruction or gangrene (principal); R09.89 Other specified symptoms and signs involving the circulatory and respiratory systems
CPT/HCPCS: 74240

== ENCOUNTER 2024-11-23 15:05 | Outpatient (CLI) | payer MEDICARE, SELFPAY ==
--- NOTE | ~2024-11-23 | CT_ITS ---
EXAMINATION: CT chest abdomen wo con DATE: 11/23/2024 15:32 INDICATION: Gastroesophageal reflux disease with esophagitis. TECHNIQUE: Computed tomography (CT) of the chest and abdomen was performed without intravenous contrast. Automated exposure control and iterative reconstruction technique were employed. The dose-length product was 785.14 mGy-cm. COMPARISON: Chest CT 02/21/23 FINDINGS: CHEST CT: The lungs demonstrate mild atelectasis. Calcified left lung nodules are consistent with old granulomatous disease. No pleural effusion. The heart size is normal. No pericardial effusion. There is a large sliding hiatal hernia. There is severe cervical and thoracic spondylosis. ABDOMEN CT: The liver and spleen are normal. There are changes of cholecystectomy. The pancreas, adrenal glands, and right kidney are normal. There is a 1.6 cm cyst in left kidney. The spleen is absent. There are no dilated loops of bowel. There are changes of appendectomy. There are no pathologically enlarged lymph nodes. There is no free intraperitoneal fluid. There is severe lumbar spondylosis. IMPRESSION: 1. Large sliding hiatal hernia. Reviewed, dictated and finalized at location E.
--- NOTE | ~2024-11-23 | XR_ITS ---
EXAMINATION: XR chest 2V, 11/23/2024 15:14 CDT HISTORY: K21.00 - Gastro-esophageal reflux disease with esophagiti... COMPARISON: No comparisons available. Technique: 2 views obtained. Findings: The lungs are clear, no effusion. No pneumothorax. Heart is normal size. Large hiatal hernia. Bony thorax no acute abnormality. Impression: No acute cardiopulmonary abnormality. Reviewed, dictated and finalized at location A. Impression: No acute cardiopulmonary abnormality.
== END 2024-11-23 15:06 | disposition home or self-care (01) ==
LOC: GOSHIMG 15:05
PROVIDERS: PCP Clinical Nurse Specialist; Visit Provider Surgery
DX: K21.00 Gastro-esophageal reflux disease with esophagitis, without bleeding (principal); K44.9 Diaphragmatic hernia without obstruction or gangrene
CPT/HCPCS: 71046; 71250; 74150

== ENCOUNTER 2025-01-08 14:13 | Outpatient (CLI) | payer MEDICARE, SELFPAY ==
--- OUTSIDE RECORDS SUMMARY | 2025-01-08 14:19 | XMS_ITS | Clinical Summary ---
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
--- OUTSIDE RECORDS SUMMARY | 2025-01-08 14:19 | XMS_ITS | Encounter Summary ---
Author Organization [facility] Address [address] [place] [address] Care Team Providers Care Chemist Proteins Name Role Phone Lupis Swan MD Primary Care Provider [phone] Marlon Delcid MD Unavailable Unavailable Judah Suh MD Unavailable + Jax Metz MD Unavailable [phone] Jesi Narayanan Unavailable Jose Alfredo Vasquez DO Unavailable [phone] Duane Garcia MD Unavailable Abril Hicks MD Unavailable [phone] Encounter Details Date Type Department Care Team (Late st Contact Info) Description 09/21/2024 Lab Requisition [facility] - DermPath Lab [address] [facility] [place] [address] Kortney Hammond MD [address] [facility] [address] [place] [address] Social History Tobacco Use Types Packs/Day Years Used Date Smoking Tobacco: Never Smokeless Tobacco: Never Alcohol Use Standard Drinks/Week Comments No 0 (1 standard drink = 0.6 oz pure alcohol) very rare, drinks a 1-2 drinks a year Comments No Sex and Gender Information Value Date Recorded Sex Assigned at Not on file Legal Sex Female 6:23 AM CERTIFIED NOVELL ADMINISTRATOR Gender Identity Not on file Sexual Orientation [...] AM CDT) Case Report Dermatopathology Report Case: [id number] Authorizing Provider: Kortney Hammond MD Collected: 09/21/2024 10:49 AM Ordering Location: [facility] - Received: 09/22/2024 06:47 AM [...] characteristic determined by the Dermatopathology Laboratory at [facility], directed by Dr. Yanique Ya. These tests need not be, and therefore are not, approved by the [place] Food and Drug Administration. The tests are used for clinical purposes. Billing Codes Specimen Charges Stain Charges 40604 82526 1 1 5:57 PM CDT DERMATOPATHOLOGY LABORATORY Embedded Images 5:57 PM CDT DERMATOPATHOLOGY LABORATORY Pathology/Cytology TISSUE SPECIMEN FROM SKIN / Unknown 09/21/2024 10:49 AM CDT 09/22/2024 6:47 AM CDT Miscellaneous samples (specimen) TISSUE SPECIMEN FROM SKIN / Unknown 09/21/2024 10:49 AM CDT 09/22/2024 6:47 AM CDT us Kortney Hammond MD LAB - PATHOLOGY/CYTOLOGY ORD ERABLES Final Result DERMATOPATHOLOGY LABORATORY [facility] - Department of Dermatology [facility] Medicine [address] 3rd [place] [address], [facility] [phone] documented in this encounter Visit Diagnoses Not on filedocumented in this encounter Care Teams Chemist Proteins Relationship Specialty Start Date End Date Lupis Swan MD PCP - General Internal Medicine 04/21/14 Marlon Delcid MD Ophthalmology 04/21/14 Judah Suh MD [address] [place] [address] Gastroenterology 04/21/14 Jax Metz MD [address] [id number] Gastroenterology 04/21/14 Jesi Narayanan PA [address] [place] [address] 04/21/14 Jose Alfredo Vasquez DO [address] [place] [address] Orthopedic Surgery 05/18/15 Duane Garcia MD 1035 [facility] [address] [place] [address] Rheumatology 02/21/16 Abril Hicks MD 1031 [facility] [address] [place] [address] Obstetrics and Gynecology 08/28/16 documented as of this encounter
--- OUTSIDE RECORDS SUMMARY | 2025-01-08 14:19 | XMS_ITS | Encounter Summary ---
Author Organization [facility] Address [address] [facility] [place] [address] Care Team Providers Care Wrapper Sizer Name Role Phone Lupis Swan MD Primary Care Provider [phone] Chucho PARDO MD, John J Unavailable [phone] [facility] Green End Department Supervisor Unavailable [phone] Marlon Delcid MD Unavailable Unavailable Judah Suh MD Unavailable + Jax Metz MD Unavailable [phone] Jesi Narayanan Unavailable [phone] Jose Alfredo Vasquez DO Unavailable [phone] Duane Garcia MD Unavailable Abril Hicks MD Unavailable [phone] Lupis Swan MD Unavailable Encounter Details Date Type Department Care Team (Late st Contact Info) Description 05/18/2015 [facility] Outpatient Visit [facility] Orthopedics - Radiology [address] [place] [address] Jose Alfredo Vasquez DO [facility] [address] [address] Social History Tobacco Use Types Packs/Day Years Used Date Smoking Tobacco: Never Smokeless Tobacco: Never Alcohol Use Standard Drinks/Week Comments Yes 0 (1 standard drink = 0.6 oz pur e alcohol) very rare Comments No Sex and Gender Information Value Date Recorded Sex Assigned at Not on file Legal Sex Female 6:23 AM CAMPUS COORDINATOR Gender Identity Not on file Sexual Orientation [...] on filedocumented in this encounter Care Teams Wrapper Sizer Relationship Specialty Start Date End Date Lupis Swan MD PCP - General Internal Medicine 04/21/14 Lupis Swan MD [address] [address] PCP - Attributed-Exclusive Choice 08/31/16 04/18/17 Arnoldo Rankin III, MD Rheumatology 04/21/14 02/20/16 Group, u Green End Department Supervisor [address] [address] 04/21/14 08/27/16 Marlon Delcid MD 10[address] [facility] [address] [place] [address] Ophthalmology 04/21/14 Judah Suh MD [address] [place] [address] Gastroenterology 04/21/14 Jax Metz MD [address] [place] [address] Gastroenterology 04/21/14 Jesi Narayanan PA [address] [place] [address] 04/21/14 Jose Alfredo Vasquez DO [address] [place] [address] Orthopedic Surgery 05/18/15 Duane Garcia MD 1035 [facility] [address] [place] [address] Rheumatology 02/21/16 Abril Hicks MD 1031 [facility] [address] [place] [address] Obstetrics and Gynecology 08/28/16 documented as of this encounter
--- OUTSIDE RECORDS SUMMARY | 2025-01-08 14:19 | XMS_ITS | Clinical Summary ---
Author Organization [facility] Address [address] [facility] [place] [address] Care Team Providers Care Fish Icer Name Role Phone Lupis Swan MD Primary Care Provider [phone] Marlon Delcid MD Unavailable Unavailable Judah Suh MD Unavailable + Jax Metz MD Unavailable [phone] Jesi Narayanan Unavailable [phone] Jose Alfredo Vasquez DO Unavailable [phone] Duane Gracia MD Unavailable Abril Hicks MD Unavailable [phone] Source Comments [facility],non-owned Affiliates and Associated Physician Practices is amultiple site organization consisting of ambulatory clinics and hospital sitesin [place], [place], [place] and [place]. This disclosure is being madepursuant to the Care Everywhere program and may not contain all information available regarding this patient. Last updated 17.[facility] Allergies Active Allergy Reactions Criticality Noted [...] on file Legal Sex Female 6:23 AM COMMISSARY CLERK Gender Identity Not on file Sexual Orientation [...] (197 lb 6.4 oz) 01/22/2017 10:32 AM COMMISSARY CLERK Height 162.6 cm (5' 4) 01/22/2017 10:32 AM COMMISSARY CLERK Body Mass Index 33.88 01/22/2017 10:32 AM COMMISSARY CLERK Plan of Treatment Health Maintenance Due Date [...] 06/15/2013, 06/15/2013, 06/15/2013 Colorectal Cancer Screening 06/16/2023 DEPRESSION SCREENING 03/18/2024 MEDICARE AWV CALENDAR YEAR 2024 COVID-19 VACCINE ( - season) 2024 INFLUENZA VACCINE (#1) 2024 7, 01/06/2016, [...] this topic Medical Devices Implanted Type Area Auto Clutch Rebuilder Device Identifier Shelf Expiration Date Model / Serial / Lot Memory Staple Implanted:Qty: 2 on 02/05/2014 by Mingo Butcher DPM at [facility] Left: Foot MS [id number] / / Cannulaed Screw Implanted:Qty: 1 on 02/05/2014 by Mingo Butcher DPM at [facility] Left: Foot [id number] / / Implt Lens Akreos 21.5 - [id number] Implanted:Qty: 1 on 01/13/2015 by Marlon Delcid MD at [facility] Left: Eye [employer] 11/15/2016 [id number] 21.5 / [id number] / Explanted Type Area Auto Clutch Rebuilder Device Identifier Shelf Expiration Date Model / Serial / Lot Memory Staple Explanted:Qty: 1 on 02/05/2014 by Mingo Butcher DPM at [facility] Left: Foot [id number] / / Procedures Procedure Name Priority Date/Time [...] 07/12/2016 Narrative Resulting Agency Comment [facility] [address] [facility] [phone] us Lupis Swan MD LAB - CHEMISTRY ORDERABLES F inal Result [facility] INSURANCE BILL [address] [place] [address] * ZACKERY SCREENING DIGITAL IMAGE BILATERAL [id number] (06/12/2016 11:19 AM CDT) Anatomical Region Laterality Modality Breast Bilateral Mammography 06/12/2016 1:15 PM CDT Impressions 06/12/2016 1:37 PM CDT No mammographic evidence of malignancy in either breast. ASSESSMENT: BIRADS Category 1: Negative mammogram. RECOMMENDATION: Bilateral screening mammogram in one year. Thank you for allowing us to participate in the care of your patient. [facility] utilizes Stilnest as a reminder system to notify patients of their next recommended mammogram. Report dictated by Ashley Barnes M.D. (sales consultant residential manager) I, Gabriela Layton, have personally reviewed the [...] MD (Doctor), Dawna Ferris RN, Ema Ozuna, Electrical Linesworker Referring MD: Rudy Marroquin MD (Referring MD) [...] verified by the physician, the nurse, the telegraph installer and the breeder hen service technician in the pre-procedure area in the [...] pathology results. Procedure Code(s): --- Professional --- 92763, Colonoscopy, flexible, proximal to splenic flexure; with biopsy, single or multiple --- Technical --- 01610, Colonoscopy, flexible, proximal to splenic flexure; with [...] (without mention of hemorrhage) CPT copyright 2013 [employer]. All rights reserved. The codes documented in this report are preliminary and upon medical billing coder review may be revised to meet current compliance requirements. _ Jax Metz MD 06/15/2013 8:06 AM This report has been signed electronically. Number of Addenda: 0 Note Initiated On: 06/15/2013 7:43 AM [facility] 06/15/2013 7:43 AM CDT Narrative [facility] - 06/15/2013 8:08 AM CDT Procedure Note Jax Mezt MD - 06/15/2013 8:08 AM CDT us Jax Metz MD GI PROCEDURE ORDERABLES Edited [facility] * DEXA BONE [...] file Relation to Subscriber:Not on file Name:PENG HC Subscriber ID:Not on file (Home) Address: [address] [place], [place] [address] Payer ID:Not on file Group ID:Not on file Type:Self Pay Address: [place], [place] Advance Directives Documents on File Type Date Recorded Patient White Metal Caster Expl anation Adv Directive/Living Will/POA 09/02/2014 10:09 PM Care Teams Fish Icer Relationship Specialty Start Date End Date Lupis Swan MD PCP - General Internal Medicine 04/21/14 Marlon Delcid MD Ophthalmology 04/21/14 Judah Suh MD [address] [place] [address] Gastroenterology 04/21/14 Jax Metz MD [address] [place] [address] Gastroenterology 04/21/14 Jesi Narayanan PA [address] [place] [address] 04/21/14 Jose Alfredo Vasquez DO [address] [place] [address] Orthopedic Surgery 05/18/15 Duane Garcia MD [address] [facility] [address] [place] [address] Rheumatology 02/21/16 Abril Hicks MD 1031 [facility] 400 [place] [address] Obstetrics and Gynecology 08/28/16
--- NOTE | 2025-01-08 14:22 | ECG_ITS ---
Test Date: 2025-01-08 14:44:47 Measurements Intervals [place] Rate: 77 P: 11 CT: 144 QRS: 8 QRSD: 82 T: 31 QT: 380 QTc: 431 Interpretive Statements SINUS RHYTHM BORDERLINE R WAVE PROGRESSION, ANTERIOR LEADS BASELINE ARTIFACT- I, II, III, AVR, AVL, AVF, V4-V6 BORDERLINE ECG Compared to ECG 05/26/2024 23:08:12 NO SIGNIFICANT CHANGE Electronically Signed On 01-08-2025 15:33:17 CDT by Crispin Sue D.O.
[2025-01-08 14:51] LABS: Hematocrit 38.1 % (37.0-47.0); Hemoglobin 12.1 g/dL (12.0-15.0); Immature Granulocyte Percent A 0.4 % (0-0.5); Lymphocytes Absolute Auto 2.10 K/mm3 (0.9-3.2); Mean Corpuscular HGB Conc 31.8 g/dl (32-36); Mean Corpuscular Hemoglobin 28.5 pg (26-34); Mean Corpuscular Volume 89.9 fl (80-100); Nucleated Red Blood Cells Absolute Auto 0.000 K/mm3 (0.0-0.012); Nucleated Red Blood Cells Perc 0.0 % (0.0-0.2); Platelet Count Result 247 k/mm3 (150-375); Red Blood Count 4.24 M/mm3 (4.2-5.4); White Blood Count 7.5 K/mm3 (4.5-10.0)
[2025-01-08 15:02] LABS: Alanine Aminotransferase 23 U/L (6-35); Albumin Level 4.4 g/dL (3.5-5.1); Alkaline Phosphatase 99 U/L (38-126); Anion Gap 10 mmol/L (4-12); Aspartate Amino Transferase 45 U/L (14-36); Bilirubin,Total 0.3 mg/dL (0.2-1.3); Blood Urea Nitrogen 20 mg/dL (7-17); Calcium 9.0 mg/dL (8.4-10.2); Carbon Dioxide 25 mmol/L (22-30); Chloride 98 mmol/L (98-107); Estimated Glomerular Filt Rate > 60; Glucose 82 mg/dL (65-110); INR 1.1; Potassium 4.4 mmol/L (3.4-5.0); Prothrombin Time 13.8 Seconds (11.1-14.7); Sodium 133 mmol/L (137-145); Total Protein 7.5 g/dL (6.3-8.2)
[2025-01-08 15:03] LABS: Partial Thromboplastin Time 26.4 Seconds (22.3-36.8)
== END 2025-01-08 14:14 | disposition home or self-care (01) ==
LOC: ANHSURGERY 14:17
PROVIDERS: PCP Clinical Nurse Specialist; Visit Provider Surgery
DX: R94.31 Abnormal electrocardiogram [ECG] [EKG] (principal); K21.00 Gastro-esophageal reflux disease with esophagitis, without bleeding; K44.9 Diaphragmatic hernia without obstruction or gangrene
CPT/HCPCS: 36415; 80053; 85025; 85610; 85730; 93005

== ENCOUNTER 2025-01-15 10:14 | Observation (INO) | payer MEDICARE, SELFPAY ==
--- OUTSIDE RECORDS SUMMARY | 2017-02-15 12:53 | XMS_ITS | Continuity of Care Document ---
Author Organization [facility] Address [address] [place] [address] Phone Care Team Providers Care Clinical Trial Head Name Role Phone Alonso Patton MD Unavailable Unavailable Allergies, Adverse Reactions, Alerts Substance Reaction Status Criticality acetaminophen Active No Information OXYCODONE HCL Active No Information Medications Medication Instructions Dosage Effective Dates (start - stop) Status Comments Mobic 15 mg tablet Take 1 tablet by mouth daily with food - Active AMLODIPINE BESILATE (unknown strength) Not Available - Active ACTEMRA (unknown strength) Not Available - Active OMEPRAZOLE (unknown strength) Not Available - Active ATORVASTATIN CALCIUM (unknown strength) Not Available - Active ESCITALOPRAM OXALATE (unknown strength) Not Available - Active HYDROCODONE-ACETAMIN OPHEN (unknown strength) Not Available - Active Aspirin Low Dose 81 mg tablet,delayed release - Active Procedures Procedure Date OFFICE/OUTPATIENT VISIT EST OFFICE/OUTPATIENT VISIT EST OFFICE/OUTPATIENT VISIT NEW Advance Directives Directive Yes / No Effective Date File Name No Information Encounters Encounter Description Practice Location Reason(s) For Visit Diagnoses Date Provider Providers Copied on Encounter [facility], [address], [address], [place] [phone] [facility] No Information 7 Pooja Gupta. [address], [place], [place], [id number] . tel: [phone] OFFICE/OUTPA TIENT VISIT EST [facility], [address], [place], [address], [phone] [facility] Body mass index (BMI) 34.0-34.9, adultGanglion cyst of finger of left hand 7 Cory Martins. [address], [place], [place], [id number] , [place]. tel: [phone] OFFICE/OUTPA TIENT VISIT [facility], [address] [place] [address] [address], [place], [address], tel:[phone] [facility] Contusion of knee, left 4 Julio C Aguila. [address], [place], [place], [id number] . tel: [phone] Referring Provider: [address], [place], [address] . tel:[phone] OFFICE/OUTPA TIENT VISIT [facility], [address], [place], [address], [place] tel:[phone] [facility] [place] Hypertension, UnspecifiedIsch ial pain 3 Julio C Aguila. [address], [place], [place], [id number] . tel: [phone] Referring Provider: [address], [place], [address] . tel:[phone] Family History Family Member Type Diagnosis Age At Onset Daughter Problem (finding) Alive and well Immunizations Vaccine Date Status Comments Pneumo (2 yrs or older)(PPV) administered Source: Other Provider Payers Payer name Insurance type Covered democrat ID Authoriza tion(s) No Information Social History Type Description Quantity Date Captured Comments Sex Female Smoking Status No Information Chief Complaint And Reason For Visit No Information Reason For Referral Reason For Referral No Information Plan Of Treatment Date Type Action Status Referral Ordered: RADEX FNGR MINIMUM 2 VIEWS LT ordered Referral Ordered: RADEX KNE 3 VIEWS RT ordered Referral Ordered: RADEX KNE 3 VIEWS LT ordered History Of Present Illness Encounter Date Complaint History Of Prese nt Illness No Information Functional Status Date Functional Assessmen t No Information Instructions Date Instruction Additional Infor brian Activity as tolerated. Related t o Ganglion cyst of finger of left hand Giving encouragement to exercise Related to Body mass index (BMI) 34.0-34.9, adult Assessments Type Assessment Date No Information Patient Care Teams Name Effective Dates (start - stop) Status Members No Information
--- NOTE | 2025-01-07 09:07 | PM.IMHP ---
H&P: HPI History of Present Illness Date/Time: 01/07/25 09:07 Chief Complaint: Heartburn, dysphagia Narrative: Patient is a 74-year-old woman who reports history of dysphagia, chronic cough and GERD for quite some time. Patient reports she has known about the hiatal hernia for over 10 years, but feels symptoms have worsened in the last 2-3 years. She regurgitates food often, has to chew food very thoroughly and meat will get stuck in her chest. She currently takes Nexium daily, but states it does not relieve all of her GERD symptoms. Patient has history of laparoscopic cholecystectomy and laparoscopic appendectomy years ago. Patient had EGD done 09/24/24 which showed paraesophageal hernia, gastritis and gastric polyp. She then had an XR UGI with barium swallow test done 11/02/24 which showed Large sliding-type hiatal hernia. Esophagram also showed some episodes of flash laryngeal penetration but no evidence of aspiration. Review of these films show that this is most likely a consequence of her large hiatal hernia. Patient also had CT scan the chest and abdomen without contrast. This study showed most of her stomach is actually herniated into the mediastinum consistent with a large paraesophageal hiatal hernia. After discussion, patient is taken to surgery now for robotic laparoscopic repair of very symptomatic paraesophageal hiatal hernia. Review of Systems Review of Systems: All systems reviewed & are unremarkable except as noted in HPI and below (HPI) Musculoskeletal: Musculoskeletal: Reports back pain (Chronic, takes Siloam 7.5/325 p.r.n. takes rarely.) [facility] Past Medical History Medical History Hyperlipidemia Screening for breast cancer Screening for osteoporosis Abnormal ankle brachial index (TREVOR) Essential (primary) hypertension Cyst of finger 09/19/2016 Actinic keratosis SEE (nonalcoholic steatohepatitis) 10 years ago, secondary to medications at the time, resolved Rib pain on right side Removed 1988 Gastroesophageal reflux disease Arthritis Cholecystectomy planned 2004 Skin cancer Anxiety Colon, diverticulosis Adenomatous colon polyp Nausea and vomiting in adult Surgical History Surgical History History of nasal surgery Biopsy right side of nose- Squamous cell carcinoma. Cyst right side of nose History of liver biopsy 07/14/2007 History of cataract surgery Right: 02/01/2001 Laser Capsulotomy. Left: 01/13/2015 H/O foot surgery X 4 Right foot [id number] Left: 01/2014; bunionectomy/osteotomy 2nd toe Bunionectomy and Hardware removed: 05/23/2015 Left foot tumor removed/nerve relocation: 12/05/2018 H/O vaginal hysterectomy 1987 H/O removal of cyst Right side 1982 History of appendectomy 02/2003 Family History Family History Father Family history of malignant neoplasm Family history of diabetes mellitus in first degree relative Diabetes mellitus, Onset Age: 72 Family history of cardiovascular disease, Onset Age: 72 Family history of malignant neoplasm of esophagus, Onset Age: 72 Pacemaker CHF (congestive heart failure) COPD (chronic obstructive pulmonary disease) Hyperlipidemia Hypertriglyceridemia Barretts esophagus Mother Cerebrovascular accident, Onset Age: 72 Depression, Onset Age: 72 Hypertension, Onset Age: 72 Pacemaker Cardiac valve prolapse Grandparent Diabetes mellitus, Onset Age: 65 Cerebrovascular accident, Onset Age: 92 Family history unknown, Onset Age: 65 Sibling Family history of alcoholism, Onset Age: 35 Motor vehicle accident Social History Social History Smoking status: Never smoker Second hand tobacco smoke exposure: No Alcohol intake: never Substance use: never Substance use type: does not use Lack of Transportation: No Lack of Food: Never True Current Housing: I Have Housing Concerned About Future Housing: No Difficulty Paying Gas/Electric Bills: No Difficulty Paying for Meds: No Currently Unemployed: No Education: High School Diploma/GED Difficulty w/ Childcare or Family Care: No Living arrangements: with family Spiritual care concerns: No Meds Home Medications and Allergies Home Medications ?Medication ?Instructions ?Recorded ?Confirmed ?Type aspirin 81 mg tablet,delayed 81 mg PO DAILY 04/13/19 11/12/24 History release (Adult Aspirin Regimen) cholecalciferol (vitamin D3) 50 2,000 unit PO DAILY 10/05/20 11/12/24 History mcg (2,000 unit) capsule esomeprazole magnesium 40 mg 40 mg PO DAILY #90 caps 06/04/24 11/12/24 Rx capsule,delayed release hydrocodone 7.5 mg-acetaminophen 1 tablet PO Q8H PRN pain #30 tabs 07/01/24 11/12/24 Rx 325 mg tablet atorvastatin 80 mg tablet 80 mg PO DAILY #90 tabs 08/11/24 11/12/24 Rx escitalopram oxalate 10 mg tablet 10 mg PO DAILY #90 tabs 08/11/24 11/12/24 Rx losartan 50 mg tablet 50 mg PO DAILY #100 tabs 08/11/24 11/12/24 Rx Allergies Allergy/AdvReac Type Severity Reaction Status Date / Time strawberry Allergy Severe THROAT Verified 11/12/24 09:26 SWELLING Exam Const: General: comfortable, no acute distress, alert and awake HENMT: Head: normocephalic and atraumatic Mouth: Yes Normal oral and palatal mucosa present Eyes: Conjunctivae: conjunctivae normal Pupils: Equal, round and reactive pupils present EOM: EOMs intact bilaterally Neck: Neck: normal visual inspection, no lymphadenopathy and nontender Resp: Effort & Inspection: normal respiratory effort Auscultation: clear to auscultation bilaterally Cardio: Rate: regular rate Rhythm: regular rhythm Heart sounds: no gallops, no murmurs and no rubs GI: Inspection: non-distended, scaphoid, scar (Right lower quadrant, appendectomy) and no visible herniation GI Palp: Yes Soft to palpation, No Tenderness to palpation present (GI), No Hepatomegaly present, No Splenomegaly present and No Hernia present Skin: Lesions: no lesions Rashes: no rashes Neuro: General: no focal motor deficits and CN's II-XI intact bilaterally Cranial nerves: Yes Equal, round and reactive pupils present, Yes Bilaterally intact EOM present, Yes facial symmetry and Yes Midline tongue present Speech: normal speech Motor exam (neuro): 5/5 motor strength present throughout and Motor abnormalities not present Extrem: General: no clubbing, cyanosis or edema and edema Psych: Affect: normal affect Thought process: Normal thought process present Insight: Good insight present (Psych) Assessment and Plan Assessment and plan (1) Paraesophageal hernia: Code(s): K44.9 - Diaphragmatic hernia without obstruction or gangrene Status: Chronic Assessment and Plan: Large by CT scan but not a stage IV paraesophageal he will hernia. (2) Gastroesophageal reflux disease: Qualifiers: Esophagitis presence: with esophagitis Esophagitis bleeding: without hemorrhage Qualified Code(s): K21.00 - Gastro-esophageal reflux disease with esophagitis, without bleeding Code(s): K21.9 - Gastro-esophageal reflux disease without esophagitis Status: Chronic Assessment and Plan: Patient with persistent symptoms of heartburn, dysphagia, regurgitation despite previous esophageal dilation and proton pump inhibitors. The procedure of robotic laparoscopic Andrew fundoplication has been discussed. Usual length of stay in the hospital as well as the recovery period has been discussed. All questions were answered. She wishes to proceed. (3) Back Pain: Qualifiers: Back pain location: back pain in unspecified location Chronicity: chronic Back pain laterality: unspecified Qualified Code(s): M54.9 - Dorsalgia, unspecified; G89.29 - Other chronic pain Code(s): M54.9 - Dorsalgia, unspecified Status: Chronic Assessment and Plan: Takes Siloam 7.5/325 for this but reportedly takes this rarely. With chronic narcotic use, patient may have difficulty controlling postoperative pain.
[2025-01-07 10:20] VITALS: BMI 28.0
--- NOTE | 2025-01-07 10:21 | PC.NURSE ---
[facility] has started construction of its new state of the art ER which will open Spring 2026. With this, we anticipate parking may be a challenge for some our surgical patients and families. Parking spaces are limited but are available for all Surgical, obstetrics, and ER patients sharing this lot. If you arrive and find you are having a hard time finding a parking space, please note that we understand the challenges, please drive around the hospital and park near Hospital Entrance 1. When you enter this entrance, you can ask a volunteer to direct or take you back to the surgical waiting area to check in. We appreciate everyone?s understanding of these expected challenges while we build for your future. Report to the Outpatient Waiting Room, entrance under the green pavilion located off [address], at time _1000_ on date _[id number]_. Planned Procedure Time: _1200_.? Time changes happen often and if your time is changed the preop area will call you the afternoon before. - You and your visitor will be asked to self-screen and do not enter if you have any COVID symptoms. Please call surgeon if you need to reschedule. - A mask is optional within the hospital at this time. Patients may have clear liquids (water, carbonated beverages, clear teas, apple juice) until 3 hours prior to surgery with a maximum of 20 ounces. - No food from midnight until time of surgery and no smoking, or chewing tobacco (or any form of nicotine). No chewing gum, candy or mints. Take only the following medications with a SIP of water on the morning of surgery: __Escitalopram and if needed Hydrocodone. DO NOT STOP ANY OF YOUR OTHER PRESCRIPTION MEDICATIONS PRIOR TO SURGERY EXCEPT THE FOLLOWING Hold all vitamins and supplements for 3 days per anesthesiologist. Medications to discontinue per physician Please ask office about Aspirin. Date to take last dose____ Please no make-up, nail danish, hairspray, perfume, deodorant, or body powder the day of surgery.? No jewelry (including any body piercings) or valuables the day of surgery, leave them at home.? Please take a shower or bath the night before, or the morning of, surgery with an antibacterial soap.? Wear comfortable, loose fitting clothing.? - Jewelry must be removed prior to entering the operating room.? Rings and piercings that are not removed may be cut off. - The hospital will not accept responsibility for valuables.? - Please leave all valuables, including medications, at home the day of surgery. If you are going home after surgery, a licensed sweeper driver must drive you home.? - NO public transportation without another adult if you receive anesthesia. - We recommend that an adult stay with you for 24 hours following discharge. - We also recommend that you do not drive, make important decision, drink alcoholic beverages, or take any drugs that were not prescribed by your health care provider for at least 24 hours after your discharge time. Follow any additional instructions given to you from your surgeon. Telephone instructions given to __Leota__and asked if any additional questions and then verbalized understanding. Patient advised to call surgeon office or pre surgery nurse liaison [phone] if any additional questions.
[2025-01-14] VITALS (13 sets, daily range): BP systolic 109–147; BP diastolic 58–79; PULSE 74–104; RESP 12–18; TEMP 36.6–37.6; O2SAT 94–98; BMI 28.5; BMI 36.7
--- OUTSIDE RECORDS SUMMARY | 2025-01-14 01:59 | XMS_ITS | Clinical Summary ---
Author Organization [facility] Address [address] [place] [address] Care Team Providers Care Rescue Worker Name Role Phone Rajat Weir DO [...] Comments Blood Pressure 179/84 02/21/2022 2:41 PM LEGAL SUMMER INTERN Pulse 69 02/21/2022 2:41 PM LEGAL SUMMER INTERN Temperature 36.8 C (98.3 F) 02/21/2022 2:41 PM LEGAL SUMMER INTERN Respiratory Rate 16 02/21/2022 2:41 PM LEGAL SUMMER INTERN Oxygen Saturation 97% 02/21/2022 2:41 PM LEGAL SUMMER INTERN Inhaled Oxygen Concentration - - Weight 75.2 kg (165 lb 11.2 oz) 02/21/2022 2:41 PM LEGAL SUMMER INTERN Height 162.6 cm (5' 4) 01/25/2021 12:5 7 PM LEGAL SUMMER INTERN Body Mass Index 28.44 01/25/2021 12:57 PM LEGAL SUMMER INTERN Plan of Treatment Health Maintenance Due Date [...] ZOSTER VACCINE Completed 06/07/2018, 07/2018, 05/22/2011 Insurance [facility] Care Teams Rescue Worker Relationship Specialty Start Date End Date Rajat Weir DO [address] [facility] [address] [place] [address] PCP - General Internal Medicine 01/25/21
--- OUTSIDE RECORDS SUMMARY | 2025-01-14 01:59 | XMS_ITS | Encounter Summary ---
Author Organization [facility] Address [address] [facility] [place] [address] Care Team Providers Care Principal Statistical Scientist Name Role Phone Lupis Swan MD Primary Care Provider [phone] Chucho PARDO MD, John J Unavailable [facility] X Ray Technician Unavailable [phone] Marlon Delcid MD Unavailable Unavailable Judah Suh MD Unavailable + Jax Metz MD Unavailable [phone] Jesi Narayanan Unavailable [phone] Jose Alfredo Vasquez DO Unavailable [phone] Duane Garcia MD Unavailable Abril Hicks MD Unavailable [phone] Lupis Swan MD Unavailable [phone] Encounter Details Date Type Department Care Team (Late st Contact Info) Description 05/18/2015 [facility] Outpatient Visit [facility] Orthopedics - Radiology [address] [place] [address] Jose Alfredo Vasquez DO [facility] [address] [address] Social History Tobacco Use Types Packs/Day Years Used Date Smoking Tobacco: Never Smokeless Tobacco: Never Alcohol Use Standard Drinks/Week Comments Yes 0 (1 standard drink = 0.6 oz pur e alcohol) very rare Comments No Sex and Gender Information Value Date Recorded Sex Assigned at Not on file Legal Sex Female 6:23 AM SHELVER Gender Identity Not on file Sexual Orientation [...] on filedocumented in this encounter Care Teams Principal Statistical Scientist Relationship Specialty Start Date End Date Lupis Swan MD PCP - General Internal Medicine 04/21/14 Lupis Swan MD [address] [address] PCP - Attributed-Exclusive Choice 08/31/16 04/18/17 Arnoldo Rankin III, MD Rheumatology 04/21/14 02/20/16 Group, u X Ray Technician [address] [address] 04/21/14 08/27/16 Marlon Delcid MD [address] [facility] [address] [place] [address] Ophthalmology 04/21/14 Judah Suh MD [address] [place] [address] Gastroenterology 04/21/14 Jax Metz MD [address] [place] [address] Gastroenterology 04/21/14 Jesi Narayanan PA [address] [place] [address] 04/21/14 Jose Alfredo Vasquez DO [address] [place] [address] Orthopedic Surgery 05/18/15 Duane Garcia MD 1035 [facility] [address] [place] [address] Rheumatology 02/21/16 Abril Hicks MD 1031 [facility] [address] [place] [address] Obstetrics and Gynecology 08/28/16 documented as of this encounter
--- OUTSIDE RECORDS SUMMARY | 2025-01-14 01:59 | XMS_ITS | Clinical Summary ---
Author Organization [facility] Address [address] [place] [address] Care Team Providers Care Senior Relationship Manager Name Role Phone Lupis Swan MD Primary Care Provider [phone] Marlon Delcid MD Unavailable Unavailable Judah Suh MD Unavailable + Jax Metz MD Unavailable [phone] Jesi Narayanan Unavailable [phone] Jose Alfredo Vasquez DO Unavailable [phone] Duane Garcia MD Unavailable Abril Hicks MD Unavailable [phone] Source Comments [facility],non-owned Affiliates and Associated Physician Practices is amultiple site organization consisting of ambulatory clinics and hospital sitesin [place], [place], [place] and [place]. This disclosure is being madepursuant to the Care Everywhere program and may not contain all information available regarding this patient. Last updated 17.[facility] Allergies Active Allergy Reactions Criticality Noted [...] on file Legal Sex Female 6:23 AM ADULT NEUROPSYCHOLOGIST Gender Identity Not on file Sexual Orientation [...] (197 lb 6.4 oz) 01/22/2017 10:32 AM ADULT NEUROPSYCHOLOGIST Height 162.6 cm (5' 4) 01/22/2017 10:32 AM ADULT NEUROPSYCHOLOGIST Body Mass Index 33.88 01/22/2017 10:32 AM ADULT NEUROPSYCHOLOGIST Plan of Treatment Health Maintenance Due Date [...] this topic Medical Devices Implanted Type Area Director Industrial Relations Device Identifier Shelf Expiration Date Model / Serial / Lot Memory Staple Implanted:Qty: 2 on 02/05/2014 by Mingo Butcher DPM at [facility] Left: Foot MS [id number] / / Cannulaed Screw Implanted:Qty: 1 on 02/05/2014 by Mingo Butcher DPM at [facility] Left: Foot [id number] / / Implt Lens Akreos 21.5 - [id number] Implanted:Qty: 1 on 01/13/2015 by Marlon Delcid MD at [facility] Left: Eye [employer] 11/15/2016 [id number] 21.5 / [id number] / Explanted Type Area Director Industrial Relations Device Identifier Shelf Expiration Date Model / Serial / Lot Memory Staple Explanted:Qty: 1 on 02/05/2014 by Mingo Butcher DPM at [facility] Left: Foot [id number] / / Procedures Procedure Name Priority Date/Time [...] CDT 07/12/2016 Narrative Resulting Agency Comment [facility] [address] [phone] us Lupis Swan MD LAB - CHEMISTRY ORDERABLES F inal Result [facility] INSURANCE BILL [address] [place] [address] * ZACKERY SCREENING DIGITAL IMAGE BILATERAL [id number] (06/12/2016 11:19 AM CDT) Anatomical Region Laterality Modality Breast Bilateral Mammography 06/12/2016 1:15 PM CDT Impressions 06/12/2016 1:37 PM CDT No mammographic evidence of malignancy in either breast. ASSESSMENT: BIRADS Category 1: Negative mammogram. RECOMMENDATION: Bilateral screening mammogram in one year. Thank you for allowing us to participate in the care of your patient. [facility] utilizes [employer]appCloud as a reminder system to notify patients of their next recommended mammogram. Report dictated by Ashley Barnes M.D. (university president) I, Gabriela Layton, have personally reviewed the [...] MD (Doctor), Dawna Ferris RN, Ema Ozuna, Printer Operator Referring MD: Rudy Marroquin MD (Referring [...] verified by the physician, the nurse, the hat lacer and the emergency technician in the pre-procedure area in the [...] pathology results. Procedure Code(s): --- Professional --- 87574, Colonoscopy, flexible, proximal to splenic flexure; with biopsy, single or multiple --- Technical --- 82731, Colonoscopy, flexible, proximal to splenic flexure; with [...] (without mention of hemorrhage) CPT copyright 2013 [employer] [place] [employer]. All rights reserved. The codes documented in this report are preliminary and upon medical coordinator pesticide use review may be revised to meet current compliance requirements. _ Jax Metz MD 06/15/2013 8:06 AM This report has been signed electronically. Number of Addenda: 0 Note Initiated On: 06/15/2013 7:43 AM [facility] 06/15/2013 7:43 AM CDT Narrative [facility] - 06/15/2013 8:08 AM CDT Procedure Note Jax Metz MD - 06/15/2013 8:08 AM CDT us Jax Metz MD GI PROCEDURE ORDERABLES Edited [facility] * DEXA BONE DENSITY 2 [...] Payer (Ef fective for All Dates) Name:[employer] Member ID:Not on file Relation to Subscriber:Not on file Name:PENG CH Subscriber ID:Not on file (Home) Address: [address] [place], [place] [address] Payer ID:Not on file Group ID:Not on file Type:Self Pay Address: [place], [place] Advance Directives Documents on File Type Date Recorded Patient Change Analyst Expl anation Adv Directive/Living Will/POA 09/02/2014 10:09 PM Care Teams Senior Relationship Manager Relationship Specialty Start Date End Date Lupis Swan MD PCP - General Internal Medicine 04/21/14 Marlon Delcid MD Ophthalmology 04/21/14 Judah Suh MD [address] [place] [address] Gastroenterology 04/21/14 Jax Metz MD [address] [place] [address] Gastroenterology 04/21/14 Jesi Narayanan PA [address] [place] [address] 04/21/14 Jose Alfredo Vasquez DO [address] [place] [address] Orthopedic Surgery 05/18/15 Duane Garcia MD [address] [facility] [address] [place] [phone] Rheumatology 02/21/16 Abril Hicks MD [address] [facility] [address] [place] [address] Obstetrics and Gynecology 08/28/16
--- OUTSIDE RECORDS SUMMARY | 2025-01-14 01:59 | XMS_ITS | Clinical Summary ---
Author Organization [facility] Address [address] [place] [address] Care Team Providers Care Solar Tech Name Role Phone Rajat Weir DO Primary [...] on file Legal Sex Female 1:59 AM KNOCKOUT MAN Gender Identity Not on file Sexual Orientation [...] file Insurance [employer] CLAIMS OFFICE Care Teams Solar Tech Relationship Specialty Start Date End Date Rajat Weir DO PCP - General Internal Medicine 11/03/19
--- OUTSIDE RECORDS SUMMARY | 2025-01-14 01:59 | XMS_ITS | Encounter Summary ---
Author Organization [facility] Address [address] [place] [place] [address] Care Team Providers Care Dye Blender Name Role Phone Lupis Swan MD Primary Care Provider [phone] Marlon Delcid MD Unavailable Unavailable Judah Suh MD Unavailable + Jax Metz MD Unavailable [phone] Jesi Narayanan Unavailable Jose Alfredo Vasquez DO Unavailable Duane Garcia MD Unavailable Abril Hicks MD Unavailable [phone] Encounter Details Date Type Department Care Team (Late st Contact Info) Description 09/21/[address] [facility] - DermPath Lab [address] [facility] [place] [address] Kortney Hammond MD [address] [facility] [address] [place] [address] Social History Tobacco Use Types Packs/Day Years Used Date Smoking Tobacco: Never Smokeless Tobacco: Never Alcohol Use Standard Drinks/Week Comments No 0 (1 standard drink = 0.6 oz pure alcohol) very rare, drinks a 1-2 drinks a year Comments No Sex and Gender Information Value Date Recorded Sex Assigned at Not on file Legal Sex Female 6:23 AM MEAT DEPARTMENT MANAGER Gender Identity Not on file Sexual Orientation [...] AM CDT) Case Report Dermatopathology Report Case: [id number] Authorizing Provider: Kortney Hammond MD Collected: 09/21/2024 10:49 AM Ordering Location: [facility] - Received: 09/22/2024 06:47 AM DermPath [...] characteristic determined by the Dermatopathology Laboratory at [facility], directed by Dr. Yanique Ya. These tests need not be, and therefore are not, approved by the [place] Food and Drug Administration. The tests are used for clinical purposes. Billing Codes Specimen Charges Stain Charges 24825 85633 1 1 5:57 PM CDT DERMATOPATHOLOGY LABORATORY Embedded Images 5:57 PM CDT DERMATOPATHOLOGY LABORATORY Pathology/Cytology TISSUE SPECIMEN FROM SKIN / Unknown 09/21/2024 10:49 AM CDT 09/22/2024 6:47 AM CDT Miscellaneous samples (specimen) TISSUE SPECIMEN FROM SKIN / Unknown 09/21/2024 10:49 AM CDT 09/22/2024 6:47 AM CDT us Kortney Hammond MD LAB - PATHOLOGY/CYTOLOGY ORD ERABLES Final Result DERMATOPATHOLOGY LABORATORY [facility] - Department of Dermatology [facility] Medicine [address] [place] [address], [facility] [phone] documented in this encounter Visit Diagnoses Not on filedocumented in this encounter Care Teams Dye Blender Relationship Specialty Start Date End Date Lupis Swan MD PCP - General Internal Medicine 04/21/14 Marlon Delcid MD Ophthalmology 04/21/14 Judah Suh MD [address] [place] [address] Gastroenterology 04/21/14 Jax Metz MD [address] [id number] Gastroenterology 04/21/14 Jesi Narayanan PA [address] [place] [address] 04/21/14 Jose Alfredo Vasquez DO [address] [place] [address] Orthopedic Surgery 05/18/15 Duane Garcia MD [address] [facility] [address] [place] [address] Rheumatology 02/21/16 Abril Hicks MD [address] [facility] [address] [place] [address] Obstetrics and Gynecology 08/28/16 documented as of this encounter
[2025-01-14] MEDS: ACETAMINOPHEN 500 MG TABLET 1000 MG PO (11:00)
[2025-01-14] MEDS: KETOROLAC 15 MG/ML VIAL (*BKC) IV PUSH (11:27)
--- NOTE | 2025-01-14 11:37 | WPDANESEPPF ---
Anes - Initial Pre Proc Eval Procedure: Operation Date: 01/14/25 12:00 Proposed Procedures p Robotic Repair Paraesophageal Hiatal Hernia with Partial Fundoplication - Ronaldo Morelos MD Date/Time: 01/14/25 11:37 Surgeon: Ronaldo Morelos MD Pre Op Diagnosis: gerd, Paraesophageal Hiatal Hernia Patient Data Age: 74 Gender: F Height: 1.63 m Weight: 75.5 kg Last Vital Signs Temp 37.6 C H 01/14/25 10:15 Pulse 75 01/14/25 10:15 Resp 14 01/14/25 10:15 BP 147/79 H 01/14/25 10:15 Pulse Ox 98 01/14/25 10:15 O2 Del Method Room Air 01/14/25 10:15 Allergies Allergy/AdvReac Type Severity Reaction Status Date / Time strawberry Allergy Severe THROAT Verified 01/07/25 10:09 SWELLING Home Medications ?Medication ?Instructions ?Recorded ?Confirmed ?Type aspirin 81 mg tablet,delayed 81 mg PO DAILY 04/13/19 01/07/25 History release (Adult Aspirin Regimen) cholecalciferol (vitamin D3) 50 2,000 unit PO DAILY 10/05/20 01/07/25 History mcg (2,000 unit) capsule esomeprazole magnesium 40 mg 40 mg PO DAILY #90 caps 06/04/24 01/07/25 Rx capsule,delayed release hydrocodone 7.5 mg-acetaminophen 1 tablet PO Q8H PRN pain #30 tabs 07/01/24 01/07/25 Rx 325 mg tablet atorvastatin 80 mg tablet 80 mg PO DAILY #90 tabs 08/11/24 01/07/25 Rx escitalopram oxalate 10 mg tablet 10 mg PO DAILY #90 tabs 08/11/24 01/07/25 Rx losartan 50 mg tablet 50 mg PO DAILY #100 tabs 08/11/24 01/07/25 Rx Laboratory Tests 01/14/25 11:20 Blood Type Pending Antibody Screen Pending Patient hx anesthesia problems: none Family hx anesthesia problems: none Results Review: All pre-operative results and documents have been reviewed as part of the pre-operative evaluation. [facility] Past Medical History Medical History Hyperlipidemia Screening for breast cancer Screening for osteoporosis Abnormal ankle brachial index (TREVOR) Essential (primary) hypertension Cyst of finger 09/19/2016 Actinic keratosis SEE (nonalcoholic steatohepatitis) 10 years ago, secondary to medications at the time, resolved Rib pain on right side Removed 1988 Gastroesophageal reflux disease Arthritis Cholecystectomy planned 2004 Skin cancer Anxiety Colon, diverticulosis Adenomatous colon polyp Nausea and vomiting in adult Surgical History Surgical History History of nasal surgery Biopsy right side of nose- Squamous cell carcinoma. Cyst right side of nose History of liver biopsy 07/14/2007 History of cataract surgery Right: 02/01/2001 Laser Capsulotomy. Left: 01/13/2015 H/O foot surgery X 4 Right foot [id number] Left: 01/2014; bunionectomy/osteotomy 2nd toe Bunionectomy and Hardware removed: 05/23/2015 Left foot tumor removed/nerve relocation: 12/05/2018 H/O vaginal hysterectomy 1988 H/O removal of cyst Right side 1982 History of appendectomy 02/2003 Family History Family History Father Family history of malignant neoplasm Family history of diabetes mellitus in first degree relative Diabetes mellitus, Onset Age: 72 Family history of cardiovascular disease, Onset Age: 72 Family history of malignant neoplasm of esophagus, Onset Age: 72 Pacemaker CHF (congestive heart failure) COPD (chronic obstructive pulmonary disease) Hyperlipidemia Hypertriglyceridemia Barretts esophagus Mother Cerebrovascular accident, Onset Age: 72 Depression, Onset Age: 72 Hypertension, Onset Age: 72 Pacemaker Cardiac valve prolapse Grandparent Diabetes mellitus, Onset Age: 65 Cerebrovascular accident, Onset Age: 92 Family history unknown, Onset Age: 65 Sibling Family history of alcoholism, Onset Age: 35 Motor vehicle accident Social History Social History Smoking status: Never smoker Second hand tobacco smoke exposure: No Alcohol intake: never Substance use: never Substance use type: does not use Lack of Transportation: No Lack of Food: Never True Current Housing: I Have Housing Concerned About Future Housing: No Difficulty Paying Gas/Electric Bills: No Difficulty Paying for Meds: No Currently Unemployed: No Education: High School Diploma/GED Difficulty w/ Childcare or Family Care: No Living arrangements: with family Spiritual care concerns: No Anes - Eval Final PreProcedure Day of Procedure 01/14/25 11:37 Patient weight: overweight Heart: regular rate and rhythm Lungs: clear to auscultation Airway: Mallampati scale class II Neurological: alert and oriented Last oral intake: >/= 8 hours ASA classification: III Emergent: no Anesthetic plan: proceed Anesthesia type and monitoring: general ETT and standard monitoring Results Review: All pre-operative results and documents have been reviewed as part of the pre-operative evaluation. Informed Consent: The patient's anesthetic plan and its attendant risks and benefits were discussed with the patient/family/POA. Questions were solicited and answers provided to the satisfaction of the patient/family/POA.
--- NOTE | 2025-01-14 11:50 | WPDHPUPDATE1 ---
History and Physical Update Update Date/Time: 01/14/25 11:50 History and Physical has been reviewed, including an updated exam of the patient. There are NO changes in the patient's condition. Risks, benefits, and alternatives have been discussed and questions answered. Patient agrees to proceed with procedure.
[2025-01-14] MEDS: ceFAZolin 2 GM in SODIUM CHLORIDE 0.9% IV 50 ML 100 ML IVPB (11:59)
[2025-01-14] MEDS: BUPIVACAINE/EPINEPHRINE 0.5% 50 ML VIAL 30 ML INFILTRATE (13:04)
[2025-01-14] MEDS: LACTATED RINGERS 1,000 ML 30 ML IV CONT ×2 (16:13)
[2025-01-14] MEDS: fentaNYL CITRATE INJ (*CRX) 100 MCG/2 ML VIAL 25 MCG IV PUSH ×4 (16:34→17:44)
--- NOTE | 2025-01-14 17:20 | W.PM.PROC2 ---
Procedure Note - Detailed Date of Procedure 01/14/25 Pre-op Diagnosis gerd, Paraesophageal Hiatal Hernia Post-op Diagnosis Same Procedure Performed Robotic laparoscopic repair large paraesophageal hiatal hernia with partial fundoplication Surgeon Ronaldo Morelos MD Warehouse Shipping Associate Tj Lane D.O. Anesthesia General and Local Indications Patient has had a hiatal hernia for least 10 years. It has gotten worse in the last year to with dysphagia severe heartburn and regurgitation. She had an EGD in September which showed a paraesophageal hiatal hernia. Upper GI and CT scan showed most of her stomach to be herniated into the mediastinum. She is taken to surgery at this time for robotic, laparoscopic repair of her paraesophageal hiatal hernia with partial fundoplication. Findings Large paraesophageal hiatal hernia as suspected by imaging. Description of Procedure Patient was taken to surgery and induced into general anesthesia. The abdomen is prepped and draped. Valdez catheter had been placed. A left upper quadrant 5 mm applied Medical optical trocar was placed 1st. Local was infiltrated prior to placement of each of the trocars. Intra-abdominal insufflation was carried out. Patient was placed in 25 degree in reverse Trendelenburg. Once the trocars were in position, including the 12 mm surgical instrument mechanic port, we brought the robot into the field and docked and positioned the camera and the operating instruments. The surgeon then went to the robotic console. The hepatogastric ligament was divided using the vessel sealer. Vessel sealer was used for all coagulation and hemostasis during the surgery. The hiatus was obviously enlarged and was packed full with the stomach and omentum. I started at the apex of the hiatus and dissected the hernia sac away from the anterior aspect of the mediastinum. I then did some brief dissection to the right and left sides staying in the area older tissue behind the hernia sac. I then divided the attachments of the hernia sac to the right stephanie down to the bottom of the stephanie. I then went back to the apex and divided the hernia sac slightly across the midline to the upper left stephanie but really could not dissect much further as this was tightly packed with stomach, omentum, and very thickened hernia sac or peritoneum. I then went back to the junction of the right and left stephanie posteriorly. I was able to dissect some of the hernia sac and peritoneum off the junction and exposed the lower aspect of the left stephanie. I then continued dissecting on the right side of the stomach and esophagus and slowly mobilizing the hernia sac and stomach to the opening of the hiatus. I then went to the lateral aspect of the upper stomach. Medial traction on the stomach and lateral traction on the omentum was provided. I then used the vessel sealer and gain access to the lesser sac. There were several adhesions to the back of the stomach and there was still a lot of stomach that was herniated. We continued dividing the omentum from the greater curvature. Eventually, I was able to reduce all the stomach back into the abdomen. The greater omentum was also reduced. There was still a lot of hernia sac in the mediastinum and a very thickened hernia sac at the medial edge of the left stephanie. We continued our dissection, dividing this very thickened hernia sac and freeing it from the upper aspect of the greater curvature and fundus of the stomach. Short gastric vessels in the vicinity the spleen were also divided with the vessel sealer and cause no bleeding. Then further dissection of the hernia sac on the left side of the esophagus was carried out freeing the hernia sac from the mediastinal structures using both blunt dissection and the vessel sealer. Eventually the hernia sac was able to be reduced into the general abdominal cavity through the hiatus. It was understandably, a very large hernia sac. I continued using the vessel sealer and eventually freed the hernia sac from the stomach and the left stephanie entirely. Once it was freed, I divided the hernia sac so that it was more of a long narrow piece of tissue. It was then able to be removed through the surgical device sales representative 12 mm port in the supraumbilical area. With the hernia sac removed, the stomach had been reduced to inside the abdomen entirely. There was also a couple of cm of esophagus in the abdomen. I then went ahead and performed the hiatal dissection. I started with the anterior dissection and then proceeded to the right posterolateral and then left posterolateral dissection. I took care to avoid the pleura throughout. We dissected very high in the mediastinum. The vessel sealer was used throughout and bleeding was minimal. Once this dissection was completed I then backed the instruments out of the mediastinum and reviewed the intra-abdominal esophagus. It appeared there was at least 5 if not 6 cm of intra-abdominal esophagus. I then closed the diaphragmatic hiatus with a [id number] mattress suture of 0 Ethibond to close the right and left stephanie posterior to the esophagus. A 2nd suture was required and this was placed at the apex of the esophagus to avoid causing acute angulation of the esophagus as it came through the hiatus. The crural closure looked good. I then passed the fundus under the esophagus and positioned the right side of the fundus appropriately. 0 Ethibond sutures were then placed in interrupted fashion. Two sutures were used to suture the esophagus, hiatus, and fundus. The 3rd suture sutured only hiatus and fundus. I then looked at the left side of the esophagus. In similar fashion on the left side, two, 0 Ethibond suture, were placed in interrupted fashion to suture fundus to hiatus and to the esophagus moving from posterior to anterior with each stitch. Finally, a 3rd 0 Ethibond was used to suture the fundus to the apex of the hiatus. This pattern of posterior to anterior had been used on the right side of the esophagus for the fundoplication as well. Once completed, a 270 degree wrap had been formed with fundopexy as well. All loose suture material was removed from the abdomen. We then inspected the liver and the areas of dissection. All looked good with no evidence of injury or bleeding. We then removed the robotic instruments and undocked the robot. Trocars were all removed. The fascia at the 12 mm child care center assistant director port was closed with 0 Vicryl suture. All skin wounds were closed with subcuticular 4-0 Monocryl skin suture. The wounds were dressed with Exofin surgical adhesive. Valdez catheter was removed. Patient was awakened and extubated. She was taken to recovery in good condition. Sponge and needle counts were correct x2. Estimated Blood Loss 100 Drains No Packing No Pathology None sent Complications None Condition Stable Disposition PACU [facility] Billing Surgery - Charge Forward: Surgery Billing (Robotic laparoscopic repair paraesophageal hiatal hernia with partial fundoplication)
[2025-01-14] MEDS: LACTATED RINGERS 1,000 ML 100 ML IV CONT (18:17)
[2025-01-14] MEDS: ENOXAPARIN 30 MG/0.3 ML SYRINGE SUB-Q (20:50)
[2025-01-15] VITALS (7 sets, daily range): BP systolic 128–154; BP diastolic 58–76; PULSE 78–93; RESP 16–20; TEMP 36.2–37; O2SAT 93–96
[2025-01-15] MEDS: MORPHINE SULFATE (*CRX) 4 MG/ML INJ 2 MG IV PUSH (00:24)
[2025-01-15] MEDS: LACTATED RINGERS 1,000 ML 100 ML IV CONT (04:50)
[2025-01-15] MEDS: ACETAMINOPHEN ELIXIR 325 MG/10.15 ML UDC 650 MG PO ×2 (06:26→17:02)
[2025-01-15 06:38] LABS: Anion Gap 5 mmol/L (4-12); Blood Urea Nitrogen 14 mg/dL (7-17); Calcium 8.7 mg/dL (8.4-10.2); Carbon Dioxide 30 mmol/L (22-30); Chloride 99 mmol/L (98-107); Estimated CRCL calculation 77 ml/min; Estimated Glomerular Filt Rate > 60; Glucose 114 mg/dL (65-110); Potassium 4.4 mmol/L (3.4-5.0); Sodium 134 mmol/L (137-145)
[2025-01-15 06:51] LABS: Hematocrit 35.7 % (37.0-47.0); Hemoglobin 11.1 g/dL (12.0-15.0); Mean Corpuscular HGB Conc 31.1 g/dl (32-36); Mean Corpuscular Hemoglobin 28.0 pg (26-34); Mean Corpuscular Volume 89.9 fl (80-100); Platelet Count Result 214 k/mm3 (150-375); Red Blood Count 3.97 M/mm3 (4.2-5.4); White Blood Count 7.9 K/mm3 (4.5-10.0)
[2025-01-15] MEDS: ESCITALOPRAM OXALATE 10 MG TABLET PO (08:17)
[2025-01-15] MEDS: ENOXAPARIN 30 MG/0.3 ML SYRINGE SUB-Q (08:17)
[2025-01-15] MEDS: LOSARTAN POTASSIUM 50 MG TABLET PO (08:17)
--- NOTE | 2025-01-15 08:31 | PM.PNGS ---
Progress Note: A&P Assessment and Plan (1) Paraesophageal hernia: Code(s): K44.9 - Diaphragmatic hernia without obstruction or gangrene Status: Chronic Assessment and Plan: - POD#1 s/p paraesophageal hernia repair with toupet fundoplication -Doing well postoperatively, tolerating CLD, will advance diet to FLD today -DC IVF -Ambulate -PRN pain control -IS 10X/hr -DVT PPx with lovenox -Possibly DC home tomorrow, will continue to monitor for dysphagia A&P discussed with Dr. Morelos (2) Dysphagia: Code(s): R13.10 - Dysphagia, unspecified Status: Acute Assessment and Plan: reports significantly improved after undergoing paraesophageal hernia repair 01/14 (3) Gastroesophageal reflux disease: Qualifiers: Esophagitis bleeding: without hemorrhage Esophagitis presence: with esophagitis Qualified Code(s): K21.00 - Gastro-esophageal reflux disease with esophagitis, without bleeding Code(s): K21.9 - Gastro-esophageal reflux disease without esophagitis Status: Chronic Assessment and Plan: -reports none since surgery, likely to improve postoperatively (4) Essential (primary) hypertension: Code(s): I10 - Essential (primary) hypertension Status: Acute Assessment and Plan: continue home meds (5) Osteoarthritis: Qualifiers: Osteoarthritis location: multiple joints Osteoarthritis type: unspecified Qualified Code(s): M15.9 - Polyosteoarthritis, unspecified Code(s): M19.90 - Unspecified osteoarthritis, unspecified site Status: Acute Assessment and Plan: continue home therapy (6) Back Pain: Qualifiers: Back pain laterality: unspecified Back pain location: back pain in unspecified location Chronicity: chronic Qualified Code(s): M54.9 - Dorsalgia, unspecified; G89.29 - Other chronic pain Code(s): M54.9 - Dorsalgia, unspecified Status: Chronic Assessment and Plan: continue home therapy Subjective Subjective Date/Time Seen: 01/15/25 08:31 Interval history: NAEON. Doing very well this morning. Tolerating CLD without any dysphagia. Pain well controlled. Urinating, passing flatus, ambulating. Incisons CDI. Pulling 1500 on IS, on RA, VSS, afebrile. Says she feels great and is asking about when she can discharge home. Review of Systems Review of Systems: All systems reviewed & are unremarkable except as noted in HPI and below (HPI) Musculoskeletal: Musculoskeletal: Reports back pain (Chronic, takes Seaman 7.5/325 p.r.n. takes rarely.) Exam Narrative: General: Awake, alert, NAD HEENT: NCAT, EOMI, mucous membranes pink and moist Neck: No masses or swelling, no JVD, some subcutaneous crepitus Heart: RR, HDS Lungs: Symmetric expansion, no IWOB, on RA, pulling 1500 on IS Abdomen: Soft, aTTP, ND, nonperitoneal, incisions CDI Extremities: Moves all, no edema Psych: Normal affect, normal mood, normal judgment Objective Data Vital Signs Vital Signs: Vital Signs - 24 hr 01/14/25 10:15 01/14/25 16:13 01/14/25 16:28 Temperature 99.7 F H 99.1 F Pulse Rate 75 104 H 94 Respiratory Rate 14 13 12 Blood Pressure 147/79 H 109/58 L 128/70 Pulse Oximetry 98 98 98 Oxygen Delivery Room Air Simple Face Mask Simple Face Mask Oxygen Flow Rate 8 8 01/14/25 16:43 01/14/25 16:50 01/14/25 17:00 Temperature Pulse Rate 90 90 90 Respiratory Rate 14 14 14 Blood Pressure 138/70 123/66 135/65 Pulse Oximetry 98 95 95 Oxygen Delivery Room Air Nasal Cannula Nasal Cannula Oxygen Flow Rate 3 3 01/14/25 17:15 01/14/25 17:30 01/14/25 17:44 Temperature 97.8 F Pulse Rate 86 84 80 Respiratory Rate 14 12 14 Blood Pressure 128/62 130/65 137/62 Pulse Oximetry 95 95 96 Oxygen Delivery Nasal Cannula Nasal Cannula Nasal Cannula Oxygen Flow Rate 3 2 2 01/14/25 19:17 01/14/25 19:21 01/14/25 20:00 Temperature 98.0 F 98.0 F Pulse Rate 74 74 74 Respiratory Rate 18 18 18 Blood Pressure 142/72 H 142/72 H Pulse Oximetry 96 96 96 Oxygen Delivery Nasal Cannula Oxygen Flow Rate 2 01/14/25 23:10 01/14/25 23:10 01/15/25 00:34 Temperature 98.0 F Pulse Rate 74 Respiratory Rate 18 Blood Pressure 142/72 H Pulse Oximetry 96 94 Oxygen Delivery Room Air Room Air Oxygen Flow Rate 01/15/25 03:31 01/15/25 03:52 01/15/25 08:00 Temperature 98.6 F 98.6 F 98.5 F Pulse Rate 78 78 82 Respiratory Rate 20 20 16 Blood Pressure 134/66 154/66 H 140/75 Pulse Oximetry 94 94 94 Oxygen Delivery Oxygen Flow Rate Intake/Output Intake/Output: Intake & Output 01/12/25 01/13/25 01/14/25 01/15/25 23:59 23:59 23:59 23:59 Intake Total 250 1490 Balance 250 1490 Meds/Results Medications: Active Medications Generic Name Dose Route Start Last Admin Trade Name Freq PRN Reason Stop Dose Admin Acetaminophen 650 mg 01/14/25 17:46 01/15/25 06:26 Acetaminophen Elixir 325 Mg/10.15 Ml Udc PO 650 mg Q6H PRN Administration Mild Pain (1-3) or Fever Enoxaparin Sodium 30 mg 01/14/25 21:00 01/15/25 08:17 Enoxaparin 30 Mg/0.3 Ml Syringe SUB-Q 30 mg Q12HR ROBERT Administration Escitalopram Oxalate 10 mg 01/15/25 09:00 01/15/25 08:17 Escitalopram Oxalate 10 Mg Tablet PO 10 mg DAILY ROBERT Administration Lactated Ringer's 1,000 mls @ 100 mls/hr 01/14/25 17:46 01/15/25 04:50 Lr - Lactated Ringers Iv IV CONT 100 mls/hr .Q10H ROBERT Administration Ibuprofen 800 mg in 200 mls @ 400 mls/hr 01/14/25 17:46 Caldolor 800 Mg/200 Ml IVPB Q6H PRN Breakthrough Pain Rated 1-3 or NPO Losartan Potassium 50 mg 01/15/25 09:00 01/15/25 08:17 Losartan Potassium 50 Mg Tablet PO 50 mg DAILY ROBERT Administration Morphine Sulfate 1 mg 01/14/25 17:46 Morphine Sulfate (*Crx) 4 Mg/Ml Inj IV PUSH Q2H PRN Breakthrough Pain Rated 4-6 or NPO Morphine Sulfate 2 mg 01/14/25 17:46 01/15/25 00:24 Morphine Sulfate (*Crx) 4 Mg/Ml Inj IV PUSH 2 mg Q2H PRN Administration Breakthrough Pain Rated 7-10 or NPO Naloxone HCl 0.1 mg 01/14/25 17:46 Naloxone Hcl 0.4 Mg/Ml Vial IV PUSH Q2M PRN Opiate Reversal Oxycodone HCl 5 mg 01/14/25 17:46 Oxycodone (*Crx) 5 Mg/5 Ml Oral Soln Ir PO Q4H PRN Pain Rated 4-6 Oxycodone HCl 10 mg 01/14/25 17:46 Oxycodone (*Crx) 5 Mg/5 Ml Oral Soln Ir PO Q6H PRN Pain Rated 7-10 Polyethylene Glycol 17 gm 01/15/25 09:00 01/15/25 08:16 Polyethylene Glycol 3350 17 Gm Powd.Pack PO 17 gm QAM ROBERT Administration Labs Labs: Laboratory Results - last 24 hr 01/14/25 01/15/25 11:20 05:12 WBC 7.9 RBC 3.97 L Hgb 11.1 L Hct 35.7 L MCV 89.9 MCH 28.0 MCHC 31.1 L RDW 12.3 Plt Count 214 MPV 10.2 Sodium 134 L Potassium 4.4 Chloride 99 Carbon Dioxide 30 Anion Gap 5 BUN 14 D Creatinine 0.63 L Estim Creat Clear Calc 77 Estimated GFR > 60 Glucose 114 H Calcium 8.7 Blood Type O Positive Antibody Screen Negative
[2025-01-16 06:00] VITALS: BP 153/74; PULSE 87; RESP 16; TEMP 36.6; O2SAT 95
[2025-01-16] MEDS: LOSARTAN POTASSIUM 50 MG TABLET PO (08:13)
[2025-01-16] MEDS: ESCITALOPRAM OXALATE 10 MG TABLET PO (08:13)
[2025-01-16] MEDS: ENOXAPARIN 30 MG/0.3 ML SYRINGE SUB-Q (08:14)
--- NOTE | 2025-01-16 13:09 | P.DS_ITS ---
DS: Admitting Diagnosis Discharge Date 01/16/2025 Admitting Diagnosis paraesophageal hiatal hernia with reflux and dysphagia DS: Discharge Diagnosis Discharge Diagnosis (1) Paraesophageal hernia: Code(s): K44.9 - Diaphragmatic hernia without obstruction or gangrene Status: Chronic (2) Dysphagia: Qualifiers: Dysphagia type: esophageal phase Qualified Code(s): R13.19 - Other dysphagia Code(s): R13.10 - Dysphagia, unspecified Status: Chronic (3) Gastroesophageal reflux disease: Qualifiers: Esophagitis presence: with esophagitis Esophagitis bleeding: without hemorrhage Qualified Code(s): K21.00 - Gastro-esophageal reflux disease with esophagitis, without bleeding Code(s): K21.9 - Gastro-esophageal reflux disease without esophagitis Status: Chronic DS: Summary Hospital Course Hospital Course: patient had preoperative testing as an outpatient. She has had a hiatal hernia for over 10 years but in the last 2-3 years had severe dysphagia, regurgitation, heartburn. Upper endoscopy done in September of 2024 showed a large paraesophageal hiatal hernia. Subsequent imaging with an upper GI as well as a CT scan showed a very large hiatal hernia. After discussion, the patient was taken to surgery on 01/14/2025. Robotic laparoscopic repair of very large hiatal hernia was performed. Partial fundoplication as well as fundal pexy was performed as well. Postoperatively patient had very little pain and was tolerating liquids well on postop day 1. She was advanced to full liquids and improved. On postop day 2. She was not taking any pain medication, not having any reflux or dysphagia, and was tolerating the full liquids nicely. She is discharged at this time in good condition. Status at Discharge Functional status at discharge: independent ambulation Overall status at discharge: patient is progressing back to baseline Time Spent with Patient Time attestation: Total time spent providing and/or coordinating discharge services: Time spent: Less than 30 minutes Discharge Plan Discharge Attending physician on discharge: Ronaldo Morelos Discharging Clinician: Ronaldo Morelos Anticipated Discharge Date/Time: 01/16/25 13:13 Patient Disposition: Home Activity: may shower, no straining and as tolerated Diet: other - see discharge instructions Wound Care Instructions: incision open to air Discharge Instructions: * Ambulate 3-4 x per day and as tolerated. * No lifting over 15-20lbs. * May bathe or shower. Wash over incisions with soap and water. * Stairs are OK. * May drive a car in 3 days. * Stay on full or thickened liquid diet until see Dr. Morelos in the office. Small drinks/bites and wait between drinks/bites. * Stop NEXIUM * See Dr. Morelos in office in 2 weeks. Call if any problems prior to office visit. * Try to drink protein shakes as you have been to get enough protein. Patient Instructions: Antibiotic Form Patient Language: [place] Stand Alone Forms: General Discharge Information Follow-up/Referrals: Ronaldo Morelos MD [Physician, General Surgery] - 2 Weeks Roxi Jeter, [employer], [employer] [Primary Care Provider, Internal Medicine] - 4 Weeks Discharge Medications: New polyethylene glycol 3350 [Miralax] 17 gram Powder In Packet 17 g PO QAM Qty: 10 0RF Continued aspirin [Adult Aspirin Regimen] 81 mg tablet,delayed release (DR/EC) 81 mg PO DAILY cholecalciferol (vitamin D3) 50 mcg (2,000 unit) capsule 2,000 unit PO DAILY hydrocodone-acetaminophen 7.5-325 mg tablet 1 tablet PO Q8H PRN (Reason: pain) Qty: 30 0RF losartan 50 mg tablet 50 mg PO DAILY Qty: 100 1RF escitalopram oxalate 10 mg tablet 10 mg PO DAILY Qty: 90 1RF atorvastatin 80 mg tablet 80 mg PO DAILY Qty: 90 1RF Discontinued esomeprazole magnesium 40 mg capsule,delayed release(DR/EC) 40 mg PO DAILY Qty: 90 3RF Date of admission: 01/15/25 10:14 Primary Care Provider: Roxi Jeter Admitting Provider: Ronaldo Morelos Attending physician on admission: Ronaldo Morelos Condition: Improved
== END 2025-01-16 13:35 | disposition home or self-care (01) ==
LOC: ANHSURGERY 10:48 → ANH3MEDSUR 10:48
PROVIDERS: Admitting Provider Surgery; PCP Clinical Nurse Specialist; Visit Provider Surgery
PROC: 0DV44ZZ Restriction of Esophagogastric Junction, Percutaneous Endoscopic Approach (ICD-10-PCS; CPT 43280; principal; 2025-01-14 12:00)
DX: K44.9 Diaphragmatic hernia without obstruction or gangrene (principal); R13.10 Dysphagia, unspecified; E78.5 Hyperlipidemia, unspecified; I10 Essential (primary) hypertension; K21.00 Gastro-esophageal reflux disease with esophagitis, without bleeding; M54.9 Dorsalgia, unspecified; K75.81 Nonalcoholic steatohepatitis (NASH); M15.9 Polyosteoarthritis, unspecified; D04.39 Carcinoma in situ of skin of other parts of face; Z90.49 Acquired absence of other specified parts of digestive tract; Z79.82 Long term (current) use of aspirin; Z79.1 Long term (current) use of non-steroidal anti-inflammatories (NSAID); Z79.891 Long term (current) use of opiate analgesic; Z80.9 Family history of malignant neoplasm, unspecified; Z80.0 Family history of malignant neoplasm of digestive organs; Z83.3 Family history of diabetes mellitus; Z82.49 Family history of ischemic heart disease and other diseases of the circulatory system; Z82.3 Family history of stroke
CPT/HCPCS: 43281; 36415; 80048; 85027; 86850; 86900; 86901; J0690; A9270; G0378; J1650; J1885; J2250; J2270; J2704; J3010; J7120